=== PATIENT | female | born 1955 | race Caucasian/White ===

== ENCOUNTER → 2021-02-21 | Outpatient (CLI) | payer BC ==
--- NOTE | 2021-02-21 18:04 | Diagnostic Imaging Report ---
INDICATION: Pain. FINDINGS: There is a nondisplaced intra-articular fracture of the distal radius. There is no other fracture or dislocation. There are degenerative changes in the mid carpal joints. Soft tissues are grossly unremarkable. IMPRESSION: Nondisplaced intra-articular fracture of the distal radius. Dictated by: Dictated on workstation # [id number]
--- NOTE | 2021-02-21 18:44 | Diagnostic Imaging Report ---
INDICATION: Pain. Two views of the right forearm were obtained. FINDINGS: There is a nondisplaced radial styloid fracture. There is no other fracture or dislocation. Soft tissues are unremarkable. IMPRESSION: Findings suspect for nondisplaced radial styloid fracture. Dictated by: Dictated on workstation # [id number]
== END ==
LOC: RAD FS 17:22
PROVIDERS: ATTEND Nurse Practitioner
DX: S52.571A Other intraarticular fracture of lower end of right radius, initial encounter for closed fracture (principal); X58.XXXA Exposure to other specified factors, initial encounter
CPT/HCPCS: 73090; 73110

== ENCOUNTER 2022-12-27 04:05 | Inpatient (IN) | payer MEDICARE, OTHER ==
[~2022-12-27] VITALS: Ht 175.3 cm; Wt 97.2 kg
--- NOTE | 2022-12-27 13:15 | Occupational Therapy Eval ---
OT Evaluation-General/PLF Medical Diagnosis Admission Date Medical Diagnosis: MMT; R scapula/acromion fx Onset Date: December 19, 2022 Therapy Diagnosis Therapy Diagnosis: decreased ADL status Weight Bear Status Weight Bearing Restriction: Non Weight Bearing Location Restriction: R UE Referral Physician: Sara Bobo Reason: Evaluation/Treatment Medical History Additional Medical History no significant PMH Current History ED 12/19/22 after fall down basement stairs, landing on head and R side. Found to havce R scapula fx, R acromion fx, R 3-11 fxs with tiny apical pneumothorax, scalp laceration. RUE immobilizer and NWB. Transfer to [facility] [address] 12/27/22 Social History Home: Multilevel Current Living Status: Spouse Entry Into Home: Stairs With Railing (b/l hand rails) Steps Into Home: 3 Can live on main level, bedroom, bathroom, kitchen, laundry. Upstairs is extra loft area and guest rooms. She has a full basement, doesn't need to access. ADL-Prior Level of Function SCALE: Activities may be completed with or without assistive devices. 4-Afwsxakpab-dmdxyge completes the activity by him/herself with no assistance from a helper. 5-Set-up or Clean-up Assistance-helper sets up or cleans up; patient completes activity. [place] assists only prior to or following the activity. 4-Supervision or Touching Assistance-helper provides verbal cues and/or touchin g/steadying and/or contact guard assistance as patient completes activity. Assistance may be provided throughout the activity or intermittently. 3-Partial/Moderate Assistance-helper does LESS THAN HALF the effort. [place] lifts, holds or supports trunk or limbs, but provides less than half the effort. 2-Substantial/Maximal Assistance-helper does MORE THAN HALF the effort. [place] lifts or holds trunk or limbs and provides more than half the effort. 4-Afsedobsn-ctpdmb does ALL the effort. Patient does none of the effort to complete the activity. Or, the assistance of 2 or more helpers is required for the patient to complete the activity. If activity was not attempted, code reason: 7-Patient Refused. 9-Not Applicable-not attempted and the patient did not perform the activity before the current illness, exacerbation or injury. 10-Not Attempted due to Environmental Limitations-(lack of equipment, weather restraints, etc.). 88-Not Attempted due to Medical Conditions or Safety Concerns. ADL PLOF Comments Pt reports IND with ADLS and functional mobility, no AD. Self Care: Independent Functional Cognition: Independent DME/Equipment: Shower Drive Self: Yes OT Current Status Subjective Pt agreeable to OT evaluation. 5/10 pain in R shoulder blade and rib. Mental Status/Objective Patient Orientation: Person, Place, Time, Situation Current Glasses/Contacts: Yes Hearing Aids: No Dentures/Partials: No Hand Dominance: Left Upper Extremity ROM RUE not tested due to shoulder immobilizer, WFL at wrist/fingers. Upper Extremity Coordination WFL at hands Upper Extremity Sensation WFL Upper Extremity Strength RUE not tested due to shoulder immobilizer, WFL desulfurizer hand LUE grossly 4/5 ADL-Treatment Eating (QC): 5 (set up with containers.) Oral Hygiene (QC): 6 Shower/Bathe Self (QC): 3 Upper Body Dressing (QC): 2 Lower Body Dressing (QC): 4 (CGA) On/Off Footwear (QC): 3 (mod A) Toileting Hygiene (QC): 4 (CGA) Other Treatments Pt provided information about PLOF and home set up. Pt performed functional mobility to bathroom using SPC, CGA, CGA sit onto toilet. Pt completed toileting with CGA, then stood from toilet using GBs with SBA. Pt stood at sink for hand hygiene with SBA, then returned to recliner, no AD, CGA. Pt ate lunch, set up to open containers. Post tx, pt seated in recliner, PT present, all needs met. Education OT Patient Education: Correct positioning, Energy conservation, Modified ADL techniques, Progress toward Goal/Update tx plan, Purpose of tx/functional activities, Rehab process Teaching Recipient: Patient Teaching Methods: Discussion Response to Teaching: Verbalize Understanding BIMS CAM BIMS Expression of Ideas and Wants: Without Difficulty Understanding Verbal Content: Understands Brief Interview/Mental Status: Yes IRF JAVY BIMS: IRF JAVY BIMS Response (Comments) Value Repitition of Three Words Three 3 Recalls Socks Yes, No Cue Required 2 Recalls Blue Yes, No Cue Required 2 Recalls Bed Yes, No Cue Required 2 Year Correct 3 Month Accurate Within 5 Days 2 Day Correct 1 Total [address] Mental [address] No CAM Mental Status Change/Baseline: 0 Inattention: 0 Disorganized thinkin Altered level of consciousness: 0 OT Longterm Goals Powder Coater Goals Time Frame: Jan 12, 2023 Eating (QC): 6 Oral Hygiene (QC): 6 Toileting Hygiene (QC): 6 Shower/Bathe Self (QC): 6 Upper Body Dressing (QC): 6 Lower Body Dressing (QC): 6 On/Off Footwear (QC): 6 Additional Goals: 1-Demonstrate ADL Tasks, 2-Verbalize Understanding, 3- ImproveStrength/Oral 1=Demonstrate adherence to instructed precautions during ADL tasks. 2=Patient will verbalize/demonstrate understanding of assistive devices/modifications for ADL. 3=Patient will improve strength/tolerance for activity to enable patient to perform ADL's. OT Education/Plan Problem List/Assessment Assessment: Decreased Activ Tolerance, Decreased UE Strength, Impaired Funct Balance, Impaired I ADL's, Impaired Self-Care Skills, Restricted Funct UE ROM Discharge Recommendations Plan/Recommendations: Continue POC Equpiment Recommendations-D/C: Bath Chair Treatment Plan/Plan of Care Patient would benefit from OT for education, treatment and training to promote independence in ADL's, mobility, safety and/or upper extremity function for ADL's. Plan of Care: ADL Retraining, Functional Mobility, Group Exercise/Act as Ind, UE Funct Exercise/Act Treatment Duration: Jan 12, 2023 Frequency: At least 5 of 7 days/Wk (IRF) Estimated Hrs Per Day: 1.5 hours per day Agreement: Yes Rehab Potential: Good Time Start Time: 13:05 Stop Time: 13:20 DATE: December 27, 2022 Total Time Billed (hr/min): 15 Billed Treatment Time TRICIA Pabon ADDISON OT December 27, 2022 13:15
--- OUTSIDE RECORDS SUMMARY | 2022-12-27 13:16 | XMS REPORT | Encounter Summary ---
Author Author [facility] Organization [facility] Address Unknown Phone Unavailable Care Team Providers Care Pedal Assembler Name Role Phone No Pcp, Na PCP Unavailable Reason for Visit * Auth/Cert (Routine) Diagnoses / Procedures Referred By Contact Referred To Conta ct Specialty Diagnoses Trauma Referral ID Status Reason Start Date Expiration Visits Vi sits Date Requested Authorized [id number] 1 1 Encounter Details Care Team Description Date Type Department Carloz De Dios MD [address] [place] [address] 12/20/2022 Anesthesia Intensive Care Unit [id number]: 9:41 PM Event [facility] CDT [address] [facility] [address] [place] [address] Anesthesia Record Responsible Anesthesiologist Anesthesia Start Time Anesthesi a Stop Time Procedure Name ANESTHESIA EPIDURAL BLOCK No events on file. Meds Name Total lidocaine 1.5% /EPINEPHrine 1:200,000 5 mL epidural test dose (5 mL amp) lidocaine PF 1% (10 mg/mL) injection 5 mL lidocaine PF 1% (10 mg/mL) injection 3 mL * No agents on file. * No blood administrations on file. Removal Type Details Placement 12/25/22 1100 by Quyen Aburto MD Epidural 12/20/22; 2119 (created via procedure 12/20/222119 by amanda De Dios); 12/25/22; 1099 (Removed MD Carloz with blue tip intact) documented in this encounter Social History Date Tobacco Use Types Packs/Day Years Used Smoking Tobacco: Never Smokeless Tobacco: Never Date Recorded Alcohol Use Answer Alcohol Use Not on file Male: 9+ ounces (15+ Standard Drinks) per week Not o n file Threshold Female: 4.8+ ounces (8+ Standard Drinks) per week 0 Threshold Date Recorded Sex and Gender Information Value 12/19/2022 6:29 PM CDT Sex Assigned at Female 12/19/2022 6:29 PM CDT Gender Identity Female Sexual Orientation Not on file Date Recorded COVID-19 Exposure Response 12/19/2022 6:19 PM CDT In the last 10 days, have you been in contact with N o / Unsure someone who was confirmed or suspected to have Coronavirus/COVID-19? documented as of this encounter Functional Status Date of Assessment Functional Status Response 12/19/2022 Does the patient have a hearing impairment: No documented as of this encounter OR Notes * Anesthesia Procedure Notes - Magdalena Bhatti MD - 12/20/2022 9:41 PM CDT Associated Order(s): EPIDURAL BLOCK Anesthesia Procedure: Epidural Block EPIDURAL BLOCK Date/Time: 12/20/2022 9:20 PM Patient location: ICU Reason for block: post-op pain management Preprocedure checklist performed: 2 patient identifiers, risks & benefits discussed, patient evaluated, timeout performed, consent obtained, patient being monitored, existing labs reviewed, no anticoagulant within risk period and sterile drape Sterile technique: - Proper hand washing - Cap, mask - Sterile gloves - Skin prep for antisepsis Epidural Procedure Patient position: sitting Prep: ChloraPrep Monitoring: BP, EKG and continuous pulse ox Approach: midline Location: thoracic Level/Interspace: T7-8 Injection technique: SEBAS saline Procedures: landmark technique Number of attempts: 1 Needle/epidural catheter: Needle type: Tuohy Needle gauge: 17 G Needle length: 3.5 in Needle insertion depth: 7 cm Catheter type: wire reinforced and multi orifice Catheter size: 19 G Catheter at skin depth: 12 cm Procedure Outcome Events: negative test dose, no paresthesia and negative aspiration test Patient tolerance of procedure: patient tolerated the procedure well with no imm ediate complications} Procedure Medications Local Anesthesia: lidocaine PF 1% (10 mg/mL) injection - Injection 5 mL - 12/20/2022 9:20:00 PM Test Dose: lidocaine 1.5% /EPINEPHrine 1:200,000 epidural test dose (5 mL amp) - SEE ADMIN INSTRUCTIONS 5 mL - 12/20/2022 9:20:00 PM Bolus Dose: lidocaine PF 1% (10 mg/mL) injection - Epidural 3 mL - 12/20/2022 9:20:00 PM Refer to nursing documentation for vitals and monitoring data during procedure. Performed by: Carloz De Dios MD Authorized by: Magdalena Bhatti MD ATTESTATION I was present for entire procedure peformed by resident/CHRISTIAN COUNSELOR/SRNA Staff name: Magdalena Bhatti MD Date: 12/20/2022 documented in this encounter Plan of Treatment Not on filedocumented as of this encounter Goals Goal Patient Associated Recent Progress Patient-Stat Aut hor Goal Type Problems ed? [facility] On track (12/20/2022 No Robert meza, 2:15 AM CDT) CHUY Rob documented as of this encounter Procedures Comments Procedure Name Priority Date/Time Associated Diag nosis ANESTHESIA EPIDURAL BLOCK Routine 12/20/2022 9:20 PM CDT documented in this encounter Results * ANESTHESIA EPIDURAL BLOCK (12/20/2022 9:20 PM CDT) Narrative Magdalena Bhatti MD - 12/20/2022 9:20 PM CDT Magdalena Bhatti MD 12/20/2022 9:50 PM Anesthesia Procedure: Epidural Block EPIDURAL BLOCK Date/Time: 12/20/2022 9:20 PM Patient location: ICU Reason for block: post-op pain management Preprocedure checklist performed: 2 patient identifiers, risks & benefits discussed, patient evaluated, timeout performed, consent obtained, patient being monitored, existing labs reviewed, no anticoagulant within risk period and sterile drape Sterile technique: - Proper hand washing - Cap, mask - Sterile gloves - Skin prep for antisepsis Epidural Procedure Patient position: sitting Prep: ChloraPrep Monitoring: BP, EKG and continuous pulse ox Approach: midline Location: thoracic Level/Interspace: T7-8 Injection technique: SEBAS saline Procedures: landmark technique Number of attempts: 1 Needle/epidural catheter: Needle type: Tuohy Needle gauge: 17 G Needle length: 3.5 in Needle insertion depth: 7 cm Catheter type: wire reinforced and multi orifice Catheter size: 19 G Catheter at skin depth: 12 cm Procedure Outcome Events: negative test dose, no paresthesia and negative aspiration test Patient tolerance of procedure: patient tolerated the procedure well with no immediate complications} Procedure Medications Local Anesthesia: lidocaine PF 1% (10 mg/mL) injection - Injection 5 mL - 12/20/2022 9:20:00 PM Test Dose: lidocaine 1.5% /EPINEPHrine 1:200,000 epidural test dose (5 mL amp) - SEE ADMIN INSTRUCTIONS 5 mL - 12/20/2022 9:20:00 PM Bolus Dose: lidocaine PF 1% (10 mg/mL) injection - Epidural 3 mL - 12/20/2022 9:20:00 PM Refer to nursing documentation for vitals and monitoring data during procedure. Performed by: Carloz De Dios MD Authorized by: Magdalena Bhatti MD Magdalena Bhatti MD ANESTHESIA ORDERABLES documented in this encounter Visit Diagnoses * Addendum Note - Magdalena Bhatti MD - 12/20/2022 9:50 PM CDT Addendum created 12/20/222149 by Magdalena Bhatti MD Clinical Note Signed, Diagnosis association updated, LDA updated via procedure documentation documented in this encounter Administered Medications Action Date Dose Rate Site Medication Order MAR Action 12/20/2022 9:20 PM CDT 5 mL lidocaine 1.5%/EPINEPHrine 1:200,000 Given injection SEE ADMIN INSTRUCTIONS, Starting on Sun12/20/22 at 2119, Until Sun12/20/22 at 2119, Anesthesia Intra-op 12/20/2022 9:20 PM CDT 5 mL lidocaine PF 1% (10 mg/mL) injection Given Injection, Starting on Sun12/20/22 at 2119, Until Sun12/20/22 at 2119, Anesthesia Intra-op 12/20/2022 9:20 PM CDT 3 mL lidocaine PF 1% (10 mg/mL) injection Given Epidural, Starting on Sun12/20/22 at 2119, Until Sun12/20/22 at 2119, Anesthesia Intra-op documented in this encounter Additional Health Concerns Noted Time Assessment 12/20/2022 8:00 PM CDT A fall risk assessment has been complet ed for the patient documented as of this encounter Care Teams Start Date End Date Pedal Assembler Relationship Specialty 12/19/22 No Pcp, Na PCP - General documented as of this encounter
--- OUTSIDE RECORDS SUMMARY | 2022-12-27 13:16 | XMS REPORT | Encounter Summary ---
Author Author [facility] Organization [facility] Address Unknown Phone Unavailable Care Team Providers Care Stitchdowns Toe Former Name Role Phone No Pcp, Na PCP Unavailable Reason for Visit * Auth/Cert (Routine) Diagnoses / Procedures Referred By Contact Referred To Conta ct Specialty Diagnoses Trauma Referral ID Status Reason Start Date Expiration Visits Vi sits Date Requested Authorized [id number] 1 1 Encounter Details Care Team Description Date Type Department Eric Gutierrez, ADMINISTRATIVE OFFICE SPECIALIST-CLINICAL TRIALS SPECIALIST [address] [place] [address] Arrived 12/27/2022 Hospital Cardiology: Center for 12:02 PM Encounter [facility] CDT [address] [facility], [address] [place] [address] Social History Date Tobacco Use Types Packs/Day [...] on file Date Recorded COVID-19 Exposure Response 12/27/2022 12:02 PM CDT In the last 10 days, have you been in contact with Jean Claude hickman to assess someone who was confirmed or suspected to have Coronavirus/COVID-19? documented as of this encounter Functional Status Date of Assessment Functional Status Response 12/27/2022 Does the patient have a hearing impairment: No 12/27/2022 Does the patient have a visual impairment: No 12/27/2022 Does the patient have impaired ambulation: No 12/27/2022 Does the patient have an activity of daily living Ye s (ADL) impairment: 12/27/2022 Does the patient have an instrumental activity of Ye s daily living (IADL) impairment: Date of Assessment Cognitive Status Response 12/27/2022 Does the patient have a cognitive impairment: No documented as of this encounter Plan of Treatment Not on filedocumented as of this encounter Goals Goal Patient Associated Recent Progress Patient-Stat Aut hor Goal Type Problems ed? [facility] On track (12/20/2022 No Robert meza, 2:15 AM CDT) CHUY Rob documented as of this encounter Visit Diagnoses Not on filedocumented in this encounter Orders First Ordered Date Imaging Orders Without Results Count Last Or dered Date LONG-TERM CENTRAL OFFICE TROUBLE SHOOTER 1 12/21/2022 documented in this encounter Additional Health Concerns Noted Time Assessment 12/27/2022 8:10 AM CDT A fall risk assessment has been complet ed for the patient documented as of this encounter Care Teams Start Date End Date Stitchdowns Toe Former Relationship Specialty 12/19/22 No Pcp, Na PCP - General documented as of this encounter
--- OUTSIDE RECORDS SUMMARY | 2022-12-27 13:16 | XMS REPORT | Clinical Summary ---
Author Author [facility] Organization [facility] Address Unknown Phone Unavailable Care Team Providers Care Motion Picture Set Worker Name Role Phone No Pcp, Na PCP Unavailable Source Comments Some departments are not documenting in the electronic medical record. If you d o not see the information that you expected, contact Release of Information in [facility] Health Information Management department at [phone] for further assistan ce in locating additional records.[facility] Allergies Comments Active Allergy Reactions Criticality Noted Date Pt states she "codes" Morphine ANAPHYLAXIS High 12/19/2022 Medications End Date Status Medication Sig Dispensed Refills Start Date Active hypromellose/dextran Apply one 0 (OCUCOAT) drop drop to both eyes every 6 hours as needed. Active cetirizine (ZYRTEC) 10 mg Take one 0 tablet tablet by mouth daily as needed for Allergy symptoms. Active other medication Rite Start 0 4Life Women's Multivitamin pack: Take contents of one pack by mouth once daily Active other medication Alexandria XL 0 (Mussel, [place] Oil, Vitamin E): Take 2 capsules by mouth once daily Active senna (SENOKOT) 8.6 mg Take one 180 tablet 0 tablet tablet by 3 mouth twice daily. Active polyethylene glycol 3350 Take one 12 each 0 0 (MIRALAX) 17 g packet packet by 3 mouth daily. Active methocarbamoL (ROBAXIN) Take one 15 tablet 0 750 mg tablet tablet by 3 mouth three times daily. Active melatonin (MELATIN) 3 mg Take one 90 tablet 0 0 tablet tablet by 3 mouth at bedtime daily. Active lidocaine (LIDODERM) 5 % Apply one 90 patch 0 0 topical patch patch 3 topically to affected area daily. Apply patch for 12 hours, then remove for 12 hours before repeating. Active celecoxib (CELEBREX) 200 Take one 30 capsule 0 0 mg capsule capsule by 3 mouth twice daily. 01/10/2023 Active gabapentin (NEURONTIN) Take one 28 capsule 0 100 mg capsule capsule by 3 mouth three times daily for 7 days, THEN one capsule daily for 7 days. 01/10/2023 Active acetaminophen (TYLENOL Take two 45 tablet 0 EXTRA STRENGTH) 500 mg tablets by 3 tablet mouth every 6 hours while awake for 7 days, THEN one tablet to two tablets every 6 hours as needed for up to 7 days. Max of 4,000 mg of acetaminophen in 24 hours. Active oxyCODONE (ROXICODONE) 5 Take one 0 12/27 mg tablet tablet to two 3 tablets by mouth every 4-6 hours as needed. Active naloxone (NARCAN) 4 Insert 1 2 each 0 mg/actuation nasal spray spray into 1 3 nostril as needed for signs of opioid overdose then call 911. May repeat dose every 2-3 minutes (alternate nostrils) until medical team arrives. 12/27/2022 Discontinued naproxen sodium (ALEVE) Take two 0 220 mg tablet tablets by mouth daily. Take with food. 12/27/2022 Discontinued melatonin 10 mg tablet Take one 0 tablet by mouth at bedtime as needed. Active Problems Problem Noted Date Diagnosed Date Multiple rib fractures 12/20/2022 Sleep disturbances 12/20/2022 Acute traumatic pain 12/20/2022 Acute blood loss anemia 12/20/2022 Leukocytosis 12/20/2022 Scalp laceration 12/20/2022 Impaired mobility and activities of daily living Scapular fracture 12/20/2022 Pneumothorax 12/20/2022 Closed fracture of acromion 12/20/2022 Trauma 12/19/2022 Encounters Care Team Description Date Type Department Eric Gutierrez APRN-NP Arrived 12/27/2022 Hospital Cardiology: [facility] 12:02 PM [facility]counter [facility] [address] [facility], [address] [place] [address] 12/27/2022 Travel [facility] Job Titles Home Enrollme nt 12/27/2022 Documentation Cardiology: [facility] [address], [address] [place] [phone] Carloz De Dios MD 12/20/2022 Anesthesia Intensive Care Unit [id number]: 9:41 PM Event [facility] CDT [address] [facility] [place] [id number] Jefferson Mary MD Turner, Scott A, MD Winfield, Robert D, MD Trauma Discharge Disposition: Home or Self Care 12/19/2022 Hospital Patient Care Unit B H51: 4:09 PM Encounter [facility] CDT - [address] [facility] 12/27/2022 Level 5 10:46 AM [place] CDT [id number] 12/19/2022 Travel from Last 3 Months Immunizations Name Administration Dates Next Due Tdap Vaccine 12/19/2022, 12/19/2022 () Medical History Medical History Date Comments Obesity Social History Date Tobacco Use Types Packs/Day Years Used Smoking Tobacco: Never Smokeless Tobacco: Never Tobacco Cessation: Counseling Given: Not Answered Date Recorded Alcohol Use Answer Alcohol Use [...] was confirmed or suspected to have Coronavirus/COVID-19? Obstetrics History Last Filed Vital Signs Reading Time Taken Comments Vital Sign 109/65 12/27/2022 9:36 AM CDT Blood Pressure 73 12/27/2022 9:36 AM CDT Pulse 36.4 C (97.6 F) 12/27/2022 9:36 AM CDT Temperature - - Respiratory Rate 95% 12/27/2022 9:36 AM CDT Oxygen Saturation - - Inhaled Oxygen Concentration 102.7 kg (226 lb 6.6 oz) 12/20/2022 2:41 PM CDT Weight 175.3 cm (5' 9.02") 12/20/2022 2:41 PM CDT Height 33.42 12/20/2022 2:41 PM CDT Body Mass Index Plan of Treatment Health Maintenance Due Date Last Done Comments MEDICARE ANNUAL WELLNESS 1955 VISIT HEPATITIS C SCREENING 1974 PHYSICAL (COMPREHENSIVE) 1974 EXAM BREAST CANCER SCREENING 1996 COLORECTAL CANCER 2001 SCREENING OSTEOPOROSIS 2021 SCREENING/MONITORING ADVANCED CARE PLANNING 07/30/2022 DISCUSSION AND DOCUMENTATION DEPRESSION SCREENING 07/30/2022 DTAP/TDAP VACCINES (3 - 12/19/2032 12/19/2022, Td or Tdap) 01/22/2012 SHINGLES RECOMBINANT Completed 08/28/2021, VACCINE 06/17/2021 PNEUMOCOCCAL VACCINE 65+ Completed 11/13/2021 YRS COVID-19 VACCINE Completed 05/06/2022, 11/13/2021, 06/17/2021, Additional history exists INFLUENZA VACCINE Completed 05/06/2022, 04/23/2021 Goals Goal Patient Associated Recent Progress Patient-Stat Aut hor Goal Type Problems ed? 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 Procedure Name Priority Date/Time Associated Diag nosis HC 25-OH VITAMIN D Routine 12/21/2022 3:10 AM CDT HC HEMOGLOBIN A1C Routine 12/21/2022 3:10 AM CDT HC Routine 12/21/2022 LIPID-5:CHOL/TRG/HDL/LDL+ 3:10 AM CDT VLDL HC VITAMIN B12 STAT 12/21/2022 3:10 AM CDT HC PHOSPHOROUS, SERUM Routine 12/21/2022 3:10 AM CDT HC MAGNESIUM Routine 12/21/2022 3:10 AM CDT HC CBC,AUTOMATED Routine 12/21/2022 3:10 AM CDT HC BASIC METABOLIC PANEL Routine 12/21/2022 3:10 AM CDT ANESTHESIA EPIDURAL BLOCK Routine 12/20/2022 9:20 PM CDT US DOPPLER VENOUS Routine 12/20/2022 BILATERAL 3:45 PM CDT 2D + DOPPLER ECHO W/ Routine 12/20/2022 CONTRAST 2:41 PM CDT CHEST SINGLE VIEW STAT 12/20/2022 10:27 AM CDT HC PHOSPHOROUS, SERUM Routine 12/20/2022 6:22 AM CDT HC MAGNESIUM Routine 12/20/2022 6:22 AM CDT HC CBC,AUTOMATED Routine 12/20/2022 6:22 AM CDT HC BASIC METABOLIC PANEL Routine 12/20/2022 6:22 AM CDT SCAPULA RIGHT STAT 12/19/2022 8:[address] UPPER EXTREM WO CONT STAT 12/19/2022 RIGHT 8:35 PM CDT WRIST COMP MIN 3 VIEWS STAT 12/19/2022 LEFT 7:27 PM CDT HAND MIN 3 VIEWS LEFT STAT 12/19/2022 7:27 PM CDT HC HIGH SENSITIVITY STAT 12/19/2022 TROPONIN I 2 HOUR 6:44 PM CDT FOREARM 2 VIEWS RIGHT STAT 12/19/2022 5:52 PM CDT ECG 12-LEAD STAT 12/19/2022 5:27 PM CDT HAND MIN 3 VIEWS RIGHT STAT 12/19/2022 5:24 PM CDT HUMERUS MIN 2 VIEWS RIGHT STAT 12/19/2022 5:23 PM CDT ELBOW MIN 3 VIEWS RIGHT STAT 12/19/2022 5:23 PM CDT SHOULDER MIN 2 VIEWS STAT 12/19/2022 RIGHT 5:22 PM CDT HC BLOOD TYPING, ABO STAT 12/19/2022 CONFIRM 91 5:[address] ABD/PELV W CONTRAST STAT 12/19/2022 4:[address] CHEST W CONTRAST STAT 12/19/2022 4:[address] SPINE CERVICAL WO STAT 12/19/2022 CONTRAST 4:[address] HEAD WO CONTRAST STAT 12/19/2022 4:38 PM CDT HC CREATININE, POC 12/19/2022 4:32 PM CDT TYPE & CROSSMATCH STAT 12/19/2022 4:25 PM CDT HC HIGH SENSITIVITY STAT 12/19/2022 TROPONIN I 0 HOUR 4:25 PM CDT HC COMPREHENSIVE STAT 12/19/2022 METABOLIC PANEL 4:25 PM CDT HC CBC W/ AUTOMATED DIFF STAT 12/19/2022 4:25 PM CDT TELEMETRY STRIPS-SCAN 12/19/2022 12:00 AM CDT from Last 3 Months Results * 25-OH VITAMIN D (D2 + D3) (12/21/2022 3:10 AM CDT) Pathologist Signature Component Value Ref Test Method Analysis Performed A t Range Time Vitamin 32.5 30 - 80 12/21/2022 [facility] DEPT PAT H AND D(25-OH)Total NG/ML 12:31 PM LAB MEDICINE CDT Anatomical Location / Laterality Collection Method / Volume Quinn ection Time Received Time Specimen (Source) BLOOD / Unknown 12/21/2022 3:10 AM CDT 12/22/19 23 3:19 AM CDT Eric Gutierrez LABORATORY ORDERABLES TRANSIT SURVEY WORKER-CHANNELING MACHINE RUNNER City/State/ZIP Code Phone Number Performing [place] [address] [facility] DEPT PATH AND [address] [facility]. LAB MEDICINE * (ABNORMAL) CBC (12/21/2022 3:10 AM CDT) Only the most recent of 2 results within the time period is included. Pathologist Signature Component Value Ref Test Method Analysis Performed A t Range Time White Blood Cells 6.0 4.5 - 12/21/2022 [facility] DE PT PATH AND 11.0 3:24 AM LAB MEDICINE K/UL CDT RBC 3.51 (L) 4.0 - 12/21/2022 [facility] DEPT PAT H AND 5.0 M/UL 3:24 AM LAB MEDICINE CDT Hemoglobin 10.7 (L) 12.0 - 12/21/2022 [facility] DE[facility] PAT H AND 15.0 3:24 AM LAB MEDICINE GM/DL CDT Hematocrit 31.2 (L) 36 - 45 12/21/2022 [facility] DE[facility] PAT H AND % 3:24 AM LAB MEDICINE CDT MCV 88.7 80 - 100 12/21/2022 [facility] DE[facility] PAT H AND FL 3:24 AM LAB MEDICINE CDT MCH 30.4 26 - 34 12/21/2022 [facility] DE[facility] PAT H AND PG 3:24 AM LAB MEDICINE CDT MCHC 34.3 32.0 - 12/21/2022 [facility] DEPT PAT H AND 36.0 3:24 AM LAB MEDICINE G/DL CDT RDW 13.8 11 - 15 12/21/2022 [facility] PAT H AND % 3:24 AM LAB MEDICINE CDT Platelet Count 157 150 - 12/21/2022 [facility] DEPT PATH AND 400 K/UL 3:24 AM LAB MEDICINE CDT MPV 8.1 7 - 11 12/21/2022 [facility] DEPT PAT H AND FL 3:24 AM LAB MEDICINE CDT Anatomical Location / Laterality Collection Method / Volume Quinn ection Time Received Time Specimen (Source) BLOOD / Unknown 12/21/2022 3:10 AM CDT 05/25/20 23 3:19 AM CDT Jonathan Gaona MD LABORATORY ORDERABLES [facility]/ZIP Code Phone Number Performing [place] [address] [employer] DEPT PATH AND [address] LAB MEDICINE * PHOSPHORUS (12/21/2022 3:10 AM CDT) Only the most recent of 2 results within the time period is included. Pathologist Signature Component Value Ref Test Method Analysis Performed A t Range Time Phosphorus 3.0 2.0 - 12/21/2022 [facility] DEPT PAT H AND 4.5 3:57 AM LAB MEDICINE MG/DL CDT Anatomical Location / Laterality Collection Method / Volume Quinn ection Time Received Time Specimen (Source) BLOOD / Unknown 12/21/2022 3:10 AM CDT 12/22/19 23 3:19 AM CDT Jonathan Gaona MD LABORATORY ORDERABLES [facility]/ZIP Code Phone Number Performing [place] [address] [email or web address] DEPT PATH AND [address] [facility] LAB MEDICINE * MAGNESIUM (12/21/2022 3:10 AM CDT) Only the most recent of 2 results within the time period is included. Pathologist Signature Component Value Ref Test Method Analysis Performed A t Range Time Magnesium 2.3 1.6 - 12/21/2022 [facility] DEPT PAT H AND 2.6 3:57 AM LAB MEDICINE mg/dL CDT Anatomical Location / Laterality Collection Method / Volume Quinn ection Time Received Time Specimen (Source) BLOOD / Unknown 12/21/2022 3:10 AM CDT 12/22/19 23 3:19 AM CDT Jonathan Gaona MD LABORATORY ORDERABLES [facility]/ZIP Code Phone Number Performing [place] [address] [email or web address] DEPT PATH AND [address] LAB MEDICINE * HEMOGLOBIN A1C (12/21/2022 3:10 AM CDT) Pathologist Signature Component Value Ref Test Method Analysis Performed A t Range Time Hemoglobin A1C 5.4 4.0 - 12/21/2022 [facility] DEPT PATH AND 5.7 % 10:19 AM LAB MEDICINE CDT Comment: The ADA recommends that most patients with type 1 and type 2 diabetes maintain an A1c level <7%. Anatomical Location / Laterality Collection Method / Volume Quinn ection Time Received Time Specimen (Source) BLOOD / Unknown 12/21/2022 3:10 AM CDT 12/22/19 3:19 AM CDT Eric Gutierrez LABORATORY ORDERABLES TRANSIT SURVEY WORKER-[facility]/State/ZIP Code Phone Number Performing [place] [address] [facility] AND [address] LAB MEDICINE * VITAMIN B12 (12/21/2022 3:10 AM CDT) Pathologist Signature Component Value Ref Test Method Analysis Performed A t Range Time Vitamin B12 228 180 - 12/21/2022 [facility] DEPT PAT H AND 914 4:21 AM LAB MEDICINE PG/ML CDT Anatomical Location / Laterality Collection Method / Volume Quinn ection Time Received Time Specimen (Source) BLOOD / Unknown 12/21/2022 3:10 AM CDT 12/22/19 3:19 AM CDT Eric Gutierrez LABORATORY ORDERABLES TRANSIT SURVEY WORKER-CHANNELING MACHINE RUNNER [facility]/ZIP Code Phone Number Performing [place] [address] [facility] AND [address] LAB MEDICINE * LIPID PROFILE (12/21/2022 3:10 AM CDT) Pathologist Signature Component Value Ref Test Method Analysis Performed A t Range Time Cholesterol 164 <200 12/21/2022 [facility] DEPT PAT H AND MG/DL 3:57 AM LAB MEDICINE CDT Triglycerides 107 <150 12/21/2022 [facility] DEPT P ATH AND MG/DL 3:57 AM LAB MEDICINE CDT HDL 57 >40 12/21/2022 [facility] DEPT PAT H AND MG/DL 3:57 AM LAB MEDICINE CDT LDL 90 <100 12/21/2022 [facility] DEPT PAT H AND mg/dL 3:57 AM LAB MEDICINE CDT VLDL 21 MG/DL 12/21/2022 [facility] DEPT PAT H AND 3:57 AM LAB MEDICINE CDT Non HDL Cholesterol 107 MG/DL 12/21/2022 [facility] DEPT PATH AND 3:57 AM LAB MEDICINE CDT Comment: Calculated non-HDL Cholesterol (non-HDL-C) indirectly measures LDL-C, Lp(a), IDL-C, and VLDL-C. It is a surrogate marker for Apoprotein B. Goal should be less than 130 mg/dL. Anatomical Location / Laterality Collection Method / Volume Quinn ection Time Received Time Specimen (Source) BLOOD / Unknown 12/21/2022 3:10 AM CDT 12/22/19 3:19 AM CDT Eric Gutierrez LABORATORY ORDERABLES TRANSIT SURVEY WORKER-CHANNELING MACHINE RUNNER City/State/ZIP Code Phone Number Performing [place] [address] [facility] DEPT PATH AND [address] LAB MEDICINE * (ABNORMAL) BASIC METABOLIC PANEL (12/21/2022 3:10 AM CDT) Only the most recent of 2 results within the time period is included. Pathologist Signature Component Value Ref Test Method Analysis Performed A t Range Time Sodium 139 137 - 12/21/2022 [facility] DEPT PAT H AND 147 3:57 AM LAB MEDICINE MMOL/L CDT Potassium 4.2 3.5 - 12/21/2022 [facility] DEPT PAT H AND 5.1 3:57 AM LAB MEDICINE MMOL/L CDT Chloride 107 98 - 110 12/21/2022 [facility] DEPT PAT H AND MMOL/L 3:57 AM LAB MEDICINE CDT CO2 27 21 - 30 12/21/2022 [facility] DEPT PAT H AND MMOL/L 3:57 AM LAB MEDICINE CDT Anion Gap 5 3 - 12 12/21/2022 [facility] DEPT PAT H AND 3:57 AM LAB MEDICINE CDT Glucose 119 (H) 70 - 100 12/21/2022 [facility] DEPT PAT H AND MG/DL 3:57 AM LAB MEDICINE CDT Blood Urea Nitrogen 18 7 - 25 12/21/2022 [facility] DEPT PATH AND MG/DL 3:57 AM LAB MEDICINE CDT Creatinine 0.68 0.4 - 12/21/2022 [facility] DEPT PAT H AND 1.00 3:57 AM LAB MEDICINE MG/DL CDT Calcium 7.9 (L) 8.5 - 12/21/2022 [facility] DEPT PAT H AND 10.6 3:57 AM LAB MEDICINE MG/DL CDT eGFR >60 >60 12/21/2022 [facility] DEPT PAT H AND mL/min 3:57 AM LAB MEDICINE CDT Comment: eGFR calculated using the CKD-EPIcr_R equation Anatomical Location / Laterality Collection Method / Volume Quinn ection Time Received Time Specimen (Source) BLOOD / Unknown 12/21/2022 3:10 AM CDT 12/22/19 3:19 AM CDT Jonathan Gaona MD LABORATORY ORDERABLES City/State/ZIP Code Phone Number Performing [place] [address] [facility] AND [address] [facility] MEDICINE * ANESTHESIA EPIDURAL BLOCK (12/20/2022 9:20 PM [...] Bhatti MD Magdalena Bhatti MD ANESTHESIA ORDERABLES * US DOPPLER VENOUS BILATERAL (12/20/2022 3:45 PM CDT) Modality Anatomical Region Laterality Ultrasound VASCULAR Bilateral Anatomical Location / Laterality Collection Method / Volume Quinn ection Time Received Time Specimen (Source) 12/20/2022 3:49 PM CDT Bilateral Impressions 12/20/2022 4:00 PM CDT No DVT in either lower extremity. By my electronic signature, I attest that I have personally reviewed the images for this examination and formulated the interpretations and opinions expressed in this report Finalized by Adan Coe M.D. on 12/20/2022 4:00 PM. Dictated by Jayden Best MD on 12/20/2022 3:49 PM. Narrative 12/20/2022 4:00 PM CDT BILATERAL LOWER EXTREMITY VENOUS DOPPLER ULTRASOUND CLINICAL INDICATION: Female, 67 years; swelling. TECHNIQUE: Multiple grayscale, color Doppler and spectral Doppler ultrasound images were obtained of both lower extremities for evaluation of the peripheral veins. COMPARISON: None. FINDINGS: Right: The right common femoral, saphenofemoral junction, upper deep femoral, femoral, and popliteal veins are patent and fully compressible without luminal thrombus. Visualized portions of the posterior tibial and peroneal veins are patent. Left: The left common femoral, saphenofemoral junction, upper deep femoral, femoral, and popliteal veins are patent and fully compressible without luminal thrombus. Visualized portions of the posterior tibial and peroneal veins are patent. Procedure Note Adan Coe MD - 12/20/2022 BILATERAL LOWER EXTREMITY VENOUS DOPPLER ULTRASOUND CLINICAL INDICATION: Female, 67 years; swelling. TECHNIQUE: Multiple grayscale, color Doppler and spectral Doppler ultrasound images were obtained of both lower extremities for evaluation of the peripheral veins. COMPARISON: None. FINDINGS: Right: The right common femoral, saphenofemoral junction, upper deep femoral, femoral, and popliteal veins are patent and fully compressible without luminal thrombus. Visualized portions of the posterior tibial and peroneal veins are patent. Left: The left common femoral, saphenofemoral junction, upper deep femoral, femoral, and popliteal veins are patent and fully compressible without luminal thrombus. Visualized portions of the posterior tibial and peroneal veins are patent. IMPRESSION No DVT in either lower extremity. By my electronic signature, I attest that I have personally reviewed the images for this examination and formulated the interpretations and opinions expressed in this report Finalized by Adan Coe M.D. on 12/20/2022 4:00 PM. Dictated by Jayden Best MD on 12/20/2022 3:49 PM. Eric Gutierrez US ORDERABLES TRANSIT SURVEY WORKER-CHANNELING MACHINE RUNNER * 2D + DOPPLER ECHO W/ CONTRAST (12/20/2022 2:41 PM CDT) Pathologist Signature Component Value Ref Test Method Analysis Performed A t Range Time Left Ventricle 149.00 46 - 106 OTHER OUTSIDE L AB Diastolic Volume mL Left Ventricle 72.00 14 - 42 OTHER OUTSIDE L AB Systolic Volume mL IVS 1.10 0.6 - OTHER OUTSIDE L AB 0.9 cm LVIDD 4.00 3.8 - OTHER OUTSIDE L AB 5.2 cm LVIDS 3.10 2.2 - OTHER OUTSIDE L AB 3.5 cm LVOT diameter 2.00 cm OTHER OUTSIDE L AB LVOT peak VTI 22.70 cm OTHER OUTSIDE L AB PW 1.00 0.6 - OTHER OUTSIDE L AB 0.9 cm TDI lateral e' 0.07 m/s OTHER OUTSIDE L AB TDI Medial e' 0.07 m/s OTHER OUTSIDE L AB LA volume 40.80 22 - 52 OTHER OUTSIDE L AB mL LA size 4.00 2.7 - OTHER OUTSIDE L AB 3.8 cm , with a mean 18.00 mmHg OTHER OUTSIDE L AB gradient of Ao VTI 61.40 cm OTHER OUTSIDE L AB Sinus 3.00 2.4 - OTHER OUTSIDE L AB 3.6 cm MV Peak A Vinod 1.04 m/s OTHER OUTSIDE L AB MV Peak E Vinod PW 0.80 m/s OTHER OUTSIDE LAB Right Heart Systolic 3.00 >1.7 cm OTHER OUT SIDE LAB Mmode TAPSE Right Atrial Area 14.20 <18 cm2 OTHER OUTSID E LAB Right Heart Systolic 0.15 m/s OTHER OUT SIDE LAB TDI S' BSA 2.24 m2 OTHER OUTSIDE L AB FS 22.50 28 - 44 OTHER OUTSIDE L AB % Teichholtz 38.25 % OTHER OUTSIDE L AB LV mass 136 67 - 162 OTHER OUTSIDE L AB g RWT 0.50 <=0.42 OTHER OUTSIDE L AB Aortic valve area = 1.16 cm2 OTHER OUTS [facility] LAB E/A ratio 0.77 OTHER OUTSIDE LAB LVOT area 3.14 cm2 OTHER OUTSIDE L AB LVOT stroke volume 71.31 cm3 OTHER OUTSI DE LAB Lateral E/E' ratio 11.43 OTHER OUTSIDE LAB Left Atrium Index 18.21 16 - 34 OTHER OUTSID E LAB mL/m2 Cardiology Yaquelin Epiq OTHER OUTSIDE LAB Ultrasound Machine Left Ventricle Mass 61 43 - 95 OTHER OUTS [facility] LAB Index g/m2 Left Ventricle 67 29 - 61 OTHER OUTSIDE L AB Diastolic Volume mL/m2 Index Left Ventricle 32 8 - 24 OTHER OUTSIDE L AB Systolic Volume mL/m2 Index Medial E/E' ratio 11.43 OTHER OUTSIDE LAB Ascending aorta 3.5 cm OTHER OUTSIDE LAB TV rest pulmonary 30 mmHg OTHER OUTSID E LAB artery pressure TR PEAK VELOCITY 2.6 m/s OTHER OUTSIDE LAB RV SYSTOLIC PRESSURE 27 OTHER OUTSIDE LAB RA PRESSURE 3 OTHER OUTSIDE LAB VILLALPANDO'S BIPLANE EF 52 % OTHER OUT SIDE LAB AV peak velocity 3.5 m/s OTHER OUTSIDE LAB AV index ([place]) 0.37 OTHER OUTSIDE LAB LVOT peak vinod 1.3 m/s OTHER OUTSIDE L AB and a peak gradient 48 mmHg OTHER OUTS [facility] LAB of AV vena contracta 0.40 cm OTHER OUTSID E LAB ECHO EF 55 % OTHER OUTSIDE L AB Modality Anatomical Region Laterality Ultrasound Anatomical Location / Laterality Collection Method / Volume Quinn ection Time Received Time Specimen (Source) Narrative 12/20/2022 3:06 PM CDT 1. Normal left ventricular cavitary dimensions with concentric remodeling. 2. Lower limit of normal left ventricula r systolic function with a visually estimated ejection fraction of ~50-55 %. 3. Normal right ventricular cavitary siz e with normal RV systolic function. 4. Abnormal/grade 1 LV diastolic dysfunc tion with normal left atrial pressure 5. Subtle hypokinesis of the inferior wa ll and apical inferior segments. Remainder of the LV myocardial segments demonstrate normal contractility. Abnormal septal motion secondary to underlying left bundle branch block. 6. No LV apical mural thrombus. 7. No chamber enlargement. 8. Calcified aortic valve apparatus with reduced systolic excursion. Doppler estimates suggest moderate aortic valve stenosis: V-max 3.5 m/s, mean gradient 25 mmHg, BRENNA 1.2 cm, DVI 0.4, stroke-volume index 38 mL/m per beat with underlying mild aortic valve insufficiency. 9. Estimated PA systolic pressure is 30 mmHg. 10. No pericardial effusion. No prior transthoracic echocardiograms available for direct visual comparison. Left Ventricle The left ventricle is mildly dilated. Wall thickness is increased. Concentric remodeling. The left ventricular systolic function is low normal. The visually estimated ejection fraction is 55%. The ejection fraction by Villalpando's biplane method is 52%. There are segmental wall motion abnormalities, as described below. Abnormal septal motion consistent with left bundle branch block. Grade I (mild) left ventricular diastolic dysfunction. Normal left atrial pressure. Right Ventricle The right ventricle is probably normal in size. The right ventricular systolic function is hyperdynamic. Left Atrium Normal size. Right Atrium Normal size. IVC/SVC Normal central venous pressure (0-5 mm Hg). Mitral Valve Normal valve structure. No stenosis. No regurgitation. Tricuspid Valve Normal valve structure. No stenosis. Trace regurgitation. Aortic Valve The valve is calcified. Moderate stenosis. Mild regurgitation. Pericardium No pericardial effusion. Pulmonary The pulmonic valve was not seen well but no Doppler evidence of stenosis. No regurgitation. Aorta The aortic root and ascending aorta are normal in size. Wall Scoring Resting Score Index: 1.176 Percent Normal: 82.4% The following segments are hypokinetic: basal inferior, mid inferior and apical inferior. All other segments are normal. Eric Gutierrez ECHO ORDERABLES TRANSIT SURVEY WORKER-CHANNELING MACHINE RUNNER * CHEST SINGLE VIEW (12/20/2022 10:27 AM CDT) Modality Anatomical Region Laterality Computed Radiography CHEST Anatomical Location / Laterality Collection Method / Volume Quinn ection Time Received Time Specimen (Source) 12/20/2022 10:48 AM CDT Impressions 12/20/2022 11:30 AM CDT 1. Tiny right apical pneumothorax. 2. Patchy bibasilar opacities, likely atelectasis. 3. Calcified granuloma and scarring in right upper lung better evaluated on recent CT chest. By my electronic signature, I attest that I have personally reviewed the images for this examination and formulated the interpretations and opinions expressed in this report Finalized by Qing Mcgarry M.D. on 12/20/2022 11:30 AM. Dictated by Jonathan Bailey MD on 12/20/2022 10:48 AM. Narrative 12/20/2022 11:30 AM CDT CHEST SINGLE VIEW INDICATION: monitor pneumothorax COMPARISON STUDY: 12/19/2022, CT CHEST W CONTRAST FINDINGS: Lungs/Pleura: Normal lung volume. Tiny right apical pneumothorax. Calcified granuloma and scarring in right upper lung better evaluated on recent CT chest. Patchy bibasilar opacities. Heart and Mediastinum: The cardiomediastinal silhouette is stable. Multiple mildly displaced right rib fractures. Procedure Note Qing Mcgarry MD - 12/20/2022 CHEST SINGLE VIEW INDICATION: monitor pneumothorax COMPARISON STUDY: 12/19/2022, CT CHEST W CONTRAST FINDINGS: Lungs/Pleura: Normal lung volume. Tiny right apical pneumothorax. Calcified granuloma and scarring in right upper lung better evaluated on recent CT chest. Patchy bibasilar opacities. Heart and Mediastinum: The cardiomediastinal silhouette is stable. Multiple mildly displaced right rib fractures. IMPRESSION 1. Tiny right apical pneumothorax. 2. Patchy bibasilar opacities, likely a telectasis. 3. Calcified granuloma and scarring in right upper lung better evaluated on recent CT chest. By my electronic signature, I attest that I have personally reviewed the images for this examination and formulated the interpretations and opinions expressed in this report Finalized by Qing Mcgarry M.D. on 12/20/2022 11:30 AM. Dictated by Jonathan Bailey MD on 12/20/2022 10:48 AM. Jonathan Gaona MD DIAGNOSTIC IMAGING ORDERABL ES * SCAPULA RIGHT (12/19/2022 8:44 PM CDT) Modality Anatomical Region Laterality Computed Radiography UPPEREXT Right Anatomical Location / Laterality Collection Method / Volume Quinn ection Time Received Time Specimen (Source) 12/20/2022 7:51 AM CDT Right Impressions 12/20/2022 7:52 AM CDT 1. Comminuted scapular body fracture i nvolving the glenoid and base of the coracoid process, better detailed on CT. 2. Multiple displaced right rib fractu res. 3. 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 Finalized by Jose Dick M.D. on 12/20/2022 7:52 AM. Dictated by Jose Dick M.D. on 12/20/2022 7:51 AM. Narrative 12/20/2022 7:52 AM CDT EXAM: SCAPULA RIGHT CLINICAL INDICATION: 67 years. FALL. COMPARISON: 12/19/2022, CT UPPER EXTREM WO CONT RIGHT. Procedure Note Jose Dick MD - 12/20/2022 EXAM: SCAPULA RIGHT CLINICAL INDICATION: 67 years. FALL. COMPARISON: 12/19/2022, CT UPPER EXTREM WO CONT RIGHT. IMPRESSION 1. Comminuted scapular body fracture in volving the glenoid and base of the coracoid process, better detailed on CT. 2. Multiple displaced right rib fractur es. 3. Mild glenohumeral and AC joint degen erative arthritis. Finalized by Jose Dick M.D. on 12/20/2022 7:52 AM. Dictated by Jose Dick M.D. on 12/20/2022 7:51 AM. [facility] DIAGNOSTIC IMAGING ORDERABL ES * CT UPPER EXTREM WO CONT RIGHT (12/19/2022 8:35 PM CDT) Modality Anatomical Region Laterality Computed Tomography UPPEREXT Right Anatomical Location / Laterality Collection Method / Volume Quinn ection Time Received Time Specimen (Source) 12/19/2022 10:37 PM CDT Right Impressions 12/20/2022 12:54 AM CDT FINDINGS/IMPRESSION: 1. Minimally displaced fracture of the upper glenoid with extension into the scapular body and base of the coracoid process anteriorly and mild intra- articular extension into the upper margin of the glenohumeral joint. Normal glenohumeral alignment. 2. Minimally displaced acute fracture of the acromion. The acromioclavicular joint space is well-maintained with moderate arthrosis. 3. Mild diffuse osseous demineralizati on. No destructive osseous lesion. 4. There is some mild fat stranding co mpatible with edema possible mild infiltrating hemorrhage along the posterior aspect of the acromion and upper scapular body, as well as adjacent to the coracoid process. However, no dominant measurable hematoma is appreciated. 5. Similar minute right apical pneumot horax. Please see separately dictated exams for further discussion of right rib fractures and additional nonosseous/thoracic findings. By my electronic signature, I attest that I have personally reviewed the images for this examination and formulated the interpretations and opinions expressed in this report Finalized by Karthik Diaz M.D. on 12/20/2022 12:54 AM. Dictated by Karthik Barnes MD on 12/19/2022 10:37 PM. Narrative 12/20/2022 12:[address] UPPER EXTREM WO CONT RIGHT CLINICAL HISTORY: FALL TECHNIQUE: Axial noncontrast images were obtained through the right upper extremity. Thin section images were reconstructed and utilized for reformatted images. Additional post processing was performed and 3-D images were reconstructed with horizontal and cephalocaudad rotation. COMPARISON: Right shoulder radiographs and CT CAP 12/19/2022. Procedure Note Karthik Diaz MD - 12/20/2022 CT UPPER EXTREM WO CONT RIGHT CLINICAL HISTORY: FALL TECHNIQUE: Axial noncontrast images were obtained through the right upper extremity. Thin section images were reconstructed and utilized for reformatted images. Additional post processing was performed and 3-D images were reconstructed with horizontal and cephalocaudad rotation. COMPARISON: Right shoulder radiographs and CT CAP 12/19/2022. IMPRESSION FINDINGS/IMPRESSION: 1. Minimally displaced fracture of the upper glenoid with extension into the scapular body and base of the coracoid process anteriorly and mild intra- articular extension into the upper margin of the glenohumeral joint. Normal glenohumeral alignment. 2. Minimally displaced acute fracture o f the acromion. The acromioclavicular joint space is well-maintained with moderate arthrosis. 3. Mild diffuse osseous demineralizatio n. No destructive osseous lesion. 4. There is some mild fat stranding com patible with edema possible mild infiltrating hemorrhage along the posterior aspect of the acromion and upper scapular body, as well as adjacent to the coracoid process. However, no dominant measurable hematoma is appreciated. 5. Similar minute right apical pneumoth orax. Please see separately dictated exams for further discussion of right rib fractures and additional nonosseous/thoracic findings. By my electronic signature, I attest that I have personally reviewed the images for this examination and formulated the interpretations and opinions expressed in this report Finalized by Karthik Diaz M.D. on 12/20/2022 12:54 AM. Dictated by Karthik Barnes MD on 12/19/2022 10:[address] Jin MD CT ORDERABLES * WRIST COMP MIN 3 VIEWS LEFT (12/19/2022 7:27 PM CDT) Modality Anatomical Region Laterality Computed Radiography UPPEREXT Left Anatomical Location / Laterality Collection Method / Volume Quinn ection Time Received Time Specimen (Source) 12/19/2022 8:43 PM CDT Impressions 12/19/2022 8:46 PM CDT Multifocal degenerative changes in the hand and wrist, without acute fracture or dislocation. Finalized by Karthik Diaz M.D. on 12/19/2022 8:46 PM. Dictated by Karthik Diaz M.D. on 12/19/2022 8:43 PM. Narrative 12/19/2022 8:46 PM CDT Exam: HAND MIN 3 VIEWS LEFT, WRIST COMP MIN 3 VIEWS LEFT Clinical history: FALL Technique: AP, lateral and oblique views of the left hand and wrist. Comparison: [None] FINDINGS: No acute fracture or dislocation appreciated. A tiny calcific/ossific density along the ulnar aspect of the second DIP joint is most likely chronic rather than a tiny acute fracture fragment. There is a ring on the fourth digit, but no suspicious radiopaque foreign body. Moderate degenerative changes at the fifth PIP joint and mild degenerative change at the fifth DIP joint, possibly posttraumatic the fifth PIP joint. Marked degenerative change at the triscaphe articulation and at least moderate degenerative change at the first CMC joint. Procedure Note Karthik Diaz MD - 12/19/2022 Exam: HAND MIN 3 VIEWS LEFT, WRIST COMP MIN 3 VIEWS LEFT Clinical history: FALL Technique: AP, lateral and oblique views of the left hand and wrist. Comparison: [None] FINDINGS: No acute fracture or dislocation appreciated. A tiny calcific/ossific density along the ulnar aspect of the second DIP joint is most likely chronic rather than a tiny acute fracture fragment. There is a ring on the fourth digit, but no suspicious radiopaque foreign body. Moderate degenerative changes at the fifth PIP joint and mild degenerative change at the fifth DIP joint, possibly posttraumatic the fifth PIP joint. Marked degenerative change at the triscaphe articulation and at least moderate degenerative change at the first CMC joint. IMPRESSION Multifocal degenerative changes in the hand and wrist, without acute fracture or dislocation. Finalized by Karthik Diaz M.D. on 12/19/2022 8:46 PM. Dictated by Karthik Diaz M.D. on 12/19/2022 8:43 PM. [facility] DIAGNOSTIC IMAGING ORDERABL ES MD * HAND MIN 3 VIEWS LEFT (12/19/2022 7:27 PM CDT) Modality Anatomical Region Laterality Computed Radiography UPPEREXT Left Anatomical Location / Laterality Collection Method / Volume Quinn ection Time Received Time Specimen (Source) 12/19/2022 8:43 PM CDT Left Impressions 12/19/2022 8:46 PM CDT Multifocal degenerative changes in the hand and wrist, without acute fracture or dislocation. Finalized by Karthik Diaz M.D. on 12/19/2022 8:46 PM. Dictated by Karthik Diaz M.D. on 12/19/2022 8:43 PM. Narrative 12/19/2022 8:46 PM CDT Exam: HAND MIN 3 VIEWS LEFT, WRIST COMP MIN 3 VIEWS LEFT Clinical history: FALL Technique: AP, lateral and oblique views of the left hand and wrist. Comparison: [None] FINDINGS: No acute fracture or dislocation appreciated. A tiny calcific/ossific density along the ulnar aspect of the second DIP joint is most likely chronic rather than a tiny acute fracture fragment. There is a ring on the fourth digit, but no suspicious radiopaque foreign body. Moderate degenerative changes at the fifth PIP joint and mild degenerative change at the fifth DIP joint, possibly posttraumatic the fifth PIP joint. Marked degenerative change at the triscaphe articulation and at least moderate degenerative change at the first CMC joint. Procedure Note Karthik Diaz MD - 12/19/2022 Exam: HAND MIN 3 VIEWS LEFT, WRIST COMP MIN 3 VIEWS LEFT Clinical history: FALL Technique: AP, lateral and oblique views of the left hand and wrist. Comparison: [None] FINDINGS: No acute fracture or dislocation appreciated. A tiny calcific/ossific density along the ulnar aspect of the second DIP joint is most likely chronic rather than a tiny acute fracture fragment. There is a ring on the fourth digit, but no suspicious radiopaque foreign body. Moderate degenerative changes at the fifth PIP joint and mild degenerative change at the fifth DIP joint, possibly posttraumatic the fifth PIP joint. Marked degenerative change at the triscaphe articulation and at least moderate degenerative change at the first CMC joint. IMPRESSION Multifocal degenerative changes in the hand and wrist, without acute fracture or dislocation. Finalized by Karthik Diaz M.D. on 12/19/2022 8:46 PM. Dictated by Karthik Diaz M.D. on 12/19/2022 8:43 PM. [facility] DIAGNOSTIC IMAGING ORDERABL ES * (ABNORMAL) HIGH SENSITIVITY TROPONIN I 2 HOUR (12/19/2022 6:44 PM CDT) Pathologist Signature Component Value Ref Test Method Analysis Performed A t Range Time hs Troponin I 2 Hour 18 (H) <12 ng/L 12/19/2022 [facility] [place] DEPT PATH AND 7:37 PM LAB MEDICINE CDT Comment: NOTE NEW UNITS AND REFERENCE RANGES Anatomical Location / Laterality Collection Method / Volume Quinn ection Time Received Time Specimen (Source) BLOOD / Unknown 12/19/2022 6:44 PM CDT 12/20/19 6:50 PM CDT [facility] LABORATORY ORDERABLES City/State/ZIP Code Phone Number Performing [place] [address] [facility] [place] DEPT PATH AND [address] [facility] LAB MEDICINE * FOREARM 2 VIEWS RIGHT (12/19/2022 5:52 PM CDT) Modality Anatomical Region Laterality Computed Radiography UPPEREXT Right Anatomical Location / Laterality Collection Method / Volume Quinn ection Time Received Time Specimen (Source) 12/19/2022 5:53 PM CDT Right Impressions 12/19/2022 5:54 PM CDT No acute fracture or dislocation. Finalized by Karthik Diaz M.D. on 12/19/2022 5:54 PM. Dictated by Karthik Diaz M.D. on 12/19/2022 5:53 PM. Narrative 12/19/2022 5:54 PM CDT Exam: FOREARM 2 VIEWS RIGHT Clinical history: FALL Technique: AP and lateral views of the right forearm. Comparison: [Same day right hand and elbow radiographs.] FINDINGS: No acute fracture or dislocation identified. No radiopaque foreign body or destructive osseous lesion. Degenerative changes in the visualized hand and wrist. Procedure Note Karthik Diaz MD - 12/19/2022 Exam: FOREARM 2 VIEWS RIGHT Clinical history: FALL Technique: AP and lateral views of the right forearm. Comparison: [Same day right hand and elbow radiographs.] FINDINGS: No acute fracture or dislocation identified. No radiopaque foreign body or destructive osseous lesion. Degenerative changes in the visualized hand and wrist. IMPRESSION No acute fracture or dislocation. Finalized by Karthik Diaz M.D. on 12/19/2022 5:54 PM. Dictated by Karthik Diaz M.D. on 12/19/2022 5:53 PM. [facility] DIAGNOSTIC IMAGING ORDERABL ES MD * ECG 12-LEAD (12/19/2022 5:27 PM CDT) Pathologist Signature Component Value Ref Test Method Analysis Performed A t Range Time VENTRICULAR RATE 82 BPM GE MUSE P-R INTERVAL 210 ms GE MUSE QRS DURATION 156 ms GE MUSE Q-T INTERVAL 434 ms GE MUSE QTC CALCULATION 507 ms GE MUSE (BAZETT) P AXIS 66 degrees GE MUSE R AXIS -46 degrees GE MUSE T AXIS 110 degrees GE MUSE Anatomical Location / Laterality Collection Method / Volume Quinn ection Time Received Time Specimen (Source) 12/19/2022 5:27 PM CDT 12/20/19 7:09 PM CDT Impressions GE MUSE - 12/19/2022 7:09 PM CDT Sinus rhythm with 1st degree AV block Left axis deviation Left bundle branch block Abnormal ECG No previous ECGs available in MUSE Confirmed by Jefferson Mary ([id number]) on 12/19/2022 7:09:07 PM Narrative Procedure Note Jefferson Mary MD - 12/19/2022 IMPRESSION Sinus rhythm with 1st degree AV block Left axis deviation Left bundle branch block Abnormal ECG No previous ECGs available in MUSE Confirmed by Jefferson Mary ([id number]) on 12/19/2022 7:09:07 PM [facility] ECG ORDERABLES City/State/ZIP Code Phone Number Performing Address Organization [employer] * HAND MIN 3 VIEWS RIGHT (12/19/2022 5:24 PM CDT) Modality Anatomical Region Laterality Computed Radiography UPPEREXT Right Anatomical Location / Laterality Collection Method / Volume Quinn ection Time Received Time Specimen (Source) 12/19/2022 5:28 PM CDT Impressions 12/19/2022 5:36 PM CDT Findings/impression: 1. Redemonstration of a fracture involvi ng the upper glenoid with extension of the articular surface at the glenohumeral joint, though without significant displacement. Additional nondisplaced fracture the right acromion without intra- articular extension to the AC joint. Normal alignment at the acromioclavicular and glenohumeral joints, with intact right clavicle. 2. Redemonstration of multiple mildly an d minimally displaced right rib fractures, better seen on prior CT chest. The trace right pneumothorax on CT chest is not well appreciated on current shoulder radiographs. 3. No acute humeral fracture. No elbow f racture or dislocation. No fat pad displacement at the elbow to indicate a joint effusion. 4. No acute fracture or dislocation at t he hand. 5. Mild soft tissue swelling at the MCP joints on lateral view of the. Pulse ox monitor overlies the second digit, but no suspicious radiopaque foreign body or destructive osseous lesion. Scattered degenerative changes in the hand and wrist, most notably some at least moderate degenerative change at the first CMC joint and marked degenerative change at the triscaphe articulation. Finalized by Karthik Diaz M.D. on 12/19/2022 5:36 PM. Dictated by Karthik Diaz M.D. on 12/19/2022 5:28 PM. Narrative 12/19/2022 5:36 PM CDT Exams: SHOULDER MIN 2 VIEWS RIGHT, HAND MIN 3 VIEWS RIGHT, HUMERUS MIN 2 VIEWS RIGHT, ELBOW MIN 3 VIEWS RIGHT Clinical history: FALL, 8 ft shoulder tenderness Technique: 3 views of the right shoulder. AP and lateral views of the right humerus. AP, lateral and oblique views of the right elbow and right hand. Comparison: [CT chest, abdomen and pelvis from earlier today.] Procedure Note Karthik Diaz MD - 12/19/2022 Exams: SHOULDER MIN 2 VIEWS RIGHT, HAND MIN 3 VIEWS RIGHT, HUMERUS MIN 2 VIEWS RIGHT, ELBOW MIN 3 VIEWS RIGHT Clinical history: FALL, 8 ft shoulder tenderness Technique: 3 views of the right shoulder. AP and lateral views of the right humerus. AP, lateral and oblique views of the right elbow and right hand. Comparison: [CT chest, abdomen and pelvis from earlier today.] IMPRESSION Findings/impression: 1. Redemonstration of a fracture involvi ng the upper glenoid with extension of the articular surface at the glenohumeral joint, though without significant displacement. Additional nondisplaced fracture the right acromion without intra- articular extension to the AC joint. Normal alignment at the acromioclavicular and glenohumeral joints, with intact right clavicle. 2. Redemonstration of multiple mildly an d minimally displaced right rib fractures, better seen on prior CT chest. The trace right pneumothorax on CT chest is not well appreciated on current shoulder radiographs. 3. No acute humeral fracture. No elbow f racture or dislocation. No fat pad displacement at the elbow to indicate a joint effusion. 4. No acute fracture or dislocation at t he hand. 5. Mild soft tissue swelling at the MCP joints on lateral view of the. Pulse ox monitor overlies the second digit, but no suspicious radiopaque foreign body or destructive osseous lesion. Scattered degenerative changes in the hand and wrist, most notably some at least moderate degenerative change at the first CMC joint and marked degenerative change at the triscaphe articulation. Finalized by Karthik Diaz M.D. on 12/19/2022 5:36 PM. Dictated by Karthik Diaz M.D. on 12/19/2022 5:28 PM. [facility] DIAGNOSTIC IMAGING ORDERABL JAYLON MURRAY * HUMERUS MIN 2 VIEWS RIGHT (12/19/2022 5:23 PM CDT) Modality Anatomical Region Laterality Computed Radiography UPPEREXT Right Anatomical Location / Laterality Collection Method / Volume Quinn ection Time Received Time Specimen (Source) 12/19/2022 5:28 PM CDT Impressions 12/19/2022 5:36 PM CDT Findings/impression: 1. Redemonstration of a fracture involvi ng the upper glenoid with extension of the articular surface at the glenohumeral joint, though without significant displacement. Additional nondisplaced fracture the right acromion without intra- articular extension to the AC joint. Normal alignment at the acromioclavicular and glenohumeral joints, with intact right clavicle. 2. Redemonstration of multiple mildly an d minimally displaced right rib fractures, better seen on prior CT chest. The trace right pneumothorax on CT chest is not well appreciated on current shoulder radiographs. 3. No acute humeral fracture. No elbow f racture or dislocation. No fat pad displacement at the elbow to indicate a joint effusion. 4. No acute fracture or dislocation at t he hand. 5. Mild soft tissue swelling at the MCP joints on lateral view of the. Pulse ox monitor overlies the second digit, but no suspicious radiopaque foreign body or destructive osseous lesion. Scattered degenerative changes in the hand and wrist, most notably some at least moderate degenerative change at the first CMC joint and marked degenerative change at the triscaphe articulation. Finalized by Karthik Diaz M.D. on 12/19/2022 5:36 PM. Dictated by Karthik Diaz M.D. on 12/19/2022 5:28 PM. Narrative 12/19/2022 5:36 PM CDT Exams: SHOULDER MIN 2 VIEWS RIGHT, HAND MIN 3 VIEWS RIGHT, HUMERUS MIN 2 VIEWS RIGHT, ELBOW MIN 3 VIEWS RIGHT Clinical history: FALL, 8 ft shoulder tenderness Technique: 3 views of the right shoulder. AP and lateral views of the right humerus. AP, lateral and oblique views of the right elbow and right hand. Comparison: [CT chest, abdomen and pelvis from earlier today.] Procedure Note Karthik Diaz MD - 12/19/2022 Exams: SHOULDER MIN 2 VIEWS RIGHT, HAND MIN 3 VIEWS RIGHT, HUMERUS MIN 2 VIEWS RIGHT, ELBOW MIN 3 VIEWS RIGHT Clinical history: FALL, 8 ft shoulder tenderness Technique: 3 views of the right shoulder. AP and lateral views of the right humerus. AP, lateral and oblique views of the right elbow and right hand. Comparison: [CT chest, abdomen and pelvis from earlier today.] IMPRESSION Findings/impression: 1. Redemonstration of a fracture involvi ng the upper glenoid with extension of the articular surface at the glenohumeral joint, though without significant displacement. Additional nondisplaced fracture the right acromion without intra- articular extension to the AC joint. Normal alignment at the acromioclavicular and glenohumeral joints, with intact right clavicle. 2. Redemonstration of multiple mildly an d minimally displaced right rib fractures, better seen on prior CT chest. The trace right pneumothorax on CT chest is not well appreciated on current shoulder radiographs. 3. No acute humeral fracture. No elbow f racture or dislocation. No fat pad displacement at the elbow to indicate a joint effusion. 4. No acute fracture or dislocation at t he hand. 5. Mild soft tissue swelling at the MCP joints on lateral view of the. Pulse ox monitor overlies the second digit, but no suspicious radiopaque foreign body or destructive osseous lesion. Scattered degenerative changes in the hand and wrist, most notably some at least moderate degenerative change at the first CMC joint and marked degenerative change at the triscaphe articulation. Finalized by Karthik Diaz M.D. on 12/19/2022 5:36 PM. Dictated by Karthik Diaz M.D. on 12/19/2022 5:28 PM. [facility] DIAGNOSTIC IMAGING ORDERABL ES MD * ELBOW MIN 3 VIEWS RIGHT (12/19/2022 5:23 PM CDT) Modality Anatomical Region Laterality Computed Radiography UPPEREXT Right Anatomical Location / Laterality Collection Method / Volume Quinn ection Time Received Time Specimen (Source) 12/19/2022 5:28 PM CDT Impressions 12/19/2022 5:36 PM CDT Findings/impression: 1. Redemonstration of a fracture involvi ng the upper glenoid with extension of the articular surface at the glenohumeral joint, though without significant displacement. Additional nondisplaced fracture the right acromion without intra- articular extension to the AC joint. Normal alignment at the acromioclavicular and glenohumeral joints, with intact right clavicle. 2. Redemonstration of multiple mildly an d minimally displaced right rib fractures, better seen on prior CT chest. The trace right pneumothorax on CT chest is not well appreciated on current shoulder radiographs. 3. No acute humeral fracture. No elbow f racture or dislocation. No fat pad displacement at the elbow to indicate a joint effusion. 4. No acute fracture or dislocation at t he hand. 5. Mild soft tissue swelling at the MCP joints on lateral view of the. Pulse ox monitor overlies the second digit, but no suspicious radiopaque foreign body or destructive osseous lesion. Scattered degenerative changes in the hand and wrist, most notably some at least moderate degenerative change at the first CMC joint and marked degenerative change at the triscaphe articulation. Finalized by Karthik Diaz M.D. on 12/19/2022 5:36 PM. Dictated by Karthik Diaz M.D. on 12/19/2022 5:28 PM. Narrative 12/19/2022 5:36 PM CDT Exams: SHOULDER MIN 2 VIEWS RIGHT, HAND MIN 3 VIEWS RIGHT, HUMERUS MIN 2 VIEWS RIGHT, ELBOW MIN 3 VIEWS RIGHT Clinical history: FALL, 8 ft shoulder tenderness Technique: 3 views of the right shoulder. AP and lateral views of the right humerus. AP, lateral and oblique views of the right elbow and right hand. Comparison: [CT chest, abdomen and pelvis from earlier today.] Procedure Note Karthik Diaz MD - 12/19/2022 Exams: SHOULDER MIN 2 VIEWS RIGHT, HAND MIN 3 VIEWS RIGHT, HUMERUS MIN 2 VIEWS RIGHT, ELBOW MIN 3 VIEWS RIGHT Clinical history: FALL, 8 ft shoulder tenderness Technique: 3 views of the right shoulder. AP and lateral views of the right humerus. AP, lateral and oblique views of the right elbow and right hand. Comparison: [CT chest, abdomen and pelvis from earlier today.] IMPRESSION Findings/impression: 1. Redemonstration of a fracture involvi ng the upper glenoid with extension of the articular surface at the glenohumeral joint, though without significant displacement. Additional nondisplaced fracture the right acromion without intra- articular extension to the AC joint. Normal alignment at the acromioclavicular and glenohumeral joints, with intact right clavicle. 2. Redemonstration of multiple mildly an d minimally displaced right rib fractures, better seen on prior CT chest. The trace right pneumothorax on CT chest is not well appreciated on current shoulder radiographs. 3. No acute humeral fracture. No elbow f racture or dislocation. No fat pad displacement at the elbow to indicate a joint effusion. 4. No acute fracture or dislocation at t he hand. 5. Mild soft tissue swelling at the MCP joints on lateral view of the. Pulse ox monitor overlies the second digit, but no suspicious radiopaque foreign body or destructive osseous lesion. Scattered degenerative changes in the hand and wrist, most notably some at least moderate degenerative change at the first CMC joint and marked degenerative change at the triscaphe articulation. Finalized by Karthik Diaz M.D. on 12/19/2022 5:36 PM. Dictated by Karthik Diaz M.D. on 12/19/2022 5:28 PM. [facility] ORDER[facility]L ES * SHOULDER MIN 2 VIEWS RIGHT (12/19/2022 5:22 PM CDT) Modality Anatomical Region Laterality Computed Radiography UPPEREXT Right Anatomical Location / Laterality Collection Method / Volume Quinn ection Time Received Time Specimen (Source) 12/19/2022 5:28 PM CDT Right Impressions 12/19/2022 5:36 PM CDT Findings/impression: 1. Redemonstration of a fracture involvi ng the upper glenoid with extension of the articular surface at the glenohumeral joint, though without significant displacement. Additional nondisplaced fracture the right acromion without intra- articular extension to the AC joint. Normal alignment at the acromioclavicular and glenohumeral joints, with intact right clavicle. 2. Redemonstration of multiple mildly an d minimally displaced right rib fractures, better seen on prior CT chest. The trace right pneumothorax on CT chest is not well appreciated on current shoulder radiographs. 3. No acute humeral fracture. No elbow f racture or dislocation. No fat pad displacement at the elbow to indicate a joint effusion. 4. No acute fracture or dislocation at t he hand. 5. Mild soft tissue swelling at the MCP joints on lateral view of the. Pulse ox monitor overlies the second digit, but no suspicious radiopaque foreign body or destructive osseous lesion. Scattered degenerative changes in the hand and wrist, most notably some at least moderate degenerative change at the first CMC joint and marked degenerative change at the triscaphe articulation. Finalized by Karthik Diaz M.D. on 12/19/2022 5:36 PM. Dictated by Karthik Diaz M.D. on 12/19/2022 5:28 PM. Narrative 12/19/2022 5:36 PM CDT Exams: SHOULDER MIN 2 VIEWS RIGHT, HAND MIN 3 VIEWS RIGHT, HUMERUS MIN 2 VIEWS RIGHT, ELBOW MIN 3 VIEWS RIGHT Clinical history: FALL, 8 ft shoulder tenderness Technique: 3 views of the right shoulder. AP and lateral views of the right humerus. AP, lateral and oblique views of the right elbow and right hand. Comparison: [CT chest, abdomen and pelvis from earlier today.] Procedure Note Karthik Diaz MD - 12/19/2022 Exams: SHOULDER MIN 2 VIEWS RIGHT, HAND MIN 3 VIEWS RIGHT, HUMERUS MIN 2 VIEWS RIGHT, ELBOW MIN 3 VIEWS RIGHT Clinical history: FALL, 8 ft shoulder tenderness Technique: 3 views of the right shoulder. AP and lateral views of the right humerus. AP, lateral and oblique views of the right elbow and right hand. Comparison: [CT chest, abdomen and pelvis from earlier today.] IMPRESSION Findings/impression: 1. Redemonstration of a fracture involvi ng the upper glenoid with extension of the articular surface at the glenohumeral joint, though without significant displacement. Additional nondisplaced fracture the right acromion without intra- articular extension to the AC joint. Normal alignment at the acromioclavicular and glenohumeral joints, with intact right clavicle. 2. Redemonstration of multiple mildly an d minimally displaced right rib fractures, better seen on prior CT chest. The trace right pneumothorax on CT chest is not well appreciated on current shoulder radiographs. 3. No acute humeral fracture. No elbow f racture or dislocation. No fat pad displacement at the elbow to indicate a joint effusion. 4. No acute fracture or dislocation at t he hand. 5. Mild soft tissue swelling at the MCP joints on lateral view of the. Pulse ox monitor overlies the second digit, but no suspicious radiopaque foreign body or destructive osseous lesion. Scattered degenerative changes in the hand and wrist, most notably some at least moderate degenerative change at the first CMC joint and marked degenerative change at the triscaphe articulation. Finalized by Karthik Diaz M.D. on 12/19/2022 5:36 PM. Dictated by Karthik Diaz M.D. on 12/19/2022 5:28 PM. [facility] ORDERABL JAYLON MURRAY * BLOOD TYPE CONFIRMATION - ORDER ONLY IF REQUESTED BY LAB (12/19/2022 5:20 PM CDT) Pathologist Signature Component Value Ref Test Method Analysis Performed A t Range Time ABO/RH(D) A NEG 12/19/2022 [facility] [place] DEPT PATH AND 6:11 PM LAB MEDICINE CDT Anatomical Location / Laterality Collection Method / Volume Quinn ection Time Received Time Specimen (Source) BLOOD / Unknown 12/19/2022 5:20 PM CDT 12/20/19 5:58 PM CDT [facility] ORDERABLES City/State/ZIP Code Phone Number Performing [place] [address] [facility] [place] DEPT PATH AND [address] [facility] LAB MEDICINE * CT ABD/PELV W CONTRAST (12/19/2022 4:46 PM CDT) Modality Anatomical Region Laterality Computed Tomography CHEST/AB/PEL Anatomical Location / Laterality Collection Method / Volume Quinn ection Time Received Time Specimen (Source) 12/19/2022 5:00 PM CDT Impressions 12/19/2022 5:21 PM CDT Chest: 1. No aortic injury or major pulmonary injury. There is small right apical pneumothorax. 2. Numerous mildly displaced right rib fractures and articular fracture of the superior margin of the glenoid. 3. Mild to moderate aortic valve calci fication consistent with degenerative aortic valve disease. If not recently obtained correlation with elective echocardiography is suggested. Abdomen and Pelvis: No major abdominal/pelvic injury. Finalized by Jerald Morillo M.D. on 12/19/2022 5:21 PM. Dictated by Jerald Morillo M.D. on 12/19/2022 5:00 PM. Narrative 12/19/2022 5:[address] chest and CT abdomen and pelvis Indication: Fall down stairs Technique: Dynamic IV contrast-enhanced images were obtained through the chest abdomen and pelvis. Comparison studies: None Chest findings: 1. Heart and great vessels: Heart size n ormal. Mild to moderate aortic valve calcification. Aorta normal caliber without injury. 2. Mediastinum, Axillae and pulmonary hi la: No fluid collection or pneumomediastinum. 3. Lungs and pleura: Tiny right apical pneumothorax better seen on CT cervical spine examination. Moderate apical pleural parenchymal scarring and calcified granuloma in the right apex. Mild dependent lower lobe atelectasis greater on the right. No focal pulmonary contusion. 4. Chest wall and thoracic spine: Thor acic spine alignment normal apart from mild right convexity thoracic spine curvature. Osseous detail is somewhat obscured by motion artifact and demineralization, however no thoracic spine fracture or sternal fracture seen. There are numerous mildly displaced right lateral rib fractures (at least third through 11th rib) with osseous detail obscured by motion artifact. No definite displaced left rib fractures are seen, however, there is considerable motion artifact. Articular fracture of the right scapula at the superior base of the glenoid Abdomen and Pelvis findings: 1. Liver and spleen: Normal in size wi th small spherical low density lesion in segment 2/3 which is probably a small cyst. No laceration or hematoma is seen. 2. Adrenal glands and kidneys: Unremar kable apart from left renal cysts. 3. Pancreas and retroperitoneum: Pancr eas unremarkable. No retroperitoneal fluid collection. Aorta normal caliber. 4. Peritoneal space: Bowel loops michael l caliber. No hemoperitoneum or ascites. 5. Pelvis: Partially filled bladder an d vaginal cuff unremarkable apart from mild pelvic floor relaxation. 6. Musculoskeletal: Lumbar spine align ment normal. Mild to moderate spondylosis. No lumbar spine or pelvic fracture. Osteitis pubis noted. Ossification is noted adjacent to the left inferior pubic ramus which is probably from remote trauma. Procedure Note Jerald Morillo MD - 12/19/[address] abdomen and pelvis Indication: Fall down stairs Technique: Dynamic IV contrast-enhanced images were obtained through the chest abdomen and pelvis. Comparison studies: None Chest findings: 1. Heart and great vessels: Heart size n ormal. Mild to moderate aortic valve calcification. Aorta normal caliber without injury. 2. Mediastinum, Axillae and pulmonary hi la: No fluid collection or pneumomediastinum. 3. Lungs and pleura: Tiny right apical pneumothorax better seen on CT cervical spine examination. Moderate apical pleural parenchymal scarring and calcified granuloma in the right apex. Mild dependent lower lobe atelectasis greater on the right. No focal pulmonary contusion. 4. Chest wall and thoracic spine: Thora cic spine alignment normal apart from mild right convexity thoracic spine curvature. Osseous detail is somewhat obscured by motion artifact and demineralization, however no thoracic spine fracture or sternal fracture seen. There are numerous mildly displaced right lateral rib fractures (at least third through 11th rib) with osseous detail obscured by motion artifact. No definite displaced left rib fractures are seen, however, there is considerable motion artifact. Articular fracture of the right scapula at the superior base of the glenoid Abdomen and Pelvis findings: 1. Liver and spleen: Normal in size wit h small spherical low density lesion in segment 2/3 which is probably a small cyst. No laceration or hematoma is seen. 2. Adrenal glands and kidneys: Unremark able apart from left renal cysts. 3. Pancreas and retroperitoneum: Pancre as unremarkable. No retroperitoneal fluid collection. Aorta normal caliber. 4. Peritoneal space: Bowel loops normal caliber. No hemoperitoneum or ascites. 5. Pelvis: Partially filled bladder and vaginal cuff unremarkable apart from mild pelvic floor relaxation. 6. Musculoskeletal: Lumbar spine alignm ent normal. Mild to moderate spondylosis. No lumbar spine or pelvic fracture. Osteitis pubis noted. Ossification is noted adjacent to the left inferior pubic ramus which is probably from remote trauma. IMPRESSION Chest: 1. No aortic injury or major pulmonary injury. There is small right apical pneumothorax. 2. Numerous mildly displaced right rib fractures and articular fracture of the superior margin of the glenoid. 3. Mild to moderate aortic valve calcif ication consistent with degenerative aortic valve disease. If not recently obtained correlation with elective echocardiography is suggested. Abdomen and Pelvis: No major abdominal/pelvic injury. Finalized by Jerald Morillo M.D. on 12/19/2022 5:21 PM. Dictated by Jerald Morillo M.D. on 12/19/2022 5:[address] [facility] [address] ORDERABLES MD * CT CHEST W CONTRAST (12/19/2022 4:46 PM CDT) Modality Anatomical Region Laterality Computed Tomography CHEST Anatomical Location / Laterality Collection Method / Volume Quinn ection Time Received Time Specimen (Source) 12/19/2022 5:00 PM CDT Impressions 12/19/2022 5:21 PM CDT Chest: 1. No aortic injury or major pulmonary injury. There is small right apical pneumothorax. 2. Numerous mildly displaced right rib fractures and articular fracture of the superior margin of the glenoid. 3. Mild to moderate aortic valve calci fication consistent with degenerative aortic valve disease. If not recently obtained correlation with elective echocardiography is suggested. Abdomen and Pelvis: No major abdominal/pelvic injury. Finalized by Jerald Morillo M.D. on 12/19/2022 5:21 PM. Dictated by Jerald Morillo M.D. on 12/19/2022 5:00 PM. Narrative 12/19/2022 5:[address] chest and CT abdomen and pelvis Indication: Fall down stairs Technique: Dynamic IV contrast-enhanced images were obtained through the chest abdomen and pelvis. Comparison studies: None Chest findings: 1. Heart and great vessels: Heart size n ormal. Mild to moderate aortic valve calcification. Aorta normal caliber without injury. 2. Mediastinum, Axillae and pulmonary hi la: No fluid collection or pneumomediastinum. 3. Lungs and pleura: Tiny right apical pneumothorax better seen on CT cervical spine examination. Moderate apical pleural parenchymal scarring and calcified granuloma in the right apex. Mild dependent lower lobe atelectasis greater on the right. No focal pulmonary contusion. 4. Chest wall and thoracic spine: Thor acic spine alignment normal apart from mild right convexity thoracic spine curvature. Osseous detail is somewhat obscured by motion artifact and demineralization, however no thoracic spine fracture or sternal fracture seen. There are numerous mildly displaced right lateral rib fractures (at least third through 11th rib) with osseous detail obscured by motion artifact. No definite displaced left rib fractures are seen, however, there is considerable motion artifact. Articular fracture of the right scapula at the superior base of the glenoid Abdomen and Pelvis findings: 1. Liver and spleen: Normal in size wi th small spherical low density lesion in segment 2/3 which is probably a small cyst. No laceration or hematoma is seen. 2. Adrenal glands and kidneys: Unremar kable apart from left renal cysts. 3. Pancreas and retroperitoneum: Pancr eas unremarkable. No retroperitoneal fluid collection. Aorta normal caliber. 4. Peritoneal space: Bowel loops michael l caliber. No hemoperitoneum or ascites. 5. Pelvis: Partially filled bladder an d vaginal cuff unremarkable apart from mild pelvic floor relaxation. 6. Musculoskeletal: Lumbar spine align ment normal. Mild to moderate spondylosis. No lumbar spine or pelvic fracture. Osteitis pubis noted. Ossification is noted adjacent to the left inferior pubic ramus which is probably from remote trauma. Procedure Note Jerald Morillo MD - 12/19/[address] abdomen and pelvis Indication: Fall down stairs Technique: Dynamic IV contrast-enhanced images were obtained through the chest abdomen and pelvis. Comparison studies: None Chest findings: 1. Heart and great vessels: Heart size n ormal. Mild to moderate aortic valve calcification. Aorta normal caliber without injury. 2. Mediastinum, Axillae and pulmonary hi la: No fluid collection or pneumomediastinum. 3. Lungs and pleura: Tiny right apical pneumothorax better seen on CT cervical spine examination. Moderate apical pleural parenchymal scarring and calcified granuloma in the right apex. Mild dependent lower lobe atelectasis greater on the right. No focal pulmonary contusion. 4. Chest wall and thoracic spine: Thora cic spine alignment normal apart from mild right convexity thoracic spine curvature. Osseous detail is somewhat obscured by motion artifact and demineralization, however no thoracic spine fracture or sternal fracture seen. There are numerous mildly displaced right lateral rib fractures (at least third through 11th rib) with osseous detail obscured by motion artifact. No definite displaced left rib fractures are seen, however, there is considerable motion artifact. Articular fracture of the right scapula at the superior base of the glenoid Abdomen and Pelvis findings: 1. Liver and spleen: Normal in size wit h small spherical low density lesion in segment 2/3 which is probably a small cyst. No laceration or hematoma is seen. 2. Adrenal glands and kidneys: Unremark able apart from left renal cysts. 3. Pancreas and retroperitoneum: Pancre as unremarkable. No retroperitoneal fluid collection. Aorta normal caliber. 4. Peritoneal space: Bowel loops normal caliber. No hemoperitoneum or ascites. 5. Pelvis: Partially filled bladder and vaginal cuff unremarkable apart from mild pelvic floor relaxation. 6. Musculoskeletal: Lumbar spine alignm ent normal. Mild to moderate spondylosis. No lumbar spine or pelvic fracture. Osteitis pubis noted. Ossification is noted adjacent to the left inferior pubic ramus which is probably from remote trauma. IMPRESSION Chest: 1. No aortic injury or major pulmonary injury. There is small right apical pneumothorax. 2. Numerous mildly displaced right rib fractures and articular fracture of the superior margin of the glenoid. 3. Mild to moderate aortic valve calcif ication consistent with degenerative aortic valve disease. If not recently obtained correlation with elective echocardiography is suggested. Abdomen and Pelvis: No major abdominal/pelvic injury. Finalized by Jerald Morillo M.D. on 12/19/2022 5:21 PM. Dictated by Jerald Morillo M.D. on 12/19/2022 5:[address] [facility] [address] ORDERABLES MD * CT SPINE CERVICAL WO CONTRAST (12/19/2022 4:38 PM CDT) Modality Anatomical Region Laterality Computed Tomography HEAD/SPINE Anatomical Location / Laterality Collection Method / Volume Quinn ection Time Received Time Specimen (Source) 12/19/2022 4:46 PM CDT Impressions 12/19/2022 5:[address] HEAD: 1. No acute intracranial hemorrhage, mas s effect, or calvarial fracture. 2. Moderate right posterior scalp soft t issue hematoma with probable scalp laceration. CT cervical spine: 1. No acute cervical spine fracture or t raumatic subluxation. 2. Moderate cervical spondylosis. There are areas of at least mild central spinal stenosis and moderate neural foraminal stenosis. 3. Small bleb or tiny right apical pneum othorax. Please correlate this with the CT chest report which is dictated separately. Finalized by Jani Wise M.D. on 12/19/2022 5:07 PM. Dictated by Jani Wise M.D. on 12/19/2022 4:46 PM. Narrative 12/19/2022 5:[address] head, CT cervical spine HISTORY: Fall, 8 feet, head laceration. Fall down stairs. Hit head. No loss of consciousness. TECHNIQUE: Multiple contiguous axial images were obtained through the head and cervical spine without contrast. Coronal and sagittal reconstructions were performed from the source data. FINDINGS: CT HEAD: Dental artifact partially degrades parenchymal imaging. There is a moderate right posterior scalp soft tissue hematoma. There is slight irregularity of the skin (image 28 of series 303) suggestive of a laceration. There is no calvarial fracture identified. Cerebral volumes are grossly within normal limits for age. The ventricle sizes are normal. No acute intracranial hemorrhage is identified. There is no midline shift, mass effect, or extra-axial fluid collection identified. Basilar cisterns are patent. Peripheral cole-white interfaces are maintained. The paranasal sinuses and mastoid air cells are clear. CT cervical spine: The atlantooccipital articulation is maintained. The C1 ring is intact. The cervical vertebral body heights are normal. The alignment is maintained. There is no acute cervical spine fracture or traumatic subluxation. There is multilevel disc degeneration with loss of disc height and posterior disc osteophyte complexes at multiple levels with uncovertebral joint enlargement. There are several levels of at least mild central spinal stenosis. Several levels demonstrate at least moderate foraminal stenosis. There are left thyroid dense calcifications. The prevertebral and paraspinal soft tissues appear normal. Is a small right apical bleb or tiny pneumothorax at the medial right lung apex (image 85 of series 305). Procedure Note Jani Wise MD - 12/19/2022 CT head, CT cervical spine HISTORY: Fall, 8 feet, head laceration. Fall down stairs. Hit head. No loss of consciousness. TECHNIQUE: Multiple contiguous axial images were obtained through the head and cervical spine without contrast. Coronal and sagittal reconstructions were performed from the source data. FINDINGS: CT HEAD: Dental artifact partially degrades parenchymal imaging. There is a moderate right posterior scalp soft tissue hematoma. There is slight irregularity of the skin (image 28 of series 303) suggestive of a laceration. There is no calvarial fracture identified. Cerebral volumes are grossly within normal limits for age. The ventricle sizes are normal. No acute intracranial hemorrhage is identified. There is no midline shift, mass effect, or extra-axial fluid collection identified. Basilar cisterns are patent. Peripheral cole-white interfaces are maintained. The paranasal sinuses and mastoid air cells are clear. CT cervical spine: The atlantooccipital articulation is maintained. The C1 ring is intact. The cervical vertebral body heights are normal. The alignment is maintained. There is no acute cervical spine fracture or traumatic subluxation. There is multilevel disc degeneration with loss of disc height and posterior disc osteophyte complexes at multiple levels with uncovertebral joint enlargement. There are several levels of at least mild central spinal stenosis. Several levels demonstrate at least moderate foraminal stenosis. There are left thyroid dense calcifications. The prevertebral and paraspinal soft tissues appear normal. Is a small right apical bleb or tiny pneumothorax at the medial right lung apex (image 85 of series 305). IMPRESSION CT HEAD: 1. No acute intracranial hemorrhage, mas s effect, or calvarial fracture. 2. Moderate right posterior scalp soft t issue hematoma with probable scalp laceration. CT cervical spine: 1. No acute cervical spine fracture or t raumatic subluxation. 2. Moderate cervical spondylosis. There are areas of at least mild central spinal stenosis and moderate neural foraminal stenosis. 3. Small bleb or tiny right apical pneum othorax. Please correlate this with the CT chest report which is dictated separately. Finalized by Jani Wise M.D. on 12/19/2022 5:07 PM. Dictated by Jani Wise M.D. on 12/19/2022 4:[address] [facility] [address] ORDERABLES MD * CT HEAD WO CONTRAST (12/19/2022 4:38 PM CDT) Modality Anatomical Region Laterality Computed Tomography Head Anatomical Location / Laterality Collection Method / Volume Quinn ection Time Received Time Specimen (Source) 12/19/2022 4:46 PM CDT Impressions 12/19/2022 5:[address] HEAD: 1. No acute intracranial hemorrhage, mas s effect, or calvarial fracture. 2. Moderate right posterior scalp soft t issue hematoma with probable scalp laceration. CT cervical spine: 1. No acute cervical spine fracture or t raumatic subluxation. 2. Moderate cervical spondylosis. There are areas of at least mild central spinal stenosis and moderate neural foraminal stenosis. 3. Small bleb or tiny right apical pneum othorax. Please correlate this with the CT chest report which is dictated separately. Finalized by Jani Wise M.D. on 12/19/2022 5:07 PM. Dictated by Jani Wise M.D. on 12/19/2022 4:46 PM. Narrative 12/19/2022 5:[address] head, CT cervical spine HISTORY: Fall, 8 feet, head laceration. Fall down stairs. Hit head. No loss of consciousness. TECHNIQUE: Multiple contiguous axial images were obtained through the head and cervical spine without contrast. Coronal and sagittal reconstructions were performed from the source data. FINDINGS: CT HEAD: Dental artifact partially degrades parenchymal imaging. There is a moderate right posterior scalp soft tissue hematoma. There is slight irregularity of the skin (image 28 of series 303) suggestive of a laceration. There is no calvarial fracture identified. Cerebral volumes are grossly within normal limits for age. The ventricle sizes are normal. No acute intracranial hemorrhage is identified. There is no midline shift, mass effect, or extra-axial fluid collection identified. Basilar cisterns are patent. Peripheral cole-white interfaces are maintained. The paranasal sinuses and mastoid air cells are clear. CT cervical spine: The atlantooccipital articulation is maintained. The C1 ring is intact. The cervical vertebral body heights are normal. The alignment is maintained. There is no acute cervical spine fracture or traumatic subluxation. There is multilevel disc degeneration with loss of disc height and posterior disc osteophyte complexes at multiple levels with uncovertebral joint enlargement. There are several levels of at least mild central spinal stenosis. Several levels demonstrate at least moderate foraminal stenosis. There are left thyroid dense calcifications. The prevertebral and paraspinal soft tissues appear normal. Is a small right apical bleb or tiny pneumothorax at the medial right lung apex (image 85 of series 305). Procedure Note Jani Wise MD - 12/19/2022 CT head, CT cervical spine HISTORY: Fall, 8 feet, head laceration. Fall down stairs. Hit head. No loss of consciousness. TECHNIQUE: Multiple contiguous axial images were obtained through the head and cervical spine without contrast. Coronal and sagittal reconstructions were performed from the source data. FINDINGS: CT HEAD: Dental artifact partially degrades parenchymal imaging. There is a moderate right posterior scalp soft tissue hematoma. There is slight irregularity of the skin (image 28 of series 303) suggestive of a laceration. There is no calvarial fracture identified. Cerebral volumes are grossly within normal limits for age. The ventricle sizes are normal. No acute intracranial hemorrhage is identified. There is no midline shift, mass effect, or extra-axial fluid collection identified. Basilar cisterns are patent. Peripheral cole-white interfaces are maintained. The paranasal sinuses and mastoid air cells are clear. CT cervical spine: The atlantooccipital articulation is maintained. The C1 ring is intact. The cervical vertebral body heights are normal. The alignment is maintained. There is no acute cervical spine fracture or traumatic subluxation. There is multilevel disc degeneration with loss of disc height and posterior disc osteophyte complexes at multiple levels with uncovertebral joint enlargement. There are several levels of at least mild central spinal stenosis. Several levels demonstrate at least moderate foraminal stenosis. There are left thyroid dense calcifications. The prevertebral and paraspinal soft tissues appear normal. Is a small right apical bleb or tiny pneumothorax at the medial right lung apex (image 85 of series 305). IMPRESSION CT HEAD: 1. No acute intracranial hemorrhage, mas s effect, or calvarial fracture. 2. Moderate right posterior scalp soft t issue hematoma with probable scalp laceration. CT cervical spine: 1. No acute cervical spine fracture or t raumatic subluxation. 2. Moderate cervical spondylosis. There are areas of at least mild central spinal stenosis and moderate neural foraminal stenosis. 3. Small bleb or tiny right apical pneum othorax. Please correlate this with the CT chest report which is dictated separately. Finalized by Jani Wise M.D. on 12/19/2022 5:07 PM. Dictated by Jani Wise M.D. on 12/19/2022 4:[address] [facility] [address] ORDERABLES * POC CREATININE, RAD (12/19/2022 4:32 PM CDT) Pathologist Signature Component Value Ref Test Method Analysis Performed A t Range Time Creatinine, POC 0.8 0.4 - 12/19/2022 [facility] DEPT PATH AND 1.00 4:38 PM LAB MEDICINE MG/DL CDT Comment: QA FLAGS AND/OR RANGES MODIFIED BY DEMOGRAPHIC UPDATE ON 12/19 AT 1829 Anatomical Location / Laterality Collection Method / Volume Quinn ection Time Received Time Specimen (Source) 12/19/2022 4:32 PM CDT 12/20/19 4:38 PM CDT [facility] OTHER LABORATORY City/State/ZIP Code Phone Number Performing [place] [address] [facility] DEPT PATH AND [address]. LAB MEDICINE * (ABNORMAL) HIGH SENSITIVITY TROPONIN I 0 HOUR (12/19/2022 4:25 PM CDT) Pathologist Signature Component Value Ref Test Method Analysis Performed A t Range Time hs Troponin I 0 Hour 24 (H) <12 ng/L 12/19/2022 [facility] DEPT PATH AND 5:38 PM LAB MEDICINE CDT Comment: NOTE NEW UNITS AND REFERENCE RANGES QA FLAGS AND/OR RANGES MODIFIED BY DEMOGRAPHIC UPDATE ON 12/19 AT 1829 Anatomical Location / Laterality Collection Method / Volume Quinn ection Time Received Time Specimen (Source) BLOOD / Unknown 12/19/2022 4:25 PM CDT 12/20/19 4:47 PM CDT [facility] LABORATORY ORDERABLES City/State/ZIP Code Phone Number Performing [place] [address] [facility] DEPT PATH AND [address] [facility] LAB MEDICINE * (ABNORMAL) CBC AND DIFF (12/19/2022 4:25 PM CDT) Pathologist Signature Component Value Ref Test Method Analysis Performed A t Range Time White Blood Cells 14.9 (H) 4.5 - 12/19/2022 [facility] DE PT PATH AND 11.0 5:10 PM LAB MEDICINE K/UL CDT RBC 4.19 4.0 - 12/19/2022 [facility] DEPT PAT H AND 5.0 M/UL 5:10 PM LAB MEDICINE CDT Comment: QA FLAGS AND/OR RANGES MODIFIED BY DEMOGRAPHIC UPDATE ON 12/19 AT 1829 Hemoglobin 12.2 12.0 - 12/19/2022 [facility] DEPT PAT H AND 15.0 5:10 PM LAB MEDICINE GM/DL CDT Comment: QA FLAGS AND/OR RANGES MODIFIED BY DEMOGRAPHIC UPDATE ON 12/19 AT 1829 Hematocrit 37.6 36 - 45 12/19/2022 [facility] DEPT PAT H AND % 5:10 PM LAB MEDICINE CDT Comment: QA FLAGS AND/OR RANGES MODIFIED BY DEMOGRAPHIC UPDATE ON 12/19 AT 1829 MCV 89.8 80 - 100 12/19/2022 [facility] DEPT PAT H AND FL 5:10 PM LAB MEDICINE CDT MCH 29.1 26 - 34 12/19/2022 [facility] DEPT PAT H AND PG 5:10 PM LAB MEDICINE CDT MCHC 32.4 32.0 - 12/19/2022 [facility] DEPT PAT H AND 36.0 5:10 PM LAB MEDICINE G/DL CDT RDW 13.7 11 - 15 12/19/2022 [facility] DEPT PAT H AND % 5:10 PM LAB MEDICINE CDT Platelet Count 197 150 - 12/19/2022 [facility] DEPT PATH AND 400 K/UL 5:10 PM LAB MEDICINE CDT MPV 8.6 7 - 11 12/19/2022 [facility] DEPT PAT H AND FL 5:10 PM LAB MEDICINE CDT Neutrophils 87 (H) 41 - 77 12/19/2022 [facility] DEPT PAT H AND % 5:10 PM LAB MEDICINE CDT Lymphocytes 9 (L) 24 - 44 12/19/2022 [facility] DEPT PAT H AND % 5:10 PM LAB MEDICINE CDT Monocytes 4 4 - 12 % 12/19/2022 [facility] DEPT PAT H AND 5:10 PM LAB MEDICINE CDT Eosinophils 0 0 - 5 % 12/19/2022 [facility] DEPT PAT H AND 5:10 PM LAB MEDICINE CDT Basophils 0 0 - 2 % 12/19/2022 [facility] DEPT PAT H AND 5:10 PM LAB MEDICINE CDT Absolute Neutrophil 12.95 (H) 1.8 - 12/19/2022 [facility] DEPT PATH AND Count 7.0 K/UL 5:10 PM LAB MEDICINE CDT Absolute Lymph Count 1.26 1.0 - 12/19/2022 [facility] DEPT PATH AND 4.8 K/UL 5:10 PM LAB MEDICINE CDT Absolute Monocyte 0.61 0 - 0.80 12/19/2022 [facility] DE PT PATH AND Count K/UL 5:10 PM LAB MEDICINE CDT Absolute Eosinophil 0.01 0 - 0.45 12/19/2022 [facility] DEPT PATH AND Count K/UL 5:10 PM LAB MEDICINE CDT Absolute Basophil 0.04 0 - 0.20 12/19/2022 [facility] DE PT PATH AND Count K/UL 5:10 PM LAB MEDICINE CDT MDW (Monocyte 19.6 <20.7 12/19/2022 [facility] DEPT P ATH AND Distribution Width) 5:10 PM LAB MEDICINE CDT Comment: MDW greater than 20.0, together with other laboratory and clinical information, aids in the diagnosis of sepsis or increased risk of sepsis within the first 12 hours of presenting to the emergency department. MDW should not be used as a sole test to determine the absence of sepsis. Clinical performance of the MDW has not been determined in patients receiving immune stimulants, patients with alcoholism, or patients with hematologic abnormalities such as blast cells. Anatomical Location / Laterality Collection Method / Volume Quinn ection Time Received Time Specimen (Source) BLOOD / Unknown 12/19/2022 4:25 PM CDT 12/20/19 4:47 PM CDT [facility] LABORATORY ORDERABLES [facility]/State/ZIP Code Phone Number Performing [place] [address] [facility] DEPT PATH AND [address] LAB MEDICINE * TYPE & CROSSMATCH (12/19/2022 4:25 PM CDT) Pathologist Signature Component Value Ref Test Method Analysis Performed A t Range Time Units Ordered 0 12/19/2022 [facility] DEPT PATH AND 4:48 PM LAB MEDICINE CDT Crossmatch Expires 12/22/2022,2 12/19/2022 [facility] DEPT PATH AND 359 5:59 PM LAB MEDICINE CDT Record Check 2ND TYPE 12/19/2022 [facility] DEPT PATH AND REQUIRED 4:48 PM LAB MEDICINE CDT ABO/RH(D) A NEG 12/19/2022 [facility] DEPT PATH AND 5:59 PM LAB MEDICINE CDT Antibody Screen NEG 12/19/2022 [facility] DEPT PAT H AND 5:59 PM LAB MEDICINE CDT Electronic YES 12/19/2022 [facility] DEPT PATH AND Crossmatch 6:11 PM LAB MEDICINE CDT Anatomical Location / Laterality Collection Method / Volume Quinn ection Time Received Time Specimen (Source) BLOOD / Unknown 12/19/2022 4:25 PM CDT 12/20/19 4:48 PM CDT [facility] BLOOD BANK ORDERABLES [facility]/State/ZIP Code Phone Number Performing [place] [address] [facility] DEPT PATH AND [address] LAB MEDICINE * (ABNORMAL) COMPREHENSIVE METABOLIC PANEL (12/19/2022 4:25 PM CDT) Pathologist Signature Component Value Ref Test Method Analysis Performed A t Range Time Sodium 138 137 - 12/19/2022 [facility] DEPT PAT H AND 147 5:38 PM LAB MEDICINE MMOL/L CDT Potassium 3.7 3.5 - 12/19/2022 [facility] DEPT PAT H AND 5.1 5:38 PM LAB MEDICINE MMOL/L CDT Chloride 103 98 - 110 12/19/2022 [facility] DEPT PAT H AND MMOL/L 5:38 PM LAB MEDICINE CDT Glucose 117 (H) 70 - 100 12/19/2022 [facility] DEPT PAT H AND MG/DL 5:38 PM LAB MEDICINE CDT Blood Urea Nitrogen 24 7 - 25 12/19/2022 [facility] DEPT PATH AND MG/DL 5:38 PM LAB MEDICINE CDT Creatinine 0.76 0.4 - 12/19/2022 [facility] DEPT PAT H AND 1.00 5:38 PM LAB MEDICINE MG/DL CDT Comment: QA FLAGS AND/OR RANGES MODIFIED BY DEMOGRAPHIC UPDATE ON 12/19 AT 1829 Calcium 9.3 8.5 - 12/19/2022 [facility] DEPT PAT H AND 10.6 5:38 PM LAB MEDICINE MG/DL CDT Total Protein 7.5 6.0 - 12/19/2022 [facility] DEPT P ATH AND 8.0 G/DL 5:38 PM LAB MEDICINE CDT Total Bilirubin 0.4 0.3 - 12/19/2022 [facility] DEPT PATH AND 1.2 5:38 PM LAB MEDICINE MG/DL CDT Albumin 4.2 3.5 - 12/19/2022 [facility] DEPT PAT H AND 5.0 G/DL 5:38 PM LAB MEDICINE CDT Alk Phosphatase 55 25 - 110 12/19/2022 [facility] DEPT PATH AND U/L 5:38 PM LAB MEDICINE CDT AST (SGOT) 69 (H) 7 - 40 12/19/2022 [facility] DEPT PAT H AND U/L 5:38 PM LAB MEDICINE CDT CO2 25 21 - 30 12/19/2022 [facility] DEPT PAT H AND MMOL/L 5:38 PM LAB MEDICINE CDT ALT (SGPT) 61 (H) 7 - 56 12/19/2022 [facility] DEPT PAT H AND U/L 5:38 PM LAB MEDICINE CDT Anion Gap 10 3 - 12 12/19/2022 [facility] DEPT PAT H AND 5:38 PM LAB MEDICINE CDT eGFR >60 >60 12/19/2022 [facility] DEPT PAT H AND mL/min 5:38 PM LAB MEDICINE CDT Comment: eGFR calculated using the CKD-EPIcr_R equation Anatomical Location / Laterality Collection Method / Volume Quinn ection Time Received Time Specimen (Source) BLOOD / Unknown 12/19/2022 4:25 PM CDT 12/20/19 4:47 PM CDT [facility] LABORATORY ORDERABLES City/State/ZIP Code Phone Number Performing [place] [address] [facility] DEPT PATH AND [address] [facility] LAB MEDICINE * TELEMETRY STRIPS-SCAN (12/19/2022 12:00 AM CDT) Narrative 12/19/2022 12:00 AM CDT Ordered by an unspecified provider. Scanned Document PROCEDURE DUMMY ORDERS from Last 3 Months Insurance Type Payer Benefit Subscriber ID Effective Phone Address Plan / Dates Group Medicare MEDICARE MEDICARE [id number] 2021-P [phone] [address] [place] [address] [employer] OF [id number] 2022-P [phone] [employer] philipent KATHI GUERRERO [phone] Advance Directives Patient Central Office Supervisor Explanation Type Date Recorded DPOA Advance 12/19/2022 Directive/DPOA Date Inactivated Comments Code Status Date Activated 12/27/2022 12:46 PM Full Code 12/19/2022 8:51 PM Comments Question Answer Provider has Yes discussed Code Status w/Patient or Family? Care Teams Start Date End Date Motion Picture Set Worker Relationship Specialty 12/19/22 No Pcp, Na PCP - General
--- OUTSIDE RECORDS SUMMARY | 2022-12-27 13:16 | XMS REPORT | Encounter Summary ---
Author Author [facility] Organization [facility] Address Unknown Phone Unavailable Care Team Providers Care Blow Moulding Machine Operator Name Role Phone No Pcp, Na PCP Unavailable Reason for Visit * Reason Comments Ambulatory Certified Physician Assistant Home Enrollment Encounter Details Care Team Description Date Type Department Kassidy Roblero Ambulatory Certified Physician Assistant Home Enrollme nt 12/27/2022 Documentation Cardiology: [facility] [address] [place] [address] Social History Date Tobacco Use [...] impairment: No documented as of this encounter Progress Notes * Kassidy Roblero - 12/27/2022 12:00 PM CDT To our valued patient, We have enrolled your heart monitor and requested it be sent to your home. You should receive this within 2-3 business days. Please wear the monitor for 14 day s. When you have completed the study, please remove the device, and mail it back to the company. Please call [employer] Customer Service at [phone] with [employer] about placement, troubleshooting, and insurance coverage. You can reach the Cardiology ambulatory heart monitor team at [phone]. Your Heart Rhythm Management Team Cardiovascular Medicine Department at [facility] Ambulatory (External) Certified Physician Assistant Enrollment Record Placement Location: Home Enrollment Vendor: [employer] ([employer]) Mobile Cardiac Telemetry (MCOT/MCT)?: No Duration of Monitor (in days): 14 Monitor Diagnosis: Other (Nonrheumatic aortic valve disorder, unspecified - I35. 9) No data recordedOrdering Provider: Alexy CHANG Monitor Serial Number: Home No data recorded Start Time and Date: 12/27/22 12:01 PM Patient Name: Jaleesa Paredes : [birth year] Sex: female Mobile (mobile) Patient Address: [address] [place] [id number] Insurance Coverage: MEDICARE PART A AND B Insurance Group #: Insurance Subscriber: HIROJALEESA G Implanted Cardiac Device Information: No results found for: EPDEVTYP Patient instructed to contact company phone number on the monitor box with [employer] regarding billing, placement, troubleshooting. Kassidy Roblero Clinic Staff: Complete additional steps for documentation double check/Co-Sign. In Follow-up, send chart upon closing encounter to P [facility]VM HRM AMBULATORY SHILPA GARDUNO HRM Ambulatory Monitoring Team: 1. Schedule on appropriate template and check-in. Clinic Placement Schedule on clinic location HRM schedule Home Enrollment Schedule on Home Enrollment schedule ([facility]) Given to patient in clinic for self-placement Schedule on Home Enrollment schedu le ([facility]) Inpatient Schedule on [facility] AMBULATORY MONITORING template 2. Please enroll with appropriate vendor. documented in this encounter Plan of Treatment Not on filedocumented as of this encounter Goals Goal Patient Associated Recent Progress Patient-Stat Aut hor Goal Type Problems ed? Decrease [facility] On track (12/20/2022 No Robert meza, 2:15 AM CDT) CHUY Rob documented as of this encounter Visit Diagnoses Not on filedocumented in this encounter Additional Health Concerns Noted Time Assessment 12/27/2022 8:10 AM CDT A fall risk assessment has been complet ed for the patient documented as of this encounter Care Teams Start Date End Date Blow Moulding Machine Operator Relationship Specialty 12/19/22 No Pcp, Na PCP - General documented as of this encounter
--- OUTSIDE RECORDS SUMMARY | 2022-12-27 13:16 | XMS REPORT | Encounter Summary ---
Author Author [facility] Organization [facility] Address Unknown Phone Unavailable Care Team Providers Care Herbarium Curator Name Role Phone No Pcp, Na PCP Unavailable Encounter Details Care Team Description Date Type Department 12/27/2022 Travel Social History Date Tobacco Use Types Packs/Day [...] pain Hospital On track (12/20/2022 No Robert meza, 2:15 AM CDT) CHUY Rob documented as of this encounter Visit Diagnoses Not on filedocumented in this encounter Additional Health Concerns Noted Time Assessment 12/27/2022 8:10 AM CDT A fall risk assessment has been complet ed for the patient documented as of this encounter Care Teams Start Date End Date Herbarium Curator Relationship Specialty 12/19/22 No Pcp, Na PCP - General documented as of this encounter
--- OUTSIDE RECORDS SUMMARY | 2022-12-27 13:16 | XMS REPORT | Encounter Summary ---
Author Author [facility] Organization [facility] Address Unknown Phone Unavailable Care Team Providers Care Software Recruiter Name Role Phone No Pcp, Na PCP Unavailable Encounter Details Care Team Description Date Type Department 12/19/2022 Travel Social History Date Tobacco Use Types [...] have Coronavirus/COVID-19? documented as of this encounter Plan of Treatment Not on filedocumented as of this encounter Visit Diagnoses Not on filedocumented in this encounter Additional Health Concerns Noted Time Assessment 12/19/2022 8:53 PM CDT A fall risk assessment has been complet ed for the patient documented as of this encounter Care Teams Start Date End Date Software Recruiter Relationship Specialty 12/19/22 No Pcp, Na PCP - General documented as of this encounter
--- OUTSIDE RECORDS SUMMARY | 2022-12-27 13:16 | XMS REPORT | Encounter Summary ---
Author Author [facility] Organization [facility] Address Unknown Phone Unavailable Care Team Providers Care Competitive Intelligence Manager Name Role Phone No Pcp, Na PCP Unavailable Reason for Referral * Consult, Test & Treat (Routine) - New Request Diagnoses / Procedures Referred By Contact Referred To Conta ct Specialty Diagnoses Closed fracture of multiple ribs, unspecified laterality, initial encounter Fall, initial encounter Closed fracture of scapula, unspecified laterality, unspecified part of scapula, initial encounter Aortic valve disease Closed nondisplaced fracture of acromial process of right scapula, initial encounter Traumatic pneumothorax, initial encounter Impaired mobility and activities of daily living Acute blood loss anemia Acute traumatic pain Sleep disturbances Laceration of scalp, initial encounter Procedures APPOINTMENT REQUEST: ORTHOPEDICS Key Hernadez APRN-NP [address] [facility] Level 3, [address] [place] [address] Mpb2 Ortho Cl [address] [facility], [address] [place] [address] Orthopedic Surgery Referral ID Status Reason Start Date Expiration Visits Vi sits Date Requested Authorized [id number] New Request 12/27/2022 12/27/2023 1 1 * Consult, Test & Treat (Discharge Pending) - New Request Diagnoses / Procedures Referred By Contact Referred To Conta ct Specialty Procedures REQUEST FOR CARDIOLOGY APPOINTMENT Zoila Guerrero APRN-NP [address] [facility] [address], [address] [place] [address] Referral ID Status Reason Start Date Expiration Visits Vi sits Date Requested Authorized [id number] New Request 12/23/2022 12/23/2023 1 1 * Consult, Test & Treat (Routine) - Authorized Diagnoses / Procedures Referred By Contact Referred To Conta ct Specialty Diagnoses Aortic valve disease Freddy Olivas MD [address] [facility] [place] [address] [facility] [address] [facility] [address] [place] [address] Cardiology Referral ID Status Reason Start Date Expiration Visits Vi sits Date Requested Authorized [id number] Authorized Specialty Services 12/22/2022 12/23/2023 1 1 Required Comments Evaluate for ischemic work-up for valvular disease, and left bundle branch block A M CDT Reason for Visit * Reason Comments Fall Fall down stairs, hit head, No LOC * Auth/Cert (Routine) Diagnoses / Procedures Referred By Contact Referred To Conta ct Specialty Diagnoses Trauma Referral ID Status Reason Start Date Expiration Visits Vi sits Date Requested Authorized [id number] 1 1 Encounter Details Care Team Description Date Type Department Dangers, Jefferson Deshpande MD [address] [facility] [place] [address] Jonathan Gaona MD [address], [address] [place] [address] Irving Ontiveros MD [address], [address] [place] [address] (work) Trauma Discharge Disposition: Home or Self Care 12/19/2022 [facility] Patient Care Unit B H51: 4:09 PM Encounter [facility] CDT - [address] 12/27/2022 Level 5 10:46 AM [place] CDT [id number] Social History Date Tobacco Use Types Packs/Day [...] have Coronavirus/COVID-19? documented as of this encounter Last Filed Vital Signs Reading Time Taken [...] 12/20/2022 2:41 PM CDT Body Mass Index documented in this encounter Functional Status Date of Assessment [...] impairment: No documented as of this encounter Discharge Summaries * Yamileth Sylvester - 12/27/2022 9:29 AM CDT Trauma Floor Case Management Progress Note NAME: Nikki Paredes : 1955 AGE: 67 y.o. Today's Date: 12/27/2022 PLAN: Dc to [facility] in [place], [place] BARRIERS to Discharge: NONE INTERVENTIONS: Discharge Planning SW confirmed pt is stable for dc today SW confirmed with [facility], they are all set for pt to transfer today. SW confirmed dc plans with medical provider and bedside RN SW faxed dc orders Transportation (Wheelchair/Stretcher/Family) Pt to have medical transport to [facility]. Medication Needs Medication Voucher: No Yamileth Sylvester LMSW On Voalte * Candace Bergeron - 12/26/2022 2:24 PM CDT CUSTOMER SECURITY CLERK Note: Printed and placed transfer packet in the pt's wall unit per request from ALLYSON Bennett. Candace Bergeron Outreach Specialist For additional assistance please contact [facility] *[phone] * Yamileth Sylvester - 12/26/2022 1:04 PM CDT Trauma Floor Case Management Progress Note NAME: Nikki Paredes : 1955 AGE: [age] y.o. Today's Date: 12/26/2022 PLAN: Dc to [facility] in [place], [place] BARRIERS to Discharge: NONE INTERVENTIONS: Discharge Planning .SW reviewed pt's EMR and participated in Trauma Huddle where the following was discussed for pt's plan of care; pt stable for dc SW reached out to [facility] admissions, they requested updates and would prefer for pt to leave tomorrow in the morning to arrive earlier in the day. SW tasked CUSTOMER SECURITY CLERK to deliver pt's transfer packet. Transportation (Wheelchair/Stretcher/Family) SW tasked CUSTOMER SECURITY CLERK to arrange for transportation. Transportation set for 10:30am on Family not at bedside and unable to afford transport and to avoid a delay in dc , SW had transport arranged. Medication Needs Medication Voucher: Courtney Sylvester LMSW On Voalte * Candace Bergeron - 12/26/2022 11:27 AM CDT CUSTOMER SECURITY CLERK Note: Arranged transport with [place] [facility] for pt to dc to [facility] in [place], [place] on 12/27 at 10:30am per the request from ALLYSON Bennett. [facility] to pay. Per ALLYSON, pt can sit up, transfer in a car & doesn't need a wc for transport. Voalted CARLOS of scheduled transport. Candace Bergeron Outreach Specialist For additional assistance please contact [facility] *[phone] * Candace Bergeron - 12/26/2022 9:52 AM CDT [facility] Note: Faxed updates to [place], [place] - [phone] from ALLYSON Bennett. Candace Bergeron Outreach Specialist For additional assistance please contact [facility] *[phone] Candace Blanc - 12/22/2022 2:11 PM CDT [facility] Note: Faxed a referral to [facility], [place] - [phone] p er the request from ALLYSON Bennett. Candace Bergeron Outreach Specialist For additional assistance please contact [facility] *[phone] amileth Harkins - 12/22/2022 1:07 PM CDT Case Management Progress Note NAME:Nikki Paredes :[birth year] AGE: 67 y.o. ADMISSION DATE: 12/19/2022 DAYS ADMITTED: LOS: 3 days Today's Date: 12/22/2022 PLAN: Dc to inpatient setting Expected Discharge Date: 12/23/2022 Is Patient Medically Stable: Oral Pain Control Are there Barriers to Discharge? no INTERVENTION/DISPOSITION: Discharge Planning SW reviewed pt's EMR and participated in Trauma Huddle where the f ollowing was discussed for pt's plan of care; pt not stable for dc due to needin g oral pain control. SW met with pt and pt's friend at bedside regarding dc planning. Pt in agreement with placement and SNF vs IPR was discussed. Pt is leaning towards wanting to do IPR in [place] rather than SNF. SW sent a referral to [facility] to review. Transportation Does the Patient Need Case Management to Arrange Discharge Transport ? (ex: facility, ambulance, wheelchair/stretcher, Medicaid, cab, other): No Will the Patient Use Family Transport?: Yes Transportation Name, Phone and Availability #1: self or spouse Support Info or Referral Positive SDOH Domains and Potential Barriers Medication Needs Financial Legal Other Discharge Disposition Selected Continued Care - Admitted Since 12/19/2022 No services have been selected for the patient. Yamileth Sylvester On Voalte * Sridhar Fields RN - 12/20/2022 9:46 AM CDT Case Management Admission Trauma Assessment NAME:Nikki Paredes :[birth year] AGE: 67 y.o. ADMISSION DATE: 12/19/2022 DAYS ADMITTED: LOS: 1 day Todays Date: 12/20/2022 Source of Information: Patient 67 y.o.year old femalewith no prior PMH who presents after an 8 foot fall do wn basement stairs at home. She landed on her head and right side of her body on to concrete. Patient was found to have a right scapula fracture, right acromion , right 3-11 rib fractures, tiny apical pneumothorax, scalp laceration. Scalp laceration was repaired in the emergency department. Patient was subsequently a dmitted to the ICU for close monitoring and observation. Plan Plan: Case Management Assessment, Assist PRN with SW/NCM Services This CM met with pt for assessment on this date. Provided explanation of SW/NCM roles. Provided opportunity for questions and discussion. Pt/family encouraged to contact Case Management team with questions and concerns during hospitalizat ion and until patient is able to transition back to the patient's primary care p supa. Patient lives with her spouse in a 2 story house and reported independence wi th ADLs and IADLs. Her house accomodates single level living if needed. No history of HH, LTC/NH, SNF, IPR, or LTACH. 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 No PCP at this time. Pt plans to get established with a new PCP soon. Active Medicare A & B and [employer] insurance. 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 Pt's wishes are documented in her DPOA document scanned into the EMR. Notified SICU KIDNEY PULLER regarding pt's blood preferences. Transportation: self or spouse. Discharge planning ongoing. Patient Address/Phone [address] [place] [phone] There are no phone numbers on file. Emergency Contact Extended Emergency Contact Information Primary Emergency Contact: Karthik Paredes Mobile Relation: Spouse Secondary Emergency Contact: Tiffanie Li Mobile Relation: Sister Healthcare Directive Healthcare Directive: Yes, patient has a healthcare directive Type of Healthcare Directive: Healthcare directive, Other (Comment) (Healthcare power of environmental attorney) Location of Healthcare Directive: Other (Comment) (Pt states she gave it to some one in the er to place in her chart) Would patient like to fill out a (a new) Healthcare Directive?: No, patient decl ined Psych Advance Directive (Psych unit only): No, patient does not have a Psych Adv ance Directive Transportation Does the Patient Need Case Management to Arrange Discharge Transport? (ex: facil ity, ambulance, wheelchair/stretcher, Medicaid, cab, other): No Will the Patient Use Family Transport?: Yes Transportation Name, Phone and Availability #1: self or spouse Expected Discharge Date 12/22/2022 Living Situation Prior to Admission Living Arrangements Type of Residence: Home, independent Living Arrangements: Spouse/significant other Bathroom Shower / Tub: Walk-in Shower How many levels in the residence?: 2 Can patient live on one level if needed?: Yes Does residence have entry and/or inside stairs?: Yes (2 JOSIAH) Assistance needed prior to admit or anticipated on discharge: Yes Who provides assistance or could if needed?: pt's spouse Are they in good health?: Yes Can support system provide 24/7 care if needed?: Maybe Level of Function Prior level of function: Independent Cognitive Abilities Cognitive Abilities: Alert and Oriented, Engages in problem solving and planning , Participates in decision making Financial Resources Coverage Primary Insurance: Medicare Secondary Insurance: Medicare Supplement (Witten connie Amanda) Additional Coverage: RX Source of Income Source Of Income: SSI, Employed Financial Assistance Needed? None Psychosocial Needs Mental Health Mental Health History: No Substance Use History Substance Use History Screen: No Other None Current/Previous Services PCP No Pcp, Na, None, None Pharmacy No Pharmacies Listed Durable Medical Equipment Durable Medical Equipment at home: [facility] Receiving home health: No Hemodialysis or Peritoneal Dialysis Undergoing hemodialysis or peritoneal dialysis: No Tube/Enteral Feeds Receive tube/enteral feeds: No Infusion Receive infusions: No Private Duty Private duty help used: No Home and Community Based Services Home and community based services: No Harjinder White Harjinder White: N/A Hospice Hospice: No Outpatient Therapy PT: No OT: No MEDICAL ASSISTANT PRN: No Custodial Facility/[facility] SNF: No NH: No Inpatient Rehab IPR: No Long-Term Acute Care Hospital LTACH: No Acute Hospital Stay Acute Hospital Stay: In the past Was patient's stay within the last 30 days?: No Trauma Screening Acute Stress Disorder Scale >56 is an 80% risk for development of PTSD 19 Trauma Specific Frailty Index Index Score of >.27 indicates frailty. Provide appropriate interventions. 0.07 Audit-C Men- A score of 4 or more is considered positive. Provide appropria te interventions. Women- A score of 3 or more is considered positive. Provide appropriate interventions. Caige AID >3 recommend PATYS FARAZ Neely, cage supervisor Nurse Squirrel Worker [facility] | | [email or web address] [address] [place] [address] documented in this encounter Medications at Time of Discharge Start Date End Date Medication Sig Dispensed Refills 12/27/2022 01/10/2023 acetaminophen (TYLENOL Take two 45 tablet 0 EXTRA STRENGTH) 500 mg tablets by tablet mouth every 6 hours while awake for 7 days, THEN one tablet to two tablets every 6 hours as needed for up to 7 days. Max of 4,000 mg of acetaminophen in 24 hours. 12/27/2022 celecoxib (CELEBREX) 200 Take one 30 capsule 0 mg capsule capsule by mouth twice daily. cetirizine (ZYRTEC) 10 mg Take one 0 tablet tablet by mouth daily as needed for Allergy symptoms. 12/27/2022 01/10/2023 gabapentin (NEURONTIN) Take one 28 capsule 0 100 mg capsule capsule by mouth three times daily for 7 days, THEN one capsule daily for 7 days. hypromellose/dextran Apply one 0 (OCUCOAT) drop drop to both eyes every 6 hours as needed. 12/27/2022 lidocaine (LIDODERM) 5 % Apply one 90 patch 0 topical patch patch topically to affected area daily. Apply patch for 12 hours, then remove for 12 hours before repeating. 12/27/2022 melatonin (MELATIN) 3 mg Take one 90 tablet 0 tablet tablet by mouth at bedtime daily. 12/27/2022 methocarbamoL (ROBAXIN) Take one 15 tablet 0 750 mg tablet tablet by mouth three times daily. 12/27/2022 naloxone (NARCAN) 4 Insert 1 2 each 0 mg/actuation nasal spray spray into 1 nostril as needed for signs of opioid overdose then call 911. May repeat dose every 2-3 minutes (alternate nostrils) until medical team arrives. other medication Rite Start 0 4Life Women's Multivitamin pack: Take contents of one pack by mouth once daily other medication Portage XL 0 (Mussel, Midway Oil, Vitamin E): Take 2 capsules by mouth once daily 12/27/2022 oxyCODONE (ROXICODONE) 5 Take one 0 mg tablet tablet to two tablets by mouth every 4-6 hours as needed. 12/27/2022 polyethylene glycol 3350 Take one 12 each 0 (MIRALAX) 17 g packet packet by mouth daily. 12/27/2022 senna (SENOKOT) 8.6 mg Take one 180 tablet 0 tablet tablet by mouth twice daily. documented as of this encounter Ordered Prescriptions Start Date End Date Prescription Sig Dispensed Refills 12/27/2022 naloxone (NARCAN) 4 Insert 1 2 each 0 mg/actuation nasal spray spray into 1 nostril as needed for signs of opioid overdose then call 911. May repeat dose every 2-3 minutes (alternate nostrils) until medical team arrives. 12/27/2022 oxyCODONE (ROXICODONE) 5 Take one 0 mg tablet tablet to two tablets by mouth every 4-6 hours as needed. 12/27/2022 01/10/2023 acetaminophen (TYLENOL Take two 45 tablet 0 EXTRA STRENGTH) 500 mg tablets by tablet mouth every 6 hours while awake for 7 days, THEN one tablet to two tablets every 6 hours as needed for up to 7 days. Max of 4,000 mg of acetaminophen in 24 hours. 12/27/2022 01/10/2023 gabapentin (NEURONTIN) Take one 28 capsule 0 100 mg capsule capsule by mouth three times daily for 7 days, THEN one capsule daily for 7 days. 12/27/2022 celecoxib (CELEBREX) 200 Take one 30 capsule 0 mg capsule capsule by mouth twice daily. 12/27/2022 lidocaine (LIDODERM) 5 % Apply one 90 patch 0 topical patch patch topically to affected area daily. Apply patch for 12 hours, then remove for 12 hours before repeating. 12/27/2022 melatonin (MELATIN) 3 mg Take one 90 tablet 0 tablet tablet by mouth at bedtime daily. 12/27/2022 methocarbamoL (ROBAXIN) Take one 15 tablet 0 750 mg tablet tablet by mouth three times daily. 12/27/2022 polyethylene glycol 3350 Take one 12 each 0 (MIRALAX) 17 g packet packet by mouth daily. 12/27/2022 senna (SENOKOT) 8.6 mg Take one 180 tablet 0 tablet tablet by mouth twice daily. documented in this encounter Discharge Disposition Code Departure Means Destination Disposition Wheelchair Home or Self Care documented in this encounter Progress Notes * Courtney Garcia RN - 12/27/2022 10:46 AM CDT Report called to Mckayla at rehab facility * Beryl Brewer, OT - 12/26/2022 4:26 PM CDT OCCUPATIONAL THERAPY NOTE Name: Nikki Paredes : 1955 Age: 67 y.o. Admission Date: 12/19/2022 LOS: 7 days Date of Service: 12/26/2022 Attempted OT session this afternoon. Patient requesting to hold until after pain meds received. RN notified and pain meds requested. Patient then with increased fatigue after working with PT. Occupational therapy will continue to follow and provide intervention as indicated. Therapist: HAKEEM Duarte/Lauren [id number] Date: 12/26/2022 * Issa Mauro PT - 12/26/2022 2:56 PM CDT PHYSICAL THERAPY PROGRESS NOTE Name: Nikki Paredes : 1955 Age: 67 y.o. Admission Date: 12/19/2022 LOS: 7 days Date of Service: 12/26/2022 Mobility Patient Turn/Position: Supine Progressive Mobility Level: Walk laps Distance Walked (feet): 250 ft Level of Assistance: Stand by assistance Assistive Device: None;Hand Held Activity Limited By: Fatigue Subjective Significant hospital events: 67 y/o F w/ no significant PMHx who presents after 6-8 ft fall on concrete w/ R scapular fx w/ intra-articular extension, R lateral acromion fx, right sided 3-11 rib Mental / Cognitive Status: Alert;Oriented;Cooperative;Follows Commands Pain: Patient demonstrates non-verbal signs of pain;Patient does not rate pain Pain Location: Right;Ribs;Shoulder Pain Interventions: Patient pre-medicated;Patient agrees to participate in thera py Comments: Pt educated on pillow bracing for use with coughing, sneezing, laughin g R UE Precautions: RUE non-weight bearing;RUE immobilizer Ambulation Assist: Independent Mobility in Community without Device Home Situation: Lives with Family Type of Home: House Entry Stairs: 3-5 Stairs;Rail on 1 Side In-Home Stairs: Able to Live on One Level Bed Mobility/Transfer Bed Mobility: Supine to Sit: Verbal Cues;Head of Bed Elevated;Requires Extra Mekhi e;Standby Assist Bed Mobility: Sit to Supine: Standby Assist;HOB Elevated;Requires Extra Time Transfer Type: Sit to/from Stand Transfer: Assistance Level: To/From;Bed;Standby Assist Transfer: Assistive Device: None Transfers: Type Of Assistance: Verbal Cues;Elevated Bed;For Balance;For Strength Deficit Other Transfer Type: Sit to/from Stand Other Transfer: Assistance Level: To/From;Toilet Other Transfer: Assistive Device: None Other Transfer: Type Of Assistance: Requires Extra Time End Of Activity Status: In Bed;Instructed Patient to Request Assist with Mobilit y;Instructed Patient to Use Call Light Comments: Pt denied dizziness on this date Gait Gait Distance: 250 feet Gait: Assistance Level: Standby Assist;Safety Considerations Gait: Assistive Device: None Gait: Descriptors: Decreased step length;Pace: Slow;No balance loss Education Persons Educated: Patient Patient Barriers To Learning: None Noted Teaching Methods: Verbal Instruction;Demonstration Patient Response: Verbalized Understanding;Return Demonstration Topics: Plan/Goals of PT Interventions;Use of Assistive Device/Orthosis;Safety A wareness;Up with Assist Only;Recommend Continued Therapy Assessment/Progress Impaired Mobility Due To: Pain;Decreased Activity Tolerance;Medical Status Limit ation Impaired Strength Due To: Pain;Deconditioning;Medical Status Limitation Assessment/Progress: Should Improve w/ Continued PT AM-PAC 6 Clicks Basic Mobility Inpatient Turning from your back to your side while in a flat bed without using bed rails: A Little Moving from lying on your back to sitting on the side of a flat bed without usin g bedrails : A Little Moving to and from a bed to a chair (including a wheelchair): A Little Standing up from a chair using your arms (e.g. wheelchair, or bedside chair): A Little To walk in hospital room: A Little Climbing 3-5 steps with a railing: A Lot Basic Mobility Inpatient Raw Score: 17 Standardized (T-scale) Score: 39.67 AM-PAC Basic Mobility Functional Stage: 34-51 Limited Mobility Indoors Goals Goal Formulation: With Patient Time For Goal Achievement: 5 days, To, 6 days Patient Will Go Supine To/From Sit: w/ Stand By Assist, Met, Independently, New Goal Patient Will Transfer Bed/Chair: w/ Stand By Assist, Met, Independently, New Goa l Patient Will Ambulate: Greater than 200 Feet, w/ Cane, w/ Assist of 2, Independe ntly, New Goal Patient Will Go Up / Down Stairs: 1-2 Stairs, w/ Minimal Assist, Ongoing Plan Treatment Interventions: Mobility Training;Strengthening;Endurance Training Plan Frequency: 5-7 Days per Week PT Plan for Next Visit: progress independence with ambulation, trial stairs as a ppropriate PT Discharge Recommendations Recommendation: Inpatient setting Patient Currently Requires Physical Assist With: All mobility Patient Currently Requires Supervision For: Mobility Patient Currently Requires Equipment: Cane: single point Patient requires the use of a cane to ambulate in the home and to complete ADLs in the home including meal preparation, ambulation to the bathroom for toileting , bathing and grooming, and safe home mobility. Patient ambulation is impaired, and mobility related ADLs cannot be accomplished without risk of injury. Therapist: Issa Mauro, PT, DPT Date: 12/26/2022 * Key Hernadez, ASSOCIATE PROFESSOR OF SURGERY-KIDNEY PULLER - 12/26/2022 6:26 AM CDT Trauma Progress Note Date of Service: 12/26/2022 Hospital Day: Hospital Day: 8 HPI: Nikki Paredes is a 67 y.o. female w/ no prior PMH who presented to the ED 12/19/22 s/p 8 foot fall down her basement stairs onto concrete. She reported skyler t she fell onto her right side, striking her head. She presented to the ED for e valuation and was found to have a right scapula fracture, right acromion fractur e, right 3-11 rib fractures w/tiny apical pneumothorax, as well as a scalp lacer ation. Trauma was consulted and she was admitted to the SICU with Ortho, APS and IM consults. She was started on a ketamine gtt and epidural for pain control. H er ketamine was dc'd 12/21 and she was transferred to the trauma floor for ongoin g management. Her orthopedic injuries are being treated non-operatively. Therapi es were consulted and they are recommending placement at this time. Assessment/ Plan: Method of injury:Fall down stairs Patient Active Problem List Diagnosis Date Noted Multiple rib fractures 12/20/2022 Sleep disturbances 12/20/2022 Acute traumatic pain 12/20/2022 Acute blood loss anemia 12/20/2022 Leukocytosis 12/20/2022 Scalp laceration 12/20/2022 Impaired mobility and activities of daily living 12/20/2022 Scapular fracture 12/20/2022 Pneumothorax 12/20/2022 Closed fracture of acromion 12/20/2022 Trauma 12/19/2022 Neuro Acute pain due to trauma -- APS following for PCEA- D/C today -- Tylenol 1gm Q6H -- Gabapentin 100mg Q8H -- Robaxin 750mg TID -- Oxycodone 5-10mg Q4h PRN -- celebrex 200mg BID -- lidocaine patch Sleep disturbance -- Melatonin 3mg HS HEENT Scalp lac -- s/p 12/19 bedside repair -- local wound care -- will need staple removed prior to D/C CV Possible Syncope Episode -- Outpatient referral to cardiology placed -- Echo w/ EF 50-55%, moderate aortic stenosis -- Zio patch on dc for 2 weeks -- Set up w/ PCP [facility]. See VS summary below Continue to monitor Pulm R 3-11 rib fx, apical pneumo -- Stable on RA -- Pulmonary toilet, encourage IS -- Pain control GI/FEN Regular diet SLIV Zofran prn nausea Monitor and replace lytes prn Risk for Constipation -- Bowel Regimen -- Last BM: 12/24 Voiding w/o difficulty UOP adequate Cr stable Heme/ID Acute blood loss anemia -- Hgb stable. Hgb low, but no clinical signs of overt bleeding. Continue to duran nd serially. Optimize fluid balance. Monitor stools for signs of occult GI bleed ing. WBC WNL, afebrile Endo No acute issues. Monitor and treat prn MS R scapula, acromion fx -- Ortho following -- NWB RUE, shoulder immobilizer -- f/u Dr. Jin 1 week Impaired mobility and ADLs -- PT/OT PPx SCDs, Lovenox Disp - Medically stable. Progress w/ therapies. Anticipate dc home vs rehab. SW/CM following for discharge planning needs. Patient discussed with Dr. Ontiveros during rounds. Subjective No acute events overnight. Pt resting in bed. Family at bedside. Notes she slept well overnight. Reports her pain is ok, however note an increase since her epid ural has been removed. Discussed current pain regimen and will continue to optim ize. Tolerating diet. Denies any FORMAN, dizziness, CP, SOA, n/v or abd pain. Discus sed plan of care and goals to discharge. Objective: Physical Exam: General: in no apparent distress, well developed and well nourished, alert, orie nted times 3 and cooperative Head/Ears/Eyes/Nose/Throat: normal, posterior scalp lac, well approximated, no s /sx infection Respiratory: Clear Auscultation w/ diminished bases and respirations even and u nlabored Cardiovascular: Regular rate, +murmur Abdomen: soft, NTND, bowel sounds present x4 Extremities: Warm and well perfused and shoulder immobilizer to RUE, SILT, wiggl es fingers, warm to touch Neuro: normal, alert, oriented x3 and speech normal in context and clarity Derm: Warm, dry, anicteric Musc: Normal ROM, Normal strength and tone and limited d/t pain and WB restricti ons to RUE Vital Signs: (24 hours) BP: (101-141)/(56-72) Temp: [36.5 C (97.7 F)-37.1 C (98.8 F)] Pulse: [64-89] Respirations: [14 PER MINUTE-16 PER MINUTE] SpO2: [92 %-95 %] O2 Device: None (Room air) Medications: Scheduled Meds:acetaminophen (TYLENOL EXTRA STRENGTH) tablet 1,000 mg, 1,000 mg, Oral, Q6H* celecoxib (CeleBREX) capsule 200 mg, 200 mg, Oral, BID enoxaparin (LOVENOX) syringe 30 mg, 30 mg, Subcutaneous, BID gabapentin (NEURONTIN) capsule 100 mg, 100 mg, Oral, Q8H lidocaine (LIDODERM) 5 % topical patch 1 patch, 1 patch, Topical, QDAY melatonin (MELATIN) tablet 3 mg, 3 mg, Oral, QHS methocarbamoL (ROBAXIN) tablet 750 mg, 750 mg, Oral, TID polyethylene glycol 3350 (MIRALAX) packet 17 g, 1 packet, Oral, QDAY senna (SENOKOT) tablet 1 tablet, 1 tablet, Oral, BID Continuous Infusions: PRN and Respiratory Meds:ondansetron (ZOFRAN) IV Q6H PRN, oxyCODONE Q4H PRN Lines, Drains, and Airways: Lines, Drains, Airways and Wounds IV Duration Peripheral IV Left Antecubital 18 G 6 days Wound Duration Wounds 12/19/22 2100 Abrasion Distal;Right;Posterior Leg 6 days Wounds 12/19/22 2100 Laceration Anterior;Left Finger, Second (index) 6 days Wounds 12/19/22 2100 Laceration Right;Lateral Head 6 days Pertinent labs, medications, radiology, and diagnostic procedures reviewed inclu ding: active problem list, medication list, allergies, family history, social hi story, health maintenance, notes from last encounter, lab results, imaging Key Hernadez APRN-KIDNEY PULLER Pager: [phone] Team pager: [phone] * Quyen Aburto MD - 12/25/2022 11:43 AM CDT Anesthesiology Acute Pain Service Date of Service: 12/25/2022 Name: Nikki Paredes is a 67 y.o. female : 1955 PROCEDURE: * No surgery found * Consulted 12/19 for right-sided rib, shoulder, scapula fractures ANALGESIA TECHNIQUE PCEA T7-T8 Bupivicaine 0.125% @ ADJUNCT ANALGESIA MEDICATIONS fentanyl oxycodone acetaminophen PO gabapentin robaxin TREATMENT PLAN Patient sitting up in chair and comfortable this AM. Has not used button. Tolera ting regular diet. Epidural moved without complication, blue tip intact. Encoura ged patient to ask for oral pain medication as epidural medication wears off. Al l questions answered. APS will sign off at this time. Patient seen and discussed with Dr. Gonzalez. Quyen Aburto MD Department of Anesthesiology | CA-2/PGY-3 Anesthesia Pain pager: [phone] Allergies Allergen Reactions Morphine ANAPHYLAXIS Pt states she "codes" Inpatient Medications Scheduled Meds:acetaminophen (TYLENOL EXTRA STRENGTH) tablet 1,000 mg, 1,000 mg, Oral, Q6H* celecoxib (CeleBREX) capsule 200 mg, 200 mg, Oral, BID enoxaparin (LOVENOX) syringe 40 mg, 40 mg, Subcutaneous, QDAY(21) gabapentin (NEURONTIN) capsule 100 mg, 100 mg, Oral, Q8H lidocaine (LIDODERM) 5 % topical patch 1 patch, 1 patch, Topical, QDAY melatonin (MELATIN) tablet 3 mg, 3 mg, Oral, QHS methocarbamoL (ROBAXIN) tablet 750 mg, 750 mg, Oral, TID polyethylene glycol 3350 (MIRALAX) packet 17 g, 1 packet, Oral, QDAY senna (SENOKOT) tablet 1 tablet, 1 tablet, Oral, BID Continuous Infusions: 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 0.125% in NS 50mL epidural infusion syr PRN and Respiratory Meds:nalOXone PRN, ondansetron (ZOFRAN) IV Q6H PRN, oxyCODON E Q4H PRN Anticoagulants enoxaparin (LOVENOX) syringe 40 mg QDAY(21) HPI Visual Analog Scale (VAS) (0-10 Scale) At rest: 4 Patient satisfied with pain control: Yes Side Effects: none EXAM Recent Vitals Vital Signs: 24 Hour Range BP: 123/64 (12/25 1010) Temp: 37.1 C (98.8 F) (12/25 1010) Pulse: 67 (12/25 1010) Respirations: 15 PER MINUTE (12/25 1010) SpO2: 93 % (12/25 1010) O2 Device: None (Room air) (12/25 1010) BP: (107-129)/(50-65) Temp: [36.6 C (97.9 F)-37.4 C (99.3 F)] Pulse: [59-67] Respirations: [15 PER MINUTE-20 PER MINUTE] SpO2: [93 %-97 %] O2 Device: None (Room air) Lab Results Component Value Date PLTCT 157 12/21/2022 WBC 6.0 12/21/2022 HGB 10.7 12/21/2022 HCT 31.2 12/21/2022 CR 0.68 12/21/2022 Level of Consciousness: Awake/alert Neurologic Function Sensory block: Yes Motor: No Insertion Site: Clean, non-tender Associated attestation - Karthik Gonzalez MD - 12/26/2022 8:22 AM CDT ATTESTATION I personally observed the resident performing the E/M, discussed case with resid ent, and concur with resident documentation of history, physical assessment and treatment plan unless otherwise noted. Staff name: Karthik Gonzalez MD Date: 12/26/2022 * Zoila Guerrero APRN-CHRISTIANA - 12/25/2022 6:41 AM CDT Trauma Progress Note Date of Service: 12/25/2022 Hospital Day: Hospital Day: 7 HPI: Nikki Paredes is a 67 y.o. female w/ no prior PMH who presented to the ED 12/19/22 s/p 8 foot fall down her basement stairs onto concrete. She reported skyler t she fell onto her right side and did strike her head. Denies LOC. She presente d to the ED for evaluation and was found to have a right scapula fracture, right acromion fracture, right 3-11 rib fractures w/tiny apical pneumothorax as well as a scalp laceration. Trauma was consulted and she was admitted to the SICU wit h Ortho, APS and IM consults. She was started on a ketamine gtt and epidural for pain control and has been doing well from a respiratory standpoint. Her ketamine was dc'd 12/21 and she was transferred to the trauma floor for ongoing manageme nt. She would like to dc to rehab on discharge. Assessment/ Plan: Method of injury:Fall down stairs Patient Active Problem List Diagnosis Date Noted Multiple rib fractures 12/20/2022 Sleep disturbances 12/20/2022 Acute traumatic pain 12/20/2022 Acute blood loss anemia 12/20/2022 Leukocytosis 12/20/2022 Scalp laceration 12/20/2022 Impaired mobility and activities of daily living 12/20/2022 Scapular fracture 12/20/2022 Pneumothorax 12/20/2022 Closed fracture of acromion 12/20/2022 Trauma 12/19/2022 Neuro Acute pain due to trauma -- APS following for PCEA -- Tylenol 1gm Q6H -- Gabapentin 100mg Q8H -- Robaxin 750mg TID -- Oxycodone 5-10mg Q4h PRN -- celebrex 200mg BID Sleep disturbance -- Melatonin 3mg HS HEENT Scalp lac -- Will remove prior to dc CV Syncope? -- Outpatient referral to cardiology placed -- Echo w/ EF 50-55%, moderate aortic stenosis -- Zio patch on dc for 2 weeks -- Set up w/ PCP HDS. See VS summary below Continue to monitor Pulm R 3-11 rib fx, apical pneumo -- Stable on RA -- Pulmonary toilet, encourage IS -- Pain control GI/FEN Regular diet Bowel regimen SLIV Zofran prn nausea Monitor and replace lytes prn Voiding w/o difficulty UOP adequate Cr stable Heme/ID Acute blood loss anemia -- Hgb stable. Hgb low, but no clinical signs of overt bleeding. Continue to duran nd serially. Optimize fluid balance. Monitor stools for signs of occult GI bleed ing. WBC WNL, afebrile Endo No acute issues. Monitor and treat prn MS R scapula, acromion fx -- Ortho following -- NWB RUE, shoulder immobilizer -- f/u Dr. Jin 1 week Impaired mobility and ADLs -- PT/OT PPx SCDs, Lovenox Disp - Cont inpatient care. PCEA for pain control. Anticipate dc home vs rehab o nce epidural dc'd and has adequate pain control. SW/CM following for discharge p michael needs. Patient discussed with Dr. Riggs during rounds. Subjective Overnight Events: No acute events overnight. Resting in bed. Pain well controlle d. Discussed plan of care and goals to dc. Answered questions. Denies CP, SOA, n/v/d. Objective: Physical Exam: General: in no apparent distress, well developed and well nourished, alert, orie nted times 3 and cooperative Head/Ears/Eyes/Nose/Throat: normal, posterior scalp lac, well approximated, no s /sx infection Respiratory: Clear Auscultation and respirations even and unlabored Cardiovascular: Regular rate and rhythm Abdomen: soft, NTND, bowel sounds present x4 Extremities: Warm and well perfused and shoulder immobilizer to RUE, SILT, wiggl es fingers, warm to touch Neuro: normal, alert, oriented x3 and speech normal in context and clarity Derm: Warm, dry, anicteric Musc: Normal ROM, Normal strength and tone and limited d/t pain and WB restricti ons to RUE Vital Signs: (24 hours) BP: (107-129)/(50-65) Temp: [36.6 C (97.9 F)-37.4 C (99.3 F)] Pulse: [59-68] Respirations: [16 PER MINUTE-20 PER MINUTE] SpO2: [93 %-97 %] O2 Device: None (Room air) Intake/Output Summary: Intake/Output Summary (Last 24 hours) at 12/25/2022 0641 Last data filed at 12/25/2022 0623 Gross per 24 hour Intake 600 ml Output 1650 ml Net -1050 ml Date of Last Stool: 12/24 Medications: Scheduled Meds:acetaminophen (TYLENOL EXTRA STRENGTH) tablet 1,000 mg, 1,000 mg, Oral, Q6H* celecoxib (CeleBREX) capsule 200 mg, 200 mg, Oral, BID enoxaparin (LOVENOX) syringe 40 mg, 40 mg, Subcutaneous, QDAY(21) gabapentin (NEURONTIN) capsule 100 mg, 100 mg, Oral, Q8H lidocaine (LIDODERM) 5 % topical patch 1 patch, 1 patch, Topical, QDAY melatonin (MELATIN) tablet 3 mg, 3 mg, Oral, QHS methocarbamoL (ROBAXIN) tablet 750 mg, 750 mg, Oral, TID polyethylene glycol 3350 (MIRALAX) packet 34 g, 2 packet, Oral, QDAY senna (SENOKOT) tablet 2 tablet, 2 tablet, Oral, BID Continuous Infusions: 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 0.125% in NS 50mL epidural infusion syr PRN and Respiratory Meds:nalOXone PRN, ondansetron (ZOFRAN) IV Q6H PRN, oxyCODON E Q4H PRN Prophylaxis Review: Peptic Ulcer Disease: None: not indicated VTE: Pharmacological prophylaxis; Enoxaparin Lines, Drains, and Airways: Lines, Drains, Airways and Wounds IV Duration Peripheral IV Left Antecubital 18 G 5 days Epidural Catheter 12/20/222119 4 days Wound Duration Wounds 12/19/222099 Abrasion Distal;Right;Posterior Leg 5 days Wounds 12/19/22 2100 Laceration Anterior;Left Finger, Second (index) 5 days Wounds 12/19/22 2100 Laceration Right;Lateral Head 5 days Pertinent labs, medications, radiology, and diagnostic procedures reviewed inclu ding: active problem list, medication list, allergies, family history, social hi story, health maintenance, notes from last encounter, lab results, imaging Zoila Guerrero APRN [id number] Trauma Team Pager [phone] * Ulysses Lozoya, - 12/24/2022 4:11 PM CDT RT Adult Assessment Note NAME:Nikki Paredes :1955 AGE: 67 y.o. ADMISSION DATE: 12/19/2022 DAYS ADMITTED: LOS: 5 days RT Treatment Plan: Protocol Plan: Medications Albuterol: Discontinued Protocol Plan: Procedures PEP Therapy: Place a nursing order for "IS Q1h While Awake" for any of Lung Expa nsion indicators PAP: Discontinued Oxygen/Humidity: O2 to keep SpO2 > 92%, if on room air for > 24 hours and no other RT modalities are required, then D/C protocol (recent O2 use) SpO2: BID & PRN Additional Comments: Impressions of the patient: Patient comfortable, NAD noted. Able to achieve 1500 ml on IS consistently, ambulating with assistance with PT/OT. Doing well on RA. No clear indication for albuterol, discontinued as not recently given (>3days), patient denies historical use of albuterol as well. Intervention(s)/outcome(s): RT eval, morning therapies performed. Patient education that was completed: N/a Recommendations to the care team: None. Vital Signs: Pulse: 67 RR: 18 PER MINUTE SpO2: 96 % O2 Device: None (Room air) Breath Sounds: Clear Respiratory Effort: Unlabored * Chiara Jain OT - 12/24/2022 2:15 PM CDT OCCUPATIONAL THERAPY PROGRESS NOTE Name: Nikki Paredes : 1955 Age: 67 y.o. Admission Date: 12/19/2022 LOS: 5 days Date of Service: 12/24/2022 Mobility Patient Turn/Position: Self Progressive Mobility Level: Walk laps Distance Walked (feet): 250 ft Level of Assistance: Assist X1 Assistive Device: (IV pole) Activity Limited By: Pain Subjective Pertinent Dx per Physician: 67 y.o. female w/ no significant PMHx who presents a fter 6-8 ft fall on concrete w/ R scapular fx w/ intra-articular extension, R la teral acromion fx, right sided 3-11 rib Precautions: Falls;Standard R UE Precautions: RUE non-weight bearing;RUE immobilizer Pain / Complaints: Patient agrees to participate in therapy Objective Psychosocial Status: Willing and Cooperative to Participate Home Living Type of Home: House Bathroom Shower / Tub: Walk-in Shower [place]. Prior Function Level Of [place]: Independent with ADLs and functional transfers;Independen t with homemaking w/ ambulation Other Function Comments: Pt lives with spouse who is working, pt was independent prior to fall ADL's Toileting Assist: Minimal Assist Toileting Deficits: (Toilet) ADL Mobility Transfer Type: Sit to stand Transfer: Assistance Level: To/from;Bed;Minimal assist Transfer: Assistive Device: Hand hold assist Transfer: Type of Assistance: For balance;For safety considerations;Requires ext ra time Other Transfer Type: Sit to stand Other Transfer: Assistance Level: To/from;Toilet;Minimal assist Other Transfer: Assistive Device: None Other Transfer: Type of Assistance: For safety considerations;For balance End of Activity Status: Nursing notified;Instructed patient to use call light;In structed patient to request assist with mobility;On commode/toilet Sitting Balance: Standby assist;Dynamic sitting balance Gait Distance: 250 feet Gait: Assistance Level: Minimal assist Gait: Assistive Device: Hand hold assist Gait Comments: Ambulates around unit with one standing rest break. Activity Tolerance Endurance: 2/5 Tolerates 10-20 Minutes Exercise w/Multiple Rests Cognition Overall Cognitive Status: WFL to Adequately Complete Self Care Tasks Safely Education Persons Educated: Patient/Family Barriers To Learning: None Noted Teaching Methods: Verbal Instruction;Demonstration Patient Response: Verbalized and Demo Understanding Topics: Role of OT, Goals for Therapy;DME for Home Discharge;Home safety;UE Exer cises;ADL Compensatory Techniques Goal Formulation: With Patient Assessment Assessment: Decreased ADL Status;Decreased UE Strength;Decreased Safe/Judg durin g ADL;Decreased Endurance;Decreased Self-Care Trans Prognosis: Good;w/Cont OT s/p Acute Discharge Goal Formulation: Patient AM-PAC 6 Clicks Daily Activity Inpatient Putting on and taking off regular lower body clothes: A Lot Bathing (Including washing, rinsing, drying): A Lot Toileting, which includes using toilet, bedpan, or urinal: A Little Putting on and taking off regular upper body clothing: Total Taking care of personal grooming such as brushing teeth: A Little Eating meals: None Daily Activity Raw Score: 15 Standardized (T-scale) Score: 34.69 Plan OT Frequency: 5x/week OT Plan for Next Visit: toileting, chair, grooming ADL Goals Patient Will Perform Grooming: w/ Stand By Assist Patient Will Perform LE Dressing: w/ Minimum Assist Functional Transfer Goals Pt Will Perform All Functional Transfers: w/ Stand By Assist OT Discharge Recommendations Recommendation: Inpatient setting Therapist: HAKEEM Stacy/Lauren [id number] Date: 12/24/2022 * Gianluca Hughes, DO - 12/24/2022 7:20 AM CDT Anesthesiology Acute Pain Service Date of Service: 12/24/2022 Name: Nikki Paredes is a 67 y.o. female : 1955 PROCEDURE: * No surgery found * Consulted 12/19 for right-sided rib, shoulder, scapula fractures ANALGESIA TECHNIQUE PCEA T7-T8 Bupivicaine 0.125% @ ADJUNCT ANALGESIA MEDICATIONS fentanyl oxycodone acetaminophen PO gabapentin robaxin TREATMENT PLAN Patient sitting up in chair and comfortable this AM. Patient trying to push butt on less and use PO medications to get a better idea of her pain level and regime n for when she is able to discharge to home. No acute concerns or complaints. No changes today. APS will continue to follow. Patient seen and discussed with Dr. Gonzalez. Tim Hughes, Anesthesiology, PGY2 Anesthesia Pain pager: [phone] Allergies Allergen Reactions Morphine ANAPHYLAXIS Pt states she "codes" Inpatient Medications Scheduled Meds:acetaminophen (TYLENOL EXTRA STRENGTH) tablet 1,000 mg, 1,000 mg, Oral, Q6H* enoxaparin (LOVENOX) syringe 40 mg, 40 mg, Subcutaneous, QDAY(21) gabapentin (NEURONTIN) capsule 100 mg, 100 mg, Oral, Q8H lidocaine (LIDODERM) 5 % topical patch 1 patch, 1 patch, Topical, QDAY melatonin (MELATIN) tablet 3 mg, 3 mg, Oral, QHS methocarbamoL (ROBAXIN) tablet 750 mg, 750 mg, Oral, TID polyethylene glycol 3350 (MIRALAX) packet 34 g, 2 packet, Oral, QDAY senna (SENOKOT) tablet 2 tablet, 2 tablet, Oral, BID Continuous Infusions: 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 0.125% in NS 50mL epidural infusion syr PRN and Respiratory Meds:albuterol 0.5% Q4H PRN, nalOXone PRN, ondansetron (ZOFR AN) IV Q6H PRN, oxyCODONE Q4H PRN Anticoagulants enoxaparin (LOVENOX) syringe 40 mg QDAY(21) HPI Visual Analog Scale (VAS) (0-10 Scale) At rest: 4 Patient satisfied with pain control: Yes Side Effects: none EXAM Recent Vitals Vital Signs: 24 Hour Range BP: 143/73 (12/24 524) Temp: 36.4 C (97.6 F) (12/24 524) Pulse: 61 (12/24 524) Respirations: 18 PER MINUTE (12/24 524) SpO2: 98 % (12/24 524) O2 Device: None (Room air) (12/24 214) BP: (122-144)/(53-73) Temp: [36.4 C (97.6 F)-37 C (98.6 F)] Pulse: [61-70] Respirations: [16 PER MINUTE-18 PER MINUTE] SpO2: [93 %-98 %] O2 Device: None (Room air) Lab Results Component Value Date PLTCT 157 12/21/2022 WBC 6.0 12/21/2022 HGB 10.7 12/21/2022 HCT 31.2 12/21/2022 CR 0.68 12/21/2022 Level of Consciousness: Awake/alert Neurologic Function Sensory block: Yes Motor: No Insertion Site: Clean, non-tender Associated attestation - Karthik Gonzalez MD - 12/25/2022 8:15 AM CDT ATTESTATION I personally observed the resident performing the E/M, discussed case with resid ent, and concur with resident documentation of history, physical assessment and treatment plan unless otherwise noted. Staff name: Karthik Gonzalez MD Date: 12/25/2022 * Kelly Dela Cruz PTA - 12/23/2022 1:03 PM CDT PHYSICAL THERAPY PROGRESS NOTE Name: Nikki Paredes : 1955 Age: 67 y.o. Admission Date: 12/19/2022 LOS: 4 days Date of Service: 12/23/2022 Mobility Progressive Mobility Level: Walk in room Distance Walked (feet): 30 ft Level of Assistance: Assist X1 Assistive Device: (Pushing IV pole) Activity Limited By: Pain Subjective Significant hospital events: 67 y/o F w/ no significant PMHx who presents after 6-8 ft fall on concrete w/ R scapular fx w/ intra-articular extension, R lateral acromion fx, right sided 3-11 rib Mental / Cognitive Status: Alert;Oriented;Cooperative;Follows Commands Pain: Patient complains of pain;Patient does not rate pain Pain Location: Right;Ribs;Shoulder Pain Interventions: Patient pre-medicated;Patient agrees to participate in thera py R UE Precautions: RUE non-weight bearing;RUE immobilizer Bed Mobility/Transfer Bed Mobility: Supine to Sit: Verbal Cues;Head of Bed Elevated;Requires Extra [place] e;Safety Considerations;Assist with Trunk;Minimal Assist Bed Mobility: Sit to Supine: Minimal Assist;HOB Elevated;Requires Extra Time;Saf ety Considerations;Assist with B LE Transfer Type: Sit to/from Stand Transfer: Assistance Level: To/From;Bed;Minimal Assist Transfer: Assistive Device: IV Pole Transfers: Type Of Assistance: Verbal Cues;Elevated Bed;For Balance;For Strength Deficit End Of Activity Status: Up in Chair;Nursing Notified;Instructed Patient to Reque st Assist with Mobility;Instructed Patient to Use Call Light (bed alarm on) Gait Gait Distance: 50 feet (Gait limited do to pt wanting to stay close to bathroom) Gait: Assistance Level: Minimal Assist;Safety Considerations (CGA) Gait: Assistive Device: IV Pole Gait: Descriptors: Pace: Slow;No balance loss;Decreased step length Activity Limited By: Complaint of Pain;Complaint of Fatigue Comments: Assisted pt on/off BSC Activity/Exercise Sit Edge Of Bed: 5 minutes Sit Edge Of Bed Assist: Stand By Assist Comments: HARVE[employer]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 CROP for pain Education Persons Educated: Patient Patient Barriers To Learning: Pain Interventions: Repetition of Instructions Teaching Methods: Verbal Instruction;Demonstration Patient Response: Return Demonstration;More Instruction Required Topics: Plan/Goals of PT Interventions;Safety Awareness;Up with Assist Only Assessment/Progress Impaired Mobility Due To: Pain;Decreased Activity Tolerance;Medical Status Limit ation Impaired Strength Due To: Pain;Deconditioning;Medical Status Limitation Assessment/Progress: Should Improve w/ Continued PT AM-PAC 6 Clicks Basic Mobility Inpatient Turning from your back to your side while in a flat bed without using bed rails: A Little Moving from lying on your back to sitting on the side of a flat bed without usin g bedrails : A Little Moving to and from a bed to a chair (including a wheelchair): A Little Standing up from a chair using your arms (e.g. wheelchair, or bedside chair): A Little To walk in hospital room: A Little Climbing 3-5 steps with a railing: A Lot Basic Mobility Inpatient Raw Score: 17 Standardized (T-scale) Score: 39.67 AM-PAC Basic Mobility Functional Stage: 34-51 Limited Mobility Indoors Goals Goal Formulation: With Patient Time For Goal Achievement: 6 days, To, 7 days Patient Will Go Supine To/From Sit: w/ Stand By Assist Patient Will Transfer Bed/Chair: w/ Stand By Assist Patient Will Ambulate: 31-50 Feet, w/ Stand By Assist, Partly Met, New Goal, Gre ater than 200 Feet, w/ Cane Patient Will Go Up / Down Stairs: 1-2 Stairs, w/ Minimal Assist Plan Treatment Interventions: Mobility Training;Strengthening;Endurance Training Plan Frequency: 5-7 Days per Week PT Plan for Next Visit: Continue to progress mobility as pt tolerates PT Discharge Recommendations Recommendation: Inpatient setting Patient Currently Requires Physical Assist With: All mobility Patient Currently Requires Supervision For: Mobility Therapist: Kelly Dela Cruz PTA Date: 12/23/2022 * Satya Dubois MD - 12/23/2022 11:10 AM CDT Anesthesiology Acute Pain Service Date of Service: 12/23/2022 Name: Nikki Paredes is a 67 y.o. female : 1955 PROCEDURE: * No surgery found * Consulted 12/19 for right-sided rib, shoulder, scapula fractures ANALGESIA TECHNIQUE PCEA T7-T8 Bupivicaine 0.125% @ ADJUNCT ANALGESIA MEDICATIONS fentanyl oxycodone acetaminophen PO gabapentin robaxin TREATMENT PLAN Patient comfortable this AM. No changes made at this time. All questions roxana dElvis Will continue to follow. Satya Dubois MD Anesthesiology, PGY-3 Anesthesia Pain pager: [phone] Allergies Allergen Reactions Morphine ANAPHYLAXIS Pt states she "codes" Inpatient Medications Scheduled Meds:acetaminophen (TYLENOL EXTRA STRENGTH) tablet 1,000 mg, 1,000 mg, Oral, Q6H* enoxaparin (LOVENOX) syringe 40 mg, 40 mg, Subcutaneous, QDAY(21) gabapentin (NEURONTIN) capsule 100 mg, 100 mg, Oral, Q8H lidocaine (LIDODERM) 5 % topical patch 1 patch, 1 patch, Topical, QDAY melatonin (MELATIN) tablet 3 mg, 3 mg, Oral, QHS methocarbamoL (ROBAXIN) tablet 750 mg, 750 mg, Oral, TID polyethylene glycol 3350 (MIRALAX) packet 34 g, 2 packet, Oral, QDAY senna (SENOKOT) tablet 2 tablet, 2 tablet, Oral, BID Continuous Infusions: 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 0.125% in NS 50mL epidural infusion syr PRN and Respiratory Meds:albuterol 0.5% Q4H PRN, nalOXone PRN, ondansetron (ZOFR AN) IV Q6H PRN, oxyCODONE Q4H PRN Anticoagulants enoxaparin (LOVENOX) syringe 40 mg QDAY(21) HPI Visual Analog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 importance of compliance and instructed t o follow up with the PCP, PT/ OT Total floor/unit time (reviewing and writing notes, examining the patient, revie wing test results etc) spent was 51 minutes including time spent in care coordin ation and bedside eval This note was created using [employer] Dictation software, hence some grammatical errors may still be present despite editing at the time of the dictation, ) Subjective: Pt seen and Chart reviewed. No issue overnight. No nausea or vomiting. No bowel movement yet but does not feel constipated. No hematochezia or melena. has been using incentive spirome try. Has some mild headache from the injury but overall feeling much better and more stable ROS: A comprehensive 10-point ROS was negative except as above Medications: Scheduled Meds:acetaminophen (TYLENOL EXTRA STRENGTH) tablet 1,000 mg, 1,000 mg, Oral, Q6H* gabapentin (NEURONTIN) capsule 100 mg, 100 mg, Oral, Q8H heparin (porcine) PF syringe 5,000 Units, 5,000 Units, Subcutaneous, Q8H melatonin (MELATIN) tablet 3 mg, 3 mg, Oral, QHS methocarbamoL (ROBAXIN) tablet 750 mg, 750 mg, Oral, TID polyethylene glycol 3350 (MIRALAX) packet 17 g, 17 g, Oral, QDAY senna (SENOKOT) tablet 2 tablet, 2 tablet, Oral, BID Continuous Infusions: 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 0.125% in NS 50mL epidural infusion syr PRN and Respiratory Meds:albuterol 0.5% Q4H PRN, fentaNYL citrate PF Q1H PRN, na lOXone PRN, ondansetron (ZOFRAN) IV Q6H PRN, oxyCODONE Q6H PRN Objective: Vital Signs: Last Filed Vital Signs: 24 Reza r Range BP: 99/63 (12/21 1000) Temp: 37.1 C (98.7 F) (12/21 0800) Pulse: 71 (12/21 1000) Respirations: 14 PER MINUTE (12/21 1000) SpO2: 95 % (12/21 1000) O2 Device: Nasal cannula (12/21 1000) O2 Liter Flow: 2 Lpm (12/21 1000) SpO2 Pulse: 68 (12/21 0700) Height: 175.3 cm (5' 9.02") (12/20 1441) BP: (81-139)/(53-106) Temp: [36.7 C (98 F)-38 C (100.4 F)] Pulse: [67-92] Respirations: [10 PER MINUTE-29 PER MINUTE] SpO2: [91 %-97 %] O2 Device: Nasal cannula O2 Liter Flow: 2 Lpm Intensity Pain Scale (Self Report): 10 (12/21/22 0901) Vitals: 12/19/22 1800 12/19/22 2100 12/20/22 1441 Weight: 101.2 kg (223 lb) 102.7 kg (226 lb 6.6 oz) 102.7 kg (226 lb 6.6 oz) Intake/Output Summary: (Last 24 hours) Intake/Output Summary (Last 24 hours) at 12/21/2022 1041 Last data filed at 12/21/2022 1000 Gross per 24 hour Intake 840 ml Output 1800 ml Net -960 ml Physical Exam General: Patient seems to be clinically stable and in no immediate distress. AAO x3 HEENT: NC/AT on nasal cannula Heart: S1 S2 present, RRR, no audible rubs or murmurs heard Lungs: Bilateral air entry noted, normal breath sounds and no additional sounds heard Abdomen: Soft, non tender and no masses noted. Bowel sounds were present Extremities: no pedal edema; no calf tenderness. Limited range of motion of rig ht upper extremity because of the fracture. Skin: No obvious skin rashes Neurologic: Seems oriented. No obvious new abnormality of cranial nerves, motor system noted. Sensation symmetric. Able to move fingers bilaterally Labs reviwed, Notable for: Recent Labs 12/19/22 16212/19/22 1632 12/20/22 0612/21/22 0310 NA 138 -- 140 139 K 3.7 -- 3.6 4.2 CL 103 -- 105 107 CO2 25 -- 26 27 GAP 10 -- 9 5 BUN 24 -- 18 18 CR 0.76 0.8 0.63 0.68 GLU 117* -- 115* 119* CA 9.3 -- 8.2* 7.9* ALBUMIN 4.2 -- -- -- MG -- -- 1.9 2.3 PO4 -- -- 4.1 3.0 HGBA1C -- -- -- 5.4 Recent Labs 12/19/22 1625 12/20/22 0622 12/21/22 0310 WBC 14.9* 5.5 6.0 HGB 12.2 11.1* 10.7* HCT 37.6 33.7* 31.2* PLTCT 197 180 157 AST 69* -- -- ALT 61* -- -- ALKPHOS 55 -- -- Estimated Creatinine Clearance: 100.8 mL/min (based on SCr of 0.68 mg/dL). Vitals: 12/19/22 1800 12/19/22209912/20/22 1441 Weight: 101.2 kg (223 lb) 102.7 kg (226 lb 6.6 oz) 102.7 kg (226 lb 6.6 oz) Resulted Micro Last 72 Hrs No results found Malnutrition Details: Active Wounds Wounds 05/23/23 2100 Laceration Anterior;Left Finger, Second (index) (Active) 12/19/22 2100 Finger, Second (index) Wound Type: Laceration Pressure Injury Stages (For Pressure Injury Wound Type Only): Pressure Injury Present On Inpatient Admission: If this pressure injury is suspected to be device related, please select the dev ice:: Wound/Pressure Injury Orientation: Anterior;Left Wound Location Comments: ZXWound Location: Wound Description (Comments): Wound Type:: Wound Dressing Status Open to air 12/21/22 0800 Wound Drainage Description Serosanguineous 12/21/22 0400 Wound Drainage Amount None 12/21/22 0800 Wound Base Assessment Dry;[place];Red 12/21/22 0800 Surrounding Skin Assessment Dry;Intact 12/21/22 08 Wound Site Closure Open to Air 12/21/22 0800 Number of days: 2 Wounds 12/19/22 2100 Abrasion Distal;Right;Posterior Leg (Active) 12/19/222099 Leg Wound Type: Abrasion Pressure Injury Stages (For Pressure Injury Wound Type Only): Pressure Injury Present On Inpatient Admission: If this pressure injury is suspected to be device related, please select the dev ice:: Wound/Pressure Injury Orientation: Distal;Right;Posterior Wound Location Comments: ZXWound Location: Wound Description (Comments): Wound Type:: Wound Dressing Status Open to air 12/21/22 0800 Wound Drainage Amount None 12/21/22 0800 Wound Base Assessment Red;[place] 12/21/22 0800 Surrounding Skin Assessment Bruised;Flaky 12/21/22 0800 Wound Site Closure Open to Air 12/21/22 0800 Number of days: 2 Wounds 12/19/22 2100 Laceration Right;Lateral Head (Active) 12/19/22 2100 Head Wound Type: Laceration Pressure Injury Stages (For Pressure Injury Wound Type Only): Pressure Injury Present On Inpatient Admission: If this pressure injury is suspected to be device related, please select the dev ice:: Wound/Pressure Injury Orientation: Right;Lateral Wound Location Comments: ZXWound Location: Wound Description (Comments): Wound Type:: Wound Dressing Status Open to air 12/21/22 0800 Wound Drainage Amount None 12/21/22 0800 Wound Base Assessment Red;[place] 12/21/22 0800 Surrounding Skin Assessment Dry;Intact 12/21/22 0800 Wound Site Closure [place];Approximated;Open to Air 12/21/22 0800 Number of days: 2 * Sagrario Orellana MD - 12/21/2022 10:32 AM CDT Anesthesiology Acute Pain Service Date of Service: 12/21/2022 Name: Nikki Paredes is a 67 y.o. female : 1955 PROCEDURE: * No surgery found * Consulted 12/19 for right-sided rib, shoulder, scapula fractures ANALGESIA TECHNIQUE PCEA T7-T8 Bupivicaine 0.125% @ ADJUNCT ANALGESIA MEDICATIONS fentanyl oxycodone acetaminophen PO gabapentin robaxin TREATMENT PLAN Patient complaining of pain this morning. Bolused with 1% lidocaine with signifi cant improvement in pain and sympathectomy. Increased epidural settings to bupiv icaine 0.125% @ . Stop ketamine today. Sagrario Orellana MD Anesthesiology PGY-3 Anesthesia Pain pager: [phone] Allergies Allergen Reactions Morphine ANAPHYLAXIS Pt states she "codes" Inpatient Medications Scheduled Meds:acetaminophen (TYLENOL EXTRA STRENGTH) tablet 1,000 mg, 1,000 mg, Oral, Q6H* gabapentin (NEURONTIN) capsule 100 mg, 100 mg, Oral, Q8H heparin (porcine) PF syringe 5,000 Units, 5,000 Units, Subcutaneous, Q8H melatonin (MELATIN) tablet 3 mg, 3 mg, Oral, QHS methocarbamoL (ROBAXIN) tablet 750 mg, 750 mg, Oral, TID polyethylene glycol 3350 (MIRALAX) packet 17 g, 17 g, Oral, QDAY senna (SENOKOT) tablet 2 tablet, 2 tablet, Oral, BID Continuous Infusions: 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 0.125% in NS 50mL epidural infusion syr PRN and Respiratory Meds:albuterol 0.5% Q4H PRN, fentaNYL citrate PF Q1H PRN, na lOXone PRN, ondansetron (ZOFRAN) IV Q6H PRN, oxyCODONE Q6H PRN Anticoagulants heparin (porcine) PF syringe 5,000 Units Q8H HPI Visual Analog Scale (VAS) (0-10 Scale) At rest: 4 Patient satisfied with pain control: Yes Side Effects: none EXAM Recent Vitals Vital Signs: 24 Hour Range BP: 99/63 (12/21 1000) Temp: 37.1 C (98.7 F) (12/21 0800) Pulse: 71 (12/21 1000) Respirations: 14 PER MINUTE (12/21 1000) SpO2: 95 % (12/21 1000) O2 Device: Nasal cannula (12/21 1000) O2 Liter Flow: 2 Lpm (12/21 1000) SpO2 Pulse: 68 (12/21 0700) Height: 175.3 cm (5' 9.02") (12/20 1441) BP: (81-139)/(53-106) Temp: [36.7 C (98 F)-38 C (100.4 F)] Pulse: [67-92] Respirations: [10 PER MINUTE-29 PER MINUTE] SpO2: [91 %-97 %] O2 Device: Nasal cannula O2 Liter Flow: 2 Lpm Lab Results Component Value Date PLTCT 157 12/21/2022 WBC 6.0 12/21/2022 HGB 10.7 12/21/2022 HCT 31.2 12/21/2022 CR 0.68 12/21/2022 Level of Consciousness: Awake/alert Neurologic Function Sensory block: Yes Motor: No Insertion Site: Clean, non-tender Associated attestation - Karthik Gonzalez MD - 12/21/2022 10:47 AM CDT ATTESTATION I personally observed the resident performing the E/M, discussed case with resid ent, and concur with resident documentation of history, physical assessment and treatment plan unless otherwise noted. Staff name: Karthik Gonzalez MD Date: 12/21/2022 * Nessa Wang RN - 12/21/2022 10:02 AM CDT 12/21/22 0955 12/21/22 0956 Critical Care Vitals Adult BP (!) 81/55 (!) 88/54 Mean NBP (Calculated) 64 MM HG 65 MM HG ~0910: Pt reporting 10/10 pain. Anesthesia at bedside to assess epidural. ~0955: Pt hypotensive s/p anesthesia bolus through epidural. PCEA paused. SHABANA Cheng aware. Anesthesia pain paged. RN to restart PCEA once SBP > 100. 1023: PCEA restarted. * Eve Austin APRN-NP - 12/21/2022 6:31 AM CDT Surgical Critical Care Progress Note Today's Date: 12/21/2022 Hospital Day: Hospital Day: 3 History of Present Illness: Nikki Paredes is a 67 F w/ no prior PMH who prese nted to the ED 12/19/22 s/p 8 foot fall down her basement stairs onto concrete . She reported that she fell onto her right side and did strike her head. Denies LOC. She presented to the ED for evaluation and was found to have a right scapu la fracture, right acromion fracture, right 3-11 rib fractures w/tiny apical pne umothorax as well as a scalp laceration. Trauma was consulted and she was admitt ed to the SICU with Ortho, APS and IM consults. She was started on a ketamine gt t for pain control and has been doing well from a respiratory standpoint. Assessment & Plan: Method of injury: fall down stairs Patient Active Problem List Diagnosis Date Noted Multiple rib fractures 12/20/2022 Sleep disturbances 12/20/2022 Acute traumatic pain 12/20/2022 Acute blood loss anemia 12/20/2022 Leukocytosis 12/20/2022 Scalp laceration 12/20/2022 Impaired mobility and activities of daily living 12/20/2022 Scapular fracture 12/20/2022 Pneumothorax 12/20/2022 Closed fracture of acromion 12/20/2022 Trauma 12/19/2022 Neuro Acute pain due to trauma -- APS following -- PCEA, ketamine gtt -- acetaminophen 1g q6h -- gabapentin 100 mg q8h -- robaxin 750 mg tid -- oxycodone 5-10 mg q6h prn -- fentanyl 25-50 mcg q1h prn Sleep disturbance -- melatonin 3 mg qhs HEENT Scalp lac -- will need wale removed CV HDS. See VSS below ECHO w/EF 50-55% BLE US negative Pulm R 3-11 rib fxs, tiny apical ptx -- stable on 2L NC. Wean SpO2 as tolerated -- RT protocol -- encourage frequent IS use GI/FEN Regular diet Bowel regimen SLIV Zofran prn nausea Monitor and replace lytes prn Voiding w/o difficulty UOP 1.8L/24h Cr 0.68 (0.63) Cr 0.68 (0.63) Heme/ID Acute blood loss anemia -- Hgb 10.7 (11.1). Hgb low, but no clinical signs of overt bleeding. Continue t o trend serially. Optimize fluid balance. Monitor stools for signs of occult GI bleeding. No leukocytosis, leukopenia. Normothermic Endo No acute issues. Monitor and treat prn MS R scapula, acromion fx -- ortho following -- no acute surgical intervention -- NWB RUE in immobilizer -- f/u Sojka 1 week Impaired mobility and ADL's -- PT/OT VTE prophylaxis: Lovenox and SCDs Disp: continue ICU care. Anticipate d/c home vs rehab. SW/CM following for discharge planning needs. Subjective No acute events overnight. Patient sitting up in bed, reports pain is not well c ontrolled currently, APS coming to bedside. She denies n/v/d. Able to pull 500 m l on IS, discussed goal of 1L. Objective: General: awake, NAD Neuro: AOx3, no focal deficits HEENT: normocephalic, posterior scalp lac w/wale in place, no surrounding sharri thema or drainage noted CV: S1S2, RRR Resp: CTAB. No wheeze Abdomen: soft, NT/ND Extremities: warm and well perfused, RUE in shoulder immobilizer, wiggles finger s, sensation intact Musc: MAEW except RUE Skin: warm and dry Labs: Complete Blood Counts Recent Labs 12/19/22 1625 12/20/22 0622 12/21/22 0310 HGB 12.2 11.1* 10.7* HCT 37.6 33.7* 31.2* WBC 14.9* 5.5 6.0 PLTCT 197 180 157 MCV 89.8 89.7 88.7 MCH 29.1 29.6 30.4 MCHC 32.4 33.0 34.3 RDW 13.7 13.7 13.8 MPV 8.6 8.3 8.1 Recent Labs 12/19/22 1625 NEUT 87* Chemistry Panel Recent Labs 12/19/22 1625 12/19/22 1632 12/20/22 0622 12/21/22 0310 NA 138 -- 140 139 K 3.7 -- 3.6 4.2 CL 103 -- 105 107 CO2 25 -- 26 27 BUN 24 -- 18 18 CR 0.76 0.8 0.63 0.68 GLU 117* -- 115* 119* GAP 10 -- 9 5 MG -- -- 1.9 2.3 CA 9.3 -- 8.2* 7.9* PO4 -- -- 4.1 3.0 Recent Labs 12/19/22 1625 ALKPHOS 55 AST 69* ALT 61* TOTPROT 7.5 TOTBILI 0.4 ALBUMIN 4.2 Coagulation Studies No results for input(s): PTT, INR in the last 72 hours. Vital Signs (24 hours) BP: (90-139)/(57-106) Temp: [36.7 C (98 F)-38 C (100.4 F)] Pulse: [65-92] Respirations: [10 PER MINUTE-25 PER MINUTE] SpO2: [91 %-97 %] O2 Device: Nasal cannula O2 Liter Flow: 2 Lpm Medications Scheduled Meds:acetaminophen (TYLENOL EXTRA STRENGTH) tablet 1,000 mg, 1,000 mg, Oral, Q6H* gabapentin (NEURONTIN) capsule 100 mg, 100 mg, Oral, Q8H heparin (porcine) PF syringe 5,000 Units, 5,000 Units, Subcutaneous, Q8H melatonin (MELATIN) tablet 3 mg, 3 mg, Oral, QHS methocarbamoL (ROBAXIN) tablet 750 mg, 750 mg, Oral, TID polyethylene glycol 3350 (MIRALAX) packet 17 g, 17 g, Oral, QDAY senna (SENOKOT) tablet 2 tablet, 2 tablet, Oral, BID SODIUM CHLORIDE 0.9 % IV SOLP (Cabinet Override), , , NOW Continuous Infusions: 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 Eve Austin, [facility] PULLER [id number] * Ronna Johnson RN - 12/20/2022 9:49 PM CDT 05/212912/20/22213012/20/222131 Critical Care Vitals Adult Pulse 79 80 80 Monitored Rhythm Sinus rhythm -- -- Respirations 22 PER MINUTE 25 PER MINUTE 24 PER MINUTE SpO2 96 % 96 % 96 % O2 Device Nasal cannula -- -- O2 Liter Flow 2 Lpm -- -- BP 130/70 -- -- Mean NBP (Calculated) 89 MM HG -- -- 12/20/22213212/20/22213312/20/222134 Critical Care Vitals Adult Pulse 80 80 82 Monitored Rhythm -- -- Sinus rhythm Respirations 22 PER MINUTE 24 PER MINUTE 20 PER MINUTE SpO2 96 % 96 % 96 % O2 Device -- -- Nasal cannula O2 Liter Flow -- -- 2 Lpm BP -- -- 119/66 Mean NBP (Calculated) -- -- 77 MM HG This RN at bedside during epidural placement. RN verified consent, time out perf ormed. Refer to vital signs above during procedure, patient tolerated well. See MAR for orders regarding PCEA following placement. * Sarai Connell, OT - 12/20/2022 2:25 PM CDT OCCUPATIONAL THERAPY ASSESSMENT NOTE Name: Nikki Paredes : 1955 Age: 67 y.o. Admission Date: 12/19/2022 LOS: 1 day Date of Service: 12/20/2022 Mobility Progressive Mobility Level: Stand Level of Assistance: Assist X1 Subjective Pertinent Dx per Physician: 67 y.o. female w/ no significant PMHx who presents a fter 6-8 ft fall on concrete w/ R scapular fx w/ intra-articular extension, R la teral acromion fx, right sided 3-11 rib L UE Precautions: LUE non-weight bearing;LUE immobilizer Pain / Complaints: Patient agrees to participate in therapy Comments: Pt supine upon arrival and at end of session Objective Psychosocial Status: Willing and Cooperative to Participate Home Living Type of Home: House Prior Function Level Of [place]: Independent with ADLs and functional transfers;Independen t with homemaking w/ ambulation Other Function Comments: Pt lives with spouse who is working, pt was independent prior to fall Vision Current Vision: No Visual Deficits ADL's Where Assessed: Edge of Bed Comment: Pt supine to sit with mod A and extra time and cues, limited by pain. P t sat on edge of bed with SBA and grooming with min A. Pt stood and took steps toward head of bed with min A and verbal and tacile cues ADL Mobility Bed Mobility: Supine to Sit: Moderate assist Bed Mobility: Sit to Supine: Moderate assist;x2 people Cognition Overall Cognitive Status: WFL to Adequately Complete Self Care Tasks Safely Education Persons Educated: Patient Barriers To Learning: None Noted Teaching Methods: Verbal Instruction Patient Response: Verbalized Understanding Topics: Role of OT, Goals for Therapy Goal Formulation: With Patient Assessment Assessment: Decreased ADL Status;Decreased UE Strength;Decreased Safe/Judg durin g ADL;Decreased Endurance;Decreased Self-Care Trans Prognosis: Good;w/Cont OT s/p Acute Discharge Goal Formulation: Patient AM-PAC 6 Clicks Daily Activity Inpatient Putting on and taking off regular lower body clothes: Total Bathing (Including washing, rinsing, drying): A Lot Toileting, which includes using toilet, bedpan, or urinal: A Lot Putting on and taking off regular upper body clothing: Total Taking care of personal grooming such as brushing teeth: A Little Eating meals: None Daily Activity Raw Score: 13 Standardized (T-scale) Score: 32.03 Plan Progress: Progressing Toward Goals OT Frequency: 5x/week OT Plan for Next Visit: toileting, chair, grooming ADL Goals Patient Will Perform Grooming: w/ Stand By Assist Patient Will Perform LE Dressing: w/ Minimum Assist Functional Transfer Goals Pt Will Perform All Functional Transfers: w/ Stand By Assist OT Discharge Recommendations Recommendation: Inpatient setting Patient Currently Requires Physical Assist With: All mobility;All personal care ADLs;All home functioning ADLs Therapist: HAKEEM Martínez/Lauren [id number] Date: 12/20/2022 * Sagrario Orellana MD - 12/20/2022 1:34 PM CDT Anesthesiology Acute Pain Service Date of Service: 12/20/2022 Name: Nikki Paredes is a 67 y.o. female : 1955 PROCEDURE: * No surgery found * Consulted 12/19 for right-sided rib, shoulder, scapula fractures ANALGESIA TECHNIQUE Ketamine infusion 20 mg/hr ADJUNCT ANALGESIA MEDICATIONS fentanyl oxycodone acetaminophen PO gabapentin robaxin TREATMENT PLAN Patient feels ketamine is helping her pain but she still finds it difficult to t michael deep breaths and her O2 sats are borderline at 92%. Patient would like a tho racic epidural. Due to lovenox timing, epidural will be placed 12/20 after 2035. Discussed with SICU team. Plan to hold PM lovenox dose and resume lovenox 12/21 i n the AM with daily dosing only. Sagrario Orellana MD Anesthesiology PGY-3 Anesthesia Pain pager: [phone] Allergies Allergen Reactions Morphine ANAPHYLAXIS Pt states she "codes" Inpatient Medications Scheduled Meds:acetaminophen (TYLENOL EXTRA STRENGTH) tablet 1,000 mg, 1,000 mg, Oral, Q6H* enoxaparin (LOVENOX) syringe 30 mg, 30 mg, Subcutaneous, BID gabapentin (NEURONTIN) capsule 100 mg, 100 mg, Oral, Q8H melatonin (MELATIN) tablet 3 mg, 3 mg, Oral, QHS methocarbamoL (ROBAXIN) tablet 750 mg, 750 mg, Oral, TID polyethylene glycol 3350 (MIRALAX) packet 17 g, 17 g, Oral, QDAY senna (SENOKOT) tablet 2 tablet, 2 tablet, Oral, BID Continuous Infusions: ketamine (KETALAR) 500 mg in sodium chloride 0.9% (NS) 500 mL IV drip (low d ose infusion) 20 mg/hr (12/20/22 0726) PRN and Respiratory Meds:albuterol 0.5% Q4H PRN, fentaNYL citrate PF Q1H PRN, on dansetron (ZOFRAN) IV Q6H PRN, oxyCODONE Q6H PRN, perflutren lipid microspheres Once PRN Anticoagulants enoxaparin (LOVENOX) syringe 30 mg BID HPI Visual Analog Scale (VAS) (0-10 Scale) At rest: 6 Patient satisfied with pain control: No Side Effects: none EXAM Recent Vitals Vital Signs: 24 Hour Range BP: 125/75 (12/20 1099) Temp: 36.8 C (98.3 F) (12/20 0800) Pulse: 68 (12/20 1100) Respirations: 17 PER MINUTE (12/20 1099) SpO2: 91 % (12/20 1099) O2 Device: Nasal cannula (12/21 399) O2 Liter Flow: 2 Lpm (12/21 399) SpO2 Pulse: 74 (12/19 2002) Height: 175.3 cm (5' 9") (12/19 2099) BP: (116-161)/(62-86) Temp: [36.8 C (98.3 F)-37 C (98.6 F)] Pulse: [65-81] Respirations: [11 PER MINUTE-27 PER MINUTE] SpO2: [91 %-100 %] O2 Device: Nasal cannula O2 Liter Flow: 2 Lpm Lab Results Component Value Date PLTCT 180 12/20/2022 WBC 5.5 12/20/2022 HGB 11.1 12/20/2022 HCT 33.7 12/20/2022 CR 0.63 12/20/2022 Level of Consciousness: Awake/alert Neurologic Function Sensory block: No Motor: No Insertion Site: N/A Associated attestation - Karthik Gonzalez MD - 12/20/2022 1:55 PM CDT ATTESTATION I personally observed the resident performing the E/M, discussed case with resid ent, and concur with resident documentation of history, physical assessment and treatment plan unless otherwise noted. Staff name: Karthik Gonzalez MD Date: 12/20/2022 * Roger Angelo - 12/20/2022 12:49 PM CDT ORTHOTICS/PROSTHETICS Consult Note: NAME: Nikki Paredes ADMISSION DATE: admitted to hospital : 1955 AGE: 67 y.o. ROOM: [id number] DOCTOR: Date of Order: 12/19/22 Date of Service: 12/20/22 Services referred for: Orthotic Eval and Treat: Shoulder abduction sling-Breg Sl ingshot Description of condition/injury, including services:s/p Rt scapula fx Size: Lg Breg Slingshot Side Rt Measurements: Area/circumference/Diameter/Length None Functional Goals discussed for device use: Maintain shoulder abd and prevent ROM Device is to be ordered No Estimated date of delivery Today Functional goals met: Yes The patient states satisfaction with the fit/function of device: Yes Additional supplies provided to the patient: None Patient Education: Written and/or verbal instruction/information provided to Patient Information provided: device function, usage/break-in period, donning/doffing of device, care and cleaning and benefits and precautions Patient did tolerate the procedure without incident/problem. Follow-up scheduled: PRN PLAN: Order completed Roger Angelo 12/20/2022 * Branden Garcia, PT - 12/20/2022 10:13 AM CDT PHYSICAL THERAPY ASSESSMENT Name: Nikki Paredes : 1955 Age: 67 y.o. Admission Date: 12/19/2022 LOS: 1 day Date of Service: 12/20/2022 Mobility Patient Turn/Position: Self Progressive Mobility Level: Walk in room Distance Walked (feet): 10 ft Level of Assistance: Assist X1 Assistive Device: (IV pole) Activity Limited By: Pain Subjective Significant hospital events: 67 y.o. female w/ no significant PMHx who presents after 6-8 ft fall on concrete w/ R scapular fx w/ intra-articular extension, R l ateral acromion fx, right sided 3-11 rib Mental / Cognitive Status: Alert;Oriented;Cooperative;Follows Commands Persons Present: Family Pain: Patient complains of pain;Patient does not rate pain;During activity Pain Location: Left;Ribs Pain Description: Aching Pain Interventions: Patient agrees to participate in therapy;Patient pre-medicat ed;Patient assisted into position of comfort L UE Precautions: LUE non-weight bearing;LUE immobilizer Ambulation Assist: Independent Mobility in Community without Device Patient Owned Equipment: (IV pole) Home Situation: Lives with Family Type of Home: House Entry Stairs: 3-5 Stairs;Rail on 1 Side In-Home Stairs: Able to Live on One Level ROM ROM Position Assessed: Seated R LE ROM: WFL L LE ROM: WFL Strength Overall Strength: WFL;No focal deficits noted Posture/Neurological Head Control: Independent Posture: No postural deviations LLE Sensation/Proprioception: No Deficits Noted RLE Sensation/Proprioception: No Deficits Noted Bed Mobility/Transfer Bed Mobility: Supine to Sit: Maximum Assist;Head of Bed Elevated;No Rail;Require s Extra Time;Safety Considerations;Assist with Trunk Bed Mobility: Sit to Supine: Moderate Assist;HOB Elevated;No Rail;Requires Extra Time;Safety Considerations Transfer Type: Sit to/from Stand Transfer: Assistance Level: To/From;Bed;Minimal Assist Transfer: Assistive Device: IV Pole Transfers: Type Of Assistance: Verbal Cues;For Safety Considerations End Of Activity Status: In Bed;Nursing Notified;Instructed Patient to Request As sist with Mobility;Instructed Patient to Use Call Light (bed alarm on) Comments: Patient reported dizziness with sitting at edge of bed which subsided with return to supine. Balance Standing Balance: Dynamic Standing Balance;1 UE support;Minimal Assist (CGA) Gait Gait Distance: 10 feet Gait: Assistance Level: Minimal Assist;Safety Considerations (CGA) Gait: Assistive Device: IV Pole Gait: Descriptors: Pace: Slow;Swing-Through Gait;No balance loss;Decreased step length Activity Limited By: Complaint of Pain Education Persons Educated: Patient Patient Barriers To Learning: None Noted Teaching Methods: Verbal Instruction Patient Response: Verbalized Understanding Topics: Plan/Goals of PT Interventions;Mobility Progression;Importance of Increa sing Activity;Ambulate With Nursing;Recommend Continued Therapy;Safety Awareness ;Pain Control Assessment/Progress Impaired Mobility Due To: Pain;Post Surgical Precautions Impaired Strength Due To: Pain;Decreased Activity Tolerance Assessment/Progress: Should Improve w/ Continued PT Comments: Patient limited by R rib and UE pain this date. She tolerated activity well otherwise. The patient will benefit from continued therapy to maximize fun ction. AM-PAC 6 Clicks Basic Mobility Inpatient Turning from your back to your side while in a flat bed without using bed rails: A lot Moving from lying on your back to sitting on the side of a flat bed without usin g bedrails : A Lot Moving to and from a bed to a chair (including a wheelchair): A Lot Standing up from a chair using your arms (e.g. wheelchair, or bedside chair): A Little To walk in hospital room: A Little Climbing 3-5 steps with a railing: A Lot Basic Mobility Inpatient Raw Score: 14 Standardized (T-scale) Score: 35.55 AM-PAC Basic Mobility Functional Stage: 34-51 Limited Mobility Indoors Goals Goal Formulation: With Patient Time For Goal Achievement: 3 days, To, 5 days Patient Will Go Supine To/From Sit: w/ Stand By Assist Patient Will Transfer Bed/Chair: w/ Stand By Assist Patient Will Ambulate: 31-50 Feet, w/ Stand By Assist Patient Will Go Up / Down Stairs: 1-2 Stairs, w/ Minimal Assist Plan Treatment Interventions: Mobility Training;Strengthening Plan Frequency: 5 Days per Week PT Plan for Next Visit: Bed mobility, ambulation as tolerated, pre-medicate PT Discharge Recommendations Recommendation: Home with consistent supervision/assistance Patient Currently Requires Physical Assist With: All mobility Patient Currently Requires Supervision For: Mobility Patient Currently Requires Equipment: (Will continue to assess) Therapist Branden Garcia PT, DPT Date 12/20/2022 * Benito Gonzalez MD - 12/20/2022 7:32 AM CDT Brief Ortho Progress Note: CT reviewed with staff. Plan for nonoperative management. NWB RUE in shoulder im mobilizer. Ok to come out for ROM. Plan to f/u OP in 1 week. Carlos [id number] * Eric Gutierrez APRN-CHRISTIANA - 12/20/2022 7:00 AM CDT Surgical Critical Care Progress Note Today's Date: 12/20/2022 Hospital Day: Hospital Day: 2 History of Present Illness: Nikki Paredes is a 67 y.o. year old female with no prior PMH who presents aft er an 8 foot fall down basement stairs at home. She landed on her head and right side of her body onto concrete. Patient was found to have a right scapula frac ture, right acromion , right 3-11 rib fractures, tiny apical pneumothorax, scalp laceration. Scalp laceration was repaired in the emergency department. Patient was subsequently admitted to the ICU for close monitoring and observation. APS was consulted and started the ketamine drip. Patient Active Problem List Diagnosis Date Noted Multiple rib fractures 12/20/2022 Sleep disturbances 12/20/2022 Acute traumatic pain 12/20/2022 Acute blood loss anemia 12/20/2022 Leukocytosis 12/20/2022 Scalp laceration 12/20/2022 Impaired mobility and activities of daily living 12/20/2022 Scapular fracture 12/20/2022 Pneumothorax 12/20/2022 Closed fracture of acromion 12/20/2022 Trauma 12/19/2022 Assessment & Plan: Method of injury: Fall downstairs Injury Profile: -Right scapular body fracture -Right acromion fracture -3rd-11th right-sided rib fracture -Tiny right apical pneumothorax -Scalp laceration Neuro Acute pain due to trauma Multimodal pain regimen: -APS consulted, ketamine drip -Scheduled Tylenol, Gabapentin, and Robaxin -As needed fentanyl and oxycodone Sleep disturbance -Melatonin 3 mg at bedtime Sedation -Ketamine drip GCS 15 (E 4,V 5,M 6) CV -Vital signs stable, continue to monitor -Vital signs per unit protocol -Pressors: None -Ultrasound of bilateral lower extremities to rule out DVT, pending -Echo, pending -Zio patch for 2 weeks at discharge Pulm Oxygen/Vent: 92% on room air -Pulmonary toilet, encourage IS Multiple rib fractures -APS consulted, ketamine drip -APS considering epidural -Incentive spirometry, PEEP, and PAP every hour -Extensive pulmonary toilet -Monitor O2 saturations, supplemental oxygen for below 88% Tiny right-sided apical pneumothorax -Repeat x-ray shows no pneumothorax -Continue to monitor GI/FEN -N.p.o. diet -Bowel regimen: MiraLAX and senna -Last BM: Prior to arrival -SLIV -Zofran prn nausea -Monitor and replace lytes prn -Cr 0.63 -IV fluids: Discontinued r -Net fluid balance: +159 ml/24hrs, +159 ml/hospitalization -Urine output: 650 ml/24hrs (6.3 ml/kg/hr) Heme/ID Acute blood loss anemia versus hemodilution - Hgb 11.1. Hgb low, but no clinical signs of overt bleeding. Continue to trend serially. Optimize fluid balance. Monitor stools for signs of occult GI bleeding . -Blood products: None in the past 24 hours Leukocytosis, resolved -WBC 5.5 (14.9), T-max 37 -Antibiotics: None -Cultures: None Endo -No acute issues. Monitor and treat prn -TSH, pending MS Impaired mobility and activities of daily living -PT/OT -Vitamin D, pending Scalp laceration -Barrington will need to be removed in 5 to 7 days Right scapular and acromion fracture -Orthopedic recommendations, pending -Nonweightbearing to the right upper extremity in a shoulder immobilizer Activity: As tolerated, nonweightbearing to the right upper extremity in shoulde r immobilizer Bowel: MiraLAX and senna Code: Full Diet / Nutrition: N.p.o., resume once Ortho recs Jean Baptiste: None IV Fluid: Discontinued Lines: Peripheral IVs Antibiotics: None Stress ulcer prophylaxis: Not indicated VTE prophylaxis: Lovenox and SCDs Disp: Continue ICU care for monitoring of respiratory status, possibly downgrade in the next 24 hours Subjective Patient seen lying in bed. She states that she is feeling like she got hit by a truck. She states that she also has pain in her right shoulder. She denies any chest pain, shortness of breath, fevers or chills. Objective: Physical Exam: General: Adult female, awake, alert, cooperative, no apparent distress HEENT: Normocephalic, atraumatic; eyes open, PERRL, sclera non-icteric; mucus me mbranes moist Lungs: Diminished breath sounds, non-labored breathing Heart: Regular rhythm; strong distal pulses Abdomen: Soft, non-distended, non-tender; Extremities: No edema; Warm, without cyanosis, right upper extremity with pain with range of motion, strength 5 out of 5 Skin: Color and texture normal; No rashes or lesions Neurologic: Grossly normal; No focal deficits; Cranial nerves grossly intact Psych: Normal affect; speech and behavior appropriate Labs: Complete Blood Counts Recent Labs 12/19/22 16212/20/22 0622 HGB 12.2 11.1* HCT 37.6 33.7* WBC 14.9* 5.5 PLTCT 197 180 MCV 89.8 89.7 MCH 29.1 29.6 MCHC 32.4 33.0 RDW 13.7 13.7 MPV 8.6 8.3 Recent Labs 12/19/22 1625 NEUT 87* Chemistry Panel Recent Labs 12/19/22 16212/19/22 1632 12/20/22 0622 NA 138 -- 140 K 3.7 -- 3.6 CL 103 -- 105 CO2 25 -- 26 BUN 24 -- 18 CR 0.76 0.8 0.63 GLU 117* -- 115* GAP 10 -- 9 MG -- -- 1.9 CA 9.3 -- 8.2* PO4 -- -- 4.1 Recent Labs 12/19/22 162 ALKPHOS 55 AST 69* ALT 61* TOTPROT 7.5 TOTBILI 0.4 ALBUMIN 4.2 Coagulation Studies No results for input(s): PTT, INR in the last 72 hours. Vital Signs (24 hours) BP: (116-161)/(62-86) Temp: [36.8 C (98.3 F)-37 C (98.6 F)] Pulse: [65-81] Respirations: [11 PER MINUTE-27 PER MINUTE] SpO2: [91 %-100 %] O2 Device: Nasal cannula O2 Liter Flow: 2 Lpm Medications Scheduled Meds:acetaminophen (TYLENOL EXTRA STRENGTH) tablet 1,000 mg, 1,000 mg, Oral, Q6H* [Held by Provider] enoxaparin (LOVENOX) syringe 30 mg, 30 mg, Subcutaneous, BID gabapentin (NEURONTIN) capsule 100 mg, 100 mg, Oral, Q8H melatonin (MELATIN) tablet 3 mg, 3 mg, Oral, QHS methocarbamoL (ROBAXIN) tablet 750 mg, 750 mg, Oral, TID polyethylene glycol 3350 (MIRALAX) packet 17 g, 17 g, Oral, QDAY senna (SENOKOT) tablet 2 tablet, 2 tablet, Oral, BID Continuous Infusions: ketamine (KETALAR) 500 mg in sodium chloride 0.9% (NS) 500 mL IV drip (low d ose infusion) 20 mg/hr (12/20/22 0726) PRN and Respiratory Meds:albuterol 0.5% Q4H PRN, fentaNYL citrate PF Q1H PRN, on dansetron (ZOFRAN) IV Q6H PRN, oxyCODONE Q6H PRN, perflutren lipid microspheres Once PRN I have personally reviewed pertinent labs, medications, radiology, and diagnosti c procedures including: active problem list, medication list, allergies, family history, social history, health maintenance, notes from last encounter, lab resu lts, imaging. SHABANA Minaya Electronically Signed 12/20/2022 2:27 PM Available on Volate * Darron Langley RN - 12/20/2022 6:24 AM CDT Pt is a Jehovah Witness, she "would like minimal blood draws as possible and blo od drawn in pediatric tubes please." * Abdon Huitron RT - 12/20/2022 1:38 AM CDT RT Adult Assessment Note NAME:Nikki Paredes :1955 AGE: 67 y.o. ADMISSION DATE: 12/19/2022 DAYS ADMITTED: LOS: 1 day RT Treatment Plan: Protocol Plan: Medications Albuterol: Nebulizer PRN Protocol Plan: Procedures PEP Therapy: Q4h while awake & PRN PAP: Q4h while awake & PRN Oxygen/Humidity: O2 to keep SpO2 > 92%, if on room air for > 24 hours and no other RT modalities are required, then D/C protocol SpO2: BID & PRN Vital Signs: Pulse: 72 RR: 14 PER MINUTE SpO2: 95 % O2 Device: Nasal cannula Liter Flow: 2 Lpm O2%: Breath Sounds: clear and decreased Respiratory Effort: Unlabored * Darron Robles MD - 12/19/2022 8:51 PM CDT Cervical Spine Clearance Radiology reviewed personally Patient alert, oriented, and cooperative No gross motor or sensory deficits in bilateral upper and lower extremities No cervical spine tenderness to palpation Collar removed, and there was no cervical spine pain with active range of motion C-spine cleared clinically Darron Robles MD * Jefferson Lancaster - 12/19/2022 5:50 PM CDT Reason for Visit: Trauma Consultation Nancy / Amish: Anabaptism Source of Purpose: NA Worries / Struggles: NA Method of Coping: Family and friends Support System: Family and friends Intervention / Plan: not needed. Had a brief visit in the ER with the family members and encouraged them in the L ord. documented in this encounter Consult Notes * Freddy Olivas MD - 12/20/2022 1:10 PM CDTAssociated Order(s): CONSULT INTERNAL MEDICINE PHYSICIAN Images from the original note were not included. IM consult note Patient's name: Nikki Paredes Patient's account/billing number: [id number] Patient's Date of : 1955 Age: 67 y.o. Date of Admission: 12/19/2022 4:09 PM Date of History and Physical Examination: 12/20/2022 Primary Care Physician: Courtney Pcp, Na Consult type: Consult with orders Discussed with the primary team via voalt. Assessment and Plan Assessment/Plan: Nikki Paredes is a 67 y.o. years old female with the medical history of -No follow-up with a primary care physician for long time prior to this admissio n -Heart murmur [degenerative aortic valve disease] -Hysterectomy, appendectomy, -Obesity -Trauma at the age of 7 complicated by multiple fractures. But she recovered an d was walking independently before this -Osteoarthritis on the left hand has been admitted for further evaluation and management after traumatic fall Principal Problem: Trauma Active Problems: Multiple rib fractures Sleep disturbances Acute traumatic pain Acute blood loss anemia Leukocytosis Scalp laceration Impaired mobility and activities of daily living Scapular fracture Pneumothorax Closed fracture of acromion #Traumatic fall -Patient was trying to go up stairs from the basement of her house carrying a forman m. She is not able to remember exactly the details of what happened. Not sure if she lost her consciousness or not. She fell backward approximately 6 steps, although she is not 100% sure. Was not witnessed. There was no prodromal sympt om. No recent vomiting or diarrhea. No sick contact. No change in medication. She is only taking supplements. No recent alcohol intake before this. The ev ent happened approximately early afternoon on the day of admission. -After the fall, no postictal status. No seizure-like activity. No history of seizure. She was alert and awake but she had difficulty getting up because of t he trauma. Was not able to recall if she had tripped over anything or if she lo st balance -At baseline, she is very active and can work more than 4 hours in her yard/prop erty -Noted to be vitally stable. Multiple rib fractures, and R glenoid frx, small p tx noted on imaging -Cardiogram with left bundle branch block -Continue telemetry. Recommend to obtain echocardiogram. -May benefit from stress test on outpatient setting -Zio patch on discharge for 2 weeks -Check vitamin D, B12, hemoglobin A1c, lipid panel -Rule out secondary etiology of osteoporosis including TSH, PTH, rule out multip le myeloma given anemia -With recent history of driving for several hours to [email or web address], recommend lowe r extremity Doppler to rule out DVT. No hemoptysis, lower extremity swelling, -Agree with oxygen therapy and incentive spirometer -Recommend following up with primary care physician. She reported her primary c are physician moved to [place]. No primary care physician around. She needs to be up-to-date with all age-appropriate screening test including screening for os teoporosis, colon cancer, breast cancer, This note was created using [employer]pe[employer] Dictation software, hence some grammatical errors may still be present despite editing at the time of the dictation, ) Chief Complaint: Chief Complaint Patient presents with Fall Fall down stairs, hit head, No LOC HPI: History was obtained from patient, family at bedside, reviewing the chart. Nikki Paredes is a 67 y.o. female with PMH as mentioned above Presented to ER with C/C of traumatic fall . No drug use reported. No recent alcohol use. She is social drinker. No alcoho lism reported. Only taking supplement. Does not check her blood pressure at [facility]. Usually ambulating with no assistance. Details of the fall as above. No p rodromal symptom. During my evaluation, patient was alert and oriented on nasal cannula. Having s light difficulty breathing because . No sputum production. No hemoptysis. No nausea or vomiting. No diarrhea or constipation. - records from previous encounters have been reviewed Past Medical History Medical History: Diagnosis Date Obesity Past Surgical History appendectomy, hysterectomy, rib fracture, skull injury Allergies Morphine Home Meds: Prior to Admission medications Not on File Social History: TOBACCO: reports that she has never smoked. She has never used smokeless tobac co. ETOH: has no history on file for alcohol use. FH Stroke at the age of 81 after a fall All the histories listed above; including Past Medical History, Past Surgical Hi story, Family History and Social History have been reviewed. ROS A comprehensive 14-point ROS was negative except as mentioned in HPI above . PE Vitals: Vital Signs: Last Filed In 24 Hours Vital Signs: 24 Hour Range BP: 125/75 (12/20 1100) Temp: 36.8 C (98.3 F) (12/20 0800) Pulse: 68 (12/20 1100) Respirations: 17 PER MINUTE (12/20 1100) SpO2: 91 % (12/20 1100) O2 Device: Nasal cannula (12/21 399) O2 Liter Flow: 2 Lpm (12/21 399) SpO2 Pulse: 74 (12/19 2002) Height: 175.3 cm (5' 9") (12/19 2099) BP: (116-161)/(62-86) Temp: [36.8 C (98.3 F)-37 C (98.6 F)] Pulse: [65-81] Respirations: [11 PER MINUTE-27 PER MINUTE] SpO2: [91 %-100 %] O2 Device: Nasal cannula O2 Liter Flow: 2 Lpm Intensity Pain Scale (Self Report): 7 (12/20/22 0509) Intake/Output Summary (Last 24 hours) at 12/20/2022 1321 Last data filed at 12/20/2022 0700 Gross per 24 hour Intake 809.83 ml Output 650 ml Net 159.83 ml Date 12/20/22 0700 - 12/21/22 0659 Shift 7735-0000 [id number] 2111-5311 24 Hour Total INTAKE I.V.(mL/kg/hr) 70 70 Shift Total(mL/kg) 70(0.7) 70(0.7) OUTPUT Shift Total(mL/kg) Weight (kg) 102.7 102.7 102.7 102.7 Wt Readings from Last 3 Encounters: 12/19/22 102.7 kg (226 lb 6.6 oz) Body mass index is 33.44 kg/m. General: Patient seems to be clinically stable and in mild immediate distress. A AO x3 HEENT: NC/AT Heart: S1 S2 present, RRR, no audible rubs, + aortic murmurs heard Lungs: Bilateral air entry noted, Wearing a brace. Abdomen: Soft, non tender and no masses noted. Bowel sounds were present. Extremities: no pedal edema; no calf tenderness Skin: No obvious skin rashes Neurologic: Seems oriented. No new obvious abnormality of cranial nerves, motor system noted Current Medication No medications prior to admission. Current Facility-Administered Medications Medication acetaminophen (TYLENOL EXTRA STRENGTH) tablet 1,000 mg albuterol 0.5% (PROVENTIL) nebulizer solution 2.5 mg enoxaparin (LOVENOX) syringe 30 mg fentaNYL citrate PF (SUBLIMAZE) injection 25-50 mcg gabapentin (NEURONTIN) capsule 100 mg ketamine (KETALAR) 500 mg in sodium chloride 0.9% (NS) 500 mL IV drip (low d ose infusion) melatonin (MELATIN) tablet 3 mg methocarbamoL (ROBAXIN) tablet 750 mg ondansetron (ZOFRAN) injection 4 mg oxyCODONE (ROXICODONE) tablet 5-10 mg polyethylene glycol 3350 (MIRALAX) packet 17 g senna (SENOKOT) tablet 2 tablet Scheduled Meds:acetaminophen (TYLENOL EXTRA STRENGTH) tablet 1,000 mg, 1,000 mg, Oral, Q6H* enoxaparin (LOVENOX) syringe 30 mg, 30 mg, Subcutaneous, BID gabapentin (NEURONTIN) capsule 100 mg, 100 mg, Oral, Q8H melatonin (MELATIN) tablet 3 mg, 3 mg, Oral, QHS methocarbamoL (ROBAXIN) tablet 750 mg, 750 mg, Oral, TID polyethylene glycol 3350 (MIRALAX) packet 17 g, 17 g, Oral, QDAY senna (SENOKOT) tablet 2 tablet, 2 tablet, Oral, BID Continuous Infusions: ketamine (KETALAR) 500 mg in sodium chloride 0.9% (NS) 500 mL IV drip (low d ose infusion) 20 mg/hr (12/20/22 0726) PRN Meds:albuterol 0.5% Q4H PRN, fentaNYL citrate PF Q1H PRN, ondansetron (ZOFRA N) IV Q6H PRN, oxyCODONE Q6H PRN Labs Lab Review 24-hour labs: Results for orders placed or performed during the hospital encounter of 12/19/22 (from the past 24 hour(s)) CBC AND DIFF Collection Time: 12/19/22 4:25 PM Result Value Ref Range White Blood Cells 14.9 (H) 4.5 - 11.0 K/UL RBC 4.19 4.0 - 5.0 M/UL Hemoglobin 12.2 12.0 - 15.0 GM/DL Hematocrit 37.6 36 - 45 % MCV 89.8 80 - 100 FL MCH 29.1 26 - 34 PG MCHC 32.4 32.0 - 36.0 G/DL RDW 13.7 11 - 15 % Platelet Count 197 150 - 400 K/UL MPV 8.6 7 - 11 FL Neutrophils 87 (H) 41 - 77 % Lymphocytes 9 (L) 24 - 44 % Monocytes 4 4 - 12 % Eosinophils 0 0 - 5 % Basophils 0 0 - 2 % Absolute Neutrophil Count 12.95 (H) 1.8 - 7.0 K/UL Absolute Lymph Count 1.26 1.0 - 4.8 K/UL Absolute Monocyte Count 0.61 0 - 0.80 K/UL Absolute Eosinophil Count 0.01 0 - 0.45 K/UL Absolute Basophil Count 0.04 0 - 0.20 K/UL MDW (Monocyte Distribution Width) 19.6 <20.7 COMPREHENSIVE METABOLIC PANEL Collection Time: 12/19/22 4:25 PM Result Value Ref Range Sodium 138 137 - 147 MMOL/L Potassium 3.7 3.5 - 5.1 MMOL/L Chloride 103 98 - 110 MMOL/L Glucose 117 (H) 70 - 100 MG/DL Blood Urea Nitrogen 24 7 - 25 MG/DL Creatinine 0.76 0.4 - 1.00 MG/DL Calcium 9.3 8.5 - 10.6 MG/DL Total Protein 7.5 6.0 - 8.0 G/DL Total Bilirubin 0.4 0.3 - 1.2 MG/DL Albumin 4.2 3.5 - 5.0 G/DL Alk Phosphatase 55 25 - 110 U/L AST (SGOT) 69 (H) 7 - 40 U/L CO2 25 21 - 30 MMOL/L ALT (SGPT) 61 (H) 7 - 56 U/L Anion Gap 10 3 - 12 eGFR >60 >60 mL/min TYPE & CROSSMATCH Collection Time: 12/19/22 4:25 PM Result Value Ref Range Units Ordered 0 Crossmatch Expires 12/22/2022,2359 Record Check 2ND TYPE REQUIRED ABO/RH(D) A NEG Antibody Screen NEG Electronic Crossmatch YES HIGH SENSITIVITY TROPONIN I 0 HOUR Collection Time: 12/19/22 4:25 PM Result Value Ref Range hs Troponin I 0 Hour 24 (H) <12 ng/L POC CREATININE, RAD Collection Time: 12/19/22 4:32 PM Result Value Ref Range Creatinine, POC 0.8 0.4 - 1.00 MG/DL BLOOD TYPE CONFIRMATION - ORDER ONLY IF REQUESTED BY LAB Collection Time: 12/19/22 5:20 PM Result Value Ref Range ABO/RH(D) A NEG HIGH SENSITIVITY TROPONIN I 2 HOUR Collection Time: 12/19/22 6:44 PM Result Value Ref Range hs Troponin I 2 Hour 18 (H) <12 ng/L BASIC METABOLIC PANEL Collection Time: 12/20/22 6:22 AM Result Value Ref Range Sodium 140 137 - 147 MMOL/L Potassium 3.6 3.5 - 5.1 MMOL/L Chloride 105 98 - 110 MMOL/L CO2 26 21 - 30 MMOL/L Anion Gap 9 3 - 12 Glucose 115 (H) 70 - 100 MG/DL Blood Urea Nitrogen 18 7 - 25 MG/DL Creatinine 0.63 0.4 - 1.00 MG/DL Calcium 8.2 (L) 8.5 - 10.6 MG/DL eGFR >60 >60 mL/min CBC Collection Time: 12/20/22 6:22 AM Result Value Ref Range White Blood Cells 5.5 4.5 - 11.0 K/UL RBC 3.76 (L) 4.0 - 5.0 M/UL Hemoglobin 11.1 (L) 12.0 - 15.0 GM/DL Hematocrit 33.7 (L) 36 - 45 % MCV 89.7 80 - 100 FL MCH 29.6 26 - 34 PG MCHC 33.0 32.0 - 36.0 G/DL RDW 13.7 11 - 15 % Platelet Count 180 150 - 400 K/UL MPV 8.3 7 - 11 FL MAGNESIUM Collection Time: 12/20/22 6:22 AM Result Value Ref Range Magnesium 1.9 1.6 - 2.6 mg/dL PHOSPHORUS Collection Time: 12/20/22 6:22 AM Result Value Ref Range Phosphorus 4.1 2.0 - 4.5 MG/DL Glucose: (!) 115 (12/20/22 0622) Imaging Reviewed, Notable for: EKG: Left bundle branch block, QTc within acceptable limit, CHEST SINGLE VIEW Result Date: 12/20/2022 1. Tiny right apical pneumothorax. 2. Patchy bibasilar opacities, likely atele ctasis. 3. Calcified granuloma and scarring in right upper lung better evaluate d on recent CT chest. SCAPULA RIGHT Result Date: 12/20/2022 1. Comminuted scapular body fracture involving the glenoid and base of the martin coid process, better detailed on CT. 2. Multiple displaced right rib fractures. 3. Mild glenohumeral and AC joint degenerative arthritis. CT UPPER EXTREM WO CONT RIGHT Result Date: 12/20/2022 FINDINGS/IMPRESSION: 1. Minimally displaced fracture of the upper glenoid with extension into the scapular body and base of the coracoid process anteriorly and mild intra-articular extension into the upper margin of the glenohumeral joint. Normal glenohumeral alignment. 2. Minimally displaced acute fracture of the ac romion. The acromioclavicular joint space is well-maintained with moderate arthr osis. 3. Mild diffuse osseous demineralization. No destructive osseous lesion. 4. There is some mild fat stranding compatible with edema possible mild infiltr ating hemorrhage along the posterior aspect of the acromion and upper scapular b noe, as well as adjacent to the coracoid process. However, no dominant measurabl e hematoma is appreciated. 5. Similar minute right apical pneumothorax. Please see separately dictated exams for further discussion of right rib fractures and additional nonosseous/thoracic findings. HAND MIN 3 VIEWS LEFT Result Date: 12/19/2022 Multifocal degenerative changes in the hand and wrist, without acute fracture or dislocation. WRIST COMP MIN 3 VIEWS LEFT Result Date: 12/19/2022 Multifocal degenerative changes in the hand and wrist, without acute fracture or dislocation. FOREARM 2 VIEWS RIGHT Result Date: 12/19/2022 No acute fracture or dislocation. SHOULDER MIN 2 VIEWS RIGHT Result Date: 12/19/2022 Findings/impression: 1. Redemonstration of a fracture involving the upper glenoi d with extension of the articular surface at the glenohumeral joint, though with out significant displacement. Additional nondisplaced fracture the right acromio n without intra-articular extension to the AC joint. Normal alignment at the acr omioclavicular and glenohumeral joints, with intact right clavicle. 2. Redemonst ration of multiple mildly and minimally displaced right rib fractures, better se en on prior CT chest. The trace right pneumothorax on CT chest is not well appre ciated on current shoulder radiographs. 3. No acute humeral fracture. No elbow f racture or dislocation. No fat pad displacement at the elbow to indicate a joint effusion. 4. No acute fracture or dislocation at the hand. 5. Mild soft tissue swelling at the MCP joints on lateral view of the. Pulse ox monitor overlies the second digit, but no suspicious radiopaque foreign body or destructive osseous lesion. Scattered degenerative changes in the hand and wrist, most notably some at least moderate degenerative change at the first CMC joint and marked degenera tive change at the triscaphe articulation. ELBOW MIN 3 VIEWS RIGHT Result Date: 12/19/2022 Findings/impression: 1. Redemonstration of a fracture involving the upper glenoi d with extension of the articular surface at the glenohumeral joint, though with out significant displacement. Additional nondisplaced fracture the right acromio n without intra-articular extension to the AC joint. Normal alignment at the acr omioclavicular and glenohumeral joints, with intact right clavicle. 2. Redemonst ration of multiple mildly and minimally displaced right rib fractures, better se en on prior CT chest. The trace right pneumothorax on CT chest is not well appre ciated on current shoulder radiographs. 3. No acute humeral fracture. No elbow f racture or dislocation. No fat pad displacement at the elbow to indicate a joint effusion. 4. No acute fracture or dislocation at the hand. 5. Mild soft tissue swelling at the MCP joints on lateral view of the. Pulse ox monitor overlies the second digit, but no suspicious radiopaque foreign body or destructive osseous lesion. Scattered degenerative changes in the hand and wrist, most notably some at least moderate degenerative change at the first CMC joint and marked degenera tive change at the triscaphe articulation. HUMERUS MIN 2 VIEWS RIGHT Result Date: 12/19/2022 Findings/impression: 1. Redemonstration of a fracture involving the upper glenoi d with extension of the articular surface at the glenohumeral joint, though with out significant displacement. Additional nondisplaced fracture the right acromio n without intra-articular extension to the AC joint. Normal alignment at the acr omioclavicular and glenohumeral joints, with intact right clavicle. 2. Redemonst ration of multiple mildly and minimally displaced right rib fractures, better se en on prior CT chest. The trace right pneumothorax on CT chest is not well appre ciated on current shoulder radiographs. 3. No acute humeral fracture. No elbow f racture or dislocation. No fat pad displacement at the elbow to indicate a joint effusion. 4. No acute fracture or dislocation at the hand. 5. Mild soft tissue swelling at the MCP joints on lateral view of the. Pulse ox monitor overlies the second digit, but no suspicious radiopaque foreign body or destructive osseous lesion. Scattered degenerative changes in the hand and wrist, most notably some at least moderate degenerative change at the first CMC joint and marked degenera tive change at the triscaphe articulation. HAND MIN 3 VIEWS RIGHT Result Date: 12/19/2022 Findings/impression: 1. Redemonstration of a fracture involving the upper glenoi d with extension of the articular surface at the glenohumeral joint, though with out significant displacement. Additional nondisplaced fracture the right acromio n without intra-articular extension to the AC joint. Normal alignment at the acr omioclavicular and glenohumeral joints, with intact right clavicle. 2. Redemonst ration of multiple mildly and minimally displaced right rib fractures, better se en on prior CT chest. The trace right pneumothorax on CT chest is not well appre ciated on current shoulder radiographs. 3. No acute humeral fracture. No elbow f racture or dislocation. No fat pad displacement at the elbow to indicate a joint effusion. 4. No acute fracture or dislocation at the hand. 5. Mild soft tissue swelling at the MCP joints on lateral view of the. Pulse ox monitor overlies the second digit, but no suspicious radiopaque foreign body or destructive osseous lesion. Scattered degenerative changes in the hand and wrist, most notably some at least moderate degenerative change at the first CMC joint and marked degenera tive change at the triscaphe articulation. CT CHEST W CONTRAST Result Date: 12/19/2022 Chest: 1. No aortic injury or major pulmonary injury. There is small right ap ical pneumothorax. 2. Numerous mildly displaced right rib fractures and articul ar fracture of the superior margin of the glenoid. 3. Mild to moderate aortic v alve calcification consistent with degenerative aortic valve disease. If not re cently obtained correlation with elective echocardiography is suggested. Abdomen and Pelvis: No major abdominal/pelvic injury. CT ABD/PELV W CONTRAST Result Date: 12/19/2022 Chest: 1. No aortic injury or major pulmonary injury. There is small right ap ical pneumothorax. 2. Numerous mildly displaced right rib fractures and articul ar fracture of the superior margin of the glenoid. 3. Mild to moderate aortic v alve calcification consistent with degenerative aortic valve disease. If not re cently obtained correlation with elective echocardiography is suggested. Abdomen and Pelvis: No major abdominal/pelvic injury. CT HEAD WO CONTRAST Result Date: 12/19/2022 CT HEAD: 1. No acute intracranial hemorrhage, mass effect, or calvarial fracture . 2. Moderate right posterior scalp soft tissue hematoma with probable scalp lac eration. CT cervical spine: 1. No acute cervical spine fracture or traumatic subluxation. 2. Moderate cervical spondylosis. There are areas of at least mild central spin al stenosis and moderate neural foraminal stenosis. 3. Small bleb or tiny right apical pneumothorax. Please correlate this with the CT chest report which is dic tated separately. CT SPINE CERVICAL WO CONTRAST Result Date: 12/19/2022 direct visualization and independent view of the EKG was performed. DIET REGULAR Results, diagnoses, prognoses were reviewed with the patient, including the daughter and family at bedside Benefits / risks were explained in details. All questions answered. discussed with primary team via voalt. I spent a total of more than 80 minutes involved in this patient's initial hospi ernesto care. However, high complexity due to above. * Jaime Gaona MD - 12/19/2022 10:05 PM CDTAssociated Order(s): CONSULT ANESTHESIOLOGY ACUTE PAIN Anesthesia Consult Note 12/19/2022 Patient: Nikki Paredes Admission Date: 12/19/2022, LOS: 0 days Admission Diagnosis: Trauma [T14.90XA] ASSESSMENT/PLAN: 67 y.o. female with acute shoulder pain and right sided chest p ain from injuries sustained after a fall. - Will start ketamine at 20mg/hr. Patient advised about potential side effects. If these arise, can either decrease dose to 0.1mg/kg/hr or discontinue. - Increase APAP to 1G q6h. Increased Robaxin to 750mg TID. Continue fentanyl, ga bapentin as currently ordered. - Will defer epidural or regional anesthesia at this time. However, if patient's respiratory status declines or pain is uncontrolled with above regimen, will re visit at that time. - If able, switch prophylactic enoxaparin dosing from BID to daily dosing in elias e patient requires neuraxial anesthesia in the future Thank you for this consult. We will continue to follow while patient is on a ket amine infusion. Jaime Gaona MD Pager [phone] __ HPI: Nikki Paredes is a 67 y.o. female with no reported past medical history. She is admitted after a fall down stairs in her home. She states she was going up her stairs and fell onto the concrete floor. She then landed on her shoulder and head. Workup and imaging here revealed a right scapular fracture, right late ral acromion fracture, small right apical pneumothorax, right sided 3-11 rib fra ctures. Patient currently reports pain in her shoulder is the worst pain, but re ports the pain in her ribs is currently a 7/10. Did report improvement with fent anyl. Patient reports that she "flatlined" when she had morphine in the past. Re ports that she has taken oxycodone in the past, which causes severe nausea. Not on any blood thinners. No past medical history on file. No past surgical history on file. Medications: No current facility-administered medications on file prior to encounter. No current outpatient medications on file prior to encounter. Allergies: Morphine Social History Socioeconomic History Marital status: No family history on file. Vitals: Vital Signs: Last Filed In 24 Hours Vital Signs: 24 Hour Range BP: 122/81 (12/19 2002) Pulse: 74 (12/19 2125) Respirations: 17 PER MINUTE (12/19 2125) SpO2: 97 % (12/19 2125) O2 Device: Nasal cannula (12/19 2125) O2 Liter Flow: 2 Lpm (12/19 2125) SpO2 Pulse: 74 (12/19 2002) Height: 175.3 cm (5' 9") (12/19 2099) BP: (122-161)/(81-86) Pulse: [74] Respirations: [17 PER MINUTE-18 PER MINUTE] SpO2: [97 %-99 %] O2 Device: Nasal cannula O2 Liter Flow: 2 Lpm Physical Exam: GEN: Well nourished NAD HEENT: EOMI RESP: Unlabored respirations, on 2L NC CV: Regular rate MSK: RUE movement limited by pain ROS: A complete 12 point ROS was obtained and was negative except for those listed in HPI. Lab/Radiology/Other Diagnostic Tests: Recent Labs 12/19/22 1625 12/19/22 1632 HGB 12.2 -- HCT 37.6 -- WBC 14.9* -- PLTCT 197 -- NA 138 -- K 3.7 -- CL 103 -- CO2 25 -- BUN 24 -- CR 0.76 0.8 GLU 117* -- CA 9.3 -- ALBUMIN 4.2 -- TOTPROT 7.5 -- TOTBILI 0.4 -- AST 69* -- ALT 61* -- ALKPHOS 55 -- Glucose: (!) 117 (12/19/22 1625) WRIST COMP MIN 3 VIEWS LEFT Final Result Multifocal degenerative changes in the hand and wrist, without acute fracture or dislocation. Finalized by Karthik Diaz M.D. on 12/19/2022 8:46 PM. Dictated by Karthik brown M.D. on 12/19/2022 8:43 PM. HAND MIN 3 VIEWS LEFT Final Result Multifocal degenerative changes in the hand and wrist, without acute fracture or dislocation. Finalized by Karthik Diaz M.D. on 12/19/2022 8:46 PM. Dictated by Karthik brown M.D. on 12/19/2022 8:43 PM. FOREARM 2 VIEWS RIGHT Final Result No acute fracture or dislocation. Finalized by Karthik Diaz M.D. on 12/19/2022 5:54 PM. Dictated by Karthik brown M.D. on 12/19/2022 5:53 PM. HAND MIN 3 VIEWS RIGHT Final Result Findings/impression: 1. Redemonstration of a fracture involving the upper glenoid with extension of t he articular surface at the glenohumeral joint, though without significant displ acement. Additional nondisplaced fracture the right acromion without intra-artic ular extension to the AC joint. Normal alignment at the acromioclavicular and gl enohumeral joints, with intact right clavicle. 2. Redemonstration of multiple mildly and minimally displaced right rib fracture s, better seen on prior CT chest. The trace right pneumothorax on CT chest is no t well appreciated on current shoulder radiographs. 3. No acute humeral fracture. No elbow fracture or dislocation. No fat pad displ acement at the elbow to indicate a joint effusion. 4. No acute fracture or dislocation at the hand. 5. Mild soft tissue swelling at the MCP joints on lateral view of the. Pulse ox monitor overlies the second digit, but no suspicious radiopaque foreign body or destructive osseous lesion. Scattered degenerative changes in the hand and wrist , most notably some at least moderate degenerative change at the first CMC joint and marked degenerative change at the triscaphe articulation. Finalized by Karthik Diaz M.D. on 12/19/2022 5:36 PM. Dictated by Karthik brown M.D. on 12/19/2022 5:28 PM. HUMERUS MIN 2 VIEWS RIGHT Final Result Findings/impression: 1. Redemonstration of a fracture involving the upper glenoid with extension of t he articular surface at the glenohumeral joint, though without significant displ acement. Additional nondisplaced fracture the right acromion without intra-artic ular extension to the AC joint. Normal alignment at the acromioclavicular and gl enohumeral joints, with intact right clavicle. 2. Redemonstration of multiple mildly and minimally displaced right rib fracture s, better seen on prior CT chest. The trace right pneumothorax on CT chest is no t well appreciated on current shoulder radiographs. 3. No acute humeral fracture. No elbow fracture or dislocation. No fat pad displ acement at the elbow to indicate a joint effusion. 4. No acute fracture or dislocation at the hand. 5. Mild soft tissue swelling at the MCP joints on lateral view of the. Pulse ox monitor overlies the second digit, but no suspicious radiopaque foreign body or destructive osseous lesion. Scattered degenerative changes in the hand and wrist , most notably some at least moderate degenerative change at the first CMC joint and marked degenerative change at the triscaphe articulation. Finalized by Karthik Diaz M.D. on 12/19/2022 5:36 PM. Dictated by Karthik brown M.D. on 12/19/2022 5:28 PM. ELBOW MIN 3 VIEWS RIGHT Final Result Findings/impression: 1. Redemonstration of a fracture involving the upper glenoid with extension of t he articular surface at the glenohumeral joint, though without significant displ acement. Additional nondisplaced fracture the right acromion without intra-artic ular extension to the AC joint. Normal alignment at the acromioclavicular and gl enohumeral joints, with intact right clavicle. 2. Redemonstration of multiple mildly and minimally displaced right rib fracture s, better seen on prior CT chest. The trace right pneumothorax on CT chest is no t well appreciated on current shoulder radiographs. 3. No acute humeral fracture. No elbow fracture or dislocation. No fat pad displ acement at the elbow to indicate a joint effusion. 4. No acute fracture or dislocation at the hand. 5. Mild soft tissue swelling at the MCP joints on lateral view of the. Pulse ox monitor overlies the second digit, but no suspicious radiopaque foreign body or destructive osseous lesion. Scattered degenerative changes in the hand and wrist , most notably some at least moderate degenerative change at the first CMC joint and marked degenerative change at the triscaphe articulation. Finalized by Karthik Diaz M.D. on 12/19/2022 5:36 PM. Dictated by Karthik brown M.D. on 12/19/2022 5:28 PM. SHOULDER MIN 2 VIEWS RIGHT Final Result Findings/impression: 1. Redemonstration of a fracture involving the upper glenoid with extension of t he articular surface at the glenohumeral joint, though without significant displ acement. Additional nondisplaced fracture the right acromion without intra-artic ular extension to the AC joint. Normal alignment at the acromioclavicular and gl enohumeral joints, with intact right clavicle. 2. Redemonstration of multiple mildly and minimally displaced right rib fracture s, better seen on prior CT chest. The trace right pneumothorax on CT chest is no t well appreciated on current shoulder radiographs. 3. No acute humeral fracture. No elbow fracture or dislocation. No fat pad displ acement at the elbow to indicate a joint effusion. 4. No acute fracture or dislocation at the hand. 5. Mild soft tissue swelling at the MCP joints on lateral view of the. Pulse ox monitor overlies the second digit, but no suspicious radiopaque foreign body or destructive osseous lesion. Scattered degenerative changes in the hand and wrist , most notably some at least moderate degenerative change at the first CMC joint and marked degenerative change at the triscaphe articulation. Finalized by Karthik Diaz M.D. on 12/19/2022 5:36 PM. Dictated by Karthik brown M.D. on 12/19/2022 5:[address] CHEST W CONTRAST Final Result Chest: 1. No aortic injury or major pulmonary injury. There is small right apical pne umothorax. 2. Numerous mildly displaced right rib fractures and articular fracture of the superior margin of the glenoid. 3. Mild to moderate aortic valve calcification consistent with degenerative aor tic valve disease. If not recently obtained correlation with elective echocardi ography is suggested. Abdomen and Pelvis: No major abdominal/pelvic injury. Finalized by Jerald Morillo M.D. on 12/19/2022 5:21 PM. Dictated by Jerald Morillo M.D. on 12/19/2022 5:[address] ABD/PELV W CONTRAST Final Result Chest: 1. No aortic injury or major pulmonary injury. There is small right apical pne umothorax. 2. Numerous mildly displaced right rib fractures and articular fracture of the superior margin of the glenoid. 3. Mild to moderate aortic valve calcification consistent with degenerative aor tic valve disease. If not recently obtained correlation with elective echocardi ography is suggested. Abdomen and Pelvis: No major abdominal/pelvic injury. Finalized by Jerald Morillo M.D. on 12/19/2022 5:21 PM. Dictated by Jerald Morillo M.D. on 12/19/2022 5:[address] HEAD WO CONTRAST Final Result CT HEAD: 1. No acute intracranial hemorrhage, mass effect, or calvarial fracture. 2. Moderate right posterior scalp soft tissue hematoma with probable scalp lacer ation. CT cervical spine: 1. No acute cervical spine fracture or traumatic subluxation. 2. Moderate cervical spondylosis. There are areas of at least mild central spina l stenosis and moderate neural foraminal stenosis. 3. Small bleb or tiny right apical pneumothorax. Please correlate this with the CT chest report which is dictated separately. Finalized by Jani Wise M.D. on 12/19/2022 5:07 PM. Dictated by Jani finley M.D. on 12/19/2022 4:[address] SPINE CERVICAL WO CONTRAST Final Result CT HEAD: 1. No acute intracranial hemorrhage, mass effect, or calvarial fracture. 2. Moderate right posterior scalp soft tissue hematoma with probable scalp lacer ation. CT cervical spine: 1. No acute cervical spine fracture or traumatic subluxation. 2. Moderate cervical spondylosis. There are areas of at least mild central spina l stenosis and moderate neural foraminal stenosis. 3. Small bleb or tiny right apical pneumothorax. Please correlate this with the CT chest report which is dictated separately. Finalized by Jani Wise M.D. on 12/19/2022 5:07 PM. Dictated by Jani finley M.D. on 12/19/2022 4:46 PM. SCAPULA RIGHT (Results Pending) CT UPPER EXTREM WO CONT RIGHT (Results Pending) Associated attestation - Dinh Mojica MD - 12/20/2022 12:32 AM CDT ATTESTATION I personally observed the resident performing the E/M, discussed case with resid ent, and concur with resident documentation of history, physical assessment and treatment plan unless otherwise noted. Staff name: Dinh Mojica MD Date: 12/20/2022 * Benito Gonzalez MD - 12/19/2022 8:01 PM CDTAssociated Order(s): CONSULT ORTHOPEDIC SURGERY PHYSICIAN [facility] Consult Note Admission Date: 12/19/2022 Chief Complaint/Reason for Consult: R glenoid, scapula, acromion fxs Assessment/Plan Nikki Paredes is a LHD 67 y.o. female w/ no significant PMHx who presents after 6-8 ft fall on concrete w/ R scapular fx w/ intra-articular extension, R lateral acromion fx. - Images reviewed - Images, history and clinical presentation consistent with R scapular fx w/ int ra-articular extension (posterior-superior), R lateral acromion fx. -Operative Intervention -no acute operative intervention. The patient will like ly not require surgery during this admission; however, we will discuss patient a nd imaging more tomorrow morning with staff. We will provide an update at that time regarding more definitive management plan. -WB Status - NWB RUE in shoulder immobilizer -Antibiotics / Tetanus - per primary -Pain Control - per primary -Diet - please keep NPO at MN pending final staff discussion in AM. -DVT PPX - Mechanical, Chemoprophylaxis - per primary Patient to be evaluated with staff surgeon Dr. Jin who directed plan of care. During normal business hours, please contact Charlette Francisco (#[phone]), Mary acuña (#[phone]), Brandon Nash (#[phone]), Magdalena Edwards (#[phone]), or Nohemi Godfrey (#[phone]). At all other times, contact the orthopedic surgery resident special education resource room teacher for an y questions or concerns. PLEASE CONTACT THE PRIMARY ORTHOPEDIC TEAM FIRST BEFORE PAGING THE ORTHOPEDIC RESIDENT ON-CALL (PAGER NUMBERS PROVIDED ABOVE). History of Present Illness: Nikki Paredes is a 67 y.o. female. Patient states she was walking up her basement stairs earlier today when she fel l over the side railing. She states she was approximately 6 to 8 feet up and la nded on her right shoulder and head. She experienced immediate right rib, right shoulder, and right head pain at that time. She was subsequently brought to for further level of care. Denies any numbness and tingling about her right up per extremity. She denies any pain in her left upper extremity, and bilateral l ower extremities. She states that she has no significant past medical history other than arthritis . She does not take any medications. She denies take any blood thinners. She denies tobacco or cigarette use. She occasionally drinks alcohol and denies jose g use. 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 No past medical history on file. No past surgical history on file. No family history on file. Allergies: Morphine No current outpatient medications on file as of 12/19/2022. Review of Systems: 10 Point Review of Systems Obtained. Pertinent items noted in HPI. Pos -right shoulder pain, head pain, right rib pain Neg-numbness, tingling Vital Signs: Last Filed in 24 hours BP: 147/81 (12/19 1900) Respirations: 18 PER MINUTE (05/23 1727) SpO2: 98 % (12/19 1899) SpO2 Pulse: 89 (12/19 1899) Height: 175.3 cm (5' 9") (12/19 1800) Physical Exam: Constitutional: Alert, NAD HEENT: Normocephalic, no scleral icterus Respiratory: Unlabored respirations on RA Cardiovascular: Regular rate Abdomen: Nondistended, NTTP Lymph: No significant lymphedema, no lymphadenopathy of affected extremity Skin: Normal Turgor Musculoskeletal: RUE: Able to flex/extend the elbow, wrist and fingers; AIN/PIN/ulnar motor funct ion intact, SILT in radial/median/ulnar nerve distributions; 2+ radial pulse, forman nd well perfused, soft compartments, warm extremity, <2s cap refill. Tenderness palpation over the right anterior shoulder. She is able to activate her deltoid and slowly abduct her arm with significant pain. No tenderness palpation over the entire left upper and bilateral lower extremiti es. No pain with passive or active range of motion of the joints of her left up per extremity or bilateral lower extremities. Neurologic: Grossly intact, No focal deficits noted unless listed above Lab/Radiology/Other Diagnostic Tests: CBC w/Diff Lab Results Component Value Date/Time WBC 14.9 (H) 12/19/2022 04:25 PM HGB 12.2 12/19/2022 04:25 PM HCT 37.6 12/19/2022 04:25 PM PLTCT 197 12/19/2022 04:25 PM Inflammatory Markers No results found for: ESR, CRP Basic Metabolic Profile Lab Results Component Value Date/Time NA 138 12/19/2022 04:25 PM K 3.7 12/19/2022 04:25 PM CL 103 12/19/2022 04:25 PM CO2 25 12/19/2022 04:25 PM GAP 10 12/19/2022 04:25 PM BUN 24 12/19/2022 04:25 PM CR 0.8 12/19/2022 04:32 PM CR 0.76 12/19/2022 04:25 PM GLU 117 (H) 12/19/2022 04:25 PM Coagulation Studies No results found for: PT, PTT, INR Radiology: FOREARM 2 VIEWS RIGHT Result Date: 12/19/2022 Exam: FOREARM 2 VIEWS RIGHT Clinical history: FALL Technique: AP and lateral vie ws of the right forearm. Comparison: [Same day right hand and elbow radiographs. ] FINDINGS: No acute fracture or dislocation identified. No radiopaque foreign b noe or destructive osseous lesion. Degenerative changes in the visualized hand a nd wrist. No acute fracture or dislocation. Finalized by Karthik Diaz M.D. on 2022 5:54 PM. Dictated by Karthik Diaz M.D. on 12/19/2022 5:53 PM. SHOULDER MIN 2 VIEWS RIGHT Result Date: 12/19/2022 Exams: SHOULDER MIN 2 VIEWS RIGHT, HAND MIN 3 VIEWS RIGHT, HUMERUS MIN 2 VIEWS R IGHT, ELBOW MIN 3 VIEWS RIGHT Clinical history: FALL, 8 ft shoulder tenderness T echnique: 3 views of the right shoulder. AP and lateral views of the right humer us. AP, lateral and oblique views of the right elbow and right hand. Comparison: [CT chest, abdomen and pelvis from earlier today.] Findings/impression: 1. Redemonstration of a fracture involving the upper glenoi d with extension of the articular surface at the glenohumeral joint, though with out significant displacement. Additional nondisplaced fracture the right acromio n without intra-articular extension to the AC joint. Normal alignment at the acr omioclavicular and glenohumeral joints, with intact right clavicle. 2. Redemonst ration of multiple mildly and minimally displaced right rib fractures, better se en on prior CT chest. The trace right pneumothorax on CT chest is not well appre ciated on current shoulder radiographs. 3. No acute humeral fracture. No elbow f racture or dislocation. No fat pad displacement at the elbow to indicate a joint effusion. 4. No acute fracture or dislocation at the hand. 5. Mild soft tissue swelling at the MCP joints on lateral view of the. Pulse ox monitor overlies the second digit, but no suspicious radiopaque foreign body or destructive osseous lesion. Scattered degenerative changes in the hand and wrist, most notably some at least moderate degenerative change at the first CMC joint and marked degenera tive change at the triscaphe articulation. Finalized by Karthik Diaz M.D. on 12/19/2022 5:36 PM. Dictated by Karthik Diaz M.D. on 12/19/2022 5:28 PM. ELBOW MIN 3 VIEWS RIGHT Result Date: 12/19/2022 Exams: SHOULDER MIN 2 VIEWS RIGHT, HAND MIN 3 VIEWS RIGHT, HUMERUS MIN 2 VIEWS R IGHT, ELBOW MIN 3 VIEWS RIGHT Clinical history: FALL, 8 ft shoulder tenderness T echnique: 3 views of the right shoulder. AP and lateral views of the right humer us. AP, lateral and oblique views of the right elbow and right hand. Comparison: [CT chest, abdomen and pelvis from earlier today.] Findings/impression: 1. Redemonstration of a fracture involving the upper glenoi d with extension of the articular surface at the glenohumeral joint, though with out significant displacement. Additional nondisplaced fracture the right acromio n without intra-articular extension to the AC joint. Normal alignment at the acr omioclavicular and glenohumeral joints, with intact right clavicle. 2. Redemonst ration of multiple mildly and minimally displaced right rib fractures, better se en on prior CT chest. The trace right pneumothorax on CT chest is not well appre ciated on current shoulder radiographs. 3. No acute humeral fracture. No elbow f racture or dislocation. No fat pad displacement at the elbow to indicate a joint effusion. 4. No acute fracture or dislocation at the hand. 5. Mild soft tissue swelling at the MCP joints on lateral view of the. Pulse ox monitor overlies the second digit, but no suspicious radiopaque foreign body or destructive osseous lesion. Scattered degenerative changes in the hand and wrist, most notably some at least moderate degenerative change at the first CMC joint and marked degenera tive change at the triscaphe articulation. Finalized by Karthik Diaz M.D. on 12/19/2022 5:36 PM. Dictated by Karthik Diaz M.D. on 12/19/2022 5:28 PM. HUMERUS MIN 2 VIEWS RIGHT Result Date: 12/19/2022 Exams: SHOULDER MIN 2 VIEWS RIGHT, HAND MIN 3 VIEWS RIGHT, HUMERUS MIN 2 VIEWS R IGHT, ELBOW MIN 3 VIEWS RIGHT Clinical history: FALL, 8 ft shoulder tenderness T echnique: 3 views of the right shoulder. AP and lateral views of the right humer us. AP, lateral and oblique views of the right elbow and right hand. Comparison: [CT chest, abdomen and pelvis from earlier today.] Findings/impression: 1. Redemonstration of a fracture involving the upper glenoi d with extension of the articular surface at the glenohumeral joint, though with out significant displacement. Additional nondisplaced fracture the right acromio n without intra-articular extension to the AC joint. Normal alignment at the acr omioclavicular and glenohumeral joints, with intact right clavicle. 2. Redemonst ration of multiple mildly and minimally displaced right rib fractures, better se en on prior CT chest. The trace right pneumothorax on CT chest is not well appre ciated on current shoulder radiographs. 3. No acute humeral fracture. No elbow f racture or dislocation. No fat pad displacement at the elbow to indicate a joint effusion. 4. No acute fracture or dislocation at the hand. 5. Mild soft tissue swelling at the MCP joints on lateral view of the. Pulse ox monitor overlies the second digit, but no suspicious radiopaque foreign body or destructive osseous lesion. Scattered degenerative changes in the hand and wrist, most notably some at least moderate degenerative change at the first CMC joint and marked degenera tive change at the triscaphe articulation. Finalized by Karthik Diaz M.D. on 12/19/2022 5:36 PM. Dictated by Karthik Diaz M.D. on 12/19/2022 5:28 PM. HAND MIN 3 VIEWS RIGHT Result Date: 12/19/2022 Exams: SHOULDER MIN 2 VIEWS RIGHT, HAND MIN 3 VIEWS RIGHT, HUMERUS MIN 2 VIEWS R IGHT, ELBOW MIN 3 VIEWS RIGHT Clinical history: FALL, 8 ft shoulder tenderness T echnique: 3 views of the right shoulder. AP and lateral views of the right humer us. AP, lateral and oblique views of the right elbow and right hand. Comparison: [CT chest, abdomen and pelvis from earlier today.] Findings/impression: 1. Redemonstration of a fracture involving the upper glenoi d with extension of the articular surface at the glenohumeral joint, though with out significant displacement. Additional nondisplaced fracture the right acromio n without intra-articular extension to the AC joint. Normal alignment at the acr omioclavicular and glenohumeral joints, with intact right clavicle. 2. Redemonst ration of multiple mildly and minimally displaced right rib fractures, better se en on prior CT chest. The trace right pneumothorax on CT chest is not well appre ciated on current shoulder radiographs. 3. No acute humeral fracture. No elbow f racture or dislocation. No fat pad displacement at the elbow to indicate a joint effusion. 4. No acute fracture or dislocation at the hand. 5. Mild soft tissue swelling at the MCP joints on lateral view of the. Pulse ox monitor overlies the second digit, but no suspicious radiopaque foreign body or destructive osseous lesion. Scattered degenerative changes in the hand and wrist, most notably some at least moderate degenerative change at the first CMC joint and marked degenera tive change at the triscaphe articulation. Finalized by Karthik Diaz M.D. on 12/19/2022 5:36 PM. Dictated by Karthik Diaz M.D. on 12/19/2022 5:[address] CHEST W CONTRAST Result Date: 12/19/[address] abdomen and pelvis Indication: Fall down stairs Technique: Assured Labor ami IV contrast-enhanced images were obtained through the chest abdomen and pel vis. Comparison studies: None Chest findings: 1. Heart and great vessels: Heart size normal. Mild to moderate aortic valve calcification. Aorta normal caliber without injury. 2. Mediastinum, Axillae and pulmonary lita: No fluid collection or pneumomediastinum. 3. Lungs and pleura: Tiny right apical pneumothorax be tter seen on CT cervical spine examination. Moderate apical pleural parenchymal scarring and calcified granuloma in the right apex. Mild dependent lower lobe atelectasis greater on the right. No focal pulmonary contusion. 4. Chest wall a nd thoracic spine: Thoracic spine alignment normal apart from mild right convex ity thoracic spine curvature. Osseous detail is somewhat obscured by motion art ifact and demineralization, however no thoracic spine fracture or sternal fractu re seen. There are numerous mildly displaced right lateral rib fractures (at le ast third through 11th rib) with osseous detail obscured by motion artifact. No definite displaced left rib fractures are seen, however, there is considerable motion artifact. Articular fracture of the right scapula at the superior base of the glenoid Abdomen and Pelvis findings: 1. Liver and spleen: Normal in size w ith small spherical low density lesion in segment 2/3 which is probably a small cyst. No laceration or hematoma is seen. 2. Adrenal glands and kidneys: Unrema rkable apart from left renal cysts. 3. Pancreas and retroperitoneum: Pancreas u nremarkable. No retroperitoneal fluid collection. Aorta normal caliber. 4. Per itoneal space: Bowel loops normal caliber. No hemoperitoneum or ascites. 5. Pe lvis: Partially filled bladder and vaginal cuff unremarkable apart from mild pe lvic floor relaxation. 6. Musculoskeletal: Lumbar spine alignment normal. Mild to moderate spondylosis. No lumbar spine or pelvic fracture. Osteitis pubis n oted. Ossification is noted adjacent to the left inferior pubic ramus which is probably from remote trauma. Chest: 1. No aortic injury or major pulmonary injury. There is small right ap ical pneumothorax. 2. Numerous mildly displaced right rib fractures and articul ar fracture of the superior margin of the glenoid. 3. Mild to moderate aortic v alve calcification consistent with degenerative aortic valve disease. If not re cently obtained correlation with elective echocardiography is suggested. Abdomen and Pelvis: No major abdominal/pelvic injury. Finalized by Jerald Morillo M.D. on 12/19/2022 5:21 PM. Dictated by Jerald Morillo M.D. on 12/19/2022 5:[address] ABD/PELV W CONTRAST Result Date: 12/19/[address] abdomen and pelvis Indication: Fall down stairs Technique: Dyn ami IV contrast-enhanced images were obtained through the chest abdomen and pel vis. Comparison studies: None Chest findings: 1. Heart and great vessels: Heart size normal. Mild to moderate aortic valve calcification. Aorta normal caliber without injury. 2. Mediastinum, Axillae and pulmonary lita: No fluid collection or pneumomediastinum. 3. Lungs and pleura: Tiny right apical pneumothorax be tter seen on CT cervical spine examination. Moderate apical pleural parenchymal scarring and calcified granuloma in the right apex. Mild dependent lower lobe atelectasis greater on the right. No focal pulmonary contusion. 4. Chest wall a nd thoracic spine: Thoracic spine alignment normal apart from mild right convex ity thoracic spine curvature. Osseous detail is somewhat obscured by motion art ifact and demineralization, however no thoracic spine fracture or sternal fractu re seen. There are numerous mildly displaced right lateral rib fractures (at le ast third through 11th rib) with osseous detail obscured by motion artifact. No definite displaced left rib fractures are seen, however, there is considerable motion artifact. Articular fracture of the right scapula at the superior base of the glenoid Abdomen and Pelvis findings: 1. Liver and spleen: Normal in size w ith small spherical low density lesion in segment 2/3 which is probably a small cyst. No laceration or hematoma is seen. 2. Adrenal glands and kidneys: Unrema rkable apart from left renal cysts. 3. Pancreas and retroperitoneum: Pancreas u nremarkable. No retroperitoneal fluid collection. Aorta normal caliber. 4. Per itoneal space: Bowel loops normal caliber. No hemoperitoneum or ascites. 5. Pe lvis: Partially filled bladder and vaginal cuff unremarkable apart from mild pe lvic floor relaxation. 6. Musculoskeletal: Lumbar spine alignment normal. Mild to moderate spondylosis. No lumbar spine or pelvic fracture. Osteitis pubis n oted. Ossification is noted adjacent to the left inferior pubic ramus which is probably from remote trauma. Chest: 1. No aortic injury or major pulmonary injury. There is small right ap ical pneumothorax. 2. Numerous mildly displaced right rib fractures and articul ar fracture of the superior margin of the glenoid. 3. Mild to moderate aortic v alve calcification consistent with degenerative aortic valve disease. If not re cently obtained correlation with elective echocardiography is suggested. Abdomen and Pelvis: No major abdominal/pelvic injury. Finalized by Jerald Morillo M.D. on 12/19/2022 5:21 PM. Dictated by Jerald Morillo M.D. on 12/19/2022 5:[address] HEAD WO CONTRAST Result Date: 12/19/2022 CT head, CT cervical spine HISTORY: Fall, 8 feet, head laceration. Fall down sta irs. Hit head. No loss of consciousness. TECHNIQUE: Multiple contiguous axial im ages were obtained through the head and cervical spine without contrast. Coronal and sagittal reconstructions were performed from the source data. FINDINGS: CT HEAD: Dental artifact partially degrades parenchymal imaging. There is a moderat e right posterior scalp soft tissue hematoma. There is slight irregularity of th e skin (image 28 of series 303) suggestive of a laceration. There is no calvaria l fracture identified. Cerebral volumes are grossly within normal limits for age . The ventricle sizes are normal. No acute intracranial hemorrhage is identified . There is no midline shift, mass effect, or extra-axial fluid collection identi fied. Basilar cisterns are patent. Peripheral cole-white interfaces are maintain ed. The paranasal sinuses and mastoid air cells are clear. CT cervical spine: Th e atlantooccipital articulation is maintained. The C1 ring is intact. The cervic al vertebral body heights are normal. The alignment is maintained. There is no a cute cervical spine fracture or traumatic subluxation. There is multilevel disc degeneration with loss of disc height and posterior disc osteophyte complexes at multiple levels with uncovertebral joint enlargement. There are several levels of at least mild central spinal stenosis. Several levels demonstrate at least mo derate foraminal stenosis. There are left thyroid dense calcifications. The prev ertebral and paraspinal soft tissues appear normal. Is a small right apical bleb or tiny pneumothorax at the medial right lung apex (image 85 of series 305). CT HEAD: 1. No acute intracranial hemorrhage, mass effect, or calvarial fracture . 2. Moderate right posterior scalp soft tissue hematoma with probable scalp lac eration. CT cervical spine: 1. No acute cervical spine fracture or traumatic sub luxation. 2. Moderate cervical spondylosis. There are areas of at least mild lamonte tral spinal stenosis and moderate neural foraminal stenosis. 3. Small bleb or ti ny right apical pneumothorax. Please correlate this with the CT chest report whi ch is dictated separately. Finalized by Jani Wise M.D. on 12/19/2022 5:07 PM. Dictated by Jani Wise M.D. on 12/19/2022 4:[address] SPINE CERVICAL WO CONTRAST Result Date: 12/19/2022 CT head, CT cervical spine HISTORY: Fall, 8 feet, head laceration. Fall down sta irs. Hit head. No loss of consciousness. TECHNIQUE: Multiple contiguous axial im ages were obtained through the head and cervical spine without contrast. Coronal and sagittal reconstructions were performed from the source data. FINDINGS: CT HEAD: Dental artifact partially degrades parenchymal imaging. There is a moderat e right posterior scalp soft tissue hematoma. There is slight irregularity of th e skin (image 28 of series 303) suggestive of a laceration. There is no calvaria l fracture identified. Cerebral volumes are grossly within normal limits for age . The ventricle sizes are normal. No acute intracranial hemorrhage is identified . There is no midline shift, mass effect, or extra-axial fluid collection identi fied. Basilar cisterns are patent. Peripheral cole-white interfaces are maintain ed. The paranasal sinuses and mastoid air cells are clear. CT cervical spine: Th e atlantooccipital articulation is maintained. The C1 ring is intact. The cervic al vertebral body heights are normal. The alignment is maintained. There is no a cute cervical spine fracture or traumatic subluxation. There is multilevel disc degeneration with loss of disc height and posterior disc osteophyte complexes at multiple levels with uncovertebral joint enlargement. There are several levels of at least mild central spinal stenosis. Several levels demonstrate at least mo derate foraminal stenosis. There are left thyroid dense calcifications. The prev ertebral and paraspinal soft tissues appear normal. Is a small right apical bleb or tiny pneumothorax at the medial right lung apex (image 85 of series 305). CT HEAD: 1. No acute intracranial hemorrhage, mass effect, or calvarial fracture . 2. Moderate right posterior scalp soft tissue hematoma with probable scalp lac eration. CT cervical spine: 1. No acute cervical spine fracture or traumatic sub luxation. 2. Moderate cervical spondylosis. There are areas of at least mild lamonte tral spinal stenosis and moderate neural foraminal stenosis. 3. Small bleb or ti ny right apical pneumothorax. Please correlate this with the CT chest report whi ch is dictated separately. Finalized by Jani Wise M.D. on 12/19/2022 5:07 PM. Dictated by Jani Wise M.D. on 12/19/2022 4:46 PM. Benito Gonzalez MD [id number] documented in this encounter ED Notes * Jefferson Mary MD - 12/19/2022 5:12 PM CDT Images from the original note were not included. Nikki Paredes is a 67 y.o. female. Chief Complaint: Chief Complaint Patient presents with Fall Fall down stairs, hit head, No LOC History of Present Illness: Patient is a 67-year-old female presenting to emergency department by EMS after fall. Patient states that she tripped and fell down basement stairs which was a pproximately 8 feet. She landed on her right side and did hit her head. This w as onto concrete. She has significant pain in her right upper extremity and de la torre d as well as chest wall. Bleeding was noted from scalp although controlled curr ently. Patient denied any chest pain, shortness of breath, presyncopal sensatio n, nausea, bloating, focal neurodeficits before or after incident. Patient is n ot on blood thinners. Patient received total of 125 mcg of fentanyl in route by EMS. Review of Systems: Review of Systems ROS as noted in HPI Allergies: Morphine Past Medical History: No past medical history on file. Past Surgical History: No past surgical history on file. Pertinent medical and surgical history reviewed Social History: Social History Tobacco Use Smoking status: Never Smokeless tobacco: Never Social History Substance and Sexual Activity Drug Use Not on file Family History: No family history on file. Vitals: ED Vitals Date and Time T BP P RR SPO2P SPO2 User 12/19/222002 -- 122/81 -- -- 74 97 % TP 12/19/22 1900 -- 147/81 -- -- 89 98 % TP 12/19/22 1730 -- 161/82 -- -- 89 99 % JS 12/19/22 1727 -- 155/86 -- 18 PER MINUTE -- -- JS Physical Exam: Physical Exam Primary survey: Airway patent to voice, trachea midline Breath sounds equal bilaterally, equal chest rise Radial, DP palpable bilaterally, heart sounds clear GCS 15, 5/5 strength/sensation in bilateral upper and lower extremities Secondary survey: HEENT: Pupils 3 mm bilat, no skull/maxillofacial bony deformities or TTP. Hair matted with blood but no active bleeding noted, laceration suspected but unable to localize currently, will need hair washed and blood cleaned. No otorrhea/rhi norrhea, TMs non-perforated CHEST: Diffuse chest wall tenderness to palpation, bilateral axillae clear ABD: s/nt/nd BACK: Diffuse C, T, L-spine tenderness to palpation without step-off deformities , bilateral flanks clear PELVIS: no obvious instability EXT: Significant point enters to palpation of right upper extremity with decreas ed range of motion secondary to pain, mild bruising and swelling noted to right wrist and hand without any obvious long bone deformities, abrasions or lacs to bilateral upper and lower extremities Laboratory Results: Labs Reviewed CBC AND DIFF - Abnormal Result Value Ref Range Status White Blood Cells 14.9 (*) 4.5 - 11.0 K/UL Final RBC 4.19 4.0 - 5.0 M/UL Final Hemoglobin 12.2 12.0 - 15.0 GM/DL Final Hematocrit 37.6 36 - 45 % Final MCV 89.8 80 - 100 FL Final MCH 29.1 26 - 34 PG Final MCHC 32.4 32.0 - 36.0 G/DL Final RDW 13.7 11 - 15 % Final Platelet Count 197 150 - 400 K/UL Final MPV 8.6 7 - 11 FL Final Neutrophils 87 (*) 41 - 77 % Final Lymphocytes 9 (*) 24 - 44 % Final Monocytes 4 4 - 12 % Final Eosinophils 0 0 - 5 % Final Basophils 0 0 - 2 % Final Absolute Neutrophil Count 12.95 (*) 1.8 - 7.0 K/UL Final Absolute Lymph Count 1.26 1.0 - 4.8 K/UL Final Absolute Monocyte Count 0.61 0 - 0.80 K/UL Final Absolute Eosinophil Count 0.01 0 - 0.45 K/UL Final Absolute Basophil Count 0.04 0 - 0.20 K/UL Final MDW (Monocyte Distribution Width) 19.6 <20.7 Final COMPREHENSIVE METABOLIC PANEL - Abnormal Sodium 138 137 - 147 MMOL/L Final Potassium 3.7 3.5 - 5.1 MMOL/L Final Chloride 103 98 - 110 MMOL/L Final Glucose 117 (*) 70 - 100 MG/DL Final Blood Urea Nitrogen 24 7 - 25 MG/DL Final Creatinine 0.76 0.4 - 1.00 MG/DL Final Calcium 9.3 8.5 - 10.6 MG/DL Final Total Protein 7.5 6.0 - 8.0 G/DL Final Total Bilirubin 0.4 0.3 - 1.2 MG/DL Final Albumin 4.2 3.5 - 5.0 G/DL Final Alk Phosphatase 55 25 - 110 U/L Final AST (SGOT) 69 (*) 7 - 40 U/L Final CO2 25 21 - 30 MMOL/L Final ALT (SGPT) 61 (*) 7 - 56 U/L Final Anion Gap 10 3 - 12 Final eGFR >60 >60 mL/min Final HIGH SENSITIVITY TROPONIN I 0 HOUR - Abnormal hs Troponin I 0 Hour 24 (*) <12 ng/L Final HIGH SENSITIVITY TROPONIN I 2 HOUR - Abnormal hs Troponin I 2 Hour 18 (*) <12 ng/L Final POC CREATININE, RAD Creatinine, POC 0.8 0.4 - 1.00 MG/DL Final TYPE & CROSSMATCH Units Ordered 0 Final Crossmatch Expires 12/22/2022,2359 Final Record Check 2ND TYPE REQUIRED Final ABO/RH(D) A NEG Final Antibody Screen NEG Final Electronic Crossmatch YES Final BLOOD TYPE CONFIRMATION - ORDER ONLY IF REQUESTED BY LAB ABO/RH(D) A NEG Final Radiology Interpretation: WRIST COMP MIN 3 VIEWS LEFT Final Result Multifocal degenerative changes in the hand and wrist, without acute fracture or dislocation. Finalized by Karthik Diaz M.D. on 12/19/2022 8:46 PM. Dictated by Karthik brown M.D. on 12/19/2022 8:43 PM. HAND MIN 3 VIEWS LEFT Final Result Multifocal degenerative changes in the hand and wrist, without acute fracture or dislocation. Finalized by Karthik Diaz M.D. on 12/19/2022 8:46 PM. Dictated by Karthik brown M.D. on 12/19/2022 8:43 PM. FOREARM 2 VIEWS RIGHT Final Result No acute fracture or dislocation. Finalized by Karthik Diaz M.D. on 12/19/2022 5:54 PM. Dictated by Karthik brown M.D. on 12/19/2022 5:53 PM. HAND MIN 3 VIEWS RIGHT Final Result Findings/impression: 1. Redemonstration of a fracture involving the upper glenoid with extension of t he articular surface at the glenohumeral joint, though without significant displ acement. Additional nondisplaced fracture the right acromion without intra-artic ular extension to the AC joint. Normal alignment at the acromioclavicular and gl enohumeral joints, with intact right clavicle. 2. Redemonstration of multiple mildly and minimally displaced right rib fracture s, better seen on prior CT chest. The trace right pneumothorax on CT chest is no t well appreciated on current shoulder radiographs. 3. No acute humeral fracture. No elbow fracture or dislocation. No fat pad displ acement at the elbow to indicate a joint effusion. 4. No acute fracture or dislocation at the hand. 5. Mild soft tissue swelling at the MCP joints on lateral view of the. Pulse ox monitor overlies the second digit, but no suspicious radiopaque foreign body or destructive osseous lesion. Scattered degenerative changes in the hand and wrist , most notably some at least moderate degenerative change at the first CMC joint and marked degenerative change at the triscaphe articulation. Finalized by Karthik Diaz M.D. on 12/19/2022 5:36 PM. Dictated by Karthik brown M.D. on 12/19/2022 5:28 PM. HUMERUS MIN 2 VIEWS RIGHT Final Result Findings/impression: 1. Redemonstration of a fracture involving the upper glenoid with extension of t he articular surface at the glenohumeral joint, though without significant displ acement. Additional nondisplaced fracture the right acromion without intra-artic ular extension to the AC joint. Normal alignment at the acromioclavicular and gl enohumeral joints, with intact right clavicle. 2. Redemonstration of multiple mildly and minimally displaced right rib fracture s, better seen on prior CT chest. The trace right pneumothorax on CT chest is no t well appreciated on current shoulder radiographs. 3. No acute humeral fracture. No elbow fracture or dislocation. No fat pad displ acement at the elbow to indicate a joint effusion. 4. No acute fracture or dislocation at the hand. 5. Mild soft tissue swelling at the MCP joints on lateral view of the. Pulse ox monitor overlies the second digit, but no suspicious radiopaque foreign body or destructive osseous lesion. Scattered degenerative changes in the hand and wrist , most notably some at least moderate degenerative change at the first CMC joint and marked degenerative change at the triscaphe articulation. Finalized by Karthik Diaz M.D. on 12/19/2022 5:36 PM. Dictated by Karthik brown M.D. on 12/19/2022 5:28 PM. ELBOW MIN 3 VIEWS RIGHT Final Result Findings/impression: 1. Redemonstration of a fracture involving the upper glenoid with extension of t he articular surface at the glenohumeral joint, though without significant displ acement. Additional nondisplaced fracture the right acromion without intra-artic ular extension to the AC joint. Normal alignment at the acromioclavicular and gl enohumeral joints, with intact right clavicle. 2. Redemonstration of multiple mildly and minimally displaced right rib fracture s, better seen on prior CT chest. The trace right pneumothorax on CT chest is no t well appreciated on current shoulder radiographs. 3. No acute humeral fracture. No elbow fracture or dislocation. No fat pad displ acement at the elbow to indicate a joint effusion. 4. No acute fracture or dislocation at the hand. 5. Mild soft tissue swelling at the MCP joints on lateral view of the. Pulse ox monitor overlies the second digit, but no suspicious radiopaque foreign body or destructive osseous lesion. Scattered degenerative changes in the hand and wrist , most notably some at least moderate degenerative change at the first CMC joint and marked degenerative change at the triscaphe articulation. Finalized by Karthik Diaz M.D. on 12/19/2022 5:36 PM. Dictated by Karthik brown M.D. on 12/19/2022 5:28 PM. SHOULDER MIN 2 VIEWS RIGHT Final Result Findings/impression: 1. Redemonstration of a fracture involving the upper glenoid with extension of t he articular surface at the glenohumeral joint, though without significant displ acement. Additional nondisplaced fracture the right acromion without intra-artic ular extension to the AC joint. Normal alignment at the acromioclavicular and gl enohumeral joints, with intact right clavicle. 2. Redemonstration of multiple mildly and minimally displaced right rib fracture s, better seen on prior CT chest. The trace right pneumothorax on CT chest is no t well appreciated on current shoulder radiographs. 3. No acute humeral fracture. No elbow fracture or dislocation. No fat pad displ acement at the elbow to indicate a joint effusion. 4. No acute fracture or dislocation at the hand. 5. Mild soft tissue swelling at the MCP joints on lateral view of the. Pulse ox monitor overlies the second digit, but no suspicious radiopaque foreign body or destructive osseous lesion. Scattered degenerative changes in the hand and wrist , most notably some at least moderate degenerative change at the first CMC joint and marked degenerative change at the triscaphe articulation. Finalized by Karthik Diaz M.D. on 12/19/2022 5:36 PM. Dictated by Karthik brown M.D. on 12/19/2022 5:[address] CHEST W CONTRAST Final Result Chest: 1. No aortic injury or major pulmonary injury. There is small right apical pne umothorax. 2. Numerous mildly displaced right rib fractures and articular fracture of the superior margin of the glenoid. 3. Mild to moderate aortic valve calcification consistent with degenerative aor tic valve disease. If not recently obtained correlation with elective echocardi ography is suggested. Abdomen and Pelvis: No major abdominal/pelvic injury. Finalized by Jerald Morillo M.D. on 12/19/2022 5:21 PM. Dictated by Jerald Morillo M.D. on 12/19/2022 5:[address] ABD/PELV W CONTRAST Final Result Chest: 1. No aortic injury or major pulmonary injury. There is small right apical pne umothorax. 2. Numerous mildly displaced right rib fractures and articular fracture of the superior margin of the glenoid. 3. Mild to moderate aortic valve calcification consistent with degenerative aor tic valve disease. If not recently obtained correlation with elective echocardi ography is suggested. Abdomen and Pelvis: No major abdominal/pelvic injury. Finalized by Jerald Morillo M.D. on 12/19/2022 5:21 PM. Dictated by Jerald Morillo M.D. on 12/19/2022 5:[address] HEAD WO CONTRAST Final Result CT HEAD: 1. No acute intracranial hemorrhage, mass effect, or calvarial fracture. 2. Moderate right posterior scalp soft tissue hematoma with probable scalp lacer ation. CT cervical spine: 1. No acute cervical spine fracture or traumatic subluxation. 2. Moderate cervical spondylosis. There are areas of at least mild central spina l stenosis and moderate neural foraminal stenosis. 3. Small bleb or tiny right apical pneumothorax. Please correlate this with the CT chest report which is dictated separately. Finalized by Jani Wise M.D. on 12/19/2022 5:07 PM. Dictated by Jani finley M.D. on 12/19/2022 4:[address] SPINE CERVICAL WO CONTRAST Final Result CT HEAD: 1. No acute intracranial hemorrhage, mass effect, or calvarial fracture. 2. Moderate right posterior scalp soft tissue hematoma with probable scalp lacer ation. CT cervical spine: 1. No acute cervical spine fracture or traumatic subluxation. 2. Moderate cervical spondylosis. There are areas of at least mild central spina l stenosis and moderate neural foraminal stenosis. 3. Small bleb or tiny right apical pneumothorax. Please correlate this with the CT chest report which is dictated separately. Finalized by Jani Wise M.D. on 12/19/2022 5:07 PM. Dictated by Jani finley M.D. on 12/19/2022 4:46 PM. SCAPULA RIGHT (Results Pending) CT UPPER EXTREM WO CONT RIGHT (Results Pending) EKG: ECG Results ECG 12-LEAD (Final result) Collection Time Result Time VT RATE P-R Interval QRS DURATION Q-T Interval QTC Calc Bazett 12/19/22 17:27:41 12/19/22 19:09:08 82 210 156 434 507 Collection Time Result Time P Alpha R Alpha T Alpha 12/19/22 17:27:41 12/19/22 19:09:08 66 -46 110 Final result Impression: Sinus rhythm with 1st degree AV block Left axis deviation Left bundle branch block Abnormal ECG No previous ECGs available in MUSE Confirmed by Jefferson Mary ([id number]) on 12/19/2022 7:09:07 PM Medical Decision Making: Nikki Paredes is a 67 y.o. female who presents with chief complaint as listed above. Based on the history and presentation, the list of differential diagnoses considered included, but was not limited to, polytrauma ED Course -vitals signs without acute instability. -physical exam as noted above. -EKG interpretation as noted above Labs: -Mild leukocytosis noted suspect to be reactive from trauma. Very minimal tropo sherri elevation, stable trend. Imaging: -Plain films and CT head, C-spine, chest/abdomen/pelvis obtained, significant fo r multiple rib fractures, right scapular fracture with intra-articular involveme nt. No intra-abdominal or intracranial traumatic process noted Interventions/disposition: -Tdap updated, fentanyl administered for pain control. -Trauma surgery consulted and evaluated patient will admit patient to their serv ice for further work-up and treatment. Case discussed with them. Complexity of Problems Addressed Patient's active diagnoses as well as contributing pre-existing medical problems include: Clinical Impression Closed fracture of multiple ribs, unspecified laterality, initial encounter Fall, initial encounter Closed fracture of scapula, unspecified laterality, unspecified part of scapula, initial encounter Evaluation performed for potential threat to life or bodily function during this visit given the initial differential diagnosis and clinical impression(s) as [place] previously in MDM/ED course. Additional data reviewed: History was obtained from an independent historian: Not in addition to what is mentioned above Prior non-ED notes reviewed: Not in addition to what is mentioned above Independent interpretation of diagnostic tests was performed by me: Not in a ddition to what is mentioned above Patient presentation/management was discussed with the following qualified [facility] patient care technician and/or other relevant professionals: Not in addition to what is mentioned above Risk evaluation: Diagnosis or treatment of patient condition impacted by social determinant o f health: None Tests Considered but not performed due to clinical scoring (if not mentioned in ED course, aside from what is implied by clinical scores listed): Rationale regarding whether admission or escalation of care considered if no t performed (if not mentioned in ED course, aside from what is implied by clinic al scores listed): ED Scoring: Facility Administered Meds: Medications ondansetron (ZOFRAN) injection 4 mg (has no administration in time range) fentaNYL citrate PF (SUBLIMAZE) injection 25-50 mcg (has no administration in ti me range) lactated ringers infusion ( Intravenous Canceled Entry 12/19/221944) gabapentin (NEURONTIN) capsule 100 mg (has no administration in time range) polyethylene glycol 3350 (MIRALAX) packet 17 g (has no administration in time ra nge) enoxaparin (LOVENOX) syringe 30 mg (has no administration in time range) albuterol 0.5% (PROVENTIL) nebulizer solution 2.5 mg (has no administration in t ela range) diphtheria/tetanus/pertus(acell) booster (Tdap) (BOOSTRIX) injection 0.5 mL (0.5 mL Intramuscular Med Not Given 12/19/221934) iohexoL (OMNIPAQUE-350) 350 mg/mL injection 100 mL (100 mL Intravenous Given 11/28) sodium chloride PF 0.9% injection 50 mL (50 mL Intravenous Given 12/19/221645) fentaNYL citrate PF (SUBLIMAZE) injection 50 mcg (50 mcg Intravenous Given 1740) lidocaine 1 % (10mg/mL) injection 50 mL (50 mL Injection Given 12/19/222000) Clinical Impression: Clinical Impression Closed fracture of multiple ribs, unspecified laterality, initial encounter Fall, initial encounter Closed fracture of scapula, unspecified laterality, unspecified part of scapula, initial encounter Disposition/Follow up ED Disposition ED Disposition Admit No follow-up provider specified. Medications: There are no discharge medications for this patient. Procedure Notes: Procedures Attestation / Supervision: Maurice Lora MD Emergency Medicine PGY-3 Attestation / Supervision Note concerning Nikki Paredes: I personally perform ed the bailey portions of the E/M visit, discussed case with resident and concur wi resident documentation of history, physical exam, assessment, and treatment p gonzalo unless otherwise noted. Jefferson Mary MD * Haroldo Sebastian RN - 12/19/2022 4:16 PM CDT Pt arrived to the ED A&Ox4 with a CC of Fall. Pt was at home and fell about 8 feet down her stairs hitting her head on concrete. Pt denies any blood thinners or LOC. Pt endorses pain on the back of her head, neck, mid back, right shoulder, and right ribs. Pt was given 75 mcg of fentanyl at home and 50 mcg of fentanyl on route. Pt noted to have a laceration on the back of her head and bruising to her right hand. Pt denies any other concerns at this time. Pt denies CP, dizziness, SOA, palpitation, abdominal pain, and N/V. Pt resting in bed, call light within reach, bed locked and in the lowest positio n. documented in this encounter Miscellaneous Notes * Care Plan - Michelle Post RN - 12/24/2022 1:35 AM CDT Problem: Discharge Planning Goal: Participation in plan of care Outcome: Goal Ongoing Goal: Prepared for discharge Outcome: Goal Ongoing Problem: High Fall Risk Goal: High Fall Risk Outcome: Goal Ongoing Problem: Skin Integrity Goal: Skin integrity intact Outcome: Goal Ongoing Goal: Healing of skin (Wound & Incision) Outcome: Goal Ongoing Goal: Healing of skin (Pressure Injury) Outcome: Goal Ongoing * Blood Preferences - Jacquelin Morgan MD - 12/20/2022 5:25 PM CDT Blood Preference Conversation Individuals present for blood preference conversation: resident/fellow physician Pertinent details of conversation (including direct quote from patient or surrog ate): No blood or blood products Outcome of conversation, if this were a life/ situation would you accept bl ood? 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 Decrease pain Hospital On track (12/20/2022 No Robert susana, 2:15 AM CDT) CHUY Rob documented as of this encounter Procedures Comments Procedure Name Priority Date/Time Associated Diag nosis HC 25-OH VITAMIN D Routine 12/21/2022 3:10 AM CDT HC CBC,AUTOMATED Routine 12/21/2022 3:10 AM CDT HC PHOSPHOROUS, SERUM Routine 12/21/2022 3:10 AM CDT HC MAGNESIUM Routine 12/21/2022 3:10 AM CDT HC HEMOGLOBIN A1C Routine 12/21/2022 3:10 AM CDT HC VITAMIN B12 STAT 12/21/2022 3:10 AM CDT HC Routine 12/21/2022 LIPID-5:CHOL/TRG/HDL/LDL+ 3:10 AM CDT VLDL HC BASIC METABOLIC PANEL Routine 12/21/2022 3:10 AM CDT US DOPPLER VENOUS Routine 12/20/2022 BILATERAL 3:45 PM CDT 2D + DOPPLER ECHO W/ Routine 12/20/2022 CONTRAST 2:41 PM CDT CHEST SINGLE VIEW STAT 12/20/2022 10:27 AM CDT HC CBC,AUTOMATED Routine 12/20/2022 6:22 AM CDT HC PHOSPHOROUS, SERUM Routine 12/20/2022 6:22 AM CDT HC MAGNESIUM Routine 12/20/2022 6:22 AM CDT HC BASIC [...] HC CREATININE, POC 12/19/2022 4:32 PM CDT HC HIGH SENSITIVITY STAT 12/19/2022 TROPONIN I 0 HOUR 4:25 PM CDT HC CBC W/ AUTOMATED DIFF STAT 12/19/2022 4:25 PM CDT TYPE & CROSSMATCH STAT 12/19/2022 4:25 PM CDT HC COMPREHENSIVE STAT 12/19/2022 METABOLIC PANEL 4:25 PM CDT TELEMETRY STRIPS-SCAN 12/19/2022 12:00 AM CDT documented in this encounter Results * 25-OH VITAMIN D (D2 + D3) (12/21/2022 3:10 AM CDT) Pathologist Signature Component Value Ref Test Method Analysis Performed A t Range Time Vitamin 32.5 30 - 80 12/21/2022 [facility] DEPT PAT H AND D(25-OH)Total NG/ML 12:31 PM LAB MEDICINE CDT Anatomical Location / Laterality Collection Method / Volume Quinn ection Time Received Time Specimen (Source) BLOOD / Unknown 12/21/2022 3:10 AM CDT 12/22/19 3:19 AM CDT Eric Gutierrez LABORATORY ORDERABLES ASSOCIATE PROFESSOR OF SURGERY-KIDNEY PULLER City/State/ZIP Code Phone Number Performing [place] [address] [facility] DEPT PATH AND [address] [facility] LAB MEDICINE * HEMOGLOBIN A1C (12/21/2022 3:10 [...] 3:19 AM CDT Eric Gutierrez LABORATORY ORDERABLES ASSOCIATE PROFESSOR OF SURGERY-KIDNEY PULLER City/State/ZIP Code Phone Number Performing Address [place] [address] [facility] DEPT PATH AND [address] [facility] LAB MEDICINE * LIPID PROFILE (12/21/2022 3:10 [...] CDT Non HDL Cholesterol 107 MG/DL 12/21/2022 [facility] DEPT PATH AND 3:57 AM LAB MEDICINE [...] 3:19 AM CDT Eric Gutierrez LABORATORY ORDERABLES ASSOCIATE PROFESSOR OF SURGERY-KIDNEY PULLER City/State/ZIP Code Phone Number Performing Address Organization [address] DEPT PATH AND [address] [facility] LAB MEDICINE * VITAMIN B12 (12/21/2022 3:10 AM CDT) Pathologist Signature Component Value Ref Test Method Analysis Performed A t Range Time Vitamin B12 228 180 - 12/21/2022 [facility] DE[facility] PAT [facility] AND 914 4:21 AM LAB MEDICINE PG/ML CDT Anatomical Location / Laterality Collection Method / Volume Quinn ection Time Received Time Specimen (Source) BLOOD / Unknown 12/21/2022 3:10 AM CDT 12/22/19 3:19 AM CDT Eric Gutierrez LABORATORY ORDERABLES ASSOCIATE PROFESSOR OF SURGERY-KIDNEY PULLER [facility]/ZIP Code Phone Number Performing Address [place] [address] [employer] [facility] AND [address] [facility] LAB MEDICINE * PHOSPHORUS (12/21/2022 3:10 AM CDT) Pathologist Signature Component Value Ref Test Method Analysis Performed A t Range Time Phosphorus 3.0 2.0 - 12/21/2022 [facility] DE[facility] PAT H AND 4.5 3:57 AM LAB MEDICINE MG/DL CDT Anatomical Location / Laterality Collection Method / Volume Quinn ection Time Received Time Specimen (Source) BLOOD / Unknown 12/21/2022 3:10 AM CDT 12/22/19 3:19 AM CDT Jonathan Gaona MD LABORATORY ORDERABLES City/State/ZIP Code Phone Number Performing Address [place] [address] [facility] DE[facility] PATH AND [address] LAB MEDICINE * MAGNESIUM (12/21/2022 3:10 AM CDT) Pathologist Signature Component [...] City/State/ZIP Code Phone Number Performing [place] [address] [facility] DEPT PATH AND [address] [facility] LAB MEDICINE * (ABNORMAL) CBC (12/21/2022 3:10 AM CDT) Pathologist Signature Component Value Ref Test Method Analysis Performed A t Range Time White Blood Cells 6.0 4.5 - 12/21/2022 [facility] DE PT PATH AND 11.0 3:24 AM LAB MEDICINE K/UL CDT RBC 3.51 (L) 4.0 - 12/21/2022 [facility] DEPT PAT H AND 5.0 M/UL 3:24 AM LAB MEDICINE CDT Hemoglobin 10.7 (L) 12.0 - 12/21/2022 [facility] DEPT PAT H AND 15.0 3:24 AM LAB MEDICINE GM/DL CDT Hematocrit 31.2 (L) 36 - 45 12/21/2022 [facility] DEPT PAT H AND % 3:24 AM LAB MEDICINE CDT MCV 88.7 80 - 100 12/21/2022 [facility] DEPT PAT H AND FL 3:24 AM LAB MEDICINE CDT MCH 30.4 26 - 34 12/21/2022 [facility] DEPT PAT H AND PG 3:24 AM LAB MEDICINE CDT MCHC 34.3 32.0 - 12/21/2022 [facility] DEPT PAT H AND 36.0 3:24 AM LAB MEDICINE G/DL CDT RDW 13.8 11 - 15 12/21/2022 [facility] DEPT PAT H AND % 3:24 AM LAB MEDICINE CDT Platelet Count 157 150 - 12/21/2022 [facility] DEPT PATH AND 400 K/UL 3:24 AM LAB MEDICINE CDT MPV 8.1 7 - 11 12/21/2022 [facility] DEPT PAT H AND FL 3:24 AM LAB MEDICINE CDT Anatomical Location / Laterality Collection Method / Volume Quinn ection Time Received Time Specimen (Source) BLOOD / Unknown 12/21/2022 3:10 AM CDT 12/22/19 3:19 AM CDT Jonathan Gaona MD LABORATORY ORDERABLES City/State/ZIP Code Phone Number Performing Address [place] [address] [facility] DEPT PATH AND [address] [facility] LAB MEDICINE * (ABNORMAL) BASIC METABOLIC PANEL (12/21/2022 3:10 AM CDT) Pathologist Signature Component Value Ref Test Method Analysis Performed A t Range Time Sodium 139 137 - 12/21/2022 [facility] DEPT PAT H AND 147 3:57 AM [...] Anion Gap 5 3 - 12 12/21/2022 [facility] DEPT PAT H AND 3:57 AM LAB MEDICINE CDT Glucose 119 (H) 70 - 100 12/21/2022 [facility] DEPT PAT H AND MG/DL 3:57 AM LAB MEDICINE CDT Blood Urea Nitrogen 18 7 - 25 12/21/2022 [facility] DEPT PATH AND MG/DL 3:57 AM LAB MEDICINE CDT Creatinine 0.68 0.4 - 12/21/2022 [facility] DEPT PAT H AND 1.00 3:57 AM [...] City/State/ZIP Code Phone Number Performing Address [place] [address] [facility] DEPT PATH AND [address] [facility] MEDICINE * US DOPPLER VENOUS BILATERAL (12/20/2022 3:45 [...] Best MD on 12/20/2022 3:49 PM. Eric Boudreaux Matt US ORDERABLES ASSOCIATE PROFESSOR OF SURGERY-KIDNEY PULLER * 2D + DOPPLER ECHO W/ CONTRAST [...] L AB 3.6 cm MV Peak A Agnes 1.04 m/s OTHER OUTSIDE L AB MV Peak E Agnes PW 0.80 m/s OTHER OUTSIDE LAB Right [...] LAB RA PRESSURE 3 OTHER OUTSIDE LAB OLMOS'S BIPLANE EF 52 % OTHER OUT SIDE LAB AV peak velocity 3.5 m/s OTHER OUTSIDE LAB AV index ([facility]) 0.37 OTHER OUTSIDE LAB LVOT peak agnes 1.3 m/s OTHER OUTSIDE L AB and [...] fraction is 55%. The ejection fraction by Olmos's biplane method is 52%. There are segmental [...] segments are normal. Eric Gutierrez ECHO ORDERABLES ASSOCIATE PROFESSOR OF SURGERY-KIDNEY PULLER * CHEST SINGLE VIEW (12/20/2022 10:27 AM [...] Gaona MD DIAGNOSTIC IMAGING ORDERABL ES * PHOSPHORUS (12/20/2022 6:22 AM CDT) Pathologist Signature Component Value Ref Test Method Analysis Performed A t Range Time Phosphorus 4.1 2.0 - 12/20/2022 [facility] AND 4.5 6:59 AM LAB MEDICINE MG/DL CDT Anatomical Location / Laterality Collection Method / Volume Quinn ection Time Received Time Specimen (Source) BLOOD / Unknown 12/20/2022 6:22 AM CDT 12/21/19 6:36 AM CDT Jonathan Gaona MD LABORATORY ORDERABLES City/State/ZIP Code Phone Number Performing Address [place] [address] [facility] DEPT PATH AND [address] LAB MEDICINE * MAGNESIUM (12/20/2022 6:22 AM CDT) Pathologist Signature Component Value Ref Test Method Analysis Performed A t Range Time Magnesium 1.9 1.6 - 12/20/2022 [facility] DEPT PAT H AND 2.6 6:59 AM LAB MEDICINE mg/dL CDT Anatomical Location / Laterality Collection Method / Volume Quinn ection Time Received Time Specimen (Source) BLOOD / Unknown 12/20/2022 6:22 AM CDT 12/21/19 6:36 AM CDT Jonathan Gaona MD LABORATORY ORDERABLES [facility]/ZIP Code Phone Number Performing Address [place] [address] [employer] DEPT PATH AND [address] LAB MEDICINE * (ABNORMAL) CBC (12/20/2022 6:22 AM CDT) Pathologist Signature Component Value Ref Test Method Analysis Performed A t Range Time White Blood Cells 5.5 4.5 - 12/20/2022 [facility] DE PT PATH AND 11.0 6:55 AM LAB MEDICINE K/UL CDT RBC 3.76 (L) 4.0 - 12/20/2022 [facility] DEPT PAT H AND 5.0 M/UL 6:55 AM LAB MEDICINE CDT Hemoglobin 11.1 (L) 12.0 - 12/20/2022 [facility] DEPT PAT H AND 15.0 6:55 AM LAB MEDICINE GM/DL CDT Hematocrit 33.7 (L) 36 - 45 12/20/2022 [facility] DEPT PAT H AND % 6:55 AM LAB MEDICINE CDT MCV 89.7 80 - 100 12/20/2022 [facility] DEPT PAT H AND FL 6:55 AM LAB MEDICINE CDT MCH 29.6 26 - 34 12/20/2022 [facility] DEPT PAT H AND PG 6:55 AM LAB MEDICINE CDT MCHC 33.0 32.0 - 12/20/2022 [facility] DEPT PAT H AND 36.0 6:55 AM LAB MEDICINE G/DL CDT RDW 13.7 11 - 15 12/20/2022 [facility] DEPT PAT H AND % 6:55 AM LAB MEDICINE CDT Platelet Count 180 150 - 12/20/2022 [facility] DEPT PATH AND 400 K/UL 6:55 AM LAB MEDICINE CDT MPV 8.3 7 - 11 12/20/2022 [facility] DEPT PAT H AND FL 6:55 AM LAB MEDICINE CDT Anatomical Location / Laterality Collection Method / Volume Quinn ection Time Received Time Specimen (Source) BLOOD / Unknown 12/20/2022 6:22 AM CDT 12/21/19 6:36 AM CDT Jonathan Gaona MD LABORATORY ORDERABLES City/State/ZIP Code Phone Number Performing Address [place] [address] [facility] DE[facility] AND [address] [facility] LAB MEDICINE * (ABNORMAL) BASIC METABOLIC PANEL (12/20/2022 6:22 AM CDT) Pathologist Signature Component Value Ref Test Method Analysis Performed A t Range Time Sodium 140 137 - 12/20/2022 [facility] DEPT PAT H AND 147 6:59 AM LAB MEDICINE MMOL/L CDT Potassium 3.6 3.5 - 12/20/2022 [facility] DEPT PAT H AND 5.1 6:59 AM LAB MEDICINE MMOL/L CDT Chloride 105 98 - 110 12/20/2022 [facility] DEPT PAT H AND MMOL/L 6:59 AM LAB MEDICINE CDT CO2 26 21 - 30 12/20/2022 [facility] DEPT PAT H AND MMOL/L 6:59 AM LAB MEDICINE CDT Anion Gap 9 3 - 12 12/20/2022 [facility] DEPT PAT H AND 6:59 AM LAB MEDICINE CDT Glucose 115 (H) 70 - 100 12/20/2022 [facility] DEPT PAT H AND MG/DL 6:59 AM LAB MEDICINE CDT Blood Urea Nitrogen 18 7 - 25 12/20/2022 [facility] DEPT PATH AND MG/DL 6:59 AM LAB MEDICINE CDT Creatinine 0.63 0.4 - 12/20/2022 [facility] DEPT PAT H AND 1.00 6:59 AM LAB MEDICINE MG/DL CDT Calcium 8.2 (L) 8.5 - 12/20/2022 [facility] DEPT PAT H AND 10.6 6:59 AM LAB MEDICINE MG/DL CDT eGFR >60 >60 12/20/2022 [facility] DEPT PAT H AND mL/min 6:59 AM LAB MEDICINE CDT Comment: eGFR calculated using the CKD-EPIcr_R equation Anatomical Location / Laterality Collection Method / Volume Quinn ection Time Received Time Specimen (Source) BLOOD / Unknown 12/20/2022 6:22 AM CDT 12/21/19 6:36 AM CDT Jonathan Gaona MD LABORATORY ORDERABLES City/State/ZIP Code Phone Number Performing [place] [address] [facility] DEPT PATH AND [address] [facility]. LAB MEDICINE * SCAPULA RIGHT (12/19/2022 8:44 PM CDT) [...] Jose Dick M.D. on 12/20/2022 7:51 AM. [facility] Mary DIAGNOSTIC IMAGING ORDERABL ES * CT [...] [facility] Mary DIAGNOSTIC IMAGING ORDERABL ES * HAND MIN 3 VIEWS LEFT (12/19/2022 [...] 2 Hour 18 (H) <12 ng/L 12/19/2022 [facility] DE[facility] AND 7:37 PM LAB MEDICINE CDT Comment: NOTE NEW UNITS AND REFERENCE RANGES Anatomical Location / Laterality Collection Method / Volume Quinn ection Time Received Time Specimen (Source) BLOOD / Unknown 12/19/2022 6:44 PM CDT 12/20/19 6:50 PM CDT Jefferson Mary LABORATORY ORDERABLES City/State/ZIP Code Phone Number Performing Address [place] [address] [facility] DEPT PATH AND [address] [facility] LAB MEDICINE * FOREARM 2 VIEWS [...] Jefferson Mary DIAGNOSTIC IMAGING ORDERABL ES * ECG 12-LEAD (12/19/2022 5:27 PM CDT) [...] Code Phone Number Performing Address Organization [employer] [facility] * HAND MIN 3 VIEWS RIGHT (12/19/2022 [...] on 12/19/2022 5:36 PM. Dictated by Karthik Daiz M.D. on 12/19/2022 5:28 PM. [facility] Mary DIAGNOSTIC IMAGING ORDERABL ES * HUMERUS MIN 2 VIEWS RIGHT (12/19/2022 [...] Diaz M.D. on 12/19/2022 5:28 PM. Jefferson E Dangers DIAGNOSTIC IMAGING ORDERABL JAYLON MURRAY * SHOULDER MIN 2 VIEWS RIGHT (12/19/2022 [...] t Range Time ABO/RH(D) A NEG 12/19/2022 [facility] DEPT PATH AND 6:11 PM LAB MEDICINE CDT Anatomical Location / Laterality Collection Method / Volume Quinn ection Time Received Time Specimen (Source) BLOOD / Unknown 12/19/2022 5:20 PM CDT 12/20/19 5:58 PM CDT Jefferson Mary BLOOD BANK ORDERABLES City/State/ZIP Code Phone Number Performing [place] [address] [facility] [address] [facility] MEDICINE * CT ABD/PELV W CONTRAST (12/19/2022 [...] Jerald Morillo M.D. on 12/19/2022 5:[address] ORDERABLES MD * CT SPINE [...] 4:[address] ORDERABLES * CT HEAD WO CONTRAST (12/19/2022 4:38 [...] PM. [facility] Mary CT ORDERABLES MD * POC CREATININE, RAD (12/19/2022 4:32 PM CDT) Pathologist Signature Component Value Ref Test Method Analysis Performed A t Range Time Creatinine, POC 0.8 0.4 - 12/19/2022 [facility] DEPT PATH AND 1.00 4:38 PM LAB MEDICINE MG/DL CDT Comment: QA FLAGS AND/OR RANGES MODIFIED BY DEMOGRAPHIC UPDATE ON 12/19 AT 1829 Anatomical Location / Laterality Collection Method / Volume Quinn ection Time Received Time Specimen (Source) 12/19/2022 4:32 PM CDT 12/20/19 4:38 PM CDT Jefferson Mary OTHER LABORATORY [facility]/State/ZIP Code Phone Number Performing [place] [address] [employer] PATH AND [address] LAB MEDICINE * (ABNORMAL) HIGH SENSITIVITY TROPONIN [...] 4:47 PM CDT Jefferson Mary LABORATORY ORDERABLES [facility]/ZIP Code Phone Number Performing [place] [address] [employer] DEPT PATH AND [address] LAB MEDICINE * TYPE & CROSSMATCH [...] City/State/ZIP Code Phone Number Performing [place] [address] [facility] DEPT PATH AND [address] [facility] LAB MEDICINE * (ABNORMAL) COMPREHENSIVE METABOLIC PANEL [...] Alk Phosphatase 55 25 - 110 12/19/2022 [facility] DEPT PATH AND U/L 5:38 PM LAB MEDICINE CDT AST (SGOT) 69 (H) 7 - 40 12/19/2022 [facility] DEPT PAT H AND U/L 5:38 PM LAB MEDICINE CDT CO2 25 21 - 30 12/19/2022 [facility] DEPT PAT H AND MMOL/L 5:38 PM LAB MEDICINE CDT ALT (SGPT) 61 (H) 7 - 56 12/19/2022 [facility] DEPT PAT H AND U/L 5:38 PM LAB MEDICINE CDT Anion Gap 10 3 - 12 12/19/2022 [facility] DEPT PAT H AND 5:38 PM LAB MEDICINE CDT eGFR >60 >60 12/19/2022 [facility] DEPT PAT H AND mL/min 5:38 PM LAB MEDICINE CDT Comment: eGFR calculated using the CKD-EPIcr_R equation Anatomical Location / Laterality Collection Method / Volume Quinn ection Time Received Time Specimen (Source) BLOOD / Unknown 12/19/2022 4:25 PM CDT 12/20/19 4:47 PM CDT Jefferson Mary LABORATORY ORDERABLES City/State/ZIP Code Phone Number Performing [place] [address] [facility] DEPT PATH AND [address] [facility]. LAB MEDICINE * (ABNORMAL) CBC AND DIFF (12/19/2022 4:25 PM CDT) Pathologist Signature Component Value Ref Test Method Analysis Performed A t Range Time White Blood Cells 14.9 (H) 4.5 - 12/19/2022 [facility] DE [facility] PATH AND 11.0 5:10 PM [...] 1829 MCV 89.8 80 - 100 12/19/2022 [facility] DEPT PAT H AND FL 5:10 PM [...] CDT Platelet Count 197 150 - 12/19/2022 [facility] DEPT PATH AND 400 K/UL 5:10 PM [...] MEDICINE CDT MDW (Monocyte 19.6 <20.7 12/19/2022 [facility] DEPT P ATH AND Distribution Width) 5:10 [...] City/State/ZIP Code Phone Number Performing [place] [address] [facility] DEPT PATH AND [address] [facility]. LAB MEDICINE * TELEMETRY STRIPS-SCAN (12/19/2022 12:00 AM CDT) Narrative 12/19/2022 12:00 AM CDT Ordered by an unspecified provider. Scanned Document PROCEDURE DUMMY ORDERS documented in this encounter Visit Diagnoses Diagnosis Trauma - Primary Injury, other and unspecified, unspecif ied site Closed fracture of multiple ribs, unspe cified laterality, initial encounter Fall, initial encounter Closed fracture of scapula, unspecified laterality, unspecified part of scapula, initial encounter Aortic valve disease Aortic valve disorders Closed nondisplaced fracture of acromia l process of right scapula, initial encounter Traumatic pneumothorax, initial encount er Impaired mobility and activities of sabrina ly living Mechanical problems with limbs Acute blood loss anemia Acute posthemorrhagic anemia Acute traumatic pain Acute pain due to trauma Sleep disturbances Sleep disturbance, unspecified Laceration of scalp, initial encounter Multiple rib fractures Closed fracture of multiple ribs, unspe cified Sleep disturbances Sleep disturbance, unspecified Acute traumatic pain Acute pain due to trauma Acute blood loss anemia Acute posthemorrhagic anemia Leukocytosis Leukocytosis, unspecified Scalp laceration Open wound of scalp, without mention of complication Impaired mobility and activities of sabrina ly living Mechanical problems with limbs Scapular fracture Closed fracture of unspecified part of scapula Pneumothorax Other pneumothorax Closed fracture of acromion Closed fracture of acromial process of scapula documented in this encounter Admitting Diagnoses Diagnosis Trauma Injury, other and unspecified, unspecif ied site documented in this encounter Administered Medications Action Date Dose Rate Site Medication Order MAR Action 12/27/2022 8:42 AM CDT 1,000 mg acetaminophen (TYLENOL EXTRA STRENGTH) Given tablet 1,000 mg 1,000 mg, Oral, EVERY 6 HOURS, First dose (after last modification) on Sun12/20/22 at 0300, Until Discontinued, TOTAL ACETAMINOPHEN DOSE NOT TO EXCEED 4GM DAILY 1,000 mg Given 12/27/2022 1:49 AM CDT 1,000 mg Given 12/26/2022 9:21 PM CDT 1,000 mg Given 12/26/2022 2:06 PM CDT 1,000 mg Given 12/26/2022 4:53 AM CDT 1,000 mg Given 12/25/2022 10:19 PM CDT 1,000 mg Given 12/25/2022 6:13 PM CDT 1,000 mg Given 12/25/2022 5:23 AM CDT 1,000 mg Given 12/24/2022 8:55 PM CDT 1,000 mg Given 12/24/2022 2:35 PM CDT 1,000 mg Given 12/24/2022 8:46 AM CDT 1,000 mg Given 12/23/2022 9:57 PM CDT 1,000 mg Given 12/23/2022 2:42 PM CDT 1,000 mg Given 12/23/2022 9:18 AM CDT 1,000 mg Given 12/22/2022 8:48 PM CDT 1,000 mg Given 12/22/2022 2:14 PM CDT 1,000 mg Given 12/22/2022 9:39 AM CDT 1,000 mg Given 12/22/2022 5:22 AM CDT 1,000 mg Given 12/21/2022 9:06 PM CDT 1,000 mg Given 12/21/2022 2:32 PM CDT 1,000 mg Given 12/21/2022 9:00 AM CDT 1,000 mg Given 12/21/2022 2:25 AM CDT 1,000 mg Given 12/20/2022 2:36 PM CDT 1,000 mg Given 12/20/2022 8:34 AM CDT 1,000 mg Given 12/20/2022 3:00 AM CDT 12/19/2022 9:50 PM CDT 650 mg acetaminophen (TYLENOL) tablet 650 mg Given 650 mg, Oral, EVERY 6 HOURS, First dos e on Sun12/19/22 at 2100, Until Discontinued, TOTAL ACETAMINOPHEN DOSE NOT TO EXCEED 4GM DAILY 12/20/2022 1:18 AM CDT 2.5 mg albuterol 0.5% (PROVENTIL) nebulizer Given solution 2.5 mg 2.5 mg, Inhalation, RT EVERY 4 HOURS AND PRN, First dose on Sun12/19/22 at 2045, Until Discontinued, When administered by RT, will be per RT policy. 2.5 mg Given 12/19/2022 9:26 PM CDT 12/21/2022 10:23 AM CDT 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 0.0625% in NS 50mL Infusion epidural infusion syr Restarted Epidural, 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, Starting on Hetal 12/21/22 at 0215, Until Hetal 12/21/22 at 1010, --FOR EPIDURAL ADMINISTRATION ONLY -- Administer only with 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 Pump -- Only Patient may push 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 button Prescriptio n change can only be made by Anesthesiology Pain Service. NOTE: This is a HIGH ALERT Medication. Given - New Bag 12/21/2022 7:36 AM CDT Given - New Bag 12/21/2022 1:54 AM CDT 12/22/2022 1:56 AM CDT 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 0.125% in NS 50mL Given - New epidural infusion syr Bag Epidural, 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, Starting on Hetal 12/21/22 at 1115, Until 12/22/22 at 0743, --FOR EPIDURAL ADMINISTRATION ONLY -- Administer only with 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 Pump -- Only Patient may push 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 button Prescriptio n change can only be made by Anesthesiology Pain Service. NOTE: This is a HIGH ALERT Medication. Dose/Rate Verify 12/21/2022 11:32 PM CDT Given - New Bag 12/21/2022 7:44 PM CDT Given - New Bag 12/21/2022 3:02 PM CDT Given - New Bag 12/21/2022 10:54 AM CDT 12/25/2022 7:14 AM CDT 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 0.125% in NS 50mL Dose/Rate epidural infusion syr Verify Epidural, 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, Starting on Sun12/22/22 at 0900, Until 12/25/22 at 1146, --FOR EPIDURAL ADMINISTRATION ONLY -- Administer only with 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 Pump -- Only Patient may push 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 button Prescriptio n change can only be made by Anesthesiology Pain Service. NOTE: This is a HIGH ALERT Medication. Given - New Bag 12/25/2022 6:34 AM CDT Given - New Bag 12/25/2022 12:28 AM CDT Dose/Rate Verify 12/24/2022 7:01 PM CDT Given - New Bag 12/24/2022 6:53 PM CDT Given - New Bag 12/24/2022 2:36 PM CDT Given - New Bag 12/24/2022 8:50 AM CDT Dose/Rate Verify 12/24/2022 7:23 AM CDT Given - New Bag 12/24/2022 4:15 AM CDT Given - New Bag 12/23/2022 10:38 PM CDT Dose/Rate Verify 12/23/2022 7:45 PM CDT Given - New Bag 12/23/2022 6:33 PM CDT Given - New Bag 12/23/2022 2:42 PM CDT Given - New Bag 12/23/2022 9:20 AM CDT Dose/Rate Verify 12/23/2022 7:19 AM CDT Given - New Bag 12/23/2022 4:08 AM CDT Given - New Bag 12/22/2022 10:29 PM CDT Dose/Rate Verify 12/22/2022 7:02 PM CDT Given - New Bag 12/22/2022 5:01 PM CDT Given - New Bag 12/22/2022 9:36 AM CDT 12/27/2022 8:41 AM CDT 200 mg celecoxib (CeleBREX) capsule 200 mg Given 200 mg, Oral, TWICE DAILY, First dose o n 12/24/22 at 1600, Until Discontinued 200 mg Given 12/26/2022 9:22 PM CDT 200 mg Given 12/26/2022 9:54 AM CDT 200 mg Given 12/25/2022 8:24 PM CDT 200 mg Given 12/25/2022 9:18 AM CDT 200 mg Given 12/24/2022 6:30 PM CDT 12/20/2022 8:36 AM CDT 30 mg Abdomina l Tissue enoxaparin (LOVENOX) syringe 30 mg Given 30 mg, Subcutaneous, TWICE DAILY, First dose on Sun12/19/22 at 2100, Until Discontinued, For patients undergoing surgery: Consult physician in advance - - enoxaparin is an anticoagulant and may need to be held for 12hr prior to surgery or invasive procedures. NOTE: This is a HIGH ALERT Medication. 12/27/2022 8:41 AM CDT 30 mg Abdomina l Tissue enoxaparin (LOVENOX) syringe 30 mg Given 30 mg, Subcutaneous, TWICE DAILY, First dose (after last modification) on Sun12/25/22 at 2100, Until Discontinued, Fo r patients undergoing surgery: Consult physician in advance -- enoxaparin is a n anticoagulant and may need to be held for 12hr prior to surgery or invasive procedures. NOTE: This is a HIGH ALERT Medication. 30 mg Abdomen:LUQ Given 12/26/2022 9:22 PM CDT 30 mg Abdomen:LLQ Given 12/26/2022 9:55 AM CDT 30 mg Arm, Right Given 12/25/2022 8:25 PM CDT 12/24/2022 8:56 PM CDT 40 mg Abdomina l Tissue enoxaparin (LOVENOX) syringe 40 mg Given 40 mg, Subcutaneous, DAILY, First dose (after last modification) on Sun 3 at 2100, Until Discontinued, For patients undergoing surgery: Consult physician in advance -- enoxaparin is a n anticoagulant and may need to be held for 12hr prior to surgery or invasive procedures. NOTE: This is a HIGH ALERT Medication. 40 mg Abdominal Tissue Given 12/23/2022 9:56 PM CDT 40 mg Abdominal Tissue Given 12/22/2022 8:46 PM CDT 12/21/2022 9:01 AM CDT 50 mcg fentaNYL citrate PF (SUBLIMAZE) Given injection 25-50 mcg 25-50 mcg, Intravenous, EVERY 1 HOUR PRN, Starting on Sun12/19/22 at 1935, Until Sun12/22/22 at 0629, Pain Injectable 50 mcg Given 12/21/2022 12:38 AM CDT 50 mcg Given 12/20/2022 9:19 PM CDT 50 mcg Given 12/20/2022 5:09 AM CDT 50 mcg Given 12/20/2022 2:03 AM CDT 50 mcg Given 12/19/2022 8:53 PM CDT 12/19/2022 5:41 PM CDT 50 mcg fentaNYL citrate PF (SUBLIMAZE) Given injection 50 mcg 50 mcg, Intravenous, ONCE, 1 dose, On Sun12/19/22 at 1815 12/27/2022 6:15 AM CDT 100 mg gabapentin (NEURONTIN) capsule 100 mg Given 100 mg, Oral, EVERY 8 HOURS, First dos e on Sun12/19/22 at 2200, Until Discontinued, Capsules may be opened an d mixed with liquid or sprinkled on food 100 mg Given 12/26/2022 9:22 PM CDT 100 mg Given 12/26/2022 2:06 PM CDT 100 mg Given 12/26/2022 4:53 AM CDT 100 mg Given 12/25/2022 8:24 PM CDT 100 mg Given 12/25/2022 1:27 PM CDT 100 mg Given 12/25/2022 5:23 AM CDT 100 mg Given 12/24/2022 8:56 PM CDT 100 mg Given 12/24/2022 1:27 PM CDT 100 mg Given 12/24/2022 5:22 AM CDT 100 mg Given 12/23/2022 9:57 PM CDT 100 mg Given 12/23/2022 2:42 PM CDT 100 mg Given 12/23/2022 5:37 AM CDT 100 mg Given 12/22/2022 8:49 PM CDT 100 mg Given 12/22/2022 2:14 PM CDT 100 mg Given 12/22/2022 5:22 AM CDT 100 mg Given 12/21/2022 9:06 PM CDT 100 mg Given 12/21/2022 2:32 PM CDT 100 mg Given 12/21/2022 6:08 AM CDT 100 mg Given 12/20/2022 9:01 PM CDT 100 mg Given 12/20/2022 2:36 PM CDT 100 mg Given 12/20/2022 5:09 AM CDT 100 mg Given 12/19/2022 9:50 PM CDT 12/22/2022 5:22 AM CDT 5,000 Units Abdomen: LLQ heparin (porcine) PF syringe 5,000 Units Given 5,000 Units, Subcutaneous, EVERY 8 HOURS, First dose (after last modification) on Hetal 12/21/22 at 0600, Until Discontinued, NOTE: This is a HIG H ALERT Medication. 5,000 Units Abdominal Tissue Given 12/21/2022 9:06 PM CDT 5,000 Units Abdominal Tissue Given 12/21/2022 2:32 PM CDT 5,000 Units Abdominal Tissue Given 12/21/2022 6:08 AM CDT 12/19/2022 4:46 PM CDT 100 mL iohexoL (OMNIPAQUE-350) 350 mg/mL Given injection 100 mL 100 mL, Intravenous, ONCE, 1 dose, On Sun12/19/22 at 1700, NOTE: This is a HIGH ALERT Medication. 12/21/2022 7:37 AM CDT 20 mg/hr 20 mL/hr ketamine (KETALAR) 500 mg in sodium Dose/Rate chloride 0.9% (NS) 500 mL IV drip (low Verify dose infusion) 500 mL, 20 mg/hr (20 mL/hr), Intravenous, CONTINUOUS, Starting on 12/19/22 at 2200, Until Sun12/21/22 at 1031, DO NOT TITRATE - For non-ICU units use special tubing from pharmacy. - Must be run through a dedicated IV line, during routine monitoring evaluat e patient for mental status changes, hallucinations, confusion, bad dreams, dizziness, changes in vision. - Pain is assessed using [facility] standard pain assessment as per floor standard. NOTE : This is a HIGH ALERT medication. 20 mg/hr 20 mL/hr Given - New Bag 12/21/2022 2:58 AM CDT 20 mg/hr 20 mL/hr Dose/Rate Verify 12/20/2022 7:20 PM CDT 20 mg/hr 20 mL/hr Dose/Rate Verify 12/20/2022 7:26 AM CDT 20 mg/hr 20 mL/hr Given - New Bag 12/19/2022 11:23 PM CDT 12/20/2022 7:27 AM CDT 50 mL/hr lactated ringers infusion Dose/Rate 1,000 mL, Intravenous, at 50 mL/hr, Verify CONTINUOUS, Starting on Sun12/19/22 at 1945, Until Sun12/20/22 at 1004 50 mL/hr Given - New Bag 12/19/2022 9:51 PM CDT 12/27/2022 8:42 AM CDT 1 patch Shoulder , Right lidocaine (LIDODERM) 5 % topical patch 1 Patch/Topic a patch l Applied 1 patch, Topical, Administer over 12 Hours, DAILY, First dose on Sun12/22/22 at 1030, Until Discontinued, NURSING PLEASE NOTE: Apply patch ONCE DAILY to R shoulder and REMOVE after designated duration. Apply only to intact skin. Patch may be cut to fit affected area. 1 patch Shoulder, Right Patch/Topical Applied 12/26/2022 9:55 AM CDT 1 patch Shoulder, Right Patch/Topical Applied 12/25/2022 9:18 AM CDT 1 patch Shoulder, Right Patch/Topical Applied 12/24/2022 8:47 AM CDT 1 patch Back, Upper Right Patch/Topical Applied 12/23/2022 9:18 AM CDT 12/19/2022 8:01 PM CDT 50 mL lidocaine 1 % (10mg/mL) injection 50 mL Given 50 mL, Injection, ONCE, 1 dose, On Sun12/19/22 at 2045, To be used for procedures. 12/20/2022 6:24 PM CDT 1 g 100 mL/hr magnesium sulfate 1 g/D5W 100 mL IVPB Given - New 1 g, Intravenous, 100 mL, Administer Bag over 1 Hours, EVERY 1 HOUR, 1 dose, First dose on Sun12/20/22 at 1800, Each 1gm delivers 8.1 mEq Magnesium. 12/20/2022 8:00 PM CDT 1 g 100 mL/hr magnesium sulfate 1 g/D5W 100 mL IVPB Given - New 1 g, Intravenous, 100 mL, Administer Bag over 1 Hours, EVERY 1 HOUR, 1 dose, First dose on Sun12/20/22 at 1900, Each 1gm delivers 8.1 mEq Magnesium. 12/26/2022 9:22 PM CDT 3 mg melatonin (MELATIN) tablet 3 mg Given 3 mg, Oral, AT BEDTIME DAILY, First dos e on Sun12/20/22 at 2100, Until Discontinued 3 mg Given 12/25/2022 8:24 PM CDT 3 mg Given 12/24/2022 8:56 PM CDT 3 mg Given 12/23/2022 9:57 PM CDT 3 mg Given 12/22/2022 8:49 PM CDT 3 mg Given 12/21/2022 9:06 PM CDT 3 mg Given 12/20/2022 8:42 PM CDT 12/19/2022 9:50 PM CDT 750 mg methocarbamoL (ROBAXIN) tablet 750 mg Given 750 mg, Oral, TWICE DAILY, First dose o n Sun12/19/22 at 2100, Until Discontinued 12/27/2022 8:42 AM CDT 750 mg methocarbamoL (ROBAXIN) tablet 750 mg Given 750 mg, Oral, THREE TIMES DAILY, First dose (after last modification) on Sun12/20/22 at 0900, Until Discontinued 750 mg Given 12/26/2022 9:21 PM CDT 750 mg Given 12/26/2022 2:06 PM CDT 750 mg Given 12/26/2022 9:54 AM CDT 750 mg Given 12/25/2022 10:19 PM CDT 750 mg Given 12/25/2022 6:13 PM CDT 750 mg Given 12/25/2022 9:19 AM CDT 750 mg Given 12/24/2022 8:55 PM CDT 750 mg Given 12/24/2022 2:35 PM CDT 750 mg Given 12/24/2022 8:47 AM CDT 750 mg Given 12/23/2022 9:57 PM CDT 750 mg Given 12/23/2022 2:42 PM CDT 750 mg Given 12/23/2022 9:17 AM CDT 750 mg Given 12/22/2022 8:48 PM CDT 750 mg Given 12/22/2022 2:14 PM CDT 750 mg Given 12/22/2022 9:39 AM CDT 750 mg Given 12/21/2022 9:07 PM CDT 750 mg Given 12/21/2022 2:32 PM CDT 750 mg Given 12/21/2022 9:00 AM CDT 750 mg Given 12/20/2022 8:42 PM CDT 750 mg Given 12/20/2022 2:36 PM CDT 750 mg Given 12/20/2022 8:34 AM CDT 12/22/2022 9:40 AM CDT 30 mL milk of magnesium oral suspension 30 mL Given 30 mL, Oral, ONCE, 1 dose, On Sun12/22/22 at 0730 ondansetron (ZOFRAN) injection 4 mg 4 mg, Intravenous, EVERY 6 HOURS PRN, Starting on Sun12/19/22 at 1935, Until Sun12/27/22 at 1202, Nausea/Vomiting Injectable 12/21/2022 12:38 AM CDT 10 mg oxyCODONE (ROXICODONE) tablet 5-10 mg Given 5-10 mg, Oral, EVERY 6 HOURS PRN, Starting on Sun12/20/22 at 0733, Until Sun12/22/22 at 0629, Pain PO 12/27/2022 6:14 AM CDT 10 mg oxyCODONE (ROXICODONE) tablet 5-10 mg Given 5-10 mg, Oral, EVERY 4 HOURS PRN, Starting on Sun12/22/22 at 0630, Until Sun12/27/22 at 1202, Pain PO 10 mg Given 12/26/2022 10:24 PM CDT 10 mg Given 12/26/2022 6:02 PM CDT 10 mg Given 12/26/2022 2:06 PM CDT 10 mg Given 12/26/2022 9:53 AM CDT 10 mg Given 12/26/2022 4:53 AM CDT 10 mg Given 12/25/2022 10:19 PM CDT 10 mg Given 12/25/2022 6:13 PM CDT 10 mg Given 12/25/2022 1:27 PM CDT 5 mg Given 12/25/2022 5:23 AM CDT 10 mg Given 12/24/2022 6:30 PM CDT 10 mg Given 12/24/2022 1:27 PM CDT 10 mg Given 12/24/2022 8:48 AM CDT 10 mg Given 12/23/2022 7:44 PM CDT 10 mg Given 12/23/2022 5:37 AM CDT 10 mg Given 12/22/2022 8:49 PM CDT 10 mg Given 12/22/2022 2:20 PM CDT 10 mg Given 12/22/2022 9:12 AM CDT 12/20/2022 2:41 PM CDT 2 Diluted mL perflutren lipid microspheres (DEFINITY) Given injection 1-10 Diluted mL 1-10 Diluted mL, Intravenous, ONCE PRN, 1 dose, Starting on Sun12/20/22 at 1328 , Until Sun12/20/22 at 1441, For Procedure, A blade boner may only administer Definity through a saline lock. If IV is in use or a port, PICC, or central line is being used a nurse must administer. NOTE: This is a HIGH ALERT Medication., MAC Procedure Area Only - Medications 12/21/2022 9:00 AM CDT 17 g polyethylene glycol 3350 (MIRALAX) Given packet 17 g 17 g, Oral, DAILY, First dose on Sun12/19/22 at 2000, Until Discontinued, 8. 5 GRAMS = 0.5 PACKET 17 GRAMS = 1 PACKET 34 GRAMS = 2 PACKETS 17 g Given 12/20/2022 8:34 AM CDT 12/25/2022 9:18 AM CDT 17 g polyethylene glycol 3350 (MIRALAX) Given packet 17 g 17 g (1 packet), Oral, DAILY, First dos e (after last modification) on Sun 3 at 0900, Until Discontinued, 8.5 GRAMS = 0.5 PACKET 17 GRAMS = 1 PACKET 34 GRAMS = 2 PACKETS 12/23/2022 9:18 AM CDT 34 g polyethylene glycol 3350 (MIRALAX) Given packet 34 g 34 g (2 packet), Oral, DAILY, First dos e (after last modification) on Sun 3 at 0900, Until Discontinued, 8.5 GRAMS = 0.5 PACKET 17 GRAMS = 1 PACKET 34 GRAMS = 2 PACKETS 34 g Given 12/22/2022 9:39 AM CDT 12/20/2022 6:27 PM CDT 10 mEq 25 mL/hr potassium chloride in water IVPB 10 mEq Given - New 10 mEq, Intravenous, 50 mL, Administer Bag over 120 Minutes, EVERY 2 HOURS, 1 dose, First dose on Sun12/20/22 at 1900 , NOTE: This is a HIGH ALERT Medication. 12/20/2022 8:42 PM CDT 10 mEq 25 mL/hr potassium chloride in water IVPB 10 mEq Given - New 10 mEq, Intravenous, 50 mL, Administer Bag over 120 Minutes, EVERY 2 HOURS, 1 dose, First dose on Sun12/20/22 at 2100 , NOTE: This is a HIGH ALERT Medication. 12/27/2022 8:42 AM CDT 1 tablet senna (SENOKOT) tablet 1 tablet Given 1 tablet, Oral, TWICE DAILY, First dose (after last modification) on Sun 3 at 0900, Until Discontinued, Hold for loose stools 1 tablet Given 12/26/2022 9:22 PM CDT 1 tablet Given 12/26/2022 9:54 AM CDT 1 tablet Given 12/25/2022 8:24 PM CDT 1 tablet Given 12/25/2022 9:19 AM CDT 12/24/2022 8:56 PM CDT 2 tablets senna (SENOKOT) tablet 2 tablet Given 2 tablet, Oral, TWICE DAILY, First dose on Sun12/20/22 at 0900, Until Discontinued, Hold for loose stools 2 tablets Given 12/23/2022 9:57 PM CDT 2 tablets Given 12/23/2022 9:17 AM CDT 2 tablets Given 12/22/2022 8:48 PM CDT 2 tablets Given 12/22/2022 9:40 AM CDT 2 tablets Given 12/21/2022 9:07 PM CDT 2 tablets Given 12/21/2022 9:00 AM CDT 2 tablets Given 12/20/2022 8:42 PM CDT 2 tablets Given 12/20/2022 8:34 AM CDT 12/19/2022 4:46 PM CDT 50 mL sodium chloride PF 0.9% injection 50 mL Given 50 mL, Intravenous, ONCE, 1 dose, On e 12/19/22 at 1700, Intra-procedure (IR) documented in this encounter Discontinued Medications Start Date End Date Medication Sig Discontinue Reason 12/27/2022 naproxen sodium (ALEVE) Take two 220 mg tablet tablets by mouth daily. Take with food. 12/27/2022 melatonin 10 mg tablet Take one tablet by mouth at bedtime as needed. documented as of this encounter Historical Medications * This list may reflect changes made after this encounter. Start Date End Date Medication Sig Dispensed Refills other medication Portage XL 0 (Mussel, Midway Oil, Vitamin E): Take 2 capsules by mouth once daily other medication Rite Start 0 4Life Women's Multivitamin pack: Take contents of one pack by mouth once daily cetirizine (ZYRTEC) 10 mg Take one 0 tablet tablet by mouth daily as needed for Allergy symptoms. hypromellose/dextran Apply one 0 (OCUCOAT) drop drop to both eyes every 6 hours as needed. 12/27/2022 melatonin 10 mg tablet Take one 0 tablet by mouth at bedtime as needed. 12/27/2022 naproxen sodium (ALEVE) Take two 0 220 mg tablet tablets by mouth daily. Take with food. added in this encounter Active and Recently Administered Medications Times are shown in CDT. 12/26/2022 12/27/2022 Medication Order 12/25/2022 0453 (Given - Provider: Bacilio Dugan RN)1406 (Given - Provider: Adonay Solano RN)2121 (Given - Provider: Nancy Everett RN) 0149 (Given - Provider: Nancy Everett RN)0842 (Given - Provider: Courtney Garcia RN) acetaminophen (TYLENOL EXTRA STRENGTH) 0523 (Given - tablet 1,000 mg Provider: Michelle 1,000 mg, Oral, EVERY 6 HOURS, First Sincere RN)090 0 (Med dose (after last modification) on Sun Not Given - 12/20/22 at 0300, Until Discontinued, Provider: Cristóbal ewing TOTAL ACETAMINOPHEN DOSE NOT TO EXCEED CHUY Queen - 4GM DAILY Reason: Med not available)1500 (Med Not Given - Krzysztof - Provider: Clifford Queen RN - Reason: Med not available)1812 (Given - Provider: Clifford Queen RN)1814 (Canceled Entry - Provider: Clifford Queen RN)2218 (Given - Provider: Bacilio Dugan RN) 0954 (Given - Provider: Adonay Solano RN )2121 (Given - Provider: Nancy Everett RN) 0841 (Given - Provider: Emi Geronimo) celecoxib (CeleBREX) capsule 200 mg 0918 (Given - 200 mg, Oral, TWICE DAILY, First dose on Provider: Amos Harris 12/24/22 at 1600, Until Discontinued CHUY Queen )2023 (Given - Provider: Bacilio Dugan RN) 0955 (Given - Provider: Adonay Solano RN )2121 (Given - Provider: Nancy Everett RN) 0841 (Given - Provider: Emi Geronimo) enoxaparin (LOVENOX) syringe 30 mg 2024 (Given - 30 mg, Subcutaneous, TWICE DAILY, First Provider: Vaughn rae dose (after last modification) on Sun CHUY Dugan) 12/25/22 at 2100, Until Discontinued, Fo r patients undergoing surgery: Consult physician in advance -- enoxaparin is a n anticoagulant and may need to be held for 12hr prior to surgery or invasive procedures. NOTE: This is a HIGH ALERT Medication. 0453 (Given - Provider: Bacilio Dugan RN)0600 (Canceled Entry - Provider: Bacilio Dugan RN)1406 (Given - Provider: Adonay Solano RN)2121 (Given - Provider: Nancy Everett RN) 0615 (Given - Provider: Nancy Everett RN) gabapentin (NEURONTIN) capsule 100 mg 0523 (Given - 100 mg, Oral, EVERY 8 HOURS, First dose Provider: Jewels murray on Sun12/19/22 at 2200, Until CHUY Post)1327 Discontinued, Capsules may be opened and (Given - Pr ovider: mixed with liquid or sprinkled on food Clifford saenz RN)2023 (Given - Provider: Bacilio Dugan RN)220 (Canceled Entry - Provider: Bacilio Dugan RN) 0955 (Patch/Topical Applied - Provider: Adonay Solano RN)2121 (Patch/Topical Removed - Provider: Nancy Everett RN) 0842 (Patch/Topical Applied - Provider: Courtney Garcia RN)1046 (Due: Patch/Topical Removed - Provider: Navin, Orders Discontinue - Comment: Time automatically adjusted from order being discontinued) lidocaine (LIDODERM) 5 % topical patch 1 0918 (Patch /Topical patch Applied - Provider: 1 patch, Topical, Administer over 12 Clifford Fineries , Hours, DAILY, First dose on Sun12/22/22 RN)222 at 1030, Until Discontinued, NURSING (Patch/Topical PLEASE NOTE: Apply patch ONCE DAILY to R Removed - P rovider: shoulder and REMOVE after designated Bacilio Camarena r, duration. Apply only to intact skin. RN) Patch may be cut to fit affected area. 2121 (Given - Provider: Nancy Everett RN) melatonin (MELATIN) tablet 3 mg 2023 (Given - 3 mg, Oral, AT BEDTIME DAILY, First dose Provider: Kedar valencia on Sun12/20/22 at 2100, Until CHUY Dugan) Discontinued 0954 (Given - Provider: Adonay Solano RN )1406 (Given - Provider: Adonay Solano RN)2120 (Given - Provider: Nancy Everett RN) 0842 (Given - Provider: Emi Geronimo) methocarbamoL (ROBAXIN) tablet 750 mg 918 (Given - 750 mg, Oral, THREE TIMES DAILY, First Provider: Robert gonzalez dose (after last modification) on Sun CHUY Queen)1 813 12/20/22 at 0900, Until Discontinued (Given - Provide r: Clifford Queen RN)221 (Given - Provider: Bacilio Dugan RN) 0955 (Med Not Given - Provider: Adonay Solano RN - Reason: Patient Refused) 1004 (Med Not Given - Provider: Courtney brito RN - Reason: Patient Refused) polyethylene glycol 3350 (MIRALAX) 0918 (Given - packet 17 g Provider: Clifford 17 g (1 packet), Oral, DAILY, First dose Emi Queen) (after last modification) on Sun 3 at 0900, Until Discontinued, 8.5 GRAMS = 0.5 PACKET 17 GRAMS = 1 PACKET 34 GRAMS = 2 PACKETS 0954 (Given - Provider: Adonay Solano RN )2122 (Given - Provider: Nancy Everett, RN) 0842 (Given - Provider: Emi Geronimo) senna (SENOKOT) tablet 1 tablet 0919 (Given - 1 tablet, Oral, TWICE DAILY, First dose Provider: Cassandra farrellon (after last modification) on Sun12/25/22 Emi Queen)2023 at 0900, Until Discontinued, Hold for (Given - Provi vinnie: loose stools Bacilio Dugan RN) 12/26/2022 12/27/2022 Medication Order 12/25/2022 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 0.125% in NS 50mL 0028 (Given - New epidural infusion syr (CANCELED) Bag - Provider: Epidural, 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, Starting on Sun12/22/22 Michelle garcia RN at 0900, Until Sun12/25/22 at 1146, - Comment: 4.53 --FOR EPIDURAL ADMINISTRATION ONLY -- wasted with Administer only with 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 Pump -- Only CHUY Osorio)0 634 Patient may push 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 button Prescription (Given - Ne w Bag - change can only be made by Provider: Michelle [facility]. NOTE: This CHUY Post - is a HIGH ALERT Medication. Comment: wasting 0.63 ml with CHUY Quezada)0714 (Dose/Rate Verify - Provider: Clifford Queen RN)1332 (Wasted - Provider: Clifford Queen RN - Comment: waste 13 mls) 12/26/2022 12/27/2022 Medication Order 12/25/2022 ondansetron (ZOFRAN) injection 4 mg 4 mg, Intravenous, EVERY 6 HOURS PRN, Starting on Sun12/19/22 at 1935, Until Sun12/27/22 at 1202, Nausea/Vomiting Injectable 0453 (Given - Provider: Bacilio Dugan RN)0953 (Given - Provider: Adonay Solano RN)1406 (Given - Provider: Adonay Solano RN)1802 (Given - Provider: Adonay Solano RN)2224 (Given - Provider: Nancy Everett RN) 0614 (Given - Provider: Nancy Everett RN) oxyCODONE (ROXICODONE) tablet 5-10 mg 0523 (Given - 5-10 mg, Oral, EVERY 4 HOURS PRN, Provider: Delmi bonner Starting on Sun12/22/22 at 0630, Casey Post RN)13 Sun12/27/22 at 1202, Pain PO (Given - Provider: Clifford Queen, CHUY)181 (Given - Provider: Clifford Queen, RN)221 (Given - Provider: Bacilio Dugan, CHUY) documented in this encounter Orders First Ordered Date Medications Ordered That Might Not Have Count Last Ordered Date Been Administered ketorolac (TORADOL) injection 15 mg 1 enoxaparin (LOVENOX) syringe 30 mg 1 nalOXone (NARCAN) injection 0.08 mg 1 albuterol 0.5% (PROVENTIL) nebulizer 1 0 12/20/2022 solution 2.5 mg heparin (porcine) injection 2,500 Units 1 12/20/2022 0.25 mL SODIUM CHLORIDE 0.9 % IV SOLP (Cabinet 1 12/20/2022 Override) ondansetron (ZOFRAN) injection 4 mg 1 traMADoL (ULTRAM) tablet 50 mg 1 023 First Ordered Date Diet Count Last Ordered Date DISCHARGE DIET REGULAR 1 12/27/2022 First Ordered Date Nursing Count Last Ordered Date DISCHARGE ACTIVITY DRIVING 1 12/27/2022 DISCHARGE ACTIVITY NORMAL 1 12/27/2022 DISCHARGE ACTIVITY WT BEARING 1 12/28/19 DISCHARGE COMMENTS 1 12/27/2022 DISCHARGE CONTACT 1 12/27/2022 DISCHARGE EDUCATION 3 12/27/2022 DISCHARGE RETURN APPOINTMENT 4 DISCHARGE SIGNS/SYMPTOMS 1 12/27/2022 DISCHARGE SUTURE/STAPLE REMOVAL 1 2022 STRAIGHT CATH 1 12/20/2022 First Ordered Date Consult Count Last Ordered Date CONSULT ANESTHESIOLOGY ACUTE PAIN 1 11/28 CONSULT INTERNAL MEDICINE PHYSICIAN 1 CONSULT ORTHOPEDIC SURGERY PHYSICIAN 1 0 12/19/2022 First Ordered Date OT Count Last Ordered Date OT CONSULT OCCUPATIONAL THERAPY 1 2022 First Ordered Date PT Count Last Ordered Date PT CONSULT PHYSICAL THERAPY 1 12/19/2022 First Ordered Date Admission Count Last Ordered Date ADMIT TO INPATIENT 1 12/19/2022 First Ordered Date Transfer Count Last Ordered Date TRANSFER PATIENT (BED REQUEST) 1 023 First Ordered Date Discharge Count Last Ordered Date DISCHARGE PATIENT NOW 1 12/27/2022 First Ordered Date Equipment Count Last Ordered Date 12/19/2022 COMPRESSION DEVICE, LEG 3 12/21/2022 PUMP IV ADD MOD(NO CTRL UNIT) 1 12/22/19 PUMP IV CTRL UNIT W/EPIDURAL (PCEA) 1 PUMP IV CONTROL UNIT W/MODULES 3 023 First Ordered Date Discharge Contingent Count Last Ordered Date DISCHARGE PATIENT CONTINGENT 1 First Ordered Date Orthotics/Prosthetics Count Last Ordered Rene e ORTHOTIC/PROSTHETIC DEVICE 1 12/19/2022 First Ordered Date SPECIALITY EQUIPMENT Count Last Ordered Date COMMODE STANDARD 300LBS MAX 2 12/21/2022 First Ordered Date Appointment Request Count Last Ordered Date APPOINTMENT REQUEST: ORTHOPEDICS 1 12/27 First Ordered Date Appointment Count Last Ordered Date REQUEST FOR CARDIOLOGY APPOINTMENT 1 First Ordered Date Intake & Output Count Last Ordered Date INTAKE AND OUTPUT 1 12/19/[address] & Maintain Count Last Ordered Date PLACE AND MAINTAIN SCD 1 12/19/2022 First Ordered Date ADT Patient Update Count Last Ordered Date CHANGE SERVICE / LEVEL OF CARE (NO BED 1 12/21/2022 REQUEST) documented in this encounter Additional Health Concerns Noted Time Assessment 12/27/2022 8:10 AM CDT A fall risk assessment has been complet ed for the patient documented as of this encounter Care Teams Start Date End Date Competitive Intelligence Manager Relationship Specialty 12/19/22 No Pcp, Na PCP - General documented as of this encounter
--- NOTE | 2022-12-27 13:29 | PM&R Post Admission Assessment ---
PM&R HP Date of Visit: December 27, 2022 Time of Visit: 14:00 History of Present Illness CC: Debility following 8 foot fall down basement stairs at home HPI: This is a 67yoWF clinic patient of Dr Mcmahan who lives in [place] and visits the [facility] in that town for mild illnesses who presents from following an 8 foot fall down basement stairs and landing on concrete. She sustained an right scapula fracture and remains in an arm immobilizer with right acromion fracture, right rib fracture of 3-11 and a small right PTX along with a scalp laceration. Patient is still having a lot of pain and difficulty sleeping. Syncope as source of the fall is being pursued and she needs a [employer] to evaluate and follow up with locally. She was previous O2 dependent but now will spot check and monitor. Hgb 10.7 last check. PLOF was independent and CLOF is max assist to dress and only walking 12 feet. She will DC home with . Past Scigcol-Flfqkb-Lwdvhm Hx Past Med/Social Hx: Reviewed Nursing Past Med/Soc Hx, Reviewed and Corrections made Patient Social History Marrital Status: Employed/Student: retired Alcohol Use: Denies Use Smoking Status: Never a Smoker PM&R Allergy/Meds/Data Review Allergies Coded Allergies: morphine (Verified Allergy, Unknown, 12/27/22) Home Medications Scheduled Acetaminophen (Tylenol Extra Strength), 1,000 MG PO Q6H, (Reported) Celecoxib (Celecoxib), 200 MG PO BID, (Reported) Gabapentin (Gabapentin), 100 MG PO TID, (Reported) Gabapentin (Gabapentin), 100 MG PO DAILY, (Reported) Lidocaine (Lidocaine 5% Patch), 1 EACH TP DAILY, (Reported) Melatonin (Melatonin), 3 MG PO HS, (Reported) Methocarbamol (Methocarbamol), 750 MG PO TID, (Reported) Polyethylene Glycol 3350 (Miralax), 17 GM PO DAILY, (Reported) Sennosides (Senna), 8.6 MG PO BID, (Reported) [Reliance Xl], 2 EA PO DAILY, (Reported) [Rite Start 4 Life], 1 EA PO DAILY, (Reported) Scheduled PRN Acetaminophen (Tylenol Extra Strength), 500-1,000 MG PO Q6H PRN for PAIN-MILD (1-4), (Reported) Cetirizine HCl (Cetirizine HCl), 10 MG PO DAILY PRN for ALLERGY SYMPTOMS, (Reported) Dextran 70/Hypromellose (Lubricating Tears 0.1-0.3% Drp), 1 DROP OU Q6H PRN for DRY EYES, (Reported) Naloxone HCl (Naloxone HCl), 1 SPRAY NS UD PRN for OVERDOSE, (Reported) Oxycodone HCl (Oxycodone HCl), 5-10 MG PO Q4- 6H PRN for PAIN-SEVERE (8-10), (Reported) Current Medications Current Medications Reviewed Review of Systems Constitutional: see HPI, dizziness, malaise, weakness EENTM: no symptoms reported Respiratory: no symptoms reported Cardiovascular: no symptoms reported Gastrointestinal: constipation Genitourinary: no symptoms reported Musculoskeletal: back pain, joint pain, joint swelling, muscle pain, muscle stiffness, muscle cramps, muscle twitching, muscle weakness, neck pain Skin: no symptoms reported Psychiatric/Neurological: Anxiety, Depressed All Other Systems Reviewed Negative Unless Noted: Yes Physical Exam Physical Exam Vital Signs Capillary Refill : Height, Weight, BMI Height: '" Weight: lbs. oz. kg; BMI Method: General Appearance: No Apparent Distress, WD/WN, Chronically ill Eyes: Bilateral Eye Normal Inspection, Bilateral Eye PERRL HEENT: PERRL/EOMI, Normal ENT Inspection, Pharynx Normal Neck: Full Range of Motion, Normal Inspection, Non Tender, Supple, Carotid Bruit Respiratory: Chest Non Tender, Lungs Clear, Normal Breath Sounds, No Accessory Muscle Use, No Respiratory Distress Cardiovascular: Regular Rate, Rhythm, No Edema, No Gallop, No JVD, No Murmur, Normal Peripheral Pulses Gastrointestinal: Normal Bowel Sounds, No Organomegaly, No Pulsatile Mass, Non Tender, Soft Back: Normal Inspection, CVA Tenderness (L), CVA Tenderness (R), Decreased Range of Motion, Muscle Spasm, Vertebral Tenderness Extremity: Normal Capillary Refill, Normal Inspection, Normal Range of Motion (except right arm ), Non Tender, No Calf Tenderness, No Pedal Edema Neurologic/Psychiatric: Alert, Oriented x3, Normal Mood/Affect, babbitter II-XII Norm as Tested, Abnormal Gait, Motor Weakness (generalized weakness) Skin: Normal Color, Warm/Dry, Ecchymosis (right arm and flank) Lymphatic: No Adenopathy PM&R Medical Assessment & Plan REHAB/MEDICAL ASSESSMENT AND PLAN: REHAB IMPAIRMENT GROUP: Trauma without brain injury with right scapula and right acromion fracture ETIOLOGIC DIAGNOSIS: Trauma without brain injury with right scapula and right acromion fracture The comorbidities that impact the patients function and/or functional outcome by: severe pain and limited ROM of dominant arm, syncope of unknown source REHAB PLAN: The patient is being admitted to our comprehensive inpatient rehabilitation facility and can tolerate the intensity of service consisting of at least: 180 minutes of therapy a day, 5 out of 7 days a week Rehab treatment will consist of: PT OT will utilize AD in order to regain function with limited use of dominant arm and will help teach techniques for increasing independence in ADL's The patient/family has a good understanding of our discharge process and will benefit from an interdisciplinary inpatient rehabilitation program. The patient has potential to make improvement and is in need of at least two of the following multidisciplinary therapies including but not limited to physical, occupational, speech, and prosthetics and orthotics. Additionally the patient will need services from respiratory, nutritional services, wound care, psychology, etc. (Customize this to each patient). Given the patients complex condition and risk of further medical complications, rehabilitation services cannot be safely or effectively provided at a lower level of care such as a fdc facility. BARRIERS TO DISCHARGE: Right arm limited ROM with severe pain from scapula fracture ESTIMATED LOS: 7 days DISPOSITION: Home RELEVANT CHANGES SINCE PREADMISSION SCREENING: I have compared the patients medical and functional status at the time of the preadmission screening and there are: no changes PROGNOSIS: Good REHABILITATION GOALS: 1. PT OT will utilize AD in order to regain function with limited use of dominant arm and will help teach techniques for increasing independence in ADL's All the above goals were reviewed with the patient and he/she is in agreement. By signing this document, I acknowledge that I have personally performed a full physical examination on this patient within 24 hours of admission to this inpatient rehabilitation facility and have determined the patient to be able to tolerate the above course of treatment at an intensive level for a reasonable period of time. I will be completing a detailed individualized Plan of Care for this patient by day #4 of the patients stay based upon the Preadmission Screen, the Post-Admission Evaluation, and the therapy evaluations. Admission Dx/Comorbidities: (1) Trauma ICD Codes: T14.90XA - Injury, unspecified, initial encounter Assessment/Plan Assessment and Plan Assess & Plan/Chief Complaint Assessment: Major trauma following 8 foot fall down basement stairs Syncope resulting in fall Right scapula fracture Right acromion fracture Insomnia Plan: Pain control Aggressive rehab Monitor BP Cardiology consult KIMBERLY REYES DO December 27, 2022 13:29
[2022-12-27] MEDS ORDERED: DOCUSATE SODIUM 100 MG (COLACE) CAP PO PRN (13:30)
[2022-12-27] MEDS ORDERED: ONDANSETRON 4 MG (ZOFRAN) ORAL DISSOLVE TAB PO PRN (13:30)
[2022-12-27] MEDS ORDERED: ALPRAZolam 0.25 MG (XANAX) TAB PO PRN (13:30)
[2022-12-27] MEDS ORDERED: ACETAMINOPHEN 325 MG TABLET PO PRN (13:30)
[2022-12-27] MEDS ORDERED: LOPERAMIDE 2 MG (IMODIUM) TABLET PO PRN (13:30)
[2022-12-27] MEDS ORDERED: diphenhydrAMINE 25 MG TAB (BENADRYL) PO PRN (13:30)
[2022-12-27] MEDS ORDERED: BISACODYL 10 MG SUPP (DULCOLAX) PR PRN (13:30)
[2022-12-27] MEDS ORDERED: guaiFENesin/CODEINE (ROBITUSSIN AC) 10ML UDC PO PRN (13:30)
[2022-12-27] MEDS ORDERED: CALCIUM CARBONATE 500 MG (TUMS) TAB.CHEW PO PRN (13:30)
[2022-12-27] MEDS ORDERED: MELATONIN 3 MG TABLET PO PRN (13:30)
[2022-12-27] MEDS ORDERED: LACTULOSE SYRUP 10GM/15ML (ENULOSE) 30ML UDC PO PRN (13:30)
[2022-12-27] MEDS ORDERED: FLEET ENEMA ADULT 1 EA BTL PR PRN (13:30)
[2022-12-27] MEDS ORDERED: GABA-486 PO ×2 (13:53)
[2022-12-27] MEDS ORDERED: METH-732 PO (13:53)
[2022-12-27] MEDS ORDERED: POLY17PO6 PO (13:53)
[2022-12-27] MEDS ORDERED: CETI10TA17 PO (13:53)
[2022-12-27] MEDS ORDERED: DEXT15DR28 OU (13:53)
[2022-12-27] MEDS ORDERED: MELA3TAB39 PO (13:53)
[2022-12-27] MEDS ORDERED: NALO4SPR3 NS (13:53)
[2022-12-27] MEDS ORDERED: SENN-234 PO (13:53)
[2022-12-27] MEDS ORDERED: ACET-2267 PO (13:53)
[2022-12-27] MEDS ORDERED: LIDO700A45 TP (13:53)
[2022-12-27] MEDS ORDERED: OMEGA XL PO (13:53)
[2022-12-27] MEDS ORDERED: CELE-63 PO (13:53)
[2022-12-27] MEDS ORDERED: OFL.3OP5 OP (13:53)
[2022-12-27] MEDS ORDERED: [UNRECOGNIZED DRUG - OTHER] PO (13:53)
[2022-12-27] MEDS ORDERED: OXYC5TAB PO (13:53)
--- NOTE | 2022-12-27 14:04 | Physical Therapy Evaluation ---
PT Evaluation-General Medical Diagnosis Admission Date December 27, 2022 at 13:07 Medical Diagnosis: MMT; R scapula/acromion fx Onset Date: December 19, 2022 Therapy Diagnosis Therapy Diagnosis: Decreased functional mobility Height/Weight Height (Feet): 5 Height (Inches): 9 Weight (Pounds): 221 Precautions Precautions/Isolations: Fall Prevention, Standard Precautions NWB R UE with sling in place Weight Bear Status Right Lower Extremity: Right Full Weight Bearing Left Lower Extremity: Left Full Weight Bearing NWB R UE with sling in place Referral Physician: Sara Reason for Referral: Evaluation/Treatment Medical History Pertinent Medical History: DM, HTN Additional Medical History anemia, heart palpitations, falls, dizziness, sepsis, obesity, DM, HTN, stroke, cardiovascular disease, sleep apnea Current History s/p fall down 8ft on basement stairs on 12/19/22. Admitted to [facility] on 12/19/22 and found to have R scapular fx, R acromion fx, R 3-11 rib fxs, and scalp laceration NWB R UE with sling in place Reviewed History: Yes Social History Home: Multilevel Current Living Status: Spouse Entry Into Home: Stairs With Railing (B hand rails) PT Steps Into Home: 3 PT Steps Inside Home: 0 (on first level ) Pt reports living in a multi-level home with her . Pt is able to stay on the main floor and does not need to go up/down stairs. 3 steps with enter with wide B HR. walk-in shower with no SC or GB. Prior Prior Level of Function SCALE: Activities may be completed with or without assistive devices. 9-Ewmpnlilqc-vqbggkg completes the activity by him/herself with no assistance from a helper. 5-Set-up or Clean-up Assistance-helper sets up or cleans up; patient completes activity. [place] assists only prior to or following the activity. 4-Supervision or Touching Assistance-helper provides verbal cues and/or touching/steadying and/or contact guard assistance as patient completes activity. Assistance may be provided throughout the activity or intermittently. 3-Partial/Moderate Assistance-helper does LESS THAN HALF the effort. [place] lifts, holds or supports trunk or limbs, but provides less than half the effort. 2-Substantial/Maximal Assistance-helper does MORE THAN HALF the effort. [place] lifts or holds trunk or limbs and provides more than half the effort. 1-Qfyjmjdyd-jbbupr does ALL the effort. Patient does none of the effort to complete the activity. Or, the assistance of 2 or more helpers is required for the patient to complete the activity. If activity was not attempted, code reason: 7-Patient Refused. 9-Not Applicable-not attempted and the patient did not perform the activity before the current illness, exacerbation or injury. 10-Not Attempted due to Environmental Limitations-(lack of equipment, weather restraints, etc.). 88-Not Attempted due to Medical Conditions or Safety Concerns. Bed Mobility: 6 Transfers (B,C,W/C): 6 Gait: 6 Stairs: 6 Wheelchair Mobility: 9 Indoor Mobility (Ambulation): Independent Stairs: Independent Prior Devices Use: None Pt was Ind at PLOF with no AD and driving PT Evaluation-Current Subjective Pt is agreeable to PT eval and tx. Pt reported R shoulder and rib pain at 5/10. Pain Numeric Pain Scale: 5-Moderate Pain Location: Right Location Body Site: Shoulder Section J - Health Conditions 1. Rarely or not at all 2. Occasionally 3. Frequently 4. Almost constantly 8. Unable to answer Pain Effect on Sleep: 4 Pain Interference with Therapy: 4 Pain Interference w/Day-to-Day: 4 Pt/Family Goals safely progress towards PLOF and safely d/c home with spouse Objective Patient Orientation: Person, Place, Time, Situation R UE sling ROM/Strength ROM Upper Extremities L UE ROM - WFL R UE in a sling ROM Lower Extremities WFL Strength Upper Extremities WFL Strength Lower Extremities B LE MMT = 4+/5 grossly Integumentary/Posture Integumentary R sided scalp laceration Bowel Incontinence: No Bladder Incontinence: No Sensory Vision: Wears Glasses Hearing: Functional Hand Dominance: Left Sensation Right Upper Extremit: Intact Sensation Left Upper Extremity: Intact Sensation Right Lower Extremit: Intact Sensation Left Lower Extremity: Intact Transfers Roll Left & Right (QC): 4 (SBA ) Sit to Lying (QC): 4 (SBA ) Lying to Sitting/Side of Bed(Q: 4 (SBA ) Sit to Stand (QC): 4 (SBA ) Chair/Qyy-gz-Orbwg Xfer(QC): 4 (SBA ) Toilet Transfer (QC): 4 (SBA ) Car Transfer (QC): 4 (SBA ) Gait Does the Patient Walk?: Yes Mode of Locomotion: Walk Anticipated Mode of Locomotion: Walk Walk 10 feet (QC): 4 (CGA ) Walk 50 ft with 2 Turns(QC): 4 (CGA ) Walk 150 ft (QC): 4 (CGA ) Walking 10ft/uneven surface-QC: 4 (CGA ) Gait Assistive Device: None Wheelchair Training Does the Pt Use a Wheelchair?: No Wheel 50 ft with 2 turns (QC): 9 Wheel 150 ft (QC): 9 Type of Wheelchair: N/A Stairs #of Steps: 12 1 Step (curb) (QC): 4 (CGA ) 4 Steps (QC): 4 (CGA ) 12 Steps (QC): 4 (CGA ) Balance Sitting Static: Normal Sitting Dynamic: Normal Standing Static: Good Standing Dynamic: Good Picking up an Object (QC): 4 (SBA ) Special Test Comments KU standing balance test - 4/5; Goal - 5/5 Treatment Co-tx with DORSEY from 1335 - 1450, skills of 2 therapists that an aide could not perform for improved safety. PT focused on LE strengthening, transfers, ambulation, and stair training, while OT worked on UE strengthening and ADLs. 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 ) Sit to Lying (QC): 6 (Pt will be Ind with all aspects of functional mobility to be at PLOF. ) Lying-Sitting on Side/Bed(QC): 6 (Pt will be Ind with all aspects of functional mobility to be at PLOF. ) Sit to Stand (QC): 6 (Pt will be Ind with all aspects of functional mobility to be at PLOF. ) Chair/Kag-jv-Kaqps Xfer(QC): 6 (Pt will be Ind with all aspects of functional mobility to be at PLOF. ) Toilet/Commode Transfer (QC): 6 (Pt will be Ind with all aspects of functional mobility to be at PLOF. ) Car Transfer (QC): 6 (Pt will be Ind with all aspects of functional mobility to be at PLOF. ) Does the Patient Walk: Yes Walk 10 feet (QC): 6 (Pt will be Ind with all aspects of functional mobility to be at PLOF. ) Walk 10ft-Uneven Surface(QC): 6 (Pt will be Ind with all aspects of functional mobility to be at PLOF. ) Walk 50ft with 2 Turns (QC): 6 (Pt will be Ind with all aspects of functional mobility to be at PLOF. ) Walk 150 ft (QC): 6 (Pt will be Ind with all aspects of functional mobility to be at PLOF. ) Does the Pt use WC or Scooter?: No Wheel 50 feet with 2 turns (QC: 9 Type: N/A Wheel 150 feet: 9 Type: N/A 1 Step (curb) (QC): 6 (Pt will be Ind with all aspects of functional mobility to be at PLOF. ) 4 Steps (QC): 6 (Pt will be Ind with all aspects of functional mobility to be at PLOF. ) 12 Steps (QC): 6 (Pt will be Ind with all aspects of functional mobility to be at PLOF. ) Picking up an Object (QC): 6 (Pt will be Ind with all aspects of functional mobility to be at PLOF. ) KU standing balance scale goal = 5/5 PT Plan Problem List Problem List: Activity Tolerance, Functional Strength, Safety, Balance, Gait, Transfer, Bed Mobility Treatment/Plan Treatment Plan: Continue Plan of Care Treatment Plan: Bed Mobility, Concurrent Therapy, Education, Functional Activity Oral, Functional Strength, Group Therapy, Gait, Safety, Therapeutic Exercise, Transfers Treatment Duration: Jan 05, 2023 Frequency: At least 5 of 7 days/Wk (IRF) Estimated Hrs Per Day: 1.5 hours per day Patient and/or Family Agrees t: Yes Safety Risks/Education Patient Education: Gait Training, Transfer Techniques, Steps, Reviewed Precautions, Safety Issues Teaching Recipient: Patient Teaching Methods: Demonstration, Discussion Response to Teaching: Verbalize Understanding, Return Demonstration Discharge Recommendations Therapy Discharge Recommendati: Home & Family Equpiment Recommendations-D/C: Shower Chair Discharge Status/Home Program Cont POC Barriers to Progress Increased pain Target Placement home with spouse Time Time In: 1320 Time Out: 1450 DATE: December 27, 2022 Total Billed Treatment Time: 90 Total Billed Treatment 90 min (3853-4635; [id number] PT eval; 4807-7805 co-tx) EVL EX x 1 GT x 1 FA x 3 VIPIN COATS PT December 27, 2022 14:04
[2022-12-27] MEDS ORDERED: ACETAMINOPHEN 500 MG TAB (TYLENOL) PO PRN (14:30)
[2022-12-27] MEDS ORDERED: NALOXONE HCL NS PRN (14:30)
--- NOTE | 2022-12-27 14:53 | Occupational Ther Daily Note ---
OT Current Status-Daily Note Subjective Pt alert, working with PT. Co-treat with PT ([id number]), skills of 2 clinicians required to decrease fall risk, decrease pain with mobility, increase activity tolerance and assess functional capabilities in safe environment. PT focusing on ambulation, transfers and mobility while OT focusing on ADLs, functional mobility and B UE strengthening(R hand only due to precautions,L UE no limitations). Pt c/o 10/10 pain, reported to physician and nrsg. Lidocaine patch taken off for shower and red blotchy skin under. Reported to nrsg. Mental Status/Objective Patient Orientation: Person, Place, Time, Situation Attachments: Other-See Comments (R UE splint) ADL-Treatment Pt agrees to shower. Sitting 90% of the time on shower bench, pt uses grabbars and hand held shower to complete shower with set up. Due to increased pain during shower, assistance for drying B LE/UE's. Pt doffed splint independently, assist to don due to increased pain. Max A to doff/don upper body clothing, education on modified dressing technique due to R shldr precautions. Pt able to thread feet into underwear then CGA to hike down over hips while pt able to hike up over hips by self. Assist to don socks due to increased pain, doffed socks by self. Pt independent with toileting. Pt demonstrates ability to complete oral care independently standing at sink. Therapy Code Descriptions/Definitions Functional [place] Measure: 0=Not Assessed/NA 4=Minimal Assistance 1=Total Assistance 5=Supervision or Setup 2=Maximal Assistance 6=Modified [place] 3=Moderate Assistance 7=Complete IndependenceSCALE: Activities may be completed with or without assistive devices. 2-Gvghthqkrm-rrtgigd completes the activity by him/herself with no assistance from a helper. 5-Set-up or Clean-up Assistance-helper sets up or cleans up; patient completes activity. [place] assists only prior to or following the activity. 4-Supervision or Touching Assistance-helper provides verbal cues and/or touching/steadying and/or contact guard assistance as patient completes activi ty. Assistance may be provided throughout the activity or intermittently. 3-Partial/Moderate Assistance-helper does LESS THAN HALF the effort. [place] lifts, holds or supports trunk or limbs, but provides less than half the effort. 2-Substantial/Maximal Assistance-helper does MORE THAN HALF the effort. [place] lifts or holds trunk or limbs and provides more than half the effort. 6-Ncqdiscel-usldur does ALL the effort. Patient does none of the effort to complete the activity. Or, the assistance of 2 or more helpers is required for the patient to complete the activity. If activity was not attempted, code reason: 7-Patient Refused. 9-Not Applicable-not attempted and the patient did not perform the activity before the current illness, exacerbation or injury. 10-Not Attempted due to Environmental Limitations-(lack of equipment, weather restraints, etc.). 88-Not Attempted due to Medical Conditions or Safety Concerns. 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 After therapy, pt sitting in recliner with call light/phone in reach. All needs met in room. OT Care Home Goals Care Home Goals Time Frame: Jan 12, 2023 Acute change in mental status: 0 Inattention: 0 Disorganized thinkin Altered level of consciousness: 0 Eating (QC): 6 Oral Hygiene (QC): 6 Toileting Hygiene (QC): 6 Shower/Bathe Self (QC): 6 Upper Body Dressing (QC): 6 Lower Body Dressing (QC): 6 On/Off Footwear (QC): 6 Additional Goals: 1-Demonstrate ADL Tasks, 2-Verbalize Understanding, 3- ImproveStrength/Oral 1=Demonstrate adherence to instructed precautions during ADL tasks. 2=Patient will verbalize/demonstrate understanding of assistive devices/modifications for ADL. 3=Patient will improve strength/tolerance for activity to enable patient to perform ADL's. OT Education/Plan Problem List/Assessment Assessment: Decreased Activ Tolerance, Decreased UE Strength, Impaired I ADL's, Impaired Self-Care Skills, Restricted Funct UE ROM (R UE) Discharge Recommendations Plan/Recommendations: Continue POC Treatment Plan/Plan of Care Patient would benefit from OT for education, treatment and training to promote independence in ADL's, mobility, safety and/or upper extremity function for ADL's. Plan of Care: ADL Retraining, Functional Mobility, Group Exercise/Act as Ind, UE Funct Exercise/Act Treatment Duration: Jan 12, 2023 Frequency: At least 5 of 7 days/Wk (IRF) Estimated Hrs Per Day: 1.5 hours per day Agreement: Yes Rehab Potential: Good Time Start Time: 13:35 Stop Time: 14:50 DATE: December 27, 2022 Total Time Billed (hr/min): 75 Billed Treatment Time 1 visit-ADL 3 (45 min) FA 2 (30 min) co-treat with PT [id number] BOUCHRA HOWARD December 27, 2022 14:53
[2022-12-27] MEDS ORDERED: ARTIFICAL TEARS 0.4 ML UNIT DOSE (REFRESH PLUS) OU PRN (15:30)
[2022-12-27] MEDS ORDERED: LORATADINE (CLARITIN) 10 MG TAB PO PRN (15:30)
[2022-12-27 19:19] VITALS: BP 113/59
[2022-12-27] MEDS: MELATONIN 3 MG TABLET PO SCH (20:55)
[2022-12-27] MEDS: METHOCARBAMOL 750 MG (ROBAXIN) TAB PO SCH (20:55)
[2022-12-27] MEDS: GABAPENTIN 100 MG (NEURONTIN) CAP PO SCH (20:55)
[2022-12-27] MEDS: DOCUSATE SODIUM 100 MG (COLACE) CAP PO SCH (20:55)
[2022-12-27] MEDS: SENNA W/DOCUSATE (SENOKOT S) TABLET PO SCH (20:55)
[2022-12-27] MEDS: SENNOSIDES 8.6 MG (SENOKOT) TAB PO SCH (20:55)
[2022-12-27] MEDS: CELECOXIB 100 MG (CeleBREX) CAP PO SCH (20:55)
[2022-12-27] MEDS: polyethylene glycoL POWDER 17 GM (MIRALAX) PACK PO SCH (20:56)
--- NOTE | 2022-12-28 05:27 | PM&R Progress Note ---
Subjective HPI/CC On Admission Date Seen by Provider: Dec 28, 2022 Time Seen by Provider: 12:00 Subjective/Events-last exam 12/28/2022: Patient doing a lot better Changing pain medication to every 4 hours instead of every 8 hours Participating in therapy No falls Bowels are moving Review of Systems General: Fatigue, Malaise Musculoskeletal: arm pain, back pain, leg pain Objective Exam Vital Signs Vital Signs Date Time Temp Pulse Resp B/P (MAP) Pulse Ox O2 Delivery O2 Flow Rate FiO2 12/29/22 01:00 70 12/28/22 21:45 92 Room Air 12/28/22 20:55 36.0 18 115/65 (82) Capillary Refill : General Appearance: No Apparent Distress, WD/WN, Chronically ill HEENT: PERRL/EOMI, Normal ENT Inspection, Pharynx Normal Neck: Full Range of Motion, Normal Inspection, Non Tender, Supple, Carotid Bruit Respiratory: Chest Non Tender, Lungs Clear, Normal Breath Sounds, No Accessory Muscle Use, No Respiratory Distress Cardiovascular: Regular Rate, Rhythm, No Edema, No Gallop, No JVD, No Murmur, Normal Peripheral Pulses Gastrointestinal: Normal Bowel Sounds, No Organomegaly, No Pulsatile Mass, Non Tender, Soft Back: Normal Inspection, CVA Tenderness (L), CVA Tenderness (R), Decreased Range of Motion, Muscle Spasm, Vertebral Tenderness Extremity: Normal Capillary Refill, Normal Inspection, Normal Range of Motion (except right arm ), Non Tender, No Calf Tenderness, No Pedal Edema Neurologic/Psychiatric: Alert, Oriented x3, Normal Mood/Affect, applications sales representative II-XII Norm as Tested, Abnormal Gait, Motor Weakness (generalized weakness) Skin: Normal Color, Warm/Dry, Ecchymosis (right arm and flank) Lymphatic: No Adenopathy Results/Procedures Lab Laboratory Tests 12/28/22 06:53 Patient resulted labs reviewed. FIM Transfers Therapy Code Descriptions/Definitions Functional [place] Measure: 0=Not Assessed/NA 4=Minimal Assistance 1=Total Assistance 5=Supervision or Setup 2=Maximal Assistance 6=Modified [place] 3=Moderate Assistance 7=Complete IndependenceSCALE: Activities may be completed with or without assistive devices. 7-Pxjzvyqgwv-bfmwitt completes the activity by him/herself with no assistance from a helper. 5-Set-up or Clean-up Assistance-helper sets up or cleans up; patient completes activity. [place] assists only prior to or following the activity. 4-Supervision or Touching Assistance-helper provides verbal cues and/or touching/steadying and/or contact guard assistance as patient completes activity. Assistance may be provided throughout the activity or intermittently. 3-Partial/Moderate Assistance-helper does LESS THAN HALF the effort. [place] lifts, holds or supports trunk or limbs, but provides less than half the effort. 2-Substantial/Maximal Assistance-helper does MORE THAN HALF the effort. [place] lifts or holds trunk or limbs and provides more than half the effort. 8-Edclwuspd-oomvdo does ALL the effort. Patient does none of the effort to complete the activity. Or, the assistance of 2 or more helpers is required for the patient to complete the activity. If activity was not attempted, code reason: 7-Patient Refused. 9-Not Applicable-not attempted and the patient did not perform the activity before the current illness, exacerbation or injury. 10-Not Attempted due to Environmental Limitations-(lack of equipment, weather r estraints, etc.). 88-Not Attempted due to Medical Conditions or Safety Concerns. Roll Left to Right (QC): 4 (SBA ) Sit to Lying (QC): 4 (SBA ) Sit to Stand (QC): 4 (SBA ) Chair/Lxw-zc-Jekot Xfer(QC): 4 (SBA ) Car Transfer (QC): 4 (SBA ) Gait Training Does the Patient Walk?: Yes Walk 10 feet (QC): 4 (CGA ) Walk 50 ft with 2 Turns(QC): 4 (CGA ) Walk 150 ft (QC): 4 (CGA ) Walking 10ft/uneven surface-QC: 4 (CGA ) Gait Assistive Device: None Wheelchair Training Does the Pt Use a Wheelchair?: No Wheel 50 ft with 2 turns (QC): 9 Wheel 150 ft (QC): 9 Type of Wheelchair: N/A Stair Training #of Steps: 12 1 Step (curb) (QC): 4 (CGA ) 4 Steps (QC): 4 (CGA ) 12 Steps (QC): 4 (CGA ) Balance Picking up an Object (QC): 4 (SBA ) ADL-Treatment Eating (QC): 5 (set up with containers.) Oral Hygiene (QC): 6 Shower/Bathe Self (QC): 3 Upper Body Dressing (QC): 2 Lower Body Dressing (QC): 4 (CGA) On/Off Footwear (QC): 3 (mod A) Toileting Hygiene (QC): 6 Toilet Transfer (QC): 4 Assessment/Plan Assessment and Plan Assess & Plan/Chief Complaint Assessment: Major trauma following 8 foot fall down basement stairs Syncope resulting in fall Right scapula fracture Right acromion fracture Insomnia Plan: Pain control Aggressive rehab Monitor BP Cardiology consult 12/28/2022: Cardiology appreciated Pain control (1) Trauma KIMBERLY REYES 1, 2023 05:27
--- NOTE | 2022-12-28 05:27 | Individualized Plan of Care ---
Individualized Plan of Care Rehab Nursing IPOC Order Admission Date December 27, 2022 at 13:07 Current Orders Orders Admission Arrival Bed Request (12/27/22 13:07) General/Regular (12/27/22 Lunch) Code/Resuscitation (12/27/22 13:08) Admission Order(Inpt,Obs,Sdc) (12/27/22 13:26) Vital Signs: Per Unit Policy ( 08,16,00 (12/27/22 13:26) Angelo Hose , (12/27/22 13:26) Sequential Compression Device (12/27/22 13:26) Client Services Administrator-Inpt Rehab Con (12/27/22 13:26) Rehab Nursing Orders-Ipoc (12/27/22 13:26) Physical Therapy Rehab Orders (12/27/22 13:26) Occupational Therapy Rehab Ord (12/27/22 13:) Speech Therapy Rehab Orders (12/27/22 13:26) Cbc With Automated Diff (12/28/22 06:00) Comprehensive Metabolic Panel (12/28/22 06:00) Precautions (Aru) (12/27/22 13:26) Weekly Weight WEEK (12/27/22 13:26) Rehab-Intensity Of Therapy (12/27/22 13:26) Initiate Admission Nursing Pro .admission (12/27/22 13:26) Alprazolam Tablet (Xanax Tablet) (12/27/22 13:30) Calcium Carbonate Chew Tablet (Antacid C (12/27/22 13:30) Diphenhydramine Tablet (Benadryl Tablet) (12/27/22 13:30) Docusate Sodium Capsule (Colace Capsule) (12/27/22 21:00) Docusate Sodium Capsule (Colace Capsule) (12/27/22 13:30) Bisacodyl Suppository (Dulcolax Supposit (12/27/22 13:30) Lactulose Oral Solution (Enulose Oral So (12/27/22 13:30) Na Phos/Na Biphos Enema (Fleet Enema Simeon (12/27/22 13:30) Guaifenesin/Codeine Syrup (Robitussin Ac (12/27/22 13:30) Loperamide Tablet (Imodium Tablet) (12/27/22 13:30) Melatonin Tablet (Melatonin Tablet) (12/27/22 13:30) Polyethylene Glycol Powder Pkt (Miralax (12/27/22 21:00) Ondansetron Oral Dissolve Tab (Zofran (12/27/22 13:30) Senna S Tablet (Senokot S Tablet) (12/27/22 21:00) Acetaminophen Tablet/Caplet (Tylenol T (12/27/22 13:30) Initiate Admission Nursing Pro .admission (12/27/22 13:26) Acetaminophen Tablet (Tylenol Tablet) (12/27/22 14:30) Gabapentin Capsule/Tablet (Neurontin Cap (12/27/22 21:00) Lidocaine 4% Patch (Salonpas 4% Patch) (12/28/22 09:00) Melatonin Tablet (Melatonin Tablet) (12/27/22 21:00) Methocarbamol Tablet (Robaxin Tablet) (12/27/22 21:00) Oxycodone Immediate Rel Tablet (Oxyir Ta (12/27/22 14:30) Polyethylene Glycol Powder Pkt (Miralax (12/28/22 09:00) Sennosides Tablet (Senokot Tablet) (12/27/22 21:00) Celecoxib Capsule (Celebrex Capsule) (12/27/22 21:00) Loratadine Tablet (Claritin Tablet) (12/27/22 15:30) Carboxymethylcell Ophth Soln (Refresh Pl (12/27/22 15:30) (Nf) Naloxone Hcl (12/27/22 14:30) Patient Visit (12/27/22 ) Pt Eval Low Complexity (12/27/22 ) Patient Visit (12/27/22 ) Exercise Therap, Ea 15 Min (12/27/22 ) Gait Training, Ea 15 Min (12/27/22 ) Functional Activities, Ea 15 (12/27/22 ) Gabapentin Capsule/Tablet (Neurontin Cap (01/03/23 09:00) Consult Cardiology (12/28/22 05:01) Enoxaparin Injection (Lovenox Injection) (12/28/22 09:00) Ekg Tracing (12/28/22 10:28) Telemetry (12/28/22 12:07) Telemetry Nursing Assessment ( (12/28/22 12:07) Oxycodone Immediate Rel Tablet (Oxyir Ta (12/28/22 12:30) Rehab Nursing Orders: Ongoing Assess. of Cognitive Status, Ongoing Assess. of Function Status, Bladder Management, Bladder Scan, Bladder Training, Bowel Management, Bowel Training, Disease Management & Educaiton, DVT Prophylaxis, Fall Prevention, Fluid/Electrolyte/Nutrition Mgmt, Infection Prevention, Medication Management & Education, Management of Risks & Complications, Management of Skin Intergrity, Nutrition Management, Pain Management, Patient/Family Support, Safety Management, Wound Management Intensity of Therapy to be met Patient to be seen: Min.3h per day/5 of 7d PT IPOC Problem List: Activity Tolerance, Functional Strength, Safety, Balance, Gait, Transfer, Bed Mobility Treatment Plan: Continue Plan of Care Bed Mobility, Concurrent Therapy, Education, Functional Activity Oral, Functional Strength, Group Therapy, Gait, Safety, Therapeutic Exercise, Transfers Treatment Duration: Jan 05, 2023 Frequency: At least 5 of 7 days/Wk (IRF) Estimated Hrs Per Day: 1.5 hours per day OT IPOC Problems: Decreased Activ Tolerance, Decreased UE Strength, Impaired I ADL's, Impaired Self-Care Skills, Restricted Funct UE ROM (R UE) OT Treatment, Training and Edu: Yes Plan of Care: ADL Retraining, Functional Mobility, Group Exercise/Act as Ind, UE Funct Exercise/Act Treatment Duration: Jan 12, 2023 Frequency: At least 5 of 7 days/Wk (IRF) Estimated Hrs Per Day: 1.[address] IPOC Speech Therapy Treatment Plan: Discontinue ST Treatment Duration: Dec 28, 2022 Frequency: Modified Program (IRF) Estimated Hrs Per Day: Other Client Services Administrator/Case Mgmt Client Services Administrator/Case Managemen: Discharge Planning Dietitian/Welfare Eligibility Interviewer Dietitian/Welfare Eligibility Interviewer to monitor nutritional status and make changes and/or recommendations as needed and work with speech pathology on dietary upgrades as the occur. Physician IPOC Medical Issues being managed closely and that require the 24 hour availability of a physician: Recent multiple orthopedic fractures sustained in a fall due to syncope requiring cardiology consultation will require close monitoring and management to prevent decompensation Medical Issues: Bowel/Bladder Function, DVT Prophylaxis, Falls Precautions, Fluid/Electrolyte/Nutrition Balance, Infection Protection, Pain Management, Wound Care Brief Synthesis of Preadmission Screen, Post-Admission Evaluation, and Therapy Evaluations: PT and OT will focus on regaining function with use of assistive in order to decrease pain and regain independence in ADLs considering limitations of right arm which is dominant Medical Prognosis: Good Anticipated Length of Stay: 7 days KIMBERLY REYES DO Dec 28, 2022 05:27
[2022-12-28 07:02] LABS: BASOPHILS % (AUTO) 1 % (0-10); EOSINOPHILS # (AUTO) 0.2 10^3/uL (0.0-0.3); EOSINOPHILS % (AUTO) 4 % (0-10); HEMATOCRIT 32 % (35-52); HEMOGLOBIN 10.5 g/dL (11.5-16.0); LYMPHOCYTES # (AUTO) 1.1 10^3/uL (1.0-4.0); LYMPHOCYTES % (AUTO) 29 % (12-44); MEAN CORPUSCULAR HEMOGLOBIN 30 pg (25-34); MEAN CORPUSCULAR HGB CONC 33 g/dL (32-36); MEAN CORPUSCULAR VOLUME 91 fL (80-99); MEAN PLATELET VOLUME 9.7 fL (9.0-12.2); MONOCYTES # (AUTO) 0.4 10^3/uL (0.0-1.0); MONOCYTES % (AUTO) 9 % (0-12); NEUTROPHILS # (AUTO) 2.3 10^3/uL (1.8-7.8); NEUTROPHILS % (AUTO) 57 % (42-75); PLATELET COUNT 233 10^3/uL (130-400)
[2022-12-28 07:16] LABS: ALBUMIN 3.7 GM/DL (3.2-4.5)
[2022-12-28 07:18] LABS: CALCIUM 9.3 MG/DL (8.5-10.1)
[2022-12-28 07:19] LABS: TOTAL PROTEIN 6.9 GM/DL (6.4-8.2)
[2022-12-28 07:21] LABS: BILIRUBIN,TOTAL 0.4 MG/DL (0.1-1.0)
[2022-12-28 07:23] LABS: CREATININE SERUM 0.77 MG/DL (0.60-1.30)
[2022-12-28 08:07] VITALS: BP 129/56
[2022-12-28] MEDS: polyethylene glycoL POWDER 17 GM (MIRALAX) PACK PO SCH ×3 (08:11→21:45)
--- NOTE | 2022-12-28 08:48 | Occupational Ther Daily Note ---
OT Current Status-Daily Note Subjective Pt found lying in bed sitting up. Pt alert and cooperative, agreed to therapy. Pain 7/10 when up moving around. Mental Status/Objective Patient Orientation: Person, Place, Time, Situation ADL-Treatment Pt ambulated from bed to bathroom with cane, therapist SBA for safety. Pt completed toilet transfer and toilet hygiene independently. Pt ambulated from toilet to sink with cane and therapist SBA for safety. Pt completed oral care and grooming independently, while standing at sink. Pt then ambulated from sink to chair in room, SBA. Pt sat in chair to complete upper body dressing needed minimal verbal cueing for placing weak arm in shirt first. Pt completed lower body dressing with set up assist. Pt then completed theraputty activity using medium resistance (pink), addressing fine motor coordination, dexterity needed for daily tasks. Pt then completed HEP exercises using 2 # wt, L UE only. Pt completed strengthening activity including medium/heavy therapy sponge for R hand only (due to R UE precautions), addressing field hockey coach and pinch for functional tasks. Nursing was notified of pain. Pt was left in chair in room, call light and phone within reach, all needs met in room. Therapy Code Descriptions/Definitions Functional [place] Measure: 0=Not Assessed/NA 4=Minimal Assistance 1=Total Assistance 5=Supervision or Setup 2=Maximal Assistance 6=Modified [place] 3=Moderate Assistance 7=Complete IndependenceSCALE: Activities may be completed with or without assistive devices. 0-Aqbxdkqpxh-ramegxi completes the activity by him/herself with no assistance from a helper. 5-Set-up or Clean-up Assistance-helper sets up or cleans up; patient completes activity. [place] assists only prior to or following the activity. 4-Supervision or Touching Assistance-helper provides verbal cues and/or touching/steadying and/or contact guard assistance as patient completes activity. Assistance may be provided throughout the activity or intermittently. 3-Partial/Moderate Assistance-helper does LESS THAN HALF the effort. [place] lifts, holds or supports trunk or limbs, but provides less than half the effort. 2-Substantial/Maximal Assistance-helper does MORE THAN HALF the effort. [place] lifts or holds trunk or limbs and provides more than half the effort. 2-Htjhyxwdh-ndrtqr does ALL the effort. Patient does none of the effort to complete the activity. Or, the assistance of 2 or more helpers is required for the patient to complete the activity. If activity was not attempted, code reason: 7-Patient Refused. 9-Not Applicable-not attempted and the patient did not perform the activity before the current illness, exacerbation or injury. 10-Not Attempted due to Environmental Limitations-(lack of equipment, weather restraints, etc.). 88-Not Attempted due to Medical Conditions or Safety Concerns. Eating (QC): 6 Oral Hygiene (QC): 6 Upper Body Dressing (QC): 4 Lower Body Dressing (QC): 5 Toileting Hygiene (QC): 6 Toilet Transfer (QC): 6 Other Treatment Pt then completed Education Teaching Recipient: Patient Teaching Methods: Demonstration, Handout Response to Teaching: Verbalize Understanding, Return Demonstration OT Transition Mgr Goals Long-Term Goals Time Frame: Jan 12, 2023 Acute change in mental status: 0 Inattention: 0 Disorganized thinkin Altered level of consciousness: 0 Eating (QC): 6 Oral Hygiene (QC): 6 Toileting Hygiene (QC): 6 Shower/Bathe Self (QC): 6 Upper Body Dressing (QC): 6 Lower Body Dressing (QC): 6 On/Off Footwear (QC): 6 Additional Goals: 1-Demonstrate ADL Tasks, 2-Verbalize Understanding, 3- ImproveStrength/Oral 1=Demonstrate adherence to instructed precautions during ADL tasks. 2=Patient will verbalize/demonstrate understanding of assistive d evices/modifications for ADL. 3=Patient will improve strength/tolerance for activity to enable patient to perform ADL's. OT Education/Plan Problem List/Assessment Assessment: Decreased UE Strength Discharge Recommendations Plan/Recommendations: Continue POC Treatment Plan/Plan of Care Patient would benefit from OT for education, treatment and training to promote independence in ADL's, mobility, safety and/or upper extremity function for ADL's. Plan of Care: ADL Retraining, Functional Mobility, Group Exercise/Act as Ind, UE Funct Exercise/Act Treatment Duration: Jan 12, 2023 Frequency: At least 5 of 7 days/Wk (IRF) Estimated Hrs Per Day: 1.5 hours per day Agreement: Yes Rehab Potential: Good Time Start Time: 07:30 Stop Time: 08:30 DATE: Dec 28, 2022 Total Time Billed (hr/min): 60 Billed Treatment Time 1 visit ADL 3 (45 mins) EX 1 (15 mins) Kassidy Hamlin COTA Dec 28, 2022 08:48
[2022-12-28] MEDS: SENNA W/DOCUSATE (SENOKOT S) TABLET PO SCH ×2 (09:06→21:45)
[2022-12-28] MEDS: SENNOSIDES 8.6 MG (SENOKOT) TAB PO SCH ×2 (09:06→21:45)
[2022-12-28] MEDS: CELECOXIB 100 MG (CeleBREX) CAP PO SCH ×2 (09:06→21:44)
[2022-12-28] MEDS: LIDOCAINE 4% (SALONPAS) PATCH TP SCH (09:06)
[2022-12-28] MEDS: GABAPENTIN 100 MG (NEURONTIN) CAP PO SCH ×3 (09:06→21:45)
[2022-12-28] MEDS: DOCUSATE SODIUM 100 MG (COLACE) CAP PO SCH ×2 (09:06→21:45)
[2022-12-28] MEDS: ENOXAPARIN 40 MG/0.4 ML (LOVENOX) SYR SC SCH (09:06)
[2022-12-28] MEDS: METHOCARBAMOL 750 MG (ROBAXIN) TAB PO SCH ×3 (09:06→21:45)
--- NOTE | 2022-12-28 10:27 | Consultation-Cardiology ---
HPI-Cardiology Cardiology Consultation: Date of Consultation 12/28/22 Time Seen by a Provider: 10:10 Date of Admission 12-27-22 Attending Physician Phoenix Zavala DO Admitting Physician Admitting Physician: Magdalena Ruiz DO Attending Physician: Magdalena Ruiz DO Consulting Physician Ancelmo Orr MD Provider requesting consult: Dr. Ruiz HPI: Chief Complaint: Fall Ms. Paredes is a 67 yr old female who we have been asked to see by Dr. Ruiz d/t recent fall. Pt reports she has steep basement stairs with no railing on them at home. She reports she was carrying a ham up the stairs and she turned to turn off the light and when she turned back straight to step up to the next step she lost her footing and fell. She adamantly denies any syncope. She states she remembers the event clearly. She denies any loss of consciousness. She denies any dizziness. She does not take any Rx medications at home prior to this fall. She was treated at [facility] for fractures. She currently has an immobilizer to her left arm. She denies any CP, palpitations, SOB or LE swelling. Review of Systems-Cardiology Review of Systems Constitutional: No chills, No fever, No malaise Eyes: No vision change Ears/Nose/Throat: No epistaxis, No recent hearing loss Respiratory: As described under HPI Cardiovascular: As described under HPI Gastrointestinal: No constipation, No diarrhea, No nausea, No vomiting Genitourinary: No dysuria, No hematuria Musculoskeletal: As describe under HPI Skin: other (bruising to right arm/hand); No rash on exposed areas, No ulcerations on exposed areas Psychiatric/Neurological: No anxiety, No depression, No seizure, No focal weakness, No syncope Hematologic: No bleeding abnormalities All Other Systems Reviewed Negative Unless Noted: Yes [id number]-[id number] Hx Patient Social History Marrital Status: Employed/Student: retired Smoking Status: Never a Smoker Have you traveled recently?: No Alcohol Use?: No Pt feels they are or have been: No Past Medical History PMH As described under Assessment. Family Medical History Family Medical History: She reports her mother had a CVA. Allergies and Home Medications Allergies Coded Allergies: morphine (Verified Allergy, Unknown, 12/27/22) Patient Home Medication List Acetaminophen (Tylenol Extra Strength) 500 Mg Tablet, 1,000 MG PO Q6H, (Reported) Entered as Reported by: CLARENCE HERRERA on 12/27/221352 Last Action: Held Acetaminophen (Tylenol Extra Strength) 500 Mg Tablet, 500-1,000 MG PO Q6H PRN for PAIN-MILD (1-4), (Reported) Entered as Reported by: CLARENCE HERRERA on 12/27/221352 Last Action: Continued Celecoxib (Celecoxib) 200 Mg Capsule, 200 MG PO BID, (Reported) Entered as Reported by: CLARENCE HERRERA on 12/27/221352 Last Action: Converted Cetirizine HCl (Cetirizine HCl) 10 Mg Tablet, 10 MG PO DAILY PRN for ALLERGY SYMPTOMS, (Reported) Entered as Reported by: CLARENCE HERRERA on 12/27/221352 Last Action: Converted Dextran 70/Hypromellose (Lubricating Tears 0.1-0.3% Drp) 0.1 %-0.3 % Drops, 1 DROP OU Q6H PRN for DRY EYES, (Reported) Entered as Reported by: CLARENCE HERRERA on 12/27/221352 Last Action: Converted Gabapentin (Gabapentin) 100 Mg Capsule, 100 MG PO TID, (Reported) Entered as Reported by: CLARENCE HERRERA on 12/27/221352 Last Action: Continued Gabapentin (Gabapentin) 100 Mg Capsule, 100 MG PO DAILY, (Reported) Entered as Reported by: CLARENCE HERRERA on 12/27/221352 Last Action: Continued Lidocaine (Lidocaine 5% Patch) 5 % Adh..patch, 1 EACH TP DAILY, (Reported) Entered as Reported by: CLARENCE HERRERA on 12/27/221352 Last Action: Continued Melatonin (Melatonin) 3 Mg Tablet, 3 MG PO HS, (Reported) Entered as Reported by: CLARENCE HERRERA on 12/27/221352 Last Action: Continued Methocarbamol (Methocarbamol) 750 Mg Tablet, 750 MG PO TID, (Reported) Entered as Reported by: CLARENCE HERRERA on 12/27/221352 Last Action: Continued Naloxone HCl (Naloxone HCl) 4 Mg/Actuation [place], 1 SPRAY NS UD PRN for OVERDOSE, (Reported) Entered as Reported by: CLARENCE HERRERA on 12/27/221352 Last Action: Converted Oxycodone HCl (Oxycodone HCl) 5 Mg Tablet, 5-10 MG PO Q4- 6H PRN for PAIN-SEVERE (8-10), (Reported) Entered as Reported by: CLARENCE HERRERA on 12/27/221352 Last Action: Continued Polyethylene Glycol 3350 (Miralax) 17 Gram Powd.pack, 17 GM PO DAILY, (Reported) Entered as Reported by: CLARENCE HERRERA on 12/27/221352 Last Action: Continued Sennosides (Senna) 8.6 Mg Tablet, 8.6 MG PO BID, (Reported) Entered as Reported by: CLARENCE HERRERA on 12/27/221352 Last Action: Continued [Oketo Xl] , 2 EA PO DAILY, (Reported) Entered as Reported by: CLARENCE HERRERA on 12/27/221352 Last Action: Held [R[employer] Start 4 Life] , 1 EA PO DAILY, (Reported) Entered as Reported by: CLARENCE HERRERA on 12/27/221352 Last Action: Held Physical Exam-Cardiology Physical Exam Vital Signs/I&O 12/29/22 12/29/22 12/29/22 12/29/22 01:00 07:00 07:44 09:00 Temp 36.4 Pulse 70 70 78 Resp 18 B/P (MAP) 101/52 (68) Pulse Ox 92 O2 Delivery Room Air Room Air 12/29/22 00:00 Intake Total 960 ml Balance 960 ml Capillary Refill : Constitutional: AAO x 3, well-developed, well-nourished HEENT: PERRL, hearing is well preserved, oral hygience is good Neck: No carotid bruit; carotid pulses are 2 + bilaterally Respiratory: No accessory muscle use, No respiratory distress; chest expansion is symmetric, chest is bilaterally symmetric, lungs clear to auscultation Cardiovascular: regular rate-rhythm; No JVD; S1 and S2 Gastrointestinal: No tender; soft, round, audible bowel sounds Extremities: no lower extremity edema bilateral Neurologic/Psychiatric: grossly intact (moves all extremities; did not move left arm d/t immobilizer sling in place) Skin: other (diffuse brusing to left arm/hand) Data Review Labs A/P-Cardiology Assessment/Admission Diagnosis H/O fall at home on 5-23-23 down basement steps - pt denies syncope and reports it was a mechanical fall - resulting in closed fx of acromlon, rib fx, pneumothorax and scapular fx - tx at [facility] AoV stenosis - Echocardiogram of 12-20-22 at [facility]: subtle hypokinesis of the inferior wall and apical inferior segments. Abnormal septal motion secondary to underlying LBBB. Calcified aortic valve apparatus with reduced systolic excursion with mod aortic valve stenosis. LVEF 50-55% - pt reports h/o "leaky heart valve" which has been followed by Dr. Vigil (previous PCP) EKG at [facility] reported to show LBBB Elevated liver enzymes of undetermined etiology - medical services managing Discussion and Recomendations Recent fall, which per pt reports appears to be mechanical and not syncopal, nevertheless, we will eval for possible arrhythmia/bradycardia - Advise EKG - Advise telemetry for at least 48 hours Monitor lab Replace electrolytes as indicated Records available from [facility] have been reviewed Further recs will be based on her hospital course We would like to thank medical services for this consult KIMBER ORTA Dec 28, 2022 10:27
--- NOTE | 2022-12-28 14:38 | Speech Therapy Progress Note ---
Therapy Progress Note Speech pathology received a cognitive consultation per IRF order set protocol. Speech pathology has not been contacted regarding specific patient needs at this time. ST to discharge order. Please re-consult speech pathology with concerns. LISA MUNGUIA Dec 28, 2022 14:38
--- NOTE | 2022-12-28 14:49 | Therapy Group Daily Note ---
Therapy Daily Group Note Patient Education Topic Home Safety Exercises UE Exercise Session Ratio (pt:therapist): 4:1 Goal of Session: Education on ARU Expectations, Energy Conservation Tech., Home Safety Strategies, Use of Adaptive Equipment Goal Met for this Session: Yes Pt Benefit of Group: Contributions to Others, F/U Use of Strategies @Home, Increased Functional Safety, Increased Functional Strength, Improved Cognition, Recognition of Peers, Socialization Other/Notes Pt ambulated using SPC to therapy gym for OT group. Group consisted of introductions (name/place living), socialization, B UE strengthening, education on home safety and activity to assess pt's understanding of educational topic. Pt introduced self appropriately and actively listened to peers. Pt able to complete B UE movements without difficulty. Pt was able to verbalized understanding of home safety topic and answer questions correctly. After therapy, pt lying in bed with call light/phone. All needs met in room. Start Time: 13:00 Stop Time: 14:00 Total Billed Treatment Time: 60 Total Billed Treatment 1-[facility] HOWARD Dec 28, 2022 14:49
--- NOTE | 2022-12-28 15:10 | Physical Therapy Daily Note ---
PT Daily Note-Current Subjective Pt reports she is doing well and is agreeable to PT. Pt reported R rib pain at 6/10. Pain Numeric Pain Scale: 6 Location: Right Location Body Site: Chest Section J - Health Conditions 1. Rarely or not at all 2. Occasionally 3. Frequently 4. Almost constantly 8. Unable to answer Pain Effect on Sleep: 4 Pain Interference with Therapy: 4 Pain Interference w/Day-to-Day: 4 Mental Status Attachments: Other-See Comments (R shoulder sling ) Transfers SCALE: Activities may be completed with or without assistive devices. 8-Rpfonpcgos-ezmgsab completes the activity by him/herself with no assistance from a helper. 5-Set-up or Clean-up Assistance-helper sets up or cleans up; patient completes activity. [place] assists only prior to or following the activity. 4-Supervision or Touching Assistance-helper provides verbal cues and/or touching/steadying and/or contact guard assistance as patient completes activity. Assistance may be provided throughout the activity or intermittently. 3-Partial/Moderate Assistance-helper does LESS THAN HALF the effort. [place] lifts, holds or supports trunk or limbs, but provides less than half the effort. 2-Substantial/Maximal Assistance-helper does MORE THAN HALF the effort. [place] lifts or holds trunk or limbs and provides more than half the effort. 8-Mlymljdvn-tcjehi does ALL the effort. Patient does none of the effort to complete the activity. Or, the assistance of 2 or more helpers is required for the patient to complete the activity. If activity was not attempted, code reason: 7-Patient Refused. 9-Not Applicable-not attempted and the patient did not perform the activity before the current illness, exacerbation or injury. 10-Not Attempted due to Environmental Limitations-(lack of equipment, weather restraints, etc.). 88-Not Attempted due to Medical Conditions or Safety Concerns. Sit to Stand (QC): 4 Chair/Had-rw-Mscug Xfer(QC): 4 Toilet Transfer (QC): 4 Weight Bearing Right Lower Extremity: Right Full Weight Bearing Left Lower Extremity: Left Full Weight Bearing NWB R UE with sling in place Gait Training Does the Patient Walk?: Yes Walk 10 feet (QC): 4 Walk 50 ft with 2 Turns(QC): 4 Walk 150 ft (QC): 4 Gait Persons Needed: 1 Gait Assistive Device: Cane Single Point Wheelchair Training Does the Pt Use a Wheelchair?: No Wheel 50 ft with 2 turns (QC): 9 Wheel 150 ft (QC): 9 Type of Wheelchair: N/A Treatments Pt completed functional transfers, including toilet transfer, with SBA. Pt ambulated 180ft and 100ft with the SPC and CGA. Pt completed seated B LE Ther Ex x 15 reps each with the RTB. Pt completed 11 min on the nu-step on level 3. Assessment Current Status: Good Progress Pt tolerated well with good effort PT Director Women Goals Snf Goals PT Snf Goals Time Frame: Jan 05, 2023 Roll Left & Right (QC): 6 (Pt will be Ind with all aspects of functional mobility to be at PLOF. ) Sit to Lying (QC): 6 (Pt will be Ind with all aspects of functional mobility to be at PLOF. ) Lying-Sitting on Side/Bed(QC): 6 (Pt will be Ind with all aspects of functional mobility to be at PLOF. ) Sit to Stand (QC): 6 (Pt will be Ind with all aspects of functional mobility to be at PLOF. ) Chair/Jlt-uu-Ljhvd Xfer(QC): 6 (Pt will be Ind with all aspects of functional mobility to be at PLOF. ) Toilet Transfer (QC): 6 (Pt will be Ind with all aspects of functional mobility to be at PLOF. ) Car Transfer (QC): 6 (Pt will be Ind with all aspects of functional mobility to be at PLOF. ) Does the Patient Walk: Yes Walk 10 feet (QC): 6 (Pt will be Ind with all aspects of functional mobility to be at PLOF. ) Walk 50ft with 2 Turns (QC): 6 (Pt will be Ind with all aspects of functional mobility to be at PLOF. ) Walk 150 ft (QC): 6 (Pt will be Ind with all aspects of functional mobility to be at PLOF. ) Walking 10ft on Uneven Surface: 6 (Pt will be Ind with all aspects of functional mobility to be at PLOF. ) 1 Step (curb) (QC): 6 (Pt will be Ind with all aspects of functional mobility to be at PLOF. ) 4 Steps (QC): 6 (Pt will be Ind with all aspects of functional mobility to be at PLOF. ) 12 Steps (QC): 6 (Pt will be Ind with all aspects of functional mobility to be at PLOF. ) Picking up an Object (QC): 6 (Pt will be Ind with all aspects of functional mobility to be at PLOF. ) Does the Pt use WC or Scooter?: No Wheel 50 feet with 2 turns (QC: 9 Type: N/A Wheel 150 feet: 9 Type: N/A PT Plan Problem List Problem List: Activity Tolerance, Functional Strength, Safety, Balance, Gait, Transfer, Bed Mobility Treatment/Plan Treatment Plan: Continue Plan of Care Treatment Plan: Bed Mobility, Concurrent Therapy, Education, Functional Activity Oral, Functional Strength, Group Therapy, Gait, Safety, Therapeutic Exercise, Transfers Treatment Duration: Jan 05, 2023 Frequency: At least 5 of 7 days/Wk (IRF) Estimated Hrs Per Day: 1.5 hours per day Patient and/or Family Agrees t: Yes Safety Risks/Education Patient Education: Gait Training, Transfer Techniques Teaching Recipient: Patient Teaching Methods: Demonstration, Discussion Response to Teaching: Verbalize Understanding, Return Demonstration Discharge Recommendations Therapy Discharge Recommendati: Home & Family Discharge Status/Home Program Cont POC Barriers to Progress pain, NWB R UE Target Placement home with family Time Time In: 1000 Time Out: 1100 DATE: Dec 28, 2022 Total Billed Treatment Time: 60 Total Billed Treatment 60 min 1 visit GT x 1 EX x 1 FA x 2 VIPIN COATS PT Dec 28, 2022 15:10
--- NOTE | 2022-12-28 15:15 | Physical Therapy Progress Note ---
Therapy Progress Note S: Spoke with patient regarding ice pack use for (R) scapular/shoulder/rib pain. Patient agreeable to try. O: Patient in semi-rush position with (R) shoulder immobilizer in place. Cervical ice pack obtained, placed in pillow case, positioned with 1 end directly under (R) scapula with ice pack extending up over right shoulder to fro nt of (R) chest. Patient able to sit up to allow ice pack to be placed without assist. Verbalized that the ice "feels so good" when she rested back in semi- rush position. Towel left within patient's reach for additional padding if ice became too cold. Ice pack left in place 30 minutes. Returned to remove pack which was still in place. Patient stated that it did provide some relief and that she would like to try it again tomorrow. A: Tolerated ice to (R) scapular/shoulder well with some pain relief noted (no numeric pain rating given). Patient wants to utilize ice for pain relief again tomorrow. P: Continue PRN ice use for (R) shoulder/scapula/rib pain. No charge for this intervention. Celeste Evans PT Dec 28, 2022 15:14
--- NOTE | 2022-12-28 19:36 | Consultation-Cardiology ---
HPI-Cardiology Cardiology Consultation: Date of Consultation 12/28/22 Time Seen by a Provider: 19:15 Date of Admission Attending Physician Phoenix Zavala DO Admitting Physician Admitting Physician: Magdalena Ruiz DO Attending Physician: Magdalena Ruiz DO Consulting Physician ARLENE HERNANDEZ MD, MA, FACP, FACC, [facility] [place] CCDS Physician requesting consult: Dr Ruiz HPI: Chief Complaint: Reason for Card consult: Fall Ms. Paredes is a 67 yr old female who we have been asked to see by Dr. Ruiz d/t recent fall. Pt reports she has steep basement stairs with no railing on them at home. She reports she was carrying a ham up the stairs and she turned to turn off the light and when she turned back straight to step up to the next step she lost her footing and fell. She adamantly denies any syncope. She states she remembers the event clearly. She denies any loss of consciousness. She denies any dizziness. She does not take any Rx medications at home prior to this fall. She was treated at [facility] for fractures. She currently has an immobilizer to her left arm. She denies any CP, palpitations, SOB or LE swelling. Review of Systems-Cardiology Review of Systems Constitutional: No chills, No fever, No malaise Eyes: No vision change Ears/Nose/Throat: No epistaxis, No recent hearing loss Respiratory: As described under HPI Cardiovascular: As described under HPI Gastrointestinal: No constipation, No diarrhea, No nausea, No vomiting Genitourinary: No dysuria, No hematuria Musculoskeletal: As describe under HPI Skin: other (bruising to right arm/hand); No rash on exposed areas, No ulcerations on exposed areas Psychiatric/Neurological: No anxiety, No depression, No seizure, No focal weakness, No syncope Hematologic: No bleeding abnormalities All Other Systems Reviewed Negative Unless Noted: Yes LPO-Uwwfgb-Tnbquh Hx Patient Social History Marrital Status: Employed/Student: retired Smoking Status: Never a Smoker Have you traveled recently?: No Alcohol Use?: No Pt feels they are or have been: No Past Medical History PMH As described under Assessment. Family Medical History Family Medical History: She reports her mother had a CVA. Allergies and Home Medications Allergies Coded Allergies: morphine (Verified Allergy, Unknown, 12/27/22) Patient Home Medication List Home Medication List Reviewed: Yes Acetaminophen (Tylenol Extra Strength) 500 Mg Tablet, 1,000 MG PO Q6H, (Reported) Entered as Reported by: CLARENCE HERRERA on 12/27/221352 Last Action: Held Acetaminophen (Tylenol Extra Strength) 500 Mg Tablet, 500-1,000 MG PO Q6H PRN for PAIN-MILD (1-4), (Reported) Entered as Reported by: CLARENCE HERRERA on 12/27/221352 Last Action: Continued Celecoxib (Celecoxib) 200 Mg Capsule, 200 MG PO BID, (Reported) Entered as Reported by: CLARENCE HERREAR on 12/27/221352 Last Action: Converted Cetirizine HCl (Cetirizine HCl) 10 Mg Tablet, 10 MG PO DAILY PRN for ALLERGY SYMPTOMS, (Reported) Entered as Reported by: CLARENCE HERRERA on 12/27/221352 Last Action: Converted Dextran 70/Hypromellose (Lubricating Tears 0.1-0.3% Drp) 0.1 %-0.3 % Drops, 1 DROP OU Q6H PRN for DRY EYES, (Reported) Entered as Reported by: CLARENCE HERRERA on 12/27/221352 Last Action: Converted Gabapentin (Gabapentin) 100 Mg Capsule, 100 MG PO TID, (Reported) Entered as Reported by: CLARENCE HERRERA on 12/27/221352 Last Action: Continued Gabapentin (Gabapentin) 100 Mg Capsule, 100 MG PO DAILY, (Reported) Entered as Reported by: CLARENCE HERRERA on 12/27/221352 Last Action: Continued Lidocaine (Lidocaine 5% Patch) 5 % Adh..patch, 1 EACH TP DAILY, (Reported) Entered as Reported by: CLARENCE HERRERA on 12/27/221352 Last Action: Continued Melatonin (Melatonin) 3 Mg Tablet, 3 MG PO HS, (Reported) Entered as Reported by: CLRAENCE HERRERA on 12/27/221352 Last Action: Continued Methocarbamol (Methocarbamol) 750 Mg Tablet, 750 MG PO TID, (Reported) Entered as Reported by: CLARENCE HERRERA on 12/27/221352 Last Action: Continued Naloxone HCl (Naloxone HCl) 4 Mg/Actuation [place], 1 SPRAY NS UD PRN for OVERDOSE, (Reported) Entered as Reported by: CLARENCE HERRERA on 12/27/221352 Last Action: Converted Oxycodone HCl (Oxycodone HCl) 5 Mg Tablet, 5-10 MG PO Q4- 6H PRN for PAIN-SEVERE (8-10), (Reported) Entered as Reported by: CLARENCE HERRERA on 12/27/221352 Last Action: Continued Polyethylene Glycol 3350 (Miralax) 17 Gram Powd.pack, 17 GM PO DAILY, (Reported) Entered as Reported by: CLARENCE HERRERA on 12/27/221352 Last Action: Continued Sennosides (Senna) 8.6 Mg Tablet, 8.6 MG PO BID, (Reported) Entered as Reported by: CLARENCE HERRERA on 12/27/221352 Last Action: Continued [[place] Xl] , 2 EA PO DAILY, (Reported) Entered as Reported by: CLARENCE HERRERA on 12/27/221352 Last Action: Held [R[employer] Start 4 Life] , 1 EA PO DAILY, (Reported) Entered as Reported by: CLARENCE HERRERA on 12/27/221352 Last Action: Held Physical Exam-Cardiology Physical Exam Vital Signs/I&O 12/28/22 12/28/22 12/28/22 08:07 09:00 13:59 Temp 36.0 Pulse 72 75 Resp 16 B/P (MAP) 129/56 (80) Pulse Ox 92 O2 Delivery Room Air 12/28/22 00:00 Intake Total 500 ml Balance 500 ml Capillary Refill : Constitutional: AAO x 3, well-developed, well-nourished HEENT: PERRL, hearing is well preserved, oral hygience is good Neck: No carotid bruit; carotid pulses are 2 + bilaterally Respiratory: No accessory muscle use, No respiratory distress; chest expansion is symmetric, chest is bilaterally symmetric, lungs clear to auscultation Cardiovascular: regular rate-rhythm; No JVD; S1 and S2 Gastrointestinal: No tender; soft, round, audible bowel sounds Extremities: no lower extremity edema bilateral Neurologic/Psychiatric: grossly intact (moves all extremities; did not move left arm d/t immobilizer sling in place) Skin: other (diffuse brusing to left arm/hand) Data Review Labs Laboratory Tests 12/28/22 06:53: White Blood Count 4.0L, Red Blood Count 3.54L, Hemoglobin 10.5L, Hematocrit 32L, Mean Corpuscular Volume 91, Mean Corpuscular Hemoglobin 30, Mean Corpuscular Hemoglobin Concent 33, Red Cell Distribution Width 13.1, Platelet Count 233, Mean Platelet Volume 9.7, Immature Granulocyte % (Auto) 0, Neutrophils (%) (Auto) 57, Lymphocytes (%) (Auto) 29, Monocytes (%) (Auto) 9, Eosinophils (%) (Auto) 4, Basophils (%) (Auto) 1, Neutrophils # (Auto) 2.3, Lymphocytes # (Auto) 1.1, Monocytes # (Auto) 0.4, Eosinophils # (Auto) 0.2, Basophils # (Auto) 0.0, Immature Granulocyte # (Auto) 0.0, Sodium Level 139, Potassium Level 4.0, Chloride Level 104, Carbon Dioxide Level 25, Anion Gap 10, Blood Urea Nitrogen 20H, Creatinine 0.77, Estimat Glomerular Filtration Rate 85, BUN/Creatinine Ratio 26, Glucose Level 97, Calcium Level 9.3, Corrected Calcium 9.5, Total Bilirubin 0.4, Aspartate Amino Transf (AST/SGOT) 105H, Alanine Aminotransferase (ALT/SGPT) 133H, Alkaline Phosphatase 82, Total Protein 6.9, Albumin 3.7 A/P-Cardiology Assessment/Admission Diagnosis H/O fall at home on 12-19-22 down basement steps - pt denies syncope and reports it was a mechanical fall - resulting in closed fx of acromion, rib fx, pneumothorax and scapular fx - tx at [facility] AoV stenosis - Echocardiogram of 12-20-22 at [facility]: subtle hypokinesis of the inferior wall and apical inferior segments. Abnormal septal motion secondary to underlying LBBB. Calcified aortic valve apparatus with reduced systolic excursion with mod aortic valve stenosis. LVEF 50-55% - pt reports h/o "leaky heart valve" which has been followed by Dr. Vigil (previous PCP) EKG at [facility] reported to show LBBB Elevated liver enzymes of undetermined etiology - Dr Ruiz managing Discussion and Recomendations Recent fall, which per pt reports appears to be mechanical and not syncopal, nevertheless, we will eval for possible arrhythmia/bradycardia - Advise EKG - Advise telemetry for at least 48 hours Monitor lab Replace electrolytes as indicated Records available from [facility] have been reviewed Further recs will be based on her hospital course We would like to thank medical services for this consult ARLENE HERNANDEZ MD FACP FACC CCDS Dec 28, 2022 19:36
[2022-12-28 20:55] VITALS: BP 115/65
[2022-12-28] MEDS: MELATONIN 3 MG TABLET PO SCH (21:45)
[2022-12-29 07:44] VITALS: BP 101/52
--- NOTE | 2022-12-29 08:45 | PM&R Progress Note ---
Subjective HPI/CC On Admission Date Seen by Provider: Dec 29, 2022 Time Seen by Provider: 12:00 Subjective/Events-last exam 12/29/2022: Much improved status Pain is controlled on Oxy No falls 12/28/2022: Patient doing a lot better Changing pain medication to every 4 hours instead of every 8 hours Participating in therapy No falls Bowels are moving Review of Systems General: Fatigue, Malaise Musculoskeletal: arm pain Objective Exam Vital Signs Vital Signs Date Time Temp Pulse Resp B/P (MAP) Pulse Ox O2 Delivery O2 Flow Rate FiO2 12/30/22 01:00 71 12/29/22 21:55 93 Room Air 12/29/22 19:29 37.1 16 123/77 (92) Capillary Refill : General Appearance: No Apparent Distress, WD/WN, Chronically ill HEENT: PERRL/EOMI, Normal ENT Inspection, Pharynx Normal Neck: Full Range of Motion, Normal Inspection, Non Tender, Supple, Carotid Bruit Respiratory: Chest Non Tender, Lungs Clear, Normal Breath Sounds, No Accessory Muscle Use, No Respiratory Distress Cardiovascular: Regular Rate, Rhythm, No Edema, No Gallop, No JVD, No Murmur, Normal Peripheral Pulses Gastrointestinal: Normal Bowel Sounds, No Organomegaly, No Pulsatile Mass, Non Tender, Soft Back: Normal Inspection, CVA Tenderness (L), CVA Tenderness (R), Decreased Range of Motion, Muscle Spasm, Vertebral Tenderness Extremity: Normal Capillary Refill, Normal Inspection, Normal Range of Motion (except right arm ), Non Tender, No Calf Tenderness, No Pedal Edema Neurologic/Psychiatric: Alert, Oriented x3, Normal Mood/Affect, production control coordinating clerk II-XII Norm as Tested, Abnormal Gait, Motor Weakness (generalized weakness) Skin: Normal Color, Warm/Dry, Ecchymosis (right arm and flank) Lymphatic: No Adenopathy Results/Procedures Lab Patient resulted labs reviewed. FIM Transfers Therapy Code Descriptions/Definitions Functional [place] Measure: 0=Not Assessed/NA 4=Minimal Assistance 1=Total Assistance 5=Supervision or Setup 2=Maximal Assistance 6=Modified [place] 3=Moderate Assistance 7=Complete IndependenceSCALE: Activities may be completed with or without assistive devices. 9-Lqxneecznf-nouqtbl completes the activity by him/herself with no assistance from a helper. 5-Set-up or Clean-up Assistance-helper sets up or cleans up; patient completes activity. [place] assists only prior to or following the activity. 4-Supervision or Touching Assistance-helper provides verbal cues and/or touching/steadying and/or contact guard assistance as patient completes activity. Assistance may be provided throughout the activity or intermittently. 3-Partial/Moderate Assistance-helper does LESS THAN HALF the effort. [place] lifts, holds or supports trunk or limbs, but provides less than half the effort. 2-Substantial/Maximal Assistance-helper does MORE THAN HALF the effort. [place] lifts or holds trunk or limbs and provides more than half the effort. 9-Cauwtsamd-dxlvpj does ALL the effort. Patient does none of the effort to complete the activity. Or, the assistance of 2 or more helpers is required for the patient to complete the activity. If activity was not attempted, code reason: 7-Patient Refused. 9-Not Applicable-not attempted and the patient did not perform the activity before the current illness, exacerbation or injury. 10-Not Attempted due to Environmental Limitations-(lack of equipment, weather restraints, etc.). 88-Not Attempted due to Medical Conditions or Safety Concerns. Roll Left to Right (QC): 4 (SBA ) Sit to Lying (QC): 4 (SBA ) Sit to Stand (QC): 4 Chair/Zhh-qg-Nlnsr Xfer(QC): 4 Car Transfer (QC): 4 (SBA ) Gait Training Does the Patient Walk?: Yes Walk 10 feet (QC): 4 Walk 50 ft with 2 Turns(QC): 4 Walk 150 ft (QC): 4 Walking 10ft/uneven surface-QC: 4 (CGA ) Gait Persons Needed: 1 Gait Assistive Device: Cane Single Point Wheelchair Training Does the Pt Use a Wheelchair?: No Wheel 50 ft with 2 turns (QC): 9 Wheel 150 ft (QC): 9 Type of Wheelchair: N/A Stair Training #of Steps: 12 1 Step (curb) (QC): 4 (CGA ) 4 Steps (QC): 4 (CGA ) 12 Steps (QC): 4 (CGA ) Balance Picking up an Object (QC): 4 (SBA ) ADL-Treatment Eating (QC): 6 Oral Hygiene (QC): 6 Shower/Bathe Self (QC): 3 Upper Body Dressing (QC): 4 Lower Body Dressing (QC): 5 On/Off Footwear (QC): 3 (mod A) Toileting Hygiene (QC): 6 Toilet Transfer (QC): 6 Assessment/Plan Assessment and Plan Assess & Plan/Chief Complaint Assessment: Major trauma following 8 foot fall down basement stairs Syncope resulting in fall Right scapula fracture Right acromion fracture Insomnia Plan: Pain control Aggressive rehab Monitor BP Cardiology consult 12/28/2022: Cardiology appreciated Pain control 12/29/2022: Cardiology appreciated (1) Trauma KIMBERLY REYES 2, 2023 08:45
[2022-12-29] MEDS: SENNOSIDES 8.6 MG (SENOKOT) TAB PO SCH ×2 (09:33→21:50)
[2022-12-29] MEDS: DOCUSATE SODIUM 100 MG (COLACE) CAP PO SCH ×2 (09:33→21:59)
[2022-12-29] MEDS: METHOCARBAMOL 750 MG (ROBAXIN) TAB PO SCH ×3 (09:33→22:00)
[2022-12-29] MEDS: CELECOXIB 100 MG (CeleBREX) CAP PO SCH ×2 (09:33→21:59)
[2022-12-29] MEDS: GABAPENTIN 100 MG (NEURONTIN) CAP PO SCH ×3 (09:33→21:59)
[2022-12-29] MEDS: polyethylene glycoL POWDER 17 GM (MIRALAX) PACK PO SCH ×3 (09:34→21:59)
[2022-12-29] MEDS: LIDOCAINE 4% (SALONPAS) PATCH TP SCH (09:34)
[2022-12-29] MEDS: SENNA W/DOCUSATE (SENOKOT S) TABLET PO SCH ×2 (09:34→21:50)
[2022-12-29] MEDS: ENOXAPARIN 40 MG/0.4 ML (LOVENOX) SYR SC SCH (09:35)
--- NOTE | 2022-12-29 09:37 | Physical Therapy Daily Note ---
PT Daily Note-Current Subjective Pt in recliner upon arrival and willing for therapy. pt reports 5/10 pain in right shoulder and has 1 hr before further pain med can be administered. pt was left in room in recliner with call light and all needs met after treatment Pain Section J - Health Conditions 1. Rarely or not at all 2. Occasionally 3. Frequently 4. Almost constantly 8. Unable to answer Pain Effect on Sleep: 4 Pain Interference with Therapy: 4 Pain Interference w/Day-to-Day: 4 Mental Status Patient Orientation: Person, Place, Time, Situation Transfers SCALE: Activities may be completed with or without assistive devices. 2-Eskjzwfwqp-ejlhafo completes the activity by him/herself with no assistance from a helper. 5-Set-up or Clean-up Assistance-helper sets up or cleans up; patient completes activity. [place] assists only prior to or following the activity. 4-Supervision or Touching Assistance-helper provides verbal cues and/or touching/steadying and/or contact guard assistance as patient completes activity. Assistance may be provided throughout the activity or intermittently. 3-Partial/Moderate Assistance-helper does LESS THAN HALF the effort. [place] lifts, holds or supports trunk or limbs, but provides less than half the effort. 2-Substantial/Maximal Assistance-helper does MORE THAN HALF the effort. [place] lifts or holds trunk or limbs and provides more than half the effort. 9-Ddwrsrxha-zhpusx does ALL the effort. Patient does none of the effort to complete the activity. Or, the assistance of 2 or more helpers is required for the patient to complete the activity. If activity was not attempted, code reason: 7-Patient Refused. 9-Not Applicable-not attempted and the patient did not perform the activity before the current illness, exacerbation or injury. 10-Not Attempted due to Environmental Limitations-(lack of equipment, weather restraints, etc.). 88-Not Attempted due to Medical Conditions or Safety Concerns. Weight Bearing Right Lower Extremity: Right Full Weight Bearing Left Lower Extremity: Left Full Weight Bearing NWB R UE with sling in place Exercises Seated Therapy Exercises: Ankle pumps, Sit to stand, Long arc quads, Hip flexion, Kicking activity, Hamstring Curls, Glut set Treatments Pt is able to preform 3 sets of 15 reps with BLE for ther-ex in sitting this day. pt was able to preform one set with red thera band and one set with 2lb ankle weights for increased resistance for further strength. One set was with no add on. pt was able to preform Nu-step for 10 mins at level 2 rest and then preform another 10 mins at level 4 pt is ambulating with SPC with no LOB or fatigue of 200ft with no rest breaks. Assessment Current Status: Excellent Progress PT Custodial Goals Custodial Goals PT Custodial Goals Time Frame: Jan 05, 2023 Roll Left & Right (QC): 6 (Pt will be Ind with all aspects of functional mobility to be at PLOF. ) Sit to Lying (QC): 6 (Pt will be Ind with all aspects of functional mobility to be at PLOF. ) Lying-Sitting on Side/Bed(QC): 6 (Pt will be Ind with all aspects of functional mobility to be at PLOF. ) Sit to Stand (QC): 6 (Pt will be Ind with all aspects of functional mobility to be at PLOF. ) Chair/Njk-ry-Sdcwe Xfer(QC): 6 (Pt will be Ind with all aspects of functional mobility to be at PLOF. ) Toilet Transfer (QC): 6 (Pt will be Ind with all aspects of functional mobility to be at PLOF. ) Car Transfer (QC): 6 (Pt will be Ind with all aspects of functional mobility to be at PLOF. ) Does the Patient Walk: Yes Walk 10 feet (QC): 6 (Pt will be Ind with all aspects of functional mobility to be at PLOF. ) Walk 50ft with 2 Turns (QC): 6 (Pt will be Ind with all aspects of functional mobility to be at PLOF. ) Walk 150 ft (QC): 6 (Pt will be Ind with all aspects of functional mobility to be at PLOF. ) Walking 10ft on Uneven Surface: 6 (Pt will be Ind with all aspects of functional mobility to be at PLOF. ) 1 Step (curb) (QC): 6 (Pt will be Ind with all aspects of functional mobility to be at PLOF. ) 4 Steps (QC): 6 (Pt will be Ind with all aspects of functional mobility to be at PLOF. ) 12 Steps (QC): 6 (Pt will be Ind with all aspects of functional mobility to be at PLOF. ) Picking up an Object (QC): 6 (Pt will be Ind with all aspects of functional mobility to be at PLOF. ) Does the Pt use WC or Scooter?: No Wheel 50 feet with 2 turns (QC: 9 Type: N/A Wheel 150 feet: 9 Type: N/A PT Plan Treatment/Plan Treatment Plan: Continue Plan of Care Treatment Plan: Bed Mobility, Concurrent Therapy, Education, Functional Activity Oral, Functional Strength, Group Therapy, Gait, Safety, Therapeutic Exercise, Transfers Treatment Duration: Jan 05, 2023 Frequency: At least 5 of 7 days/Wk (IRF) Estimated Hrs Per Day: 1.5 hours per day Patient and/or Family Agrees t: Yes Time Time In: 0800 Time Out: 929 DATE: Dec 29, 2022 Total Billed Treatment Time: 90 Total Billed Treatment 1 GT EX x 3 FA x 2 Maddie Dhaliwal PROFESSOR OF PRACTICE Dec 29, 2022 09:37
--- NOTE | 2022-12-29 12:55 | Progress Note - Cardiology ---
Cardiology SOAP Progress Note Objective: I&O/Vital Signs 01/01/23 01/01/23 07:33 09:01 Temp 36.0 Pulse 75 Resp 14 B/P (MAP) 106/60 (75) Pulse Ox 96 O2 Delivery Room Air Room Air 01/01/23 00:00 Intake Total 1100 ml Balance 1100 ml Weight (Pounds): 221 Constitutional: AAO x 3, well-developed, well-nourished Respiratory: No accessory muscle use, No respiratory distress; chest expansion is symmetric, chest is bilaterally symmetric, lungs clear to auscultation Cardiovascular: regular rate-rhythm; No JVD; S1 and S2 Gastrointestional: No tender; soft, round, audible bowel sounds Extremities: no lower extremity edema bilateral Neurologic/Psychiatric: grossly intact (moves all extremities; did not move left arm d/t immobilizer sling in place) Skin: other (diffuse brusing to left arm/hand) Results/Procedures: Labs Laboratory Tests 01/01/23 06:50: White Blood Count 4.3, Red Blood Count 3.96, Hemoglobin 11.8, Hematocrit 36, Mean Corpuscular Volume 91, Mean Corpuscular Hemoglobin 30, Mean Corpuscular Hemoglobin Concent 33, Red Cell Distribution Width 12.8, Platelet Count 248, Mean Platelet Volume 10.3, Immature Granulocyte % (Auto) 0, Neutrophils (%) (Auto) 50, Lymphocytes (%) (Auto) 36, Monocytes (%) (Auto) 9, Eosinophils (%) (Auto) 4, Basophils (%) (Auto) 1, Neutrophils # (Auto) 2.1, Lymphocytes # (Auto) 1.5, Monocytes # (Auto) 0.4, Eosinophils # (Auto) 0.2, Basophils # (Auto) 0.0, Immature Granulocyte # (Auto) 0.0 01/01/23 07:41: Sodium Level 137, Potassium Level 4.2, Chloride Level 104, Carbon Dioxide Level 22, Anion Gap 11, Blood Urea Nitrogen 15, Creatinine 0.84, Estimat Glomerular Filtration Rate 77, BUN/Creatinine Ratio 18, Glucose Level 122H, Calcium Level 9.0, Corrected Calcium 9.0, Total Bilirubin 0.4, Aspartate Amino Transf (AST/SGOT) 27, Alanine Aminotransferase (ALT/SGPT) 68H, Alkaline Phosphatase 12 0, Total Protein 7.5, Albumin 4.0 A/P: Assessment: H/O fall at home on 12-19-22 down basement steps - pt denies syncope and reports it was a mechanical fall - resulting in closed fx of acromion, rib fx, pneumothorax and scapular fx - tx at [facility] AoV stenosis - Echocardiogram of 12-20-22 at [facility]: subtle hypokinesis of the inferior wall and apical inferior segments. Abnormal septal motion secondary to underlying LBBB. Calcified aortic valve apparatus with reduced systolic excursion with mod aortic valve stenosis. LVEF 50-55% - pt reports h/o "leaky heart valve" which has been followed by Dr. Vigil (previous PCP) EKG at [facility] reported to show LBBB Elevated liver enzymes of undetermined etiology - Dr Ruiz managing Plan: Recent fall, which per pt reports appears to be mechanical and not syncopal, nevertheless, we will eval for possible arrhythmia/bradycardia - Advise telemetry for at least 48 hours - no bradycardia or arrhythmia seen thus far Monitor lab Replace electrolytes as indicated KIMBER ORTA Dec 29, 2022 12:55
[2022-12-29] MEDS ORDERED: NAPR220T66 PO (14:54)
--- NOTE | 2022-12-29 14:57 | Occupational Ther Daily Note ---
OT Current Status-Daily Note Subjective Pt alert, sitting in recliner. Pt agrees to therapy. Pt had just received pain meds. Pt stated that she has walk-in shower and needs bath chair. Mental Status/Objective Patient Orientation: Person, Place, Time, Situation Attachments: Other-See Comments (shldr sling) ADL-Treatment Pt agrees to shower. Setup for shower then pt using shower bench, grabbars and hand held shower to complete. Assist to complete UBD due to R shldr pain. LBD SBA. Set up for footwear. After session, pt lying in bed with call light/phone in reach. Ice pack placed on R shldr. Therapy Code Descriptions/Definitions Functional [place] Measure: 0=Not Assessed/NA 4=Minimal Assistance 1=Total Assistance 5=Supervision or Setup 2=Maximal Assistance 6=Modified [place] 3=Moderate Assistance 7=Complete IndependenceSCALE: Activities may be completed with or without assistive devices. 3-Gkjsivmejx-qbehdbh completes the activity by him/herself with no assistance from a helper. 5-Set-up or Clean-up Assistance-helper sets up or cleans up; patient completes activity. [place] assists only prior to or following the activity. 4-Supervision or Touching Assistance-helper provides verbal cues and/or touching/steadying and/or contact guard assistance as patient completes activity. Assistance may be provided throughout the activity or intermittently. 3-Partial/Moderate Assistance-helper does LESS THAN HALF the effort. [place] lifts, holds or supports trunk or limbs, but provides less than half the effort. 2-Substantial/Maximal Assistance-helper does MORE THAN HALF the effort. [place] lifts or holds trunk or limbs and provides more than half the effort. 5-Xejowxlde-sixiyx does ALL the effort. Patient does none of the effort to complete the activity. Or, the assistance of 2 or more helpers is required for the patient to complete the activity. If activity was not attempted, code reason: 7-Patient Refused. 9-Not Applicable-not attempted and the patient did not perform the activity before the current illness, exacerbation or injury. 10-Not Attempted due to Environmental Limitations-(lack of equipment, weather restraints, etc.). 88-Not Attempted due to Medical Conditions or Safety Concerns. Shower/Bathe Self (QC): 5 Upper Body Dressing (QC): 3 Lower Body Dressing (QC): 4 On/Off Footwear: 5 Toileting Hygiene (QC): 6 Toilet Transfer (QC): 6 OT Crusher Feeder Goals Fpc Goals Time Frame: Jan 12, 2023 Acute change in mental status: 0 Inattention: 0 Disorganized thinkin Altered level of consciousness: 0 Eating (QC): 6 Oral Hygiene (QC): 6 Toileting Hygiene (QC): 6 Shower/Bathe Self (QC): 6 Upper Body Dressing (QC): 6 Lower Body Dressing (QC): 6 On/Off Footwear (QC): 6 Additional Goals: 1-Demonstrate ADL Tasks, 2-Verbalize Understanding, 3- ImproveStrength/Oral 1=Demonstrate adherence to instructed precautions during ADL tasks. 2=Patient will verbalize/demonstrate understanding of assistive devices/modifications for ADL. 3=Patient will improve strength/tolerance for activity to enable patient to perform ADL's. OT Education/Plan Problem List/Assessment Assessment: Impaired Self-Care Skills, Restricted Funct UE ROM (R UE) Discharge Recommendations Plan/Recommendations: Continue POC Treatment Plan/Plan of Care Patient would benefit from OT for education, treatment and training to promote independence in ADL's, mobility, safety and/or upper extremity function for ADL's. Plan of Care: ADL Retraining, Functional Mobility, Group Exercise/Act as Ind, UE Funct Exercise/Act Treatment Duration: Jan 12, 2023 Frequency: At least 5 of 7 days/Wk (IRF) Estimated Hrs Per Day: 1.5 hours per day Agreement: Yes Rehab Potential: Good Time Start Time: 10:15 Stop Time: 11:00 DATE: Dec 29, 2022 Total Time Billed (hr/min): 45 Billed Treatment Time 1 visit-ADL 3 (45 min) BOUCHRA HOWARD Dec 29, 2022 14:57
--- NOTE | 2022-12-29 15:09 | Occupational Ther Daily Note ---
OT Current Status-Daily Note Subjective Pt alert, sitting in recliner. Pt agrees to therapy. Pt requests pain pill, nrsg notified. Nrsg brought pain pills during therapy. Mental Status/Objective Patient Orientation: Person, Place, Time, Situation Attachments: Other-See Comments (shldr sling/brace) ADL-Treatment Therapy Code Descriptions/Definitions Functional [place] [employer] Measure: 0=Not Assessed/NA 4=Minimal Assistance 1=Total Assistance 5=Supervision or Setup 2=Maximal Assistance 6=Modified [place] [employer] 3=Moderate Assistance 7=Complete IndependenceSCALE: Activities may be completed with or without assistive devices. 2-Yiwqrnquzz-mffwuty completes the activity by him/herself with no assistance from a helper. 5-Set-up or Clean-up Assistance-helper sets up or cleans up; patient completes activity. [place] assists only prior to or following the activity. 4-Supervision or Touching Assistance-helper provides verbal cues and/or touchin g/steadying and/or contact guard assistance as patient completes activity. Assistance may be provided throughout the activity or intermittently. 3-Partial/Moderate Assistance-helper does LESS THAN HALF the effort. [place] lifts, holds or supports trunk or limbs, but provides less than half the effort. 2-Substantial/Maximal Assistance-helper does MORE THAN HALF the effort. [place] lifts or holds trunk or limbs and provides more than half the effort. 2-Dcxcusvvw-dalhuj does ALL the effort. Patient does none of the effort to complete the activity. Or, the assistance of 2 or more helpers is required for the patient to complete the activity. If activity was not attempted, code reason: 7-Patient Refused. 9-Not Applicable-not attempted and the patient did not perform the activity before the current illness, exacerbation or injury. 10-Not Attempted due to Environmental Limitations-(lack of equipment, weather restraints, etc.). 88-Not Attempted due to Medical Conditions or Safety Concerns. Oral Hygiene (QC): 6 (Standing at sink) On/Off Footwear: 5 Toileting Hygiene (QC): 6 Toilet Transfer (QC): 6 Other Treatment Pt given HEP for use when not in therapy. 1# and 2# hand wt alonge with medium/heavy therapy sponge given to pt with HEP to complete wrist and hand strengthening 3 sets 10 reps of wrist flex/ext/uln dev/rad dev and pinch milk pickup driver. Pt able to complete hand wt exercises 3 sets 10 reps of each without difficulty. 1 set 10 reps of therapy sponge exercises. Skilled instruction for correct technique and modifications when needed. After therapy, pt lying in bed with call light/phone in reach. All needs met in room. OT Vice President Quality Improvement Goals Usp Goals Time Frame: Jan 12, 2023 Acute change in mental status: 0 Inattention: 0 Disorganized thinkin Altered level of consciousness: 0 Eating (QC): 6 Oral Hygiene (QC): 6 Toileting Hygiene (QC): 6 Shower/Bathe Self (QC): 6 Upper Body Dressing (QC): 6 Lower Body Dressing (QC): 6 On/Off Footwear (QC): 6 Additional Goals: 1-Demonstrate ADL Tasks, 2-Verbalize Understanding, 3- ImproveStrength/Oral 1=Demonstrate adherence to instructed precautions during ADL tasks. 2=Patient will verbalize/demonstrate understanding of assistive devices/modifications for ADL. 3=Patient will improve strength/tolerance for activity to enable patient to perform ADL's. OT Education/Plan Problem List/Assessment Assessment: Decreased Activ Tolerance, Decreased UE Strength, Impaired Self- Care Skills, Restricted Funct UE ROM Discharge Recommendations Plan/Recommendations: Continue POC Treatment Plan/Plan of Care Patient would benefit from OT for education, treatment and training to promote independence in ADL's, mobility, safety and/or upper extremity function for ADL's. Plan of Care: ADL Retraining, Functional Mobility, Group Exercise/Act as Ind, UE Funct Exercise/Act Treatment Duration: Jan 12, 2023 Frequency: At least 5 of 7 days/Wk (IRF) Estimated Hrs Per Day: 1.5 hours per day Agreement: Yes Rehab Potential: Good Time Start Time: 13:30 Stop Time: 14:15 DATE: Dec 29, 2022 Total Time Billed (hr/min): 45 Billed Treatment Time 1 visit-ADL 1 (15 min) EX 2 (30 min) BOUCHRA HOWARD Dec 29, 2022 15:09
--- NOTE | 2022-12-29 18:22 | Progress Note - Cardiology ---
Cardiology SOAP Progress Note Subjective: No cp or palp or syncope or shortness of breath at rest No n/v/d No focal weakness Gen weakness and malaise present Objective: I&O/Vital Signs 12/29/22 12/29/22 12/29/22 12/29/22 07:00 07:44 09:00 13:00 Temp 36.4 Pulse 70 78 97 Resp 18 B/P (MAP) 101/52 (68) Pulse Ox 92 O2 Delivery Room Air Room Air 12/29/22 00:00 Intake Total 960 ml Balance 960 ml Weight (Pounds): 221 Constitutional: AAO x 3, well-developed, well-nourished Respiratory: No accessory muscle use, No respiratory distress; chest expansion is symmetric, chest is bilaterally symmetric, lungs clear to auscultation Cardiovascular: regular rate-rhythm; No JVD; S1 and S2, systolic murmur (2-3/6 MSM) Gastrointestional: No tender; soft, round, audible bowel sounds Extremities: no lower extremity edema bilateral Neurologic/Psychiatric: other (moves all limbs, R arm in sling (no motion attempted)) Skin: other (diffuse brusing to left arm/hand) Results/Procedures: Labs Laboratory Tests 12/28/22 06:53 A/P: Assessment: H/O fall at home on 12-19-22 down basement steps - pt denies syncope and reports it was a mechanical fall - resulting in closed fx of acromion, rib fx, pneumothorax and scapular fx - tx at [facility] AoV stenosis - Echocardiogram of 12-20-22 at [facility]: subtle hypokinesis of the inferior wall and apical inferior segments. Abnormal septal motion secondary to underlying LB BB. Calcified aortic valve apparatus with reduced systolic excursion with mod aortic valve stenosis. LVEF 50-55% EKG at [facility] reported to show LBBB Elevated liver enzymes of undetermined etiology - Dr Ruiz managing Plan: * Continue tele another 24 hours * I discussed her CV issues with her and answered questions * Monitor labs from time time ARLENE HERNANDEZ MD FACP [facility] Dec 29, 2022 18:22
[2022-12-29 19:29] VITALS: BP 123/77
[2022-12-29] MEDS: MELATONIN 3 MG TABLET PO SCH (22:00)
--- NOTE | 2022-12-30 06:33 | PM&R Progress Note ---
Subjective HPI/CC On Admission Date Seen by Provider: Dec 30, 2022 Time Seen by Provider: 12:00 Subjective/Events-last exam 12/30/2022: Patient doing much better Pain is controlled No falls Bowels are moving 12/29/2022: Much improved status Pain is controlled on Oxy No falls 12/28/2022: Patient doing a lot better Changing pain medication to every 4 hours instead of every 8 hours Participating in therapy No falls Bowels are moving Review of Systems General: Fatigue, Malaise Objective Exam Vital Signs Vital Signs Date Time Temp Pulse Resp B/P (MAP) Pulse Ox O2 Delivery O2 Flow Rate FiO2 12/30/22 13:00 78 12/30/22 09:00 Room Air 12/30/22 07:18 36.5 20 104/68 (80) 92 Capillary Refill : General Appearance: No Apparent Distress, WD/WN, Chronically ill HEENT: PERRL/EOMI, Normal ENT Inspection, Pharynx Normal Neck: Full Range of Motion, Normal Inspection, Non Tender, Supple, Carotid Bruit Respiratory: Chest Non Tender, Lungs Clear, Normal Breath Sounds, No Accessory Muscle Use, No Respiratory Distress Cardiovascular: Regular Rate, Rhythm, No Edema, No Gallop, No JVD, No Murmur, Normal Peripheral Pulses Gastrointestinal: Normal Bowel Sounds, No Organomegaly, No Pulsatile Mass, Non Tender, Soft Back: Normal Inspection, CVA Tenderness (L), CVA Tenderness (R), Decreased Range of Motion, Muscle Spasm, Vertebral Tenderness Extremity: Normal Capillary Refill, Normal Inspection, Normal Range of Motion (except right arm ), Non Tender, No Calf Tenderness, No Pedal Edema Neurologic/Psychiatric: Alert, Oriented x3, Normal Mood/Affect, slide maker II-XII Norm as Tested, Abnormal Gait, Motor Weakness (generalized weakness) Skin: Normal Color, Warm/Dry, Ecchymosis (right arm and flank) Lymphatic: No Adenopathy Results/Procedures Lab Patient resulted labs reviewed. FIM Transfers Therapy Code Descriptions/Definitions Functional [place] Measure: 0=Not Assessed/NA 4=Minimal Assistance 1=Total Assistance 5=Supervision or Setup 2=Maximal Assistance 6=Modified [place] 3=Moderate Assistance 7=Complete IndependenceSCALE: Activities may be completed with or without assistive devices. 4-Pxusbjhcfn-qtgsara completes the activity by him/herself with no assistance from a helper. 5-Set-up or Clean-up Assistance-helper sets up or cleans up; patient completes activity. [place] assists only prior to or following the activity. 4-Supervision or Touching Assistance-helper provides verbal cues and/or touching/steadying and/or contact guard assistance as patient completes activity. Assistance may be provided throughout the activity or intermittently. 3-Partial/Moderate Assistance-helper does LESS THAN HALF the effort. [place] lifts, holds or supports trunk or limbs, but provides less than half the effort. 2-Substantial/Maximal Assistance-helper does MORE THAN HALF the effort. [place] lifts or holds trunk or limbs and provides more than half the effort. 3-Ddjoqhcsu-kajwpi does ALL the effort. Patient does none of the effort to complete the activity. Or, the assistance of 2 or more helpers is required for the patient to complete the activity. If activity was not attempted, code reason: 7-Patient Refused. 9-Not Applicable-not attempted and the patient did not perform the activity before the current illness, exacerbation or injury. 10-Not Attempted due to Environmental Limitations-(lack of equipment, weather restraints, etc.). 88-Not Attempted due to Medical Conditions or Safety Concerns. Roll Left to Right (QC): 4 (SBA ) Sit to Lying (QC): 4 (SBA ) Sit to Stand (QC): 4 Chair/Vve-ux-Juuwt Xfer(QC): 4 Car Transfer (QC): 4 (SBA ) Gait Training Does the Patient Walk?: Yes Walk 10 feet (QC): 4 Walk 50 ft with 2 Turns(QC): 4 Walk 150 ft (QC): 4 Walking 10ft/uneven surface-QC: 4 (CGA ) Gait Persons Needed: 1 Gait Assistive Device: Cane Single Point Wheelchair Training Does the Pt Use a Wheelchair?: No Wheel 50 ft with 2 turns (QC): 9 Wheel 150 ft (QC): 9 Type of Wheelchair: N/A Stair Training #of Steps: 12 1 Step (curb) (QC): 4 (CGA ) 4 Steps (QC): 4 (CGA ) 12 Steps (QC): 4 (CGA ) Balance Picking up an Object (QC): 4 (SBA ) ADL-Treatment Eating (QC): 6 Oral Hygiene (QC): 6 (Standing at sink) Shower/Bathe Self (QC): 5 Upper Body Dressing (QC): 3 Lower Body Dressing (QC): 4 On/Off Footwear (QC): 5 Toileting Hygiene (QC): 6 Toilet Transfer (QC): 6 Assessment/Plan Assessment and Plan Assess & Plan/Chief Complaint Assessment: Major trauma following 8 foot fall down basement stairs Syncope resulting in fall Right scapula fracture Right acromion fracture Insomnia Plan: Pain control Aggressive rehab Monitor BP Cardiology consult 12/28/2022: Cardiology appreciated Pain control 12/29/2022: Cardiology appreciated 12/30/2022: Continue pain meds (1) Trauma KIMBERLY REYES 3, 2023 06:33
[2022-12-30 07:18] VITALS: BP 104/68
[2022-12-30] MEDS: DOCUSATE SODIUM 100 MG (COLACE) CAP PO SCH ×2 (08:58→20:26)
[2022-12-30] MEDS: SENNA W/DOCUSATE (SENOKOT S) TABLET PO SCH ×2 (08:58→20:30)
[2022-12-30] MEDS: CELECOXIB 100 MG (CeleBREX) CAP PO SCH ×2 (08:58→20:26)
[2022-12-30] MEDS: GABAPENTIN 100 MG (NEURONTIN) CAP PO SCH ×3 (08:58→20:25)
[2022-12-30] MEDS: METHOCARBAMOL 750 MG (ROBAXIN) TAB PO SCH ×3 (08:58→20:26)
[2022-12-30] MEDS: polyethylene glycoL POWDER 17 GM (MIRALAX) PACK PO SCH ×3 (09:00→20:25)
[2022-12-30] MEDS: ENOXAPARIN 40 MG/0.4 ML (LOVENOX) SYR SC SCH (09:02)
[2022-12-30] MEDS: LIDOCAINE 4% (SALONPAS) PATCH TP SCH (09:03)
[2022-12-30] MEDS: SENNOSIDES 8.6 MG (SENOKOT) TAB PO SCH ×2 (09:03→20:30)
--- NOTE | 2022-12-30 14:11 | Progress Note - Cardiology ---
Cardiology SOAP Progress Note Subjective: No cp or palp or syncope or shortness of breath No n/v/d No focal weakness Gen weakness and malaise present Objective: I&O/Vital Signs 12/30/22 12/30/22 12/30/22 12/30/22 07:00 07:18 09:00 13:00 Temp 36.5 Pulse 78 75 78 Resp 20 B/P (MAP) 104/68 (80) Pulse Ox 92 O2 Delivery Room Air Room Air 12/30/22 00:00 Intake Total 410 ml Balance 410 ml Weight (Pounds): 221 Constitutional: AAO x 3, well-developed, well-nourished Respiratory: No accessory muscle use, No respiratory distress; chest expansion is symmetric, chest is bilaterally symmetric, lungs clear to auscultation Cardiovascular: regular rate-rhythm; No JVD; S1 and S2, systolic murmur (2-10/02 MSM) Gastrointestional: No tender; soft, round, audible bowel sounds Extremities: no lower extremity edema bilateral Neurologic/Psychiatric: other (moves all limbs, R arm in sling (no motion attempted)) Skin: other (diffuse brusing to left arm/hand) A/P: Assessment: H/O fall at home on 12-19-22 down basement steps - pt denies syncope and reports it was a mechanical fall - resulting in closed fx of acromion, rib fx, pneumothorax and scapular fx - tx at [facility] AoV stenosis - Echocardiogram of 12-20-22 at [facility]: subtle hypokinesis of the inferior wall and apical inferior segments. Abnormal septal motion secondary to underlying LBBB. Calcified aortic valve apparatus with reduced systolic excursion with mod aortic valve stenosis. LVEF 50-55% EKG at [facility] reported to show LBBB Elevated liver enzymes of undetermined etiology - Dr Ruiz managing Plan: * Wants off tele. No significant arrhythmias seen. D/c tele * Monitor labs from time time ARLENE HERNANDEZ MD [facility]S Dec 30, 2022 14:11
[2022-12-30 19:41] VITALS: BP 133/63
[2022-12-30] MEDS: MELATONIN 3 MG TABLET PO SCH (20:26)
--- NOTE | 2022-12-31 06:17 | PM&R Progress Note ---
Subjective HPI/CC On Admission Date Seen by Provider: Dec 31, 2022 Time Seen by Provider: 12:00 Subjective/Events-last exam 12/31/2022: Much improved Pain controlled BM+ No falls Improved 12/30/2022: Patient doing much better Pain is controlled No falls Bowels are moving 12/29/2022: Much improved status Pain is controlled on Oxy No falls 12/28/2022: Patient doing a lot better Changing pain medication to every 4 hours instead of every 8 hours Participating in therapy No falls Bowels are moving Review of Systems General: Fatigue, Malaise Objective Exam Vital Signs Vital Signs Date Time Temp Pulse Resp B/P (MAP) Pulse Ox O2 Delivery O2 Flow Rate FiO2 12/31/22 09:48 Room Air 12/31/22 08:00 36.4 81 18 110/59 (76) 94 Capillary Refill : General Appearance: No Apparent Distress, WD/WN, Chronically ill HEENT: PERRL/EOMI, Normal ENT Inspection, Pharynx Normal Neck: Full Range of Motion, Normal Inspection, Non Tender, Supple, Carotid Bruit Respiratory: Chest Non Tender, Lungs Clear, Normal Breath Sounds, No Accessory Muscle Use, No Respiratory Distress Cardiovascular: Regular Rate, Rhythm, No Edema, No Gallop, No JVD, No Murmur, Normal Peripheral Pulses Gastrointestinal: Normal Bowel Sounds, No Organomegaly, No Pulsatile Mass, Non Tender, Soft Back: Normal Inspection, CVA Tenderness (L), CVA Tenderness (R), Decreased Range of Motion, Muscle Spasm, Vertebral Tenderness Extremity: Normal Capillary Refill, Normal Inspection, Normal Range of Motion (except right arm ), Non Tender, No Calf Tenderness, No Pedal Edema Neurologic/Psychiatric: Alert, Oriented x3, Normal Mood/Affect, certified nurse II-XII Norm as Tested, Abnormal Gait, Motor Weakness (generalized weakness) Skin: Normal Color, Warm/Dry, Ecchymosis (right arm and flank) Lymphatic: No Adenopathy Results/Procedures Lab Patient resulted labs reviewed. FIM Transfers Therapy Code Descriptions/Definitions Functional [place] Measure: 0=Not Assessed/NA 4=Minimal Assistance 1=Total Assistance 5=Supervision or Setup 2=Maximal Assistance 6=Modified [place] 3=Moderate Assistance 7=Complete IndependenceSCALE: Activities may be completed with or without assistive devices. 6-Vxcodnknvt-sifefws completes the activity by him/herself with no assistance from a helper. 5-Set-up or Clean-up Assistance-helper sets up or cleans up; patient completes activity. [place] assists only prior to or following the activity. 4-Supervision or Touching Assistance-helper provides verbal cues and/or touching/steadying and/or contact guard assistance as patient completes activity. Assistance may be provided throughout the activity or intermittently. 3-Partial/Moderate Assistance-helper does LESS THAN HALF the effort. [place] lifts, holds or supports trunk or limbs, but provides less than half the effort. 2-Substantial/Maximal Assistance-helper does MORE THAN HALF the effort. [place] lifts or holds trunk or limbs and provides more than half the effort. 2-Kjmlcuzgk-ozxtoa does ALL the effort. Patient does none of the effort to complete the activity. Or, the assistance of 2 or more helpers is required for the patient to complete the activity. If activity was not attempted, code reason: 7-Patient Refused. 9-Not Applicable-not attempted and the patient did not perform the activity before the current illness, exacerbation or injury. 10-Not Attempted due to Environmental Limitations-(lack of equipment, weather restraints, etc.). 88-Not Attempted due to Medical Conditions or Safety Concerns. Roll Left to Right (QC): 4 (SBA ) Sit to Lying (QC): 4 (SBA ) Sit to Stand (QC): 4 Chair/Mop-ju-Ikrea Xfer(QC): 4 Car Transfer (QC): 4 (SBA ) Gait Training Does the Patient Walk?: Yes Walk 10 feet (QC): 4 Walk 50 ft with 2 Turns(QC): 4 Walk 150 ft (QC): 4 Walking 10ft/uneven surface-QC: 4 (CGA ) Gait Persons Needed: 1 Gait Assistive Device: Cane Single Point Wheelchair Training Does the Pt Use a Wheelchair?: No Wheel 50 ft with 2 turns (QC): 9 Wheel 150 ft (QC): 9 Type of Wheelchair: N/A Stair Training #of Steps: 12 1 Step (curb) (QC): 4 (CGA ) 4 Steps (QC): 4 (CGA ) 12 Steps (QC): 4 (CGA ) Balance Picking up an Object (QC): 4 (SBA ) ADL-Treatment Eating (QC): 6 Oral Hygiene (QC): 6 (Standing at sink) Shower/Bathe Self (QC): 5 Upper Body Dressing (QC): 3 Lower Body Dressing (QC): 4 On/Off Footwear (QC): 5 Toileting Hygiene (QC): 6 Toilet Transfer (QC): 6 Assessment/Plan Assessment and Plan Assess & Plan/Chief Complaint Assessment: Major trauma following 8 foot fall down basement stairs Syncope resulting in fall Right scapula fracture Right acromion fracture Insomnia Plan: Pain control Aggressive rehab Monitor BP Cardiology consult 12/28/2022: Cardiology appreciated Pain control 12/29/2022: Cardiology appreciated 12/30/2022: Continue pain meds 12/31/2022: Improved overall (1) Trauma KIMBERLY REYES DO Dec 31, 2022 06:17
[2022-12-31 08:00] VITALS: BP 110/59
[2022-12-31] MEDS: CELECOXIB 100 MG (CeleBREX) CAP PO SCH ×2 (08:26→21:47)
[2022-12-31] MEDS: GABAPENTIN 100 MG (NEURONTIN) CAP PO SCH ×3 (08:26→21:47)
[2022-12-31] MEDS: DOCUSATE SODIUM 100 MG (COLACE) CAP PO SCH ×2 (08:26→21:47)
[2022-12-31] MEDS: LIDOCAINE 4% (SALONPAS) PATCH TP SCH (08:26)
[2022-12-31] MEDS: SENNA W/DOCUSATE (SENOKOT S) TABLET PO SCH ×2 (08:29→21:48)
[2022-12-31] MEDS: polyethylene glycoL POWDER 17 GM (MIRALAX) PACK PO SCH ×3 (08:29→21:47)
[2022-12-31] MEDS: SENNOSIDES 8.6 MG (SENOKOT) TAB PO SCH ×2 (08:29→21:48)
[2022-12-31] MEDS: ENOXAPARIN 40 MG/0.4 ML (LOVENOX) SYR SC SCH (08:29)
[2022-12-31] MEDS: METHOCARBAMOL 750 MG (ROBAXIN) TAB PO SCH ×3 (08:32→21:47)
--- NOTE | 2022-12-31 11:42 | Progress Note - Cardiology ---
Cardiology SOAP Progress Note Subjective: No cp or palp or syncope or shortness of breath No n/v/d No focal weakness Gen weakness present Objective: I&O/Vital Signs 12/31/22 12/31/22 08:00 09:48 Temp 36.4 Pulse 81 Resp 18 B/P (MAP) 110/59 (76) Pulse Ox 94 O2 Delivery Room Air Room Air 12/31/22 00:00 Intake Total 1200 ml Balance 1200 ml Weight (Pounds): 221 Constitutional: AAO x 3, well-developed, well-nourished Respiratory: No accessory muscle use, No respiratory distress; chest expansion is symmetric, chest is bilaterally symmetric, lungs clear to auscultation Cardiovascular: regular rate-rhythm; No JVD; S1 and S2, systolic murmur (2-3/6 MSM) Gastrointestional: No tender; soft, round, audible bowel sounds Extremities: no lower extremity edema bilateral Neurologic/Psychiatric: other (moves all limbs, R arm in sling (no motion attempted)) Skin: other (diffuse brusing to left arm/hand) A/P: Assessment: H/O fall at home on 12-19-22 down basement steps - pt denies syncope and reports it was a mechanical fall - resulting in closed fx of acromion, rib fx, pneumothorax and scapular fx - tx at [facility] AoV stenosis - Echocardiogram of 12-20-22 at [facility]: subtle hypokinesis of the inferior wall and apical inferior segments. Abnormal septal motion secondary to underlying LBBB. Calcified aortic valve apparatus with reduced systolic excursion with mod aortic valve stenosis. LVEF 50-55% EKG at [facility] reported to show LBBB Elevated liver enzymes of undetermined etiology - Dr Ruiz managing Plan: * Advised f/u on aortic stenosis on outpatient basis * Monitor labs from time time ARLENE HERNANDEZ MD FACP [facility] CCDS Dec 31, 2022 11:42
[2022-12-31 19:45] VITALS: BP 123/63
[2022-12-31] MEDS: MELATONIN 3 MG TABLET PO SCH (21:48)
--- NOTE | 2023-01-01 06:33 | PM&R Progress Note ---
Subjective HPI/CC On Admission Date Seen by Provider: Jan 01, 2023 Time Seen by Provider: 09:00 Subjective/Events-last exam 01/01/2023: Patient much improved Bowels are moving Liver enzymes are much improved 12/31/2022: Much improved Pain controlled BM+ No falls Improved 12/30/2022: Patient doing much better Pain is controlled No falls Bowels are moving 12/29/2022: Much improved status Pain is controlled on Oxy No falls 12/28/2022: Patient doing a lot better Changing pain medication to every 4 hours instead of every 8 hours Participating in therapy No falls Bowels are moving Review of Systems General: Fatigue, Malaise Objective Exam Vital Signs Vital Signs Date Time Temp Pulse Resp B/P (MAP) Pulse Ox O2 Delivery O2 Flow Rate FiO2 01/01/23 09:01 Room Air 01/01/23 07:33 36.0 75 14 106/60 (75) 96 Capillary Refill : General Appearance: No Apparent Distress, WD/WN, Chronically ill HEENT: PERRL/EOMI, Normal ENT Inspection, Pharynx Normal Neck: Full Range of Motion, Normal Inspection, Non Tender, Supple, Carotid Bruit Respiratory: Chest Non Tender, Lungs Clear, Normal Breath Sounds, No Accessory Muscle Use, No Respiratory Distress Cardiovascular: Regular Rate, Rhythm, No Edema, No Gallop, No JVD, No Murmur, Normal Peripheral Pulses Gastrointestinal: Normal Bowel Sounds, No Organomegaly, No Pulsatile Mass, Non Tender, Soft Back: Normal Inspection, CVA Tenderness (L), CVA Tenderness (R), Decreased Range of Motion, Muscle Spasm, Vertebral Tenderness Extremity: Normal Capillary Refill, Normal Inspection, Normal Range of Motion (except right arm ), Non Tender, No Calf Tenderness, No Pedal Edema Neurologic/Psychiatric: Alert, Oriented x3, Normal Mood/Affect, anode crew supervisor II-XII Norm as Tested, Abnormal Gait, Motor Weakness (generalized weakness) Skin: Normal Color, Warm/Dry, Ecchymosis (right arm and flank) Lymphatic: No Adenopathy Results/Procedures Lab Laboratory Tests 01/01/23 06:50 01/01/23 07:41 Patient resulted labs reviewed. FIM Transfers Therapy Code Descriptions/Definitions Functional [place] Measure: 0=Not Assessed/NA 4=Minimal Assistance 1=Total Assistance 5=Supervision or Setup 2=Maximal Assistance 6=Modified [place] 3=Moderate Assistance 7=Complete IndependenceSCALE: Activities may be completed with or without assistive devices. 2-Eaboillwgt-lygdfzg completes the activity by him/herself with no assistance from a helper. 5-Set-up or Clean-up Assistance-helper sets up or cleans up; patient completes activity. [place] assists only prior to or following the activity. 4-Supervision or Touching Assistance-helper provides verbal cues and/or touching/steadying and/or contact guard assistance as patient completes activity. Assistance may be provided throughout the activity or intermittently. 3-Partial/Moderate Assistance-helper does LESS THAN HALF the effort. [place] lifts, holds or supports trunk or limbs, but provides less than half the effort. 2-Substantial/Maximal Assistance-helper does MORE THAN HALF the effort. [place] lifts or holds trunk or limbs and provides more than half the effort. 9-Nnbdplpys-ppyfmo does ALL the effort. Patient does none of the effort to complete the activity. Or, the assistance of 2 or more helpers is required for the patient to complete the activity. If activity was not attempted, code reason: 7-Patient Refused. 9-Not Applicable-not attempted and the patient did not perform the activity before the current illness, exacerbation or injury. 10-Not Attempted due to Environmental Limitations-(lack of equipment, weather restraints, etc.). 88-Not Attempted due to Medical Conditions or Safety Concerns. Roll Left to Right (QC): 4 (SBA ) Sit to Lying (QC): 4 (SBA ) Sit to Stand (QC): 4 Chair/Ubj-om-Ooznq Xfer(QC): 4 Car Transfer (QC): 4 (SBA ) Gait Training Does the Patient Walk?: Yes Walk 10 feet (QC): 4 Walk 50 ft with 2 Turns(QC): 4 Walk 150 ft (QC): 4 Walking 10ft/uneven surface-QC: 4 (CGA ) Gait Persons Needed: 1 Gait Assistive Device: Cane Single Point Wheelchair Training Does the Pt Use a Wheelchair?: No Wheel 50 ft with 2 turns (QC): 9 Wheel 150 ft (QC): 9 Type of Wheelchair: N/A Stair Training #of Steps: 12 1 Step (curb) (QC): 4 (CGA ) 4 Steps (QC): 4 (CGA ) 12 Steps (QC): 4 (CGA ) Balance Picking up an Object (QC): 4 (SBA ) ADL-Treatment Eating (QC): 6 Oral Hygiene (QC): 6 (Standing at sink) Shower/Bathe Self (QC): 5 Upper Body Dressing (QC): 3 Lower Body Dressing (QC): 4 On/Off Footwear (QC): 5 Toileting Hygiene (QC): 6 Toilet Transfer (QC): 6 Assessment/Plan Assessment and Plan Assess & Plan/Chief Complaint Assessment: Major trauma following 8 foot fall down basement stairs Syncope resulting in fall Right scapula fracture Right acromion fracture Insomnia Elevated liver enzymes Plan: Pain control Aggressive rehab Monitor BP Cardiology consult 12/28/2022: Cardiology appreciated Pain control 12/29/2022: Cardiology appreciated 12/30/2022: Continue pain meds 12/31/2022: Improved overall 01/01/2023: Much improved status (1) Trauma KIMBERLY REYES DO Jan 01, 2023 06:33
[2023-01-01 07:13] LABS: BASOPHILS % (AUTO) 1 % (0-10); EOSINOPHILS # (AUTO) 0.2 10^3/uL (0.0-0.3); EOSINOPHILS % (AUTO) 4 % (0-10); HEMATOCRIT 36 % (35-52); HEMOGLOBIN 11.8 g/dL (11.5-16.0); LYMPHOCYTES # (AUTO) 1.5 10^3/uL (1.0-4.0); LYMPHOCYTES % (AUTO) 36 % (12-44); MEAN CORPUSCULAR HEMOGLOBIN 30 pg (25-34); MEAN CORPUSCULAR HGB CONC 33 g/dL (32-36); MEAN CORPUSCULAR VOLUME 91 fL (80-99); MEAN PLATELET VOLUME 10.3 fL (9.0-12.2); MONOCYTES # (AUTO) 0.4 10^3/uL (0.0-1.0); MONOCYTES % (AUTO) 9 % (0-12); NEUTROPHILS # (AUTO) 2.1 10^3/uL (1.8-7.8); NEUTROPHILS % (AUTO) 50 % (42-75); PLATELET COUNT 248 10^3/uL (130-400); WHITE BLOOD COUNT 4.3 10^3/uL (4.3-11.0)
[2023-01-01 07:33] VITALS: BP 106/60
[2023-01-01] MEDS: CELECOXIB 100 MG (CeleBREX) CAP PO SCH ×2 (07:54→21:55)
[2023-01-01] MEDS: DOCUSATE SODIUM 100 MG (COLACE) CAP PO SCH ×2 (07:54→21:56)
[2023-01-01] MEDS: METHOCARBAMOL 750 MG (ROBAXIN) TAB PO SCH ×3 (07:54→21:56)
[2023-01-01] MEDS: GABAPENTIN 100 MG (NEURONTIN) CAP PO SCH ×3 (07:54→21:55)
[2023-01-01] MEDS: SENNA W/DOCUSATE (SENOKOT S) TABLET PO SCH ×2 (07:54→21:56)
[2023-01-01] MEDS: ENOXAPARIN 40 MG/0.4 ML (LOVENOX) SYR SC SCH (07:56)
[2023-01-01] MEDS: SENNOSIDES 8.6 MG (SENOKOT) TAB PO SCH ×2 (07:57→21:50)
[2023-01-01 08:15] LABS: BILIRUBIN,TOTAL 0.4 MG/DL (0.1-1.0); CREATININE SERUM 0.84 MG/DL (0.60-1.30); POTASSIUM 4.2 MMOL/L (3.6-5.0); TOTAL PROTEIN 7.5 GM/DL (6.4-8.2)
[2023-01-01] MEDS: polyethylene glycoL POWDER 17 GM (MIRALAX) PACK PO SCH ×3 (08:40→21:50)
--- NOTE | 2023-01-01 09:37 | Physical Therapy Daily Note ---
PT Daily Note-Current Subjective Pt in room in recliner upon arrival and good for therapy. pt reports slight ache in right shoulder 3-11/06. pt was left in room with call light and all needs met at the med of therapy session this day. Pain Section J - Health Conditions 1. Rarely or not at all 2. Occasionally 3. Frequently 4. Almost constantly 8. Unable to answer Pain Effect on Sleep: 4 Pain Interference with Therapy: 4 Pain Interference w/Day-to-Day: 4 Mental Status Patient Orientation: Person, Place, Time, Situation Transfers SCALE: Activities may be completed with or without assistive devices. 9-Mimizixgzr-jqokeam completes the activity by him/herself with no assistance from a helper. 5-Set-up or Clean-up Assistance-helper sets up or cleans up; patient completes activity. [place] assists only prior to or following the activity. 4-Supervision or Touching Assistance-helper provides verbal cues and/or touching/steadying and/or contact guard assistance as patient completes activity. Assistance may be provided throughout the activity or intermittently. 3-Partial/Moderate Assistance-helper does LESS THAN HALF the effort. [place] lifts, holds or supports trunk or limbs, but provides less than half the effort. 2-Substantial/Maximal Assistance-helper does MORE THAN HALF the effort. [place] lifts or holds trunk or limbs and provides more than half the effort. 5-Ygjhzchgx-qkwbsa does ALL the effort. Patient does none of the effort to complete the activity. Or, the assistance of 2 or more helpers is required for the patient to complete the activity. If activity was not attempted, code reason: 7-Patient Refused. 9-Not Applicable-not attempted and the patient did not perform the activity before the current illness, exacerbation or injury. 10-Not Attempted due to Environmental Limitations-(lack of equipment, weather restraints, etc.). 88-Not Attempted due to Medical Conditions or Safety Concerns. Weight Bearing Right Lower Extremity: Right Full Weight Bearing Left Lower Extremity: Left Full Weight Bearing NWB R UE with sling in place Exercises Seated Therapy Exercises: Ankle pumps, Sit to stand, Long arc quads, Hip flexion, Kicking activity, Hamstring Curls, Glut set NuStep Minutes: 20 Treatments Pt was able to preform sitting ther-ex with BLE in all planes of motion available. pt used red thera band for increased resistance. pt was able to execute 2 sets of 25 with rest in between each set. pt was able to preform Nu-Step for 10 mins a level 3 then rest for 2 mins. pt is then able to preform Nu-step at level 4 for 10 mins. pt had no SOB this day. Assessment Current Status: Excellent Progress PT Wire Weaver Helper Goals Jail Goals PT Wire Weaver Helper Goals Time Frame: Jan 05, 2023 Roll Left & Right (QC): 6 (Pt will be Ind with all aspects of functional mobility to be at PLOF. ) Sit to Lying (QC): 6 (Pt will be Ind with all aspects of functional mobility to be at PLOF. ) Lying-Sitting on Side/Bed(QC): 6 (Pt will be Ind with all aspects of functional mobility to be at PLOF. ) Sit to Stand (QC): 6 (Pt will be Ind with all aspects of functional mobility to be at PLOF. ) Chair/Oom-fj-Nkemg Xfer(QC): 6 (Pt will be Ind with all aspects of functional mobility to be at PLOF. ) Toilet Transfer (QC): 6 (Pt will be Ind with all aspects of functional mobility to be at PLOF. ) Car Transfer (QC): 6 (Pt will be Ind with all aspects of functional mobility to be at PLOF. ) Does the Patient Walk: Yes Walk 10 feet (QC): 6 (Pt will be Ind with all aspects of functional mobility to be at PLOF. ) Walk 50ft with 2 Turns (QC): 6 (Pt will be Ind with all aspects of functional mobility to be at PLOF. ) Walk 150 ft (QC): 6 (Pt will be Ind with all aspects of functional mobility to be at PLOF. ) Walking 10ft on Uneven Surface: 6 (Pt will be Ind with all aspects of functional mobility to be at PLOF. ) 1 Step (curb) (QC): 6 (Pt will be Ind with all aspects of functional mobility to be at PLOF. ) 4 Steps (QC): 6 (Pt will be Ind with all aspects of functional mobility to be at PLOF. ) 12 Steps (QC): 6 (Pt will be Ind with all aspects of functional mobility to be at PLOF. ) Picking up an Object (QC): 6 (Pt will be Ind with all aspects of functional mobility to be at PLOF. ) Does the Pt use WC or Scooter?: No Wheel 50 feet with 2 turns (QC: 9 Type: N/A Wheel 150 feet: 9 Type: N/A PT Plan Treatment/Plan Treatment Plan: Continue Plan of Care Treatment Plan: Bed Mobility, Concurrent Therapy, Education, Functional Activity Oral, Functional Strength, Group Therapy, Gait, Safety, Therapeutic Exercise, Transfers Treatment Duration: Jan 05, 2023 Frequency: At least 5 of 7 days/Wk (IRF) Estimated Hrs Per Day: 1.5 hours per day Patient and/or Family Agrees t: Yes Time Time In: 0800 Time Out: 0900 DATE: Jan 01, 2023 Total Billed Treatment Time: 60 Total Billed Treatment 1 EX x 3 GT Maddie Dhaliwal DEBONER Jan 01, 2023 09:37
--- NOTE | 2023-01-01 11:00 | Progress Note - Cardiology ---
Cardiology SOAP Progress Note Objective: I&O/Vital Signs 01/01/23 01/01/23 20:10 21:40 Temp 36.7 Pulse 78 Resp 20 B/P (MAP) 128/58 (81) Pulse Ox 95 95 O2 Delivery Room Air Room Air 01/02/23 00:00 Intake Total 1120 ml Balance 1120 ml Weight (Pounds): 221 Constitutional: AAO x 3, well-developed, well-nourished Respiratory: No accessory muscle use, No respiratory distress; chest expansion is symmetric, chest is bilaterally symmetric, lungs clear to auscultation Cardiovascular: regular rate-rhythm; No JVD; S1 and S2, systolic murmur (2-3/6 MSM) Gastrointestional: No tender; soft, round, audible bowel sounds Extremities: no lower extremity edema bilateral Neurologic/Psychiatric: other (moves all limbs, R arm in sling (no motion attempted)) Skin: other (diffuse brusing to left arm/hand) Results/Procedures: Labs A/P: Assessment: H/O fall at home on 12-19-22 down basement steps - pt denies syncope and reports it was a mechanical fall - resulting in closed fx of acromion, rib fx, pneumothorax and scapular fx - tx at [facility] AoV stenosis - Echocardiogram of 12-20-22 at [facility]: subtle hypokinesis of the inferior wall and apical inferior segments. Abnormal septal motion secondary to underlying LBBB. Calcified aortic valve apparatus with reduced systolic excursion with mod aortic valve stenosis. LVEF 50-55% EKG at [facility] reported to show LBBB Elevated liver enzymes of undetermined etiology - Dr Ruiz managing Plan: * Advised f/u on aortic stenosis on outpatient basis * Monitor labs from time time * D/C KIMBER Salazar Jan 01, 2023 11:00
[2023-01-01] MEDS: LIDOCAINE 4% (SALONPAS) PATCH TP SCH (12:36)
--- NOTE | 2023-01-01 13:06 | Occupational Ther Daily Note ---
OT Current Status-Daily Note Subjective Pt alert, sitting in recliner. Pt agrees to therapy. Pt c/o pain, nrsg brought pain meds. Mental Status/Objective Patient Orientation: Person, Place, Time, Situation Attachments: Other-See Comments (Shldr/UE brace) ADL-Treatment Independent using SPC to gather clothing. Independent using shower bench, grabbar and hand held shower. Independent with toileting. Doffs all clothing by self, assist to don shldr/UE brace then dons rest of clothing by self. Independent with oral care standing at sink. Therapy Code Descriptions/Definitions Functional [place] Measure: 0=Not Assessed/NA 4=Minimal Assistance 1=Total Assistance 5=Supervision or Setup 2=Maximal Assistance 6=Modified [place] 3=Moderate Assistance 7=Complete IndependenceSCALE: Activities may be completed with or without assistive devices. 7-Dnlcllsjgw-lemmnoc completes the activity by him/herself with no assistance from a helper. 5-Set-up or Clean-up Assistance-helper sets up or cleans up; patient completes activity. [place] assists only prior to or following the activity. 4-Supervision or Touching Assistance-helper provides verbal cues and/or touching/steadying and/or contact guard assistance as patient completes activity. Assistance may be provided throughout the activity or intermittently. 3-Partial/Moderate Assistance-helper does LESS THAN HALF the effort. [place] lifts, holds or supports trunk or limbs, but provides less than half the effort. 2-Substantial/Maximal Assistance-helper does MORE THAN HALF the effort. [place] lifts or holds trunk or limbs and provides more than half the effort. 2-Ijcqczkgb-tbtoos does ALL the effort. Patient does none of the effort to complete the activity. Or, the assistance of 2 or more helpers is required for the patient to complete the activity. If activity was not attempted, code reason: 7-Patient Refused. 9-Not Applicable-not attempted and the patient did not perform the activity before the current illness, exacerbation or injury. 10-Not Attempted due to Environmental Limitations-(lack of equipment, weather restraints, etc.). 88-Not Attempted due to Medical Conditions or Safety Concerns. Oral Hygiene (QC): 6 Shower/Bathe Self (QC): 6 Upper Body Dressing (QC): 3 Lower Body Dressing (QC): 6 On/Off Footwear: 6 Toileting Hygiene (QC): 6 Toilet Transfer (QC): 6 Other Treatment Pt completed R grasp, wrist, forearm and elbow exercises with minimal resistance (no pain). Medium resistance theratubing exercises for L UE 2 sets 10 reps. Skilled instruction for correct technique and modifications when necessary. After session, pt sitting in recliner with call light/phone in reach. All needs met in room. OT Shopfitter Goals Shopfitter Goals Time Frame: Jan 12, 2023 Acute change in mental status: 0 Inattention: 0 Disorganized thinkin Altered level of consciousness: 0 Eating (QC): 6 Oral Hygiene (QC): 6 Toileting Hygiene (QC): 6 Shower/Bathe Self (QC): 6 Upper Body Dressing (QC): 6 Lower Body Dressing (QC): 6 On/Off Footwear (QC): 6 Additional Goals: 1-Demonstrate ADL Tasks, 2-Verbalize Understanding, 3- ImproveStrength/Oral 1=Demonstrate adherence to instructed precautions during ADL tasks. 2=Patient will verbalize/demonstrate understanding of assistive devic es/modifications for ADL. 3=Patient will improve strength/tolerance for activity to enable patient to perform ADL's. OT Education/Plan Problem List/Assessment Assessment: Decreased Activ Tolerance, Decreased UE Strength, Impaired Self- Care Skills, Restricted Funct UE ROM (RUE) Discharge Recommendations Plan/Recommendations: Continue POC Treatment Plan/Plan of Care Patient would benefit from OT for education, treatment and training to promote independence in ADL's, mobility, safety and/or upper extremity function for ADL's. Plan of Care: ADL Retraining, Functional Mobility, Group Exercise/Act as Ind, UE Funct Exercise/Act Treatment Duration: Jan 12, 2023 Frequency: At least 5 of 7 days/Wk (IRF) Estimated Hrs Per Day: 1.5 hours per day Agreement: Yes Rehab Potential: Good Time Start Time: 10:30 Stop Time: 12:00 DATE: Jan 01, 2023 Total Time Billed (hr/min): 90 Billed Treatment Time 1 visit-ADL 3 (45 min) EX 3 (45 min) BOUCHRA HOWARD Jan 01, 2023 13:06
--- NOTE | 2023-01-01 14:04 | Physical Therapy Daily Note ---
PT Daily Note-Current Subjective Pt in room in recliner and willing for therapy. pt reports 2/10 pain in shoulder. pt did have an ice pack on shoulder after treatment session and STEAM SERVICE INSPECTOR was notified to retrieve ice pace after 20 mins. pt was left in room in recliner after session with call light and all needs met. Pain Section J - Health Conditions 1. Rarely or not at all 2. Occasionally 3. Frequently 4. Almost constantly 8. Unable to answer Pain Effect on Sleep: 4 Pain Interference with Therapy: 4 Pain Interference w/Day-to-Day: 4 Transfers SCALE: Activities may be completed with or without assistive devices. 9-Dgskjpiosz-ilglutu completes the activity by him/herself with no assistance from a helper. 5-Set-up or Clean-up Assistance-helper sets up or cleans up; patient completes activity. [place] assists only prior to or following the activity. 4-Supervision or Touching Assistance-helper provides verbal cues and/or touching/steadying and/or contact guard assistance as patient completes activity. Assistance may be provided throughout the activity or intermittently. 3-Partial/Moderate Assistance-helper does LESS THAN HALF the effort. [place] lifts, holds or supports trunk or limbs, but provides less than half the effort. 2-Substantial/Maximal Assistance-helper does MORE THAN HALF the effort. [place] lifts or holds trunk or limbs and provides more than half the effort. 1-Ufhuduqxf-izaosr does ALL the effort. Patient does none of the effort to complete the activity. Or, the assistance of 2 or more helpers is required for the patient to complete the activity. If activity was not attempted, code reason: 7-Patient Refused. 9-Not Applicable-not attempted and the patient did not perform the activity before the current illness, exacerbation or injury. 10-Not Attempted due to Environmental Limitations-(lack of equipment, weather restraints, etc.). 88-Not Attempted due to Medical Conditions or Safety Concerns. Weight Bearing Right Lower Extremity: Right Full Weight Bearing Left Lower Extremity: Left Full Weight Bearing NWB R UE with sling in place Stair Training 1 Step (curb) (QC): 6 4 Steps (QC): 6 12 Steps (QC): 6 Treatments ambulate with SPC of 200ft with no LOB was executed pt was also able to preform 12 stairs using the land rail on the left for increased balance. pt was independence with all 12 and no LOB noted. . Assessment Current Status: Good Progress PT Snf Goals Hotel Engineer Goals PT Snf Goals Time Frame: Jan 05, 2023 Roll Left & Right (QC): 6 (Pt will be Ind with all aspects of functional mobility to be at PLOF. ) Sit to Lying (QC): 6 (Pt will be Ind with all aspects of functional mobility to be at PLOF. ) Lying-Sitting on Side/Bed(QC): 6 (Pt will be Ind with all aspects of functional mobility to be at PLOF. ) Sit to Stand (QC): 6 (Pt will be Ind with all aspects of functional mobility to be at PLOF. ) Chair/Kly-wy-Sumvc Xfer(QC): 6 (Pt will be Ind with all aspects of functional mobility to be at PLOF. ) Toilet Transfer (QC): 6 (Pt will be Ind with all aspects of functional mobility to be at PLOF. ) Car Transfer (QC): 6 (Pt will be Ind with all aspects of functional mobility to be at PLOF. ) Does the Patient Walk: Yes Walk 10 feet (QC): 6 (Pt will be Ind with all aspects of functional mobility to be at PLOF. ) Walk 50ft with 2 Turns (QC): 6 (Pt will be Ind with all aspects of functional mobility to be at PLOF. ) Walk 150 ft (QC): 6 (Pt will be Ind with all aspects of functional mobility to be at PLOF. ) Walking 10ft on Uneven Surface: 6 (Pt will be Ind with all aspects of functional mobility to be at PLOF. ) 1 Step (curb) (QC): 6 (Pt will be Ind with all aspects of functional mobility to be at PLOF. ) 4 Steps (QC): 6 (Pt will be Ind with all aspects of functional mobility to be at PLOF. ) 12 Steps (QC): 6 (Pt will be Ind with all aspects of functional mobility to be at PLOF. ) Picking up an Object (QC): 6 (Pt will be Ind with all aspects of functional mobility to be at PLOF. ) Does the Pt use WC or Scooter?: No Wheel 50 feet with 2 turns (QC: 9 Type: N/A Wheel 150 feet: 9 Type: N/A PT Plan Treatment/Plan Treatment Plan: Continue Plan of Care Treatment Plan: Bed Mobility, Concurrent Therapy, Education, Functional Activity Oral, Functional Strength, Group Therapy, Gait, Safety, Therapeutic Exercise, Transfers Treatment Duration: Jan 05, 2023 Frequency: At least 5 of 7 days/Wk (IRF) Estimated Hrs Per Day: 1.5 hours per day Patient and/or Family Agrees t: Yes Time Time In: 1315 Time Out: 1345 DATE: Jan 01, 2023 Total Billed Treatment Time: 30 Total Billed Treatment 1 FA x 2 Maddie Dhaliwal LABOR CONTRACT ANALYST Jan 01, 2023 14:04
--- NOTE | 2023-01-01 19:19 | Progress Note - Cardiology ---
Cardiology SOAP Progress Note Subjective: No cp or palp or syncope or shortness of breath No n/v/d No focal weakness Gen weakness improving Objective: I&O/Vital Signs 01/01/23 01/01/23 07:33 09:01 Temp 36.0 Pulse 75 Resp 14 B/P (MAP) 106/60 (75) Pulse Ox 96 O2 Delivery Room Air Room Air 01/01/23 00:00 Intake Total 1100 ml Balance 1100 ml Weight (Pounds): 221 Constitutional: AAO x 3, well-developed, well-nourished Respiratory: No accessory muscle use, No respiratory distress; chest expansion is symmetric, chest is bilaterally symmetric, lungs clear to auscultation Cardiovascular: regular rate-rhythm; No JVD; S1 and S2, systolic murmur (2-3/6 MSM) Gastrointestional: No tender; soft, round, audible bowel sounds Extremities: no lower extremity edema bilateral Neurologic/Psychiatric: other (moves all limbs, R arm in sling (no motion attempted)) Skin: other (diffuse brusing to left arm/hand) Results/Procedures: Labs Laboratory Tests 01/01/23 06:50: White Blood Count 4.3, Red Blood Count 3.96, Hemoglobin 11.8, Hematocrit 36, Mean Corpuscular Volume 91, Mean Corpuscular Hemoglobin 30, Mean Corpuscular Hemoglobin Concent 33, Red Cell Distribution Width 12.8, Platelet Count 248, Mean Platelet Volume 10.3, Immature Granulocyte % (Auto) 0, Neutrophils (%) (Auto) 50, Lymphocytes (%) (Auto) 36, Monocytes (%) (Auto) 9, Eosinophils (%) (Auto) 4, Basophils (%) (Auto) 1, Neutrophils # (Auto) 2.1, Lymphocytes # (Auto) 1.5, Monocytes # (Auto) 0.4, Eosinophils # (Auto) 0.2, Basophils # (Auto) 0.0, Immature Granulocyte # (Auto) 0.0 01/01/23 07:41: Sodium Level 137, Potassium Level 4.2, Chloride Level 104, Carbon Dioxide Level 22, Anion Gap 11, Blood Urea Nitrogen 15, Creatinine 0.84, Estimat Glomerular Filtration Rate 77, BUN/Creatinine Ratio 18, Glucose Level 122H, Calcium Level 9.0, Corrected Calcium 9.0, Total Bilirubin 0.4, Aspartate Amino Transf (AST/SGOT) 27, Alanine Aminotransferase (ALT/SGPT) 68H, Alkaline Phosphatase 120, Total Protein 7.5, Albumin 4.0 A/P: Assessment: H/O fall at home on 12-19-22 down basement steps - pt denies syncope and reports it was a mechanical fall - resulting in closed fx of acromion, rib fx, pneumothorax and scapular fx - tx at [facility] AoV stenosis - Echocardiogram of 12-20-22 at [facility]: subtle hypokinesis of the inferior wall and apical inferior segments. Abnormal septal motion secondary to underlying LBBB. Calcified aortic valve apparatus with reduced systolic excursion with mod aortic valve stenosis. LVEF 50-55% - Advise MPI and f/u echo as outpatient EKG at [facility] reported to show LBBB Elevated liver enzymes of undetermined etiology - Dr Ruiz managing Plan: * Advised f/u on aortic stenosis on outpatient basis * Monitor labs from time time * We will sign off. Please call if needed ARLENE HERNANDEZ MD FACP [facility] CCD[facility] Jan 01, 2023 19:19
[2023-01-01 20:10] VITALS: BP 128/58
[2023-01-01] MEDS: MELATONIN 3 MG TABLET PO SCH (21:55)
--- NOTE | 2023-01-02 05:47 | PM&R Progress Note ---
Subjective HPI/CC On Admission Date Seen by Provider: Jan 02, 2023 Time Seen by Provider: 09:30 Subjective/Events-last exam 01/02/2023: Patient dramatically improved Pain is controlled No falls 01/01/2023: Patient much improved Bowels are moving Liver enzymes are much improved 12/31/2022: Much improved Pain controlled BM+ No falls Improved 12/30/2022: Patient doing much better Pain is controlled No falls Bowels are moving 12/29/2022: Much improved status Pain is controlled on Oxy No falls 12/28/2022: Patient doing a lot better Changing pain medication to every 4 hours instead of every 8 hours Participating in therapy No falls Bowels are moving Review of Systems General: Fatigue, Malaise Objective Exam Vital Signs Vital Signs Date Time Temp Pulse Resp B/P (MAP) Pulse Ox O2 Delivery O2 Flow Rate FiO2 01/02/23 09:54 36.2 73 20 114/57 (76) 97 Room Air Capillary Refill : General Appearance: No Apparent Distress, WD/WN, Chronically ill HEENT: PERRL/EOMI, Normal ENT Inspection, Pharynx Normal Neck: Full Range of Motion, Normal Inspection, Non Tender, Supple, Carotid Bruit Respiratory: Chest Non Tender, Lungs Clear, Normal Breath Sounds, No Accessory Muscle Use, No Respiratory Distress Cardiovascular: Regular Rate, Rhythm, No Edema, No Gallop, No JVD, No Murmur, Normal Peripheral Pulses Gastrointestinal: Normal Bowel Sounds, No Organomegaly, No Pulsatile Mass, Non Tender, Soft Back: Normal Inspection, CVA Tenderness (L), CVA Tenderness (R), Decreased Range of Motion, Muscle Spasm, Vertebral Tenderness Extremity: Normal Capillary Refill, Normal Inspection, Normal Range of Motion, Non Tender, No Calf Tenderness, No Pedal Edema Neurologic/Psychiatric: Alert, Oriented x3, Normal Mood/Affect, haul driver II-XII Norm as Tested, Abnormal Gait, Motor Weakness Skin: Normal Color, Warm/Dry, Ecchymosis Lymphatic: No Adenopathy Results/Procedures Lab Patient resulted labs reviewed. FIM Transfers Therapy Code Descriptions/Definitions Functional [place] Measure: 0=Not Assessed/NA 4=Minimal Assistance 1=Total Assistance 5=Supervision or Setup 2=Maximal Assistance 6=Modified [place] 3=Moderate Assistance 7=Complete IndependenceSCALE: Activities may be completed with or without assistive devices. 9-Gdazoawnwl-bqnckfh completes the activity by him/herself with no assistance from a helper. 5-Set-up or Clean-up Assistance-helper sets up or cleans up; patient completes activity. [place] assists only prior to or following the activity. 4-Supervision or Touching Assistance-helper provides verbal cues and/or touching/steadying and/or contact guard assistance as patient completes activity. Assistance may be provided throughout the activity or intermittently. 3-Partial/Moderate Assistance-helper does LESS THAN HALF the effort. [place] lifts, holds or supports trunk or limbs, but provides less than half the effort. 2-Substantial/Maximal Assistance-helper does MORE THAN HALF the effort. [place] lifts or holds trunk or limbs and provides more than half the effort. 6-Eqdesaxxj-ftlxlk does ALL the effort. Patient does none of the effort to complete the activity. Or, the assistance of 2 or more helpers is required for the patient to complete the activity. If activity was not attempted, code reason: 7-Patient Refused. 9-Not Applicable-not attempted and the patient did not perform the activity before the current illness, exacerbation or injury. 10-Not Attempted due to Environmental Limitations-(lack of equipment, weather restraints, etc.). 88-Not Attempted due to Medical Conditions or Safety Concerns. Roll Left to Right (QC): 4 (SBA ) Sit to Lying (QC): 4 (SBA ) Sit to Stand (QC): 4 Chair/Sqo-hy-Lmxed Xfer(QC): 4 Car Transfer (QC): 4 (SBA ) Gait Training Does the Patient Walk?: Yes Walk 10 feet (QC): 4 Walk 50 ft with 2 Turns(QC): 4 Walk 150 ft (QC): 4 Walking 10ft/uneven surface-QC: 4 (CGA ) Gait Persons Needed: 1 Gait Assistive Device: Cane Single Point Wheelchair Training Does the Pt Use a Wheelchair?: No Wheel 50 ft with 2 turns (QC): 9 Wheel 150 ft (QC): 9 Type of Wheelchair: N/A Stair Training #of Steps: 12 1 Step (curb) (QC): 6 4 Steps (QC): 6 12 Steps (QC): 6 Balance Picking up an Object (QC): 4 (SBA ) ADL-Treatment Eating (QC): 6 Oral Hygiene (QC): 6 Shower/Bathe Self (QC): 6 Upper Body Dressing (QC): 3 Lower Body Dressing (QC): 6 On/Off Footwear (QC): 6 Toileting Hygiene (QC): 6 Toilet Transfer (QC): 6 Assessment/Plan Assessment and Plan Assess & Plan/Chief Complaint Assessment: Major trauma following 8 foot fall down basement stairs Syncope resulting in fall Right scapula fracture Right acromion fracture Insomnia Elevated liver enzymes Plan: Pain control Aggressive rehab Monitor BP Cardiology consult 12/28/2022: Cardiology appreciated Pain control 12/29/2022: Cardiology appreciated 12/30/2022: Continue pain meds 12/31/2022: Improved overall 01/01/2023: Much improved status 01/02/2023: Discharge planning soon (1) Trauma KIMBERLY REYES DO Jan 02, 2023 05:47
[2023-01-02] MEDS: CELECOXIB 100 MG (CeleBREX) CAP PO SCH ×2 (09:12→21:29)
[2023-01-02] MEDS: DOCUSATE SODIUM 100 MG (COLACE) CAP PO SCH ×3 (09:12→21:30)
[2023-01-02] MEDS: GABAPENTIN 100 MG (NEURONTIN) CAP PO SCH ×3 (09:12→21:30)
[2023-01-02] MEDS: polyethylene glycoL POWDER 17 GM (MIRALAX) PACK PO SCH ×3 (09:13→21:31)
[2023-01-02] MEDS: SENNOSIDES 8.6 MG (SENOKOT) TAB PO SCH ×2 (09:13→21:32)
[2023-01-02] MEDS: METHOCARBAMOL 750 MG (ROBAXIN) TAB PO SCH ×3 (09:13→21:30)
[2023-01-02] MEDS: SENNA W/DOCUSATE (SENOKOT S) TABLET PO SCH ×2 (09:13→21:32)
[2023-01-02] MEDS: ENOXAPARIN 40 MG/0.4 ML (LOVENOX) SYR SC SCH (09:14)
[2023-01-02] MEDS: LIDOCAINE 4% (SALONPAS) PATCH TP SCH (09:14)
--- NOTE | 2023-01-02 09:33 | Physical Therapy Daily Note ---
PT Daily Note-Current Subjective pt in recliner and good for therapy. pt reports 4/10 pain in right shoulder and rib. nursing is aware. pt was left in recliner with call light and ice pack for pain. pt tech is aware and will retrieve ice pack in 20 mins. Pain Section J - Health Conditions 1. Rarely or not at all 2. Occasionally 3. Frequently 4. Almost constantly 8. Unable to answer Pain Effect on Sleep: 4 Pain Interference with Therapy: 4 Pain Interference w/Day-to-Day: 4 Transfers SCALE: Activities may be completed with or without assistive devices. 6-Gqzwiljbpp-qfisgby completes the activity by him/herself with no assistance from a helper. 5-Set-up or Clean-up Assistance-helper sets up or cleans up; patient completes activity. [place] assists only prior to or following the activity. 4-Supervision or Touching Assistance-helper provides verbal cues and/or touching/steadying and/or contact guard assistance as patient completes activity. Assistance may be provided throughout the activity or intermittently. 3-Partial/Moderate Assistance-helper does LESS THAN HALF the effort. [place] lifts, holds or supports trunk or limbs, but provides less than half the effort. 2-Substantial/Maximal Assistance-helper does MORE THAN HALF the effort. [place] lifts or holds trunk or limbs and provides more than half the effort. 4-Hqhypmlfw-ngmywi does ALL the effort. Patient does none of the effort to complete the activity. Or, the assistance of 2 or more helpers is required for the patient to complete the activity. If activity was not attempted, code reason: 7-Patient Refused. 9-Not Applicable-not attempted and the patient did not perform the activity before the current illness, exacerbation or injury. 10-Not Attempted due to Environmental Limitations-(lack of equipment, weather restraints, etc.). 88-Not Attempted due to Medical Conditions or Safety Concerns. Toilet Transfer (QC): 6 Car Transfer (QC): 6 Weight Bearing Right Lower Extremity: Right Full Weight Bearing Left Lower Extremity: Left Full Weight Bearing NWB R UE with sling in place Balance Picking up an Object (QC): 6 Exercises Seated Therapy Exercises: Ankle pumps, Long arc quads, Hip flexion, Hamstring Curls, Glut set Treatments Pt preformed ambulation on uneven surface with SPC with independence as well as car transfer this day pt is able to negotiate elevator and downstairs with SPC and outside for ambulation training with no LOB and no fatigue. Pt is able to preform Nu-Step for 21 mins at level 4 indicating an increase in endurance. . Assessment Current Status: Excellent Progress PT Sap Trainer Goals Mcc Goals PT Mcc Goals Time Frame: Jan 05, 2023 Roll Left & Right (QC): 6 (Pt will be Ind with all aspects of functional mobility to be at PLOF. ) Sit to Lying (QC): 6 (Pt will be Ind with all aspects of functional mobility to be at PLOF. ) Lying-Sitting on Side/Bed(QC): 6 (Pt will be Ind with all aspects of functional mobility to be at PLOF. ) Sit to Stand (QC): 6 (Pt will be Ind with all aspects of functional mobility to be at PLOF. ) Chair/Ggf-ik-Obpmu Xfer(QC): 6 (Pt will be Ind with all aspects of functional mobility to be at PLOF. ) Toilet Transfer (QC): 6 (Pt will be Ind with all aspects of functional mobility to be at PLOF. ) Car Transfer (QC): 6 (Pt will be Ind with all aspects of functional mobility to be at PLOF. ) Does the Patient Walk: Yes Walk 10 feet (QC): 6 (Pt will be Ind with all aspects of functional mobility to be at PLOF. ) Walk 50ft with 2 Turns (QC): 6 (Pt will be Ind with all aspects of functional mobility to be at PLOF. ) Walk 150 ft (QC): 6 (Pt will be Ind with all aspects of functional mobility to be at PLOF. ) Walking 10ft on Uneven Surface: 6 (Pt will be Ind with all aspects of functional mobility to be at PLOF. ) 1 Step (curb) (QC): 6 (Pt will be Ind with all aspects of functional mobility to be at PLOF. ) 4 Steps (QC): 6 (Pt will be Ind with all aspects of functional mobility to be at PLOF. ) 12 Steps (QC): 6 (Pt will be Ind with all aspects of functional mobility to be at PLOF. ) Picking up an Object (QC): 6 (Pt will be Ind with all aspects of functional mobility to be at PLOF. ) Does the Pt use WC or Scooter?: No Wheel 50 feet with 2 turns (QC: 9 Type: N/A Wheel 150 feet: 9 Type: N/A PT Plan Treatment/Plan Treatment Plan: Continue Plan of Care Treatment Plan: Bed Mobility, Concurrent Therapy, Education, Functional Activity Oral, Functional Strength, Group Therapy, Gait, Safety, Therapeutic Exercise, Transfers Treatment Duration: Jan 05, 2023 Frequency: At least 5 of 7 days/Wk (IRF) Estimated Hrs Per Day: 1.5 hours per day Patient and/or Family Agrees t: Yes Time Time In: 08 Time Out: 929 DATE: Jan 02, 2023 Total Billed Treatment Time: 90 Total Billed Treatment 1 Ex x 2 GT x 2 FA x 2 Maddie Dhaliwal SENIOR SYSTEMS ADMINISTRATOR Jan 02, 2023 09:33
[2023-01-02 09:54] VITALS: BP 114/57
--- NOTE | 2023-01-02 13:27 | Occupational Ther Daily Note ---
OT Current Status-Daily Note Subjective Pt alert, sitting in recliner. Pt agrees to therapy. Pt just received pain pill prior to therapy. Mental Status/Objective Patient Orientation: Person, Place, Time, Situation ADL-Treatment Pt completed ADLs and retrieved supplies using SPC independently. Therapy Code Descriptions/Definitions Functional [place] Measure: 0=Not Assessed/NA 4=Minimal Assistance 1=Total Assistance 5=Supervision or Setup 2=Maximal Assistance 6=Modified [place] 3=Moderate Assistance 7=Complete IndependenceSCALE: Activities may be completed with or without assistive devices. 3-Dcqnozxgfq-bxjwosh completes the activity by him/herself with no assistance from a helper. 5-Set-up or Clean-up Assistance-helper sets up or cleans up; patient completes activity. [place] assists only prior to or following the activity. 4-Supervision or Touching Assistance-helper provides verbal cues and/or touching/steadying and/or contact guard assistance as patient completes activity. Assistance may be provided throughout the activity or intermittently. 3-Partial/Moderate Assistance-helper does LESS THAN HALF the effort. [place] lifts, holds or supports trunk or limbs, but provides less than half the effort. 2-Substantial/Maximal Assistance-helper does MORE THAN HALF the effort. [place] lifts or holds trunk or limbs and provides more than half the effort. 4-Hmamzlcue-udqjcj does ALL the effort. Patient does none of the effort to complete the activity. Or, the assistance of 2 or more helpers is required for the patient to complete the activity. If activity was not attempted, code reason: 7-Patient Refused. 9-Not Applicable-not attempted and the patient did not perform the activity before the current illness, exacerbation or injury. 10-Not Attempted due to Environmental Limitations-(lack of equipment, weather restraints, etc.). 88-Not Attempted due to Medical Conditions or Safety Concerns. Eating (QC): 6 Oral Hygiene (QC): 6 Shower/Bathe Self (QC): 6 Upper Body Dressing (QC): 6 Lower Body Dressing (QC): 6 On/Off Footwear: 6 Toileting Hygiene (QC): 6 Toilet Transfer (QC): 6 Other Treatment Pt completes bicep curls and shldr press with L UE using 5# hand wt 2 sets 10 reps. Pt then completed resistive clothespins 2x's using L hand. Pt completed dynamic standing activity utilizing L UE without LOB. After session, pt sitting in recliner with call light/phone in reach. All needs met in room. BIMS CAM BIMS Expression of Ideas and Wants: Without Difficulty Understanding Verbal Content: Understands Brief Interview/Mental Status: Yes IRF JAVY BIMS: IRF JAVY BIMS Response (Comments) Value Repitition of Three Words Three 3 Recalls Socks Yes, No Cue Required 2 Recalls Blue Yes, No Cue Required 2 Recalls Bed Yes, No Cue Required 2 Year Correct 3 Month Accurate Within 5 Days 2 Day Correct 1 Total 15 Patient Normally Able to Recal: Current Session, Location of own room, Staff Names and faces, That he/she in a hsp Should Staff Asses. Mental St.: Yes CAM Mental Status Change/Baseline: 0 Inattention: 0 Disorganized thinkin Altered level of consciousness: 0 OT Senior Living Goals [place] Goals Time Frame: Jan 12, 2023 Acute change in mental status: 0 Inattention: 0 Disorganized thinkin Altered level of consciousness: 0 Eating (QC): 6 (met) Oral Hygiene (QC): 6 (met) Toileting Hygiene (QC): 6 (met) Shower/Bathe Self (QC): 6 (met) Upper Body Dressing (QC): 6 (met) Lower Body Dressing (QC): 6 (met) On/Off Footwear (QC): 6 (met) Additional Goals: 1-Demonstrate ADL Tasks, 2-Verbalize Understanding, 3- ImproveStrength/Oral 1=Demonstrate adherence to instructed precautions during ADL tasks. 2=Patient will verbalize/demonstrate understanding of assistive devices/modifications for ADL. 3=Patient will improve strength/tolerance for activity to enable patient to perform ADL's. OT Education/Plan Problem List/Assessment Assessment: Decreased UE Strength, Impaired Self-Care Skills, Restricted Funct UE ROM (R UE) Discharge Recommendations Plan/Recommendations: Continue POC Treatment Plan/Plan of Care Patient would benefit from OT for education, treatment and training to promote independence in ADL's, mobility, safety and/or upper extremity function for ADL's. Plan of Care: ADL Retraining, Functional Mobility, Group Exercise/Act as Ind, UE Funct Exercise/Act Treatment Duration: Jan 12, 2023 Frequency: At least 5 of 7 days/Wk (IRF) Estimated Hrs Per Day: 1.5 hours per day Agreement: Yes Rehab Potential: Good Time Start Time: 10:30 Stop Time: 12:00 DATE: Jan 02, 2023 Total Time Billed (hr/min): 90 Billed Treatment Time 1 visit-ADL 4 (60 min) EX 2 (30 min) BOUCHRA HOWARD Jan 02, 2023 13:27
[2023-01-02 20:05] VITALS: BP 116/55
[2023-01-02] MEDS: MELATONIN 3 MG TABLET PO SCH (21:30)
--- NOTE | 2023-01-03 05:36 | PM&R Progress Note ---
Subjective HPI/CC On Admission Date Seen by Provider: Jan 03, 2023 Time Seen by Provider: 12:00 Subjective/Events-last exam 01/03/2023: Doing well DC tomorrow Good pain control 01/02/2023: Patient dramatically improved Pain is controlled No falls 01/01/2023: Patient much improved Bowels are moving Liver enzymes are much improved 12/31/2022: Much improved Pain controlled BM+ No falls Improved 12/30/2022: Patient doing much better Pain is controlled No falls Bowels are moving 12/29/2022: Much improved status Pain is controlled on Oxy No falls 12/28/2022: Patient doing a lot better Changing pain medication to every 4 hours instead of every 8 hours Participating in therapy No falls Bowels are moving Review of Systems General: Fatigue, Malaise Objective Exam Vital Signs Vital Signs Date Time Temp Pulse Resp B/P (MAP) Pulse Ox O2 Delivery O2 Flow Rate FiO2 01/03/23 20:20 Room Air 01/03/23 19:14 36.0 64 18 130/57 (81) 94 Capillary Refill : General Appearance: No Apparent Distress, WD/WN, Chronically ill HEENT: PERRL/EOMI, Normal ENT Inspection, Pharynx Normal Neck: Full Range of Motion, Normal Inspection, Non Tender, Supple, Carotid Bruit Respiratory: Chest Non Tender, Lungs Clear, Normal Breath Sounds, No Accessory Muscle Use, No Respiratory Distress Cardiovascular: Regular Rate, Rhythm, No Edema, No Gallop, No JVD, No Murmur, Normal Peripheral Pulses Gastrointestinal: Normal Bowel Sounds, No Organomegaly, No Pulsatile Mass, Non Tender, Soft Back: Normal Inspection, CVA Tenderness (L), CVA Tenderness (R), Decreased Range of Motion, Muscle Spasm, Vertebral Tenderness Extremity: Normal Capillary Refill, Normal Inspection, Normal Range of Motion, Non Tender, No Calf Tenderness, No Pedal Edema Neurologic/Psychiatric: Alert, Oriented x3, Normal Mood/Affect, communications analyst II-XII Norm as Tested, Abnormal Gait, Motor Weakness Skin: Normal Color, Warm/Dry, Ecchymosis Lymphatic: No Adenopathy Results/Procedures Lab Patient resulted labs reviewed. FIM Transfers Therapy Code Descriptions/Definitions Functional [place] Measure: 0=Not Assessed/NA 4=Minimal Assistance 1=Total Assistance 5=Supervision or Setup 2=Maximal Assistance 6=Modified [place] 3=Moderate Assistance 7=Complete IndependenceSCALE: Activities may be completed with or without assistive devices. 1-Margknqoen-qpoqyhc completes the activity by him/herself with no assistance from a helper. 5-Set-up or Clean-up Assistance-helper sets up or cleans up; patient completes activity. [place] assists only prior to or following the activity. 4-Supervision or Touching Assistance-helper provides verbal cues and/or touching/steadying and/or contact guard assistance as patient completes activity. Assistance may be provided throughout the activity or intermittently. 3-Partial/Moderate Assistance-helper does LESS THAN HALF the effort. [place] lifts, holds or supports trunk or limbs, but provides less than half the effort. 2-Substantial/Maximal Assistance-helper does MORE THAN HALF the effort. [place] lifts or holds trunk or limbs and provides more than half the effort. 6-Jarojgijt-ymcwyr does ALL the effort. Patient does none of the effort to complete the activity. Or, the assistance of 2 or more helpers is required for the patient to complete the activity. If activity was not attempted, code reason: 7-Patient Refused. 9-Not Applicable-not attempted and the patient did not perform the activity before the current illness, exacerbation or injury. 10-Not Attempted due to Environmental Limitations-(lack of equipment, weather restraints, etc.). 88-Not Attempted due to Medical Conditions or Safety Concerns. Roll Left to Right (QC): 4 (SBA ) Sit to Lying (QC): 4 (SBA ) Sit to Stand (QC): 4 Chair/Ubu-re-Gsfnm Xfer(QC): 4 Car Transfer (QC): 6 Gait Training Does the Patient Walk?: Yes Walk 10 feet (QC): 4 Walk 50 ft with 2 Turns(QC): 4 Walk 150 ft (QC): 4 Walking 10ft/uneven surface-QC: 4 (CGA ) Gait Persons Needed: 1 Gait Assistive Device: Cane Single Point Wheelchair Training Does the Pt Use a Wheelchair?: No Wheel 50 ft with 2 turns (QC): 9 Wheel 150 ft (QC): 9 Type of Wheelchair: N/A Stair Training #of Steps: 12 1 Step (curb) (QC): 6 4 Steps (QC): 6 12 Steps (QC): 6 Balance Picking up an Object (QC): 6 ADL-Treatment Eating (QC): 6 Oral Hygiene (QC): 6 Shower/Bathe Self (QC): 6 Upper Body Dressing (QC): 6 Lower Body Dressing (QC): 6 On/Off Footwear (QC): 6 Toileting Hygiene (QC): 6 Toilet Transfer (QC): 6 Assessment/Plan Assessment and Plan Assess & Plan/Chief Complaint Assessment: Major trauma following 8 foot fall down basement stairs Syncope resulting in fall Right scapula fracture Right acromion fracture Insomnia Elevated liver enzymes Plan: Pain control Aggressive rehab Monitor BP Cardiology consult 12/28/2022: Cardiology appreciated Pain control 12/29/2022: Cardiology appreciated 12/30/2022: Continue pain meds 12/31/2022: Improved overall 01/01/2023: Much improved status 01/02/2023: Discharge planning soon 01/03/2023: DC tomorrow (1) Trauma KIMBERLY REYES DO Jan 03, 2023 05:36
[2023-01-03 07:48] VITALS: BP 126/57
--- NOTE | 2023-01-03 07:54 | Occupational Ther Daily Note ---
OT Current Status-Daily Note Subjective Pt alert, eating breakfast in bed. Pt agrees to therapy. No c/o pain at this time. Mental Status/Objective Patient Orientation: Person, Place, Time, Situation Attachments: Other-See Comments (Shldr brace/sling) ADL-Treatment Pt agrees to shower. Using SPC, pt able to ambulate around room and gather items for shower and dressing independently. Independent with toileting and toilet transfer. Independent with eating. Independent completing shower using shower bench, grabbar and hand held shower. Pt independent with UBD, LBD and footwear. Standing at sink, pt complete oral care independently. Therapy Code Descriptions/Definitions Functional [place] Measure: 0=Not Assessed/NA 4=Minimal Assistance 1=Total Assistance 5=Supervision or Setup 2=Maximal Assistance 6=Modified [place] 3=Moderate Assistance 7=Complete IndependenceSCALE: Activities may be completed with or without assistive devices. 9-Nfcvmpaicf-fnugbsx completes the activity by him/herself with no assistance from a helper. 5-Set-up or Clean-up Assistance-helper sets up or cleans up; patient completes activity. [place] assists only prior to or following the activity. 4-Supervision or Touching Assistance-helper provides verbal cues and/or touching/steadying and/or contact guard assistance as patient completes activity. Assistance may be provided throughout the activity or intermittently. 3-Partial/Moderate Assistance-helper does LESS THAN HALF the effort. [place] lifts, holds or supports trunk or limbs, but provides less than half the effort. 2-Substantial/Maximal Assistance-helper does MORE THAN HALF the effort. [place] lifts or holds trunk or limbs and provides more than half the effort. 0-Vqfkxoqmv-yvnqcd does ALL the effort. Patient does none of the effort to complete the activity. Or, the assistance of 2 or more helpers is required for the patient to complete the activity. If activity was not attempted, code reason: 7-Patient Refused. 9-Not Applicable-not attempted and the patient did not perform the activity before the current illness, exacerbation or injury. 10-Not Attempted due to Environmental Limitations-(lack of equipment, weather restraints, etc.). 88-Not Attempted due to Medical Conditions or Safety Concerns. Eating (QC): 6 Oral Hygiene (QC): 6 Shower/Bathe Self (QC): 6 Upper Body Dressing (QC): 6 Lower Body Dressing (QC): 6 On/Off Footwear: 6 Toileting Hygiene (QC): 6 Toilet Transfer (QC): 6 Other Treatment Pt completed B UE fine motor strengthening, coordination and dexterity for daily functional tasks. Resistive peg board with 2# wt on L wrist and sorting small objects with R hand stabilizing objects against gravity and L hand manipulating objects. Pt then requested to use bathroom. Pt in bathroom with call light in hand, nrsg aware of position. All needs met. BIMS CAM BIMS Expression of Ideas and Wants: Without Difficulty Understanding Verbal Content: Understands Brief Interview/Mental Status: Yes IRF JAVY BIMS: IRF JAVY BIMS Response (Comments) Value Repitition of Three Words Three 3 Recalls Socks Yes, No Cue Required 2 Recalls Blue Yes, No Cue Required 2 Recalls Bed Yes, No Cue Required 2 Year Correct 3 Month Accurate Within 5 Days 2 Day Correct 1 Total 15 Patient Normally Able to Recal: Current Session, Location of own room, Staff Names and faces, [facility] Should Staff Asses. Mental St.: No CAM Mental Status Change/Baseline: 0 Inattention: 0 Disorganized thinkin Altered level of consciousness: 0 OT [employer] Worker Goals Detention Goals Time Frame: Jan 12, 2023 Acute change in mental status: 0 Inattention: 0 Disorganized thinkin Altered level of consciousness: 0 Eating (QC): 6 (met) Oral Hygiene (QC): 6 (met) Toileting Hygiene (QC): 6 (met) Shower/Bathe Self (QC): 6 (met) Upper Body Dressing (QC): 6 (met) Lower Body Dressing (QC): 6 (met) On/Off Footwear (QC): 6 (met) Additional Goals: 1-Demonstrate ADL Tasks, 2-Verbalize Understanding, 3-Im proveStrength/Oral 1=Demonstrate adherence to instructed precautions during ADL tasks. 2=Patient will verbalize/demonstrate understanding of assistive devices/modifications for ADL. 3=Patient will improve strength/tolerance for activity to enable patient to perform ADL's. OT Education/Plan Problem List/Assessment Assessment: Restricted Funct UE ROM (R UE) Discharge Recommendations Plan/Recommendations: Continue POC Treatment Plan/Plan of Care Patient would benefit from OT for education, treatment and training to promote independence in ADL's, mobility, safety and/or upper extremity function for ADL's. Plan of Care: ADL Retraining, Functional Mobility, Group Exercise/Act as Ind, UE Funct Exercise/Act Treatment Duration: Jan 12, 2023 Frequency: At least 5 of 7 days/Wk (IRF) Estimated Hrs Per Day: 1.5 hours per day Agreement: Yes Rehab Potential: Good Time Start Time: 07:30 Stop Time: 09:00 DATE: Jan 03, 2023 Total Time Billed (hr/min): 90 Billed Treatment Time 1 visit-ADL 4 (60 min) EX 2 (30 min) BOUCHRA HOWARD Jan 03, 2023 07:54
[2023-01-03] MEDS: CELECOXIB 100 MG (CeleBREX) CAP PO SCH ×2 (08:15→21:12)
[2023-01-03] MEDS: LIDOCAINE 4% (SALONPAS) PATCH TP SCH (08:15)
[2023-01-03] MEDS: GABAPENTIN 100 MG (NEURONTIN) CAP PO SCH (08:15)
[2023-01-03] MEDS: METHOCARBAMOL 750 MG (ROBAXIN) TAB PO SCH ×3 (08:15→21:12)
[2023-01-03] MEDS: DOCUSATE SODIUM 100 MG (COLACE) CAP PO SCH ×2 (08:15→21:12)
[2023-01-03] MEDS: SENNA W/DOCUSATE (SENOKOT S) TABLET PO SCH ×2 (08:19→21:23)
[2023-01-03] MEDS: SENNOSIDES 8.6 MG (SENOKOT) TAB PO SCH ×2 (08:19→21:23)
[2023-01-03] MEDS: ENOXAPARIN 40 MG/0.4 ML (LOVENOX) SYR SC SCH (08:19)
[2023-01-03] MEDS: polyethylene glycoL POWDER 17 GM (MIRALAX) PACK PO SCH ×3 (08:20→19:57)
[2023-01-03 19:14] VITALS: BP 130/57
[2023-01-03] MEDS: MELATONIN 3 MG TABLET PO SCH (21:12)
[2023-01-04] MEDS ORDERED: LIDO700A45 TP (05:22)
[2023-01-04] MEDS ORDERED: OXC5T PO (05:22)
[2023-01-04] MEDS ORDERED: METH-732 PO (05:22)
--- NOTE | 2023-01-04 05:24 | D/C HH Face to Face Order ---
D/C Face to Face Orders Reconcile Patient Problems Problems Reviewed?: Yes Instructions for Patient [place] Patient Instructions/FollowUp: PCP 1 week Physician to follow Patient: Martir Discharge Diet for Home: No Restrictions Patient Problems: Orthopedic fractures sustained in a fall down basement stairs Patient Data-Allergies,Ht & Wt Patient Allergies: Coded Allergies: morphine (Verified Allergy, Unknown, 12/27/22) Height (Feet): 5 Height (Inches): 9 Weight (Pounds): 221 Home Health Need/Face to Face Date of Face to Face: Jan 04, 2023 Clinical Findings: Pain with ambulation I have seen Pt wgpw-[id number]: Yes Discharged To: Home Diagnosis/Conditions: Debility Patient is Homebound due to: [place] fall risk due to instabilty, Muscle weakness, Pain w/ambulation Homebound Status Due to the above stated illness, injury or surgical procedure (medical condition or diagnosis) and associated clinical findings, the patient is homebound because of his/her inability to leave home except with aid of a supportive device and/or person AND leaving the home requires a considerable and taxing effort or is medically contraindicated. Pt req the following assistanc: [facility] Nursing Orders Home Health Services Order: Nursing Services, [place] [employer]-Evaluate & Treat, Physical Therapy-Evaluate & Treat Certify Stmt I certify that this patient is under my care and that I, a nurse practitioner or a physician; a procurement assistant working with me, had a face to face encounter that - meets the physician face to face encounter requirements with this patient as dated. KIMBERLY REYES DO Jan 04, 2023 05:24
--- NOTE | 2023-01-04 05:25 | Discharge Summary ---
Diagnosis/Chief Complaint Date of Admission December 27, 2022 at 13:07 Date of Discharge Discharge Date: Jan 04, 2023 Discharge Diagnosis Assessment: Major trauma following 8 foot fall down basement stairs Syncope resulting in fall Right scapula fracture Right acromion fracture Insomnia Elevated liver enzymes Plan: Pain control Aggressive rehab Monitor BP Cardiology consult 12/28/2022: Cardiology appreciated Pain control 12/29/2022: Cardiology appreciated 12/30/2022: Continue pain meds 12/31/2022: Improved overall 01/01/2023: Much improved status 01/02/2023: Discharge planning soon 01/03/2023: DC tomorrow (1) Trauma Discharge Summary Discharge Physical Examination Allergies: Coded Allergies: morphine (Verified Allergy, Unknown, 12/27/22) Vitals & I&Os Vital Signs Date Time Temp Pulse Resp B/P (MAP) Pulse Ox O2 Delivery O2 Flow Rate FiO2 01/04/23 11:28 35.9 74 18 113/58 94 Room Air General Appearance: Alert, Oriented X3, Cooperative Respiratory: Clear to Auscultation Cardiovascular: Regular Rate Psych/Mental Status: Mental Status NL Hospital Course Was the Problem List Reviewed?: Yes Hospital course: Patient had an uneventful hospital course after she was admitted from OSH following a fall down basement stairs and suffering multiple orthopedic fractures. Patient did not require surgery. Pain medication was maintained with good results. Cardiology evaluated her due to syncopal episode of unknown source. Bowel regimen was maintained. Overall she did well and returned back to her baseline function. Labs (last 24 hrs) Laboratory Tests 12/28/22 06:53: White Blood Count 4.0L, Red Blood Count 3.54L, Hemoglobin 10.5L, Hematocrit 32L, Mean Corpuscular Volume 91, Mean Corpuscular Hemoglobin 30, Mean Corpuscular Hemoglobin Concent 33, Red Cell Distribution Width 13.1, Platelet Count 233, Mean Platelet Volume 9.7, Immature Granulocyte % (Auto) 0, Neutrophils (%) (Auto) 57, Lymphocytes (%) (Auto) 29, Monocytes (%) (Auto) 9, Eosinophils (%) (Auto) 4, Basophils (%) (Auto) 1, Neutrophils # (Auto) 2.3, Lymphocytes # (Auto) 1.1, Monocytes # (Auto) 0.4, Eosinophils # (Auto) 0.2, Basophils # (Auto) 0.0, Immature Granulocyte # (Auto) 0.0, Sodium Level 139, Potassium Level 4.0, Chloride Level 104, Carbon Dioxide Level 25, Anion Gap 10, Blood Urea Nitrogen 20H, Creatinine 0.77, Estimat Glomerular Filtration Rate 85, BUN/Creatinine Ratio 26, Glucose Level 97, Calcium Level 9.3, Corrected Calcium 9.5, Total Bilirubin 0.4, Aspartate Amino Transf (AST/SGOT) 105H, Alanine Aminotransferase (ALT/SGPT) 133H, Alkaline Phosphatase 82, Total Protein 6.9, Albumin 3.7 01/01/23 06:50: White Blood Count 4.3, Red Blood Count 3.96, Hemoglobin 11.8, Hematocrit 36, Mean Corpuscular Volume 91, Mean Corpuscular Hemoglobin 30, Mean Corpuscular Hemoglobin Concent 33, Red Cell Distribution Width 12.8, Platelet Count 248, Mean Platelet Volume 10.3, Immature Granulocyte % (Auto) 0, Neutrophils (%) (Auto) 50, Lymphocytes (%) (Auto) 36, Monocytes (%) (Auto) 9, Eosinophils (%) (Auto) 4, Basophils (%) (Auto) 1, Neutrophils # (Auto) 2.1, Lymphocytes # (Auto) 1.5, Monocytes # (Auto) 0.4, Eosinophils # (Auto) 0.2, Basophils # (Auto) 0.0, Immature Granulocyte # (Auto) 0.0 01/01/23 07:41: Sodium Level 137, Potassium Level 4.2, Chloride Level 104, Carbon Dioxide Level 22, Anion Gap 11, Blood Urea Nitrogen 15, Creatinine 0.84, Estimat Glomerular Filtration Rate 77, BUN/Creatinine Ratio 18, Glucose Level 122H, Calcium Level 9.0, Corrected Calcium 9.0, Total Bilirubin 0.4, Aspartate Amino Transf (AST/SGOT) 27, Alanine Aminotransferase (ALT/SGPT) 68H, Alkaline Phosphatase 120, Total Protein 7.5, Albumin 4.0 Pending Labs Laboratory Tests 12/28/22 06:53: White Blood Count 4.0, Red Blood Count 3.54, Hemoglobin 10.5, Hematocrit 32, Mean Corpuscular Volume 91, Mean Corpuscular Hemoglobin 30, Mean Corpuscular Hemoglobin Concent 33, Red Cell Distribution Width 13.1, Platelet Count 233, Mean Platelet Volume 9.7, Immature Granulocyte % (Auto) 0, Neutrophils (%) (Auto) 57, Lymphocytes (%) (Auto) 29, Monocytes (%) (Auto) 9, Eosinophils (%) (Auto) 4, Basophils (%) (Auto) 1, Neutrophils # (Auto) 2.3, Lymphocytes # (Auto) 1.1, Monocytes # (Auto) 0.4, Eosinophils # (Auto) 0.2, Basophils # (Auto) 0.0, Immature Granulocyte # (Auto) 0.0, Sodium Level 139, Potassium Level 4.0, Chloride Level 104, Carbon Dioxide Level 25, Anion Gap 10, Blood Urea Nitrogen 20, Creatinine 0.77, Estimat Glomerular Filtration Rate 85, BUN/Creatinine Ratio 26, Glucose Level 97, Calcium Level 9.3, Corrected Calcium 9.5, Total Bilirubin 0.4, Aspartate Amino Transf (AST/SGOT) 105, Alanine Aminotransferase (ALT/SGPT) 133, Alkaline Phosphatase 82, Total Protein 6.9, Albumin 3.7 01/01/23 06:50: White Blood Count 4.3, Red Blood Count 3.96, Hemoglobin 11.8, Hematocrit 36, Mean Corpuscular Volume 91, Mean Corpuscular Hemoglobin 30, Mean Corpuscular Hemoglobin Concent 33, Red Cell Distribution Width 12.8, Platelet Count 248, Mean Platelet Volume 10.3, Immature Granulocyte % (Auto) 0, Neutrophils (%) (Auto) 50, Lymphocytes (%) (Auto) 36, Monocytes (%) (Auto) 9, Eosinophils (%) (Auto) 4, Basophils (%) (Auto) 1, Neutrophils # (Auto) 2.1, Lymphocytes # (Auto) 1.5, Monocytes # (Auto) 0.4, Eosinophils # (Auto) 0.2, Basophils # (Auto) 0.0, Immature Granulocyte # (Auto) 0.0 01/01/23 07:41: Sodium Level 137, Potassium Level 4.2, Chloride Level 104, Carbon Dioxide Level 22, Anion Gap 11, Blood Urea Nitrogen 15, Creatinine 0.84, Estimat Glomerular Filtration Rate 77, BUN/Creatinine Ratio 18, Glucose Level 122, Calcium Level 9 .0, Corrected Calcium 9.0, Total Bilirubin 0.4, Aspartate Amino Transf (AST/SGOT) 27, Alanine Aminotransferase (ALT/SGPT) 68, Alkaline Phosphatase 120, Total Protein 7.5, Albumin 4.0 Discharge Home Medications: Active Scripts Active Lidocaine 5% Patch (Lidocaine) 5 % Adh..patch 1 Each TP Q12H PRN MDD 2 2 patches max for 12 hours, then 12 hours patch-free period. Oxyir Tablet (Oxycodone HCl) 5 Mg Tab 5-10 Mg PO Q6H PRN Methocarbamol 750 Mg Tablet 750 Mg PO TID Reported Aleve (Naproxen Sodium) 220 Mg Tablet 220-440 Mg PO BID PRN [[place] Xl] 2 Ea PO DAILY [Rite Start 4 Life] 1 Ea PO DAILY Melatonin 3 Mg Tablet 3 Mg PO HS Instructions to patient/family Please see electronic discharge instructions given to patient. Diagnosis/Problems Diagnosis/Problems (1) Trauma KIMBERLY REYES DO Jan 04, 2023 05:25
[2023-01-04 07:36] VITALS: BP 113/58
[2023-01-04] MEDS: GABAPENTIN 100 MG (NEURONTIN) CAP PO SCH (08:20)
[2023-01-04] MEDS: LIDOCAINE 4% (SALONPAS) PATCH TP SCH (08:20)
[2023-01-04] MEDS: CELECOXIB 100 MG (CeleBREX) CAP PO SCH (08:21)
[2023-01-04] MEDS: METHOCARBAMOL 750 MG (ROBAXIN) TAB PO SCH (08:21)
[2023-01-04] MEDS: ENOXAPARIN 40 MG/0.4 ML (LOVENOX) SYR SC SCH (08:23)
[2023-01-04] MEDS: SENNA W/DOCUSATE (SENOKOT S) TABLET PO SCH (08:23)
[2023-01-04] MEDS: DOCUSATE SODIUM 100 MG (COLACE) CAP PO SCH (08:24)
[2023-01-04] MEDS: SENNOSIDES 8.6 MG (SENOKOT) TAB PO SCH (08:24)
[2023-01-04] MEDS: polyethylene glycoL POWDER 17 GM (MIRALAX) PACK PO SCH ×2 (08:24)
[2023-01-04 11:28] VITALS: BP 113/58
--- NOTE | 2023-01-04 14:26 | Therapy Team Discharge Summary ---
Therapy Discharge Summary Discharge Recommendations Date of Discharge Jan 04, 2023 at 10:15 Therapy D/C Recommendations: Home w/ Family Support, Physical Therapy Home Care Physical Therapy Pt admitted to ARU on 12/27/2022 s/p fall down 8ft on basement stairs on 12/19/22. Admitted to [facility] on 12/19/22 and found to have R scapular fx, R acromion fx, R 3-11 rib fxs, and scalp laceration. Pt is NWB R UE with sling in place. At [facility], the pt was Ind with no AD and driving. Upon PT eval, pt was SBA/CGA for all aspects of functional mobility with no AD/SPC. PT focused on B LE strengthening, balance, endurance, walking, and Ind. Pt progressed well with PT and met all set goals. Pt is Mod I with all aspects of functional mobility with the SPC. Pt d/c home with and HH on 01/04/2023; d/c from PT. Roll Left to Right (QC): 6 Sit to Lying (QC): 6 Lying to Sitting/Side of Bed(Q: 6 Sit to Stand (QC): 6 Chair/Sgr-gd-Uesxt Xfer(QC): 6 Toilet Transfer (QC): 6 Car Transfer (QC): 6 Does the Patient Walk: Yes Mode of Locomotion: Walk Anticipated Mode of Locomotion: Walk Walk 10 feet (QC): 6 Walk 50 ft with 2 Turns(QC): 6 Walk 150 ft (QC): 6 Walking 10ft on uneven surface: 6 Gait Assistive Device: Cane Single Point Does the Pt Use a Wheelchair: No Wheel 50 ft with 2 turns (QC): 9 Wheel 150 ft (QC): 9 Type of Wheelchair: N/A #of Steps: 12 1 Step (curb) (QC): 6 4 Steps (QC): 6 12 Steps (QC): 6 Balance Sitting Static: Normal Balance Sitting Dynamic: Normal Balance-Standing Static: Good Picking up an Object (QC): 6 Occupational Therapy Restricted Funct UE ROM (R UE) Eating (QC): 6 Oral Hygiene (QC): 6 Shower/Bathe Self (QC): 6 Upper Body Dressing (QC): 6 Lower Body Dressing (QC): 6 On/Off Footwear (QC): 6 Toileting Hygiene (QC): 6 PT Dyer Helper Goals Dyer Helper Goals PT Dyer Helper Goals Time Frame: Jan 05, 2023 Roll Left to Right (QC): 6 (Pt will be Ind with all aspects of functional mobility to be at PLOF. ) Sit to Lying (QC): 6 (Pt will be Ind with all aspects of functional mobility to be at PLOF. ) Lying-Sitting on Side/Bed(QC): 6 (Pt will be Ind with all aspects of functional mobility to be at PLOF. ) Sit to Stand (QC): 6 (Pt will be Ind with all aspects of functional mobility to be at PLOF. ) Chair/Hre-nt-Nlzhj Xfer(QC): 6 (Pt will be Ind with all aspects of functional mobility to be at PLOF. ) Toilet/Commode Transfer (QC): 6 (Pt will be Ind with all aspects of functional mobility to be at PLOF. ) Car Transfer (QC): 6 (Pt will be Ind with all aspects of functional mobility to be at PLOF. ) Does the Patient Walk: Yes Walk 10 feet (QC): 6 (Pt will be Ind with all aspects of functional mobility to be at PLOF. ) Walk 10ft-Uneven Surface(QC): 6 (Pt will be Ind with all aspects of functional mobility to be at PLOF. ) Walk 50ft with 2 Turns (QC): 6 (Pt will be Ind with all aspects of functional mobility to be at PLOF. ) Walk 150 ft (QC): 6 (Pt will be Ind with all aspects of functional mobility to be at PLOF. ) Does the Pt use WC or Scooter?: No Wheel 50 feet with 2 turns (QC: 9 Type: N/A Wheel 150 feet: 9 Type: N/A 1 Step (curb) (QC): 6 (Pt will be Ind with all aspects of functional mobility to be at PLOF. ) 4 Steps (QC): 6 (Pt will be Ind with all aspects of functional mobility to be at PLOF. ) 12 Steps (QC): 6 (Pt will be Ind with all aspects of functional mobility to be at PLOF. ) Picking up an Object (QC): 6 (Pt will be Ind with all aspects of functional mobility to be at PLOF. ) OT Dyer Helper Goals M[facility] Goals Time Frame: Jan 12, 2023 Acute change in mental status: 0 Inattention: 0 Disorganized thinkin Altered level of consciousness: 0 Eating (QC): 6 (met) Oral Hygiene (QC): 6 (met) Toileting Hygiene (QC): 6 (met) Shower/Bathe Self (QC): 6 (met) Upper Body Dressing (QC): 6 (met) Lower Body Dressing (QC): 6 (met) On/Off Footwear (QC): 6 (met) Additional Goals: 1-Demonstrate ADL Tasks, 2-Verbalize Understanding, 3- ImproveStrength/Oral 1=Demonstrate adherence to instructed precautions during ADL tasks. 2=Patient will verbalize/demonstrate understanding of assistive devices/modifications for ADL. 3=Patient will improve strength/tolerance for activity to enable patient to perform ADL's. VIPIN COATS PT Jan 04, 2023 14:26
--- NOTE | 2023-01-05 10:51 | Therapy Team Discharge Summary ---
Therapy Discharge Summary Discharge Recommendations Date of Discharge Jan 04, 2023 at 10:15 Therapy D/C Recommendations: Home w/ Family Support, Physical Therapy Home Care Physical Therapy Roll Left to Right (QC): 6 Sit to Lying (QC): 6 Lying to Sitting/Side of Bed(Q: 6 Sit to Stand (QC): 6 Chair/Jnx-dw-Kxext Xfer(QC): 6 Toilet Transfer (QC): 6 Car Transfer (QC): 6 Does the Patient Walk: Yes Mode of Locomotion: Walk Anticipated Mode of Locomotion: Walk Walk 10 feet (QC): 6 Walk 50 ft with 2 Turns(QC): 6 Walk 150 ft (QC): 6 Walking 10ft on uneven surface: 6 Gait Assistive Device: Cane Single Point Does the Pt Use a Wheelchair: No Wheel 50 ft with 2 turns (QC): 9 Wheel 150 ft (QC): 9 Type of Wheelchair: N/A #of Steps: 12 1 Step (curb) (QC): 6 4 Steps (QC): 6 12 Steps (QC): 6 Balance Sitting Static: Normal Balance Sitting Dynamic: Normal Balance-Standing Static: Good Picking up an Object (QC): 6 Occupational Therapy Pt admitted to ARU s/p MMT; R scapula/acromion fx. At [facility], pt was independent with ADLS and functional mobility. Upon initial evaluation, pt was independent with oral care, required set up with eating, min-mod A with showering and footwear, max A UE dressing and CGA LE dressing and toileting. OT tx focused on increasing BUE Strength and activity tolerance, and increasing safety and independence with ADLS and functional mobility. Pt made good progress, attaining all LTGs at IND level. Pt discharged home, d/c from OT. Restricted Funct UE ROM (R UE) Eating (QC): 6 Oral Hygiene (QC): 6 Shower/Bathe Self (QC): 6 Upper Body Dressing (QC): 6 Lower Body Dressing (QC): 6 On/Off Footwear (QC): 6 Toileting Hygiene (QC): 6 PT [facility]ander Goals Log Brander Goals PT Log Brander Goals Time Frame: Jan 05, 2023 Roll Left to Right (QC): 6 (Pt will be Ind with all aspects of functional mobility to be at [facility]. ) Sit to Lying (QC): 6 (Pt will be Ind with all aspects of functional mobility to be at PLOF. ) Lying-Sitting on Side/Bed(QC): 6 (Pt will be Ind with all aspects of functional mobility to be at PLOF. ) Sit to Stand (QC): 6 (Pt will be Ind with all aspects of functional mobility to be at PLOF. ) Chair/Ldg-xa-Fouwa Xfer(QC): 6 (Pt will be Ind with all aspects of functional mobility to be at PLOF. ) Toilet/Commode Transfer (QC): 6 (Pt will be Ind with all aspects of functional mobility to be at PLOF. ) Car Transfer (QC): 6 (Pt will be Ind with all aspects of functional mobility to be at PLOF. ) Does the Patient Walk: Yes Walk 10 feet (QC): 6 (Pt will be Ind with all aspects of functional mobility to be at PLOF. ) Walk 10ft-Uneven Surface(QC): 6 (Pt will be Ind with all aspects of functional mobility to be at PLOF. ) Walk 50ft with 2 Turns (QC): 6 (Pt will be Ind with all aspects of functional mobility to be at PLOF. ) Walk 150 ft (QC): 6 (Pt will be Ind with all aspects of functional mobility to be at PLOF. ) Does the Pt use WC or Scooter?: No Wheel 50 feet with 2 turns (QC: 9 Type: N/A Wheel 150 feet: 9 Type: N/A 1 Step (curb) (QC): 6 (Pt will be Ind with all aspects of functional mobility to be at PLOF. ) 4 Steps (QC): 6 (Pt will be Ind with all aspects of functional mobility to be at PLOF. ) 12 Steps (QC): 6 (Pt will be Ind with all aspects of functional mobility to be at PLOF. ) Picking up an Object (QC): 6 (Pt will be Ind with all aspects of functional mobility to be at PLOF. ) OT [facility] Goals [facility] Goals Time Frame: Jan 12, 2023 Acute change in mental status: 0 Inattention: 0 Disorganized thinkin Altered level of consciousness: 0 Eating (QC): 6 (met) Oral Hygiene (QC): 6 (met) Toileting Hygiene (QC): 6 (met) Shower/Bathe Self (QC): 6 (met) Upper Body Dressing (QC): 6 (met) Lower Body Dressing (QC): 6 (met) On/Off Footwear (QC): 6 (met) Additional Goals: 1-Demonstrate ADL Tasks, 2-Verbalize Understanding, 3- ImproveStrength/Oral 1=Demonstrate adherence to instructed precautions during ADL tasks. 2=Patient will verbalize/demonstrate understanding of assistive devices/modifications for ADL. 3=Patient will improve strength/tolerance for activity to enable patient to perform ADL's. LATONIA HAMMOND OT Jan 05, 2023 10:51
== END 2023-01-04 10:15 | disposition home health service (06) | DRG 561 ==
PROVIDERS: ADMIT Internal Medicine; ATTEND Internal Medicine
DX: S42.101D Fracture of unspecified part of scapula, right shoulder, subsequent encounter for fracture with routine healing (principal); S42.121D Displaced fracture of acromial process, right shoulder, subsequent encounter for fracture with routine healing; S22.41XD Multiple fractures of ribs, right side, subsequent encounter for fracture with routine healing; S27.0XXD Traumatic pneumothorax, subsequent encounter; G47.00 Insomnia, unspecified; I35.0 Nonrheumatic aortic (valve) stenosis; I44.7 Left bundle-branch block, unspecified; R94.5 Abnormal results of liver function studies; Z79.899 Other long term (current) drug therapy; Z88.5 Allergy status to narcotic agent; W10.9XXD Fall (on) (from) unspecified stairs and steps, subsequent encounter
CPT/HCPCS: 36415; 80053; 85025; 93005